=== PATIENT | female | born 1965 | race Caucasian/White ===

== ENCOUNTER 2022-07-25 16:25 | Outpatient (CLI) | payer BC, SELFPAY ==
[2022-07-25 14:41] LABS: Albumin* 4.3 g/dL (3.3-5.0); Chloride* 104 mmol/L (96-114); Sodium* 140 mmol/L (135-149)
[2022-07-25 14:42] LABS: Potassium* 4.7 mmol/L (3.6-5.1)
[2022-07-25 14:43] LABS: Cholesterol* 275 mg/dL (90-199)
[2022-07-25 14:44] LABS: Alkaline Phosphatase* 93 U/L (40-150); Aspartate Amino Transferase* 26 U/L (12-35); Blood Urea Nitrogen* 26 mg/dL (7-30); Carbon Dioxide* 27 mmol/L (20-32); Estimated Glomerular Filt Rate 67 ml/min; Glucose* 94 mg/dL (60-115); Total Protein* 7.1 g/dL (6.0-8.3)
[2022-07-25 15:43] LABS: Alanine Aminotransferase* 21 U/L (4-35); Calcium* 9.2 mg/dL (8.4-10.6); HDL Cholesterol* 43 mg/dL (>=50); LDL Cholesterol Calculated 170 mg/dL (<100); Triglycerides* 311 mg/dL (40-149)
== END 2022-07-25 16:26 | disposition home or self-care (01) ==
PROVIDERS: PCP Family Medicine; Visit Provider Family Medicine
DX: E78.5 Hyperlipidemia, unspecified (principal); G89.29 Other chronic pain; I10 Essential (primary) hypertension; M54.9 Dorsalgia, unspecified; Z79.899 Other long term (current) drug therapy
CPT/HCPCS: 80053; 80061

== ENCOUNTER 2022-09-19 09:36 | Outpatient (CLI) | payer BC, SELFPAY ==
[2022-09-19 14:01] LABS: Chloride* 107 mmol/L (96-114); Iron* 49 ug/dL (37-170); Potassium* 4.1 mmol/L (3.6-5.1); Sodium* 142 mmol/L (135-149)
[2022-09-19 14:04] LABS: Blood Urea Nitrogen* 22 mg/dL (7-30); Calcium* 9.8 mg/dL (8.4-10.6); Carbon Dioxide* 25 mmol/L (20-32); Creatinine* 0.9 mg/dL (0.5-1.5); Estimated Glomerular Filt Rate 76 ml/min; Glucose* 107 mg/dL (60-115)
[2022-09-19 14:32] LABS: Ferritin* 49.7 ng/mL (11.1-264.0)
[2022-09-19 14:47] LABS: Vitamin B12* 280 pg/mL (243-894)
[2022-09-21 20:58] LABS: Folate, RBC 710 ng/mL (>=366)
== END 2022-09-19 09:37 | disposition home or self-care (01) ==
PROVIDERS: PCP Family Medicine; Visit Provider Family Medicine
DX: Z01.818 Encounter for other preprocedural examination (principal); D64.9 Anemia, unspecified
CPT/HCPCS: 80048; 82607; 82728; 82747; 83540

== ENCOUNTER 2022-09-22 11:20 | Emergency (ER) | payer BC, SELFPAY ==
[2022-09-22 11:23] VITALS: BP 205/106; PULSE 66; TEMP 36.1; O2SAT 100; BMI 34.5
--- NOTE | 2022-09-22 11:44 | CRLHL7_ITS ---
For Patients: As a result of the Century Cures Act, medical imaging exams and procedure reports are released immediately into your electronic medical record. You may view this report before your referring provider. If you have questions, please contact your health care provider. Indication: Right-sided flank pain, history of kidney stones Technique: Volumetric multidetector CT images of the abdomen and pelvis were without the administration of intravenous contrast. Comparison: None available. Findings: The lung bases are clear. The liver is mildly enlarged with minimal hepatic steatosis. There is focal calcification along the anterior right liver lobe commensurate with likely vascular calcification and/or sequela of prior injury. Gallbladder surgically absent. There is minimal risk for dilatation of the common bile duct. The spleen is normal in attenuation and size. The stomach and duodenum are grossly unremarkable. The pancreas is normal in attenuation without significant atrophy. The adrenal glands are unremarkable. There are nonobstructive calculi seen within the left greater than right collecting system. There is no evidence of distal obstructive calculus or hydronephrosis. There is moderate stool seen throughout the colon with demonstration of a focal epigastric hernia containing a loop of transverse colon. There is no evidence of obstruction. The small bowel is decompressed. The appendix is unremarkable. There is no significant mesenteric, retroperitoneal, or pelvic sidewall lymph nodes. The aorta is nonaneurysmal. There is no significant atherosclerotic disease appreciated. There is prior hysterectomy. There is again seen a somewhat multiloculated cystic lesion of the right ovary measuring up to 4.4 x 3.3 centimeters in greatest dimension slightly increased in conspicuity from comparison exam. No other pelvic abnormality is appreciated. There is no free fluid or free air. There is a fat containing epigastric hernia. The lumbar vertebral body heights are grossly maintained with extensive anterior and posterior fusion changes of the L3 through S1 levels. There is minimal retrolisthesis of L2 on L3. Impression: No evidence of radiopaque calculus or obstructive uropathy. Normal appendix. Prior cholecystectomy. Redemonstration of a multiloculated cystic right adnexal mass lesion measuring 4.4 x 3.3 centimeters, slightly increased in conspicuity from comparison. Otherwise, no acute intra-abdominal abnormality is appreciated. Please note that all CT scans at this facility use dose modulation, iterative reconstruction, and/or weight-based dosing when appropriate to reduce radiation dose to as low as reasonably achievable. Dictated by Matthew Ponce MD @ 09/22/2022 1:30:14 PM (Electronically Signed)
--- NOTE | 2022-09-22 11:46 | ED_ITS ---
HPI - General Adult General Chief complaint: Back Injury/Pain Stated complaint: Right side back pain Time Seen by Provider: 09/22/22 11:40 History of Present Illness HPI narrative: This 57-year-old female comes in with right flank pain. This began last night and became much worse today. She does not report any injury event or strenuous activity. She states that she does have history of kidney stones in the past and wonders if this is another such episode. She does report nausea with vomiting. Related Data Home Medications Medication Instructions Recorded Confirmed metoprolol succinate 100 mg mg PO 07/21/22 09/19/22 tablet,extended release 24 hr omeprazole 20 mg capsule,delayed 20 mg PO QDAY 07/21/22 09/19/22 release Previous Rx's Medication Instructions Recorded sennosides 8.6 mg-docusate sodium 1 tab-cap PO QHS #90 tabs 07/21/22 50 mg tablet (Senokot-S) zolpidem 5 mg tablet 5 mg PO QHS PRN insomnia #30 tabs 07/21/22 peg 3350-electrolytes 236 4,000 ml PO DIRECTED PRN prep 09/04/22 gram-22.74 gram-6.74 gram-5.86 #2 btls gram solution (Golytely) amlodipine 5 mg tablet 5 mg PO QDAY #90 tabs 09/19/22 losartan 100 mg tablet 100 mg PO QDAY #90 tabs 09/19/22 oxycodone 10 mg tablet 10 mg PO QID #120 tabs 09/19/22 oxycodone 15 mg tablet,crush 15 mg PO BID #60 tabs 09/19/22 resistant,extended release 12 hr (OxyContin) rosuvastatin 10 mg tablet 10 mg PO DAILY #90 tabs 09/19/22 cephalexin 500 mg capsule 500 mg PO TID 7 days #21 caps 09/22/22 ketorolac 10 mg tablet 10 mg PO TID 5 days #15 tabs 09/22/22 methylprednisolone 4 mg tablets in See Rx Instructions PO .COMPLEX 09/22/22 a dose pack (Medrol (Vladislav)) #21 ea ondansetron HCl 4 mg tablet 4 mg PO Q6H #20 tabs 09/22/22 Allergies Allergy/AdvReac Type Severity Reaction Status Date / Time latex Allergy Mild Rash Verified 09/19/22 09:19 adhesive tape Allergy Verified 09/19/22 09:19 duloxetine [From Cymbalta] Allergy Verified 09/19/22 09:19 gabapentin Allergy Verified 09/19/22 09:19 tramadol Allergy Verified 09/19/22 09:19 Review of Systems Status of ROS: Reports: 10 or more systems reviewed and unremarkable except as noted in History and below Narrative: Constitutional: No fevers, no weight gain or loss. Eyes: No discharge. No vision changes. HENT: No congestion, no sore throat, no ear pain. Cardiovascular: No chest pain, no palpitations. Respiratory: No shortness of breath, no wheezes, no cough. Gastrointestinal: Right flank pain. Nausea with vomiting. Genitourinary: No dysuria, no hematuria. Musculoskeletal: Normal range of motion. Skin: No rashes, no pruritis. Neurological: No dizziness, weakness, sensory change, speech change. Endo/Heme/Allergies: No bruising or bleeding. No polydipsia. Pysch: no suicidality, no anxiety, no insomnia. All other systems reviewed and are negative. PFSH [facility] Medical History (Updated 09/22/22 @ 13:48 by Jony Brandt MD) Abnormal kidney function Adjustment disorder with mixed anxiety and depressed mood Age-related cataract of both eyes Atypical chest pain Back pain, chronic Chronic pain syndrome Coccyx pain Coronary artery disease Cyst of left lower eyelid GERD (gastroesophageal reflux disease) Healthcare maintenance HTN, goal below 140/90 Hyperlipidemia Insomnia Opioid dependence Pelvic mass Peripheral sensory neuropathy Polypharmacy Skin tag Spondylolisthesis of lumbar region Urinary incontinence Vitamin D deficiency Surgical History (Updated 07/24/22 @ 14:30 by Melonie Issa) History of hemilaminectomy History of lumbar spinal fusion Hx of breast biopsy Hx of cholecystectomy Hx of hernia repair Hx of hysterectomy with oophorectomy Family History (Updated 07/24/22 @ 14:32 by Melonie Issa) Father Coronary artery disease Mother Lung cancer Myocardial infarction Heart disease Maternal Grandmother Diabetes Social History Smoking Status: Never smoker How often do you have a drink containing alcohol: never How often do you have six or more drinks on one occasion: Never AUDIT-C Alcohol total score: 0 Non-prescribed substance use: denies use Exam Narrative: Exam Narrative: Constitutional: Well-developed, well-nourished, no acute distress. HEENT: Normocephalic, atraumatic. Neck: Normal range of motion. Nontender. Supple. Heart: Regular. No murmurs. Normal rate. Intact distal pulses. Lungs: Clear to auscultation. No chest discomfort. No wheezes, rhonchi, or rales. Abdomen: Normal bowel sounds. Nontender. No rebound tenderness. Right flank pain. Genitalia: Deferred. Back: No midline tenderness. Normal range of motion. Extremities: Normal range of motion. No injury. Skin: Intact. No rash. Warm. No erythema or pallor. Neurologic: No altered sensation. No weakness. Alert and oriented. Psychiatric: No suicidality. No anxiety or depression. No insomnia. Nursing notes and vitals signs are reviewed. Const: Vital Signs, click to edit/add: Vital Signs - 24 hr 09/22/22 11:23 09/22/22 12:45 09/22/22 12:57 Temperature 96.9 F L Pulse Rate 66 Pulse Rate [Pulse Oximeter] 66 Blood Pressure 146/91 H Blood Pressure [Ri ght Upper Arm] 205/106 H Pulse Oximetry 100 97 99 Oxygen Delivery Me thod Room Air 09/22/22 12:58 Temperature Pulse Rate 64 Pulse Rate [Pulse Oximeter] Blood Pressure Blood Pressure [Ri ght Upper Arm] Pulse Oximetry 99 Oxygen Delivery Me thod Course Vital Signs Vital signs: Initial Vital Signs Temperature 96.9 F L 09/22/22 11:23 Temperature Source Temporal Artery Scan 09/22/22 11:23 Pulse Rate 66 09/22/22 11:23 Blood Pressure 205/106 H 09/22/22 11:23 Blood Pressure Mean 139 09/22/22 11:23 Pulse Oximetry 100 09/22/22 11:23 Oxygen Delivery Method 09/22/22 11:23 Vital Signs Temperature 96.9 F L 09/22/22 11:23 Pulse Rate 66 09/22/22 11:23 Blood Pressure 205/106 H 09/22/22 11:23 Pulse Oximetry 100 09/22/22 11:23 Oxygen Delivery Method 09/22/22 11:23 Temperature 96.9 F L 09/22/22 11:23 Pulse Rate 64 09/22/22 12:58 Blood Pressure 146/91 H 09/22/22 12:57 Pulse Oximetry 99 09/22/22 12:58 Oxygen Delivery Method 09/22/22 11:23 Medical Decision Making MDM Narrative Medical decision making narrative: This patient comes in with right flank pain and is concerned about a kidney stone. Urinalysis shows no sign microscopic hematuria but there is white blood cell count of 10 to 25 per high-powered field. She is not reporting any sy mptoms of dysuria. CT imaging of the abdomen and pelvis shows no evidence of ureteral calculus or any other obstructive process. She does have extensive hardware in her back and it seems more likely that her right flank pain may be related to that prior condition. She does not have any pain radiating down either leg. Patient received IV doses of Toradol 30 mg, Dilaudid 0.5 mg, and Zofran 4 mg. This brought great relief to her symptoms. She is taking opiates for her chronic back pain. She is okay to be discharged home. She received prescriptions for Keflex, Toradol, Medrol Dosepak, and Zofran. I advised her to follow-up with her back specialist if symptoms are not improving. Lab Data Labs: Lab Results 09/22/22 Range/Units 12:00 Urine Color Yellow (Yellow) Urine Appearance Clear (Clear) Urine pH 6.0 (5.0-8.5) Ur Specific [place] >= 1.030 (1.000-1.030) Urine Protein Negative (Negative) Urine Glucose (UA) Negative (Negative) Urine Ketones Negative (Negative) Urine Blood Trace-intact A (Negative) Urine Nitrite Negative (Negative) Urine Bilirubin Negative (Negative) Urine Urobilinogen 0.2 (0.2-1.0) Ur Leukocyte Esterase Negative (Negative) Urine RBC 0-2 (0-2) Urine WBC 10-25 A (0-5) Ur Squamous Epith Cells Few (None-Few) Other Sediment FEW YEAST (None) Urine Bacteria Many A (None) Imaging Data CT scan - abdomen: Radiologist's impression: No evidence of radiopaque calculus or obstructive uropathy. Normal appendix. Prior cholecystectomy. Redemonstration of a multiloculated cystic right adnexal mass lesion measuring 4.4 x 3.3 centimeters, slightly increased in conspicuity from comparison. Discharge Plan Discharge Clinical Impression: Urinary tract infection, Flank pain Patient Disposition: Home w/ Parent or Adult Condition: Improved Additional Instructions: Take medications as prescribed. Follow up with MD or return if worsening. Prescriptions: New ondansetron HCl 4 mg tablet 4 mg PO Q6H Qty: 20 0RF ketorolac 10 mg tablet 10 mg PO TID 5 Days Qty: 15 0RF cephalexin 500 mg capsule 500 mg PO TID 7 Days Qty: 21 0RF methylprednisolone [Medrol (Vladislav)] 4 mg tablets,dose pack See Rx Instructions .ROUTE .COMPLEX Qty: 21 0RF Rx Instructions: orally per package directions No Action omeprazole 20 mg capsule,delayed release(DR/EC) 20 mg PO QDAY Label Comments: Take 1 capsule by mouth once daily if needed for GI Upset metoprolol succinate 100 mg tablet extended release 24 hr PO Label Comments: TAKE ONE TABLET BY MOUTH TWICE DAILY zolpidem 5 mg tablet 5 mg PO QHS PRN (Reason: insomnia) Qty: 30 5RF sennosides-docusate sodium [Senokot-S] 8.6-50 mg tablet 1 tab-cap PO QHS Qty: 90 1RF oxycodone 10 mg tablet 10 mg PO QID Qty: 120 0RF oxycodone [OxyContin] 15 mg tablet,oral only,ext.rel.12 hr 15 mg PO BID Qty: 60 0RF losartan 100 mg tablet 100 mg PO QDAY Qty: 90 1RF amlodipine 5 mg tablet 5 mg PO QDAY Qty: 90 3RF rosuvastatin 10 mg tablet 10 mg PO DAILY Qty: 90 0RF peg 3350-electrolytes [Golytely] 236-22.74-6.74 -5.86 gram recon soln 4,000 ml PO DIRECTED PRN (Reason: prep) Qty: 2 0RF Rx Instructions: 2 days prior to scopes, between 4 and 6 p.m., drink 8 oz glass every 15 minutes until half a gallon is gone. 1 day before procedure at 9am drink 8oz glass every 15 minutes until remaining solution from 1st bottle is gone. Between 4-6pm drink 8oz glass of solution every 15 minutes until 1/2 of the solution is gone. Day of procedure 6 hours prior Drink 1 8oz glass of solution every 15 minutes until 1/2 of the solution from the 2nd bottle is gone. Follow Up/Referrals: Bk Handy MD [Primary Care Provider] - Stand Alone Forms: [facility] Info Instructions
[2022-09-22 12:10] LABS: Appearance Urine Clear (Clear); Bilirubin Urine Negative (Negative); Blood Urine Trace-intact (Negative); Color Urine Yellow (Yellow); Glucose Urine Negative (Negative); Ketones Urine Negative (Negative); Leukocyte Esterase Urine Negative (Negative); Nitrite Urine Negative (Negative); Protein Urine Negative (Negative); Specific Gravity Urine >= 1.030 (1.000-1.030); Urobilinogen Urine 0.2 (0.2-1.0)
[2022-09-22 12:36] LABS: Bacteria Urine Many; Other Sediment Urine FEW YEAST; RBC Urine 0-2 (0-2); Squamous Epithelial Cell Urine Few (None-Few)
[2022-09-22] MEDS: ONDANSETRON 2 MG/ML inj 4 MG IVP (12:43)
[2022-09-22 12:45] VITALS: O2SAT 97
[2022-09-22] MEDS: HYDROmorphone 0.5 mg/0.5 ml inj IVP (12:46)
[2022-09-22] MEDS: KETOROLAC 30 MG/ML inj IVP (12:51)
[2022-09-22 12:58] VITALS: PULSE 64; O2SAT 99
[2022-09-22 13:30] VITALS: BP 168/83
[2022-09-22 13:45] VITALS: PULSE 55; O2SAT 97
== END 2022-09-22 14:01 | disposition home or self-care (01) ==
PROVIDERS: Emergency Provider Emergency Medicine Emergency Medical Services; PCP Family Medicine
DX: N39.0 Urinary tract infection, site not specified (principal); R10.9 Unspecified abdominal pain
CPT/HCPCS: 74176; 81001; 87086; 87186; 94761; 96374; 96375; 99284; J1170; J1885; J2405

== ENCOUNTER 2022-10-26 14:50 | Outpatient (CLI) | payer BC, SELFPAY | END 2022-10-26 14:51 | disposition home or self-care (01) | PROVIDERS: PCP Family Medicine; Visit Provider Physician Assistant Medical | DX: Z01.818 Encounter for other preprocedural examination (principal); R32 Unspecified urinary incontinence | CPT/HCPCS: 87086; 87186 ==

== ENCOUNTER 2022-10-30 07:05 | Outpatient (CLI) | payer BC, SELFPAY ==
[2022-10-30 08:20] LABS: SARS Antigen* negative (Negative)
--- NOTE | 2022-10-30 09:28 | W.ANESCHARGE ---
Anesthesia Charges Start Date/Time Anesthesia Start Date: 10/30/22 Anesthesia Start Time: 08:28 Stop Date/Time Anesthesia Stop Date: 10/30/22 Anesthesia Stop Time: 09:22
--- NOTE | 2022-10-30 09:49 | W.ANESCHARGE ---
Anesthesia Charges Start Date/Time Anesthesia Start Date: 10/30/22 Anesthesia Start Time: 08:28 Stop Date/Time Anesthesia Stop Date: 10/30/22 Anesthesia Stop Time: 09:22
== END 2022-10-30 07:06 | disposition home or self-care (01) ==
LOC: OP CLINIC 07:05
PROVIDERS: PCP Family Medicine; Visit Provider Internal Medicine
DX: Z12.11 Encounter for screening for malignant neoplasm of colon (principal); K63.5 Polyp of colon; K31.7 Polyp of stomach and duodenum; K21.9 Gastro-esophageal reflux disease without esophagitis
CPT/HCPCS: 00813; 43239; 45380; 87426; 88305; J2405; J2704; J3490

== ENCOUNTER 2022-12-01 08:02 | Outpatient (CLI) | payer BC, SELFPAY | END 2022-12-01 08:03 | disposition home or self-care (01) | PROVIDERS: PCP Family Medicine; Visit Provider Obstetrics & Gynecology | DX: N94.89 Other specified conditions associated with female genital organs and menstrual cycle (principal); R19.00 Intra-abdominal and pelvic swelling, mass and lump, unspecified site | CPT/HCPCS: 82378; 86301; 86304 ==

== ENCOUNTER 2022-12-04 12:42 | Outpatient (CLI) | payer BC, SELFPAY ==
--- NOTE | 2022-12-04 13:00 | CRLHL7_ITS ---
For Patients: As a result of the Century Cures Act, medical imaging exams and procedure reports are released immediately into your electronic medical record. You may view this report before your referring provider. If you have questions, please contact your health care provider. CLINICAL HISTORY: Right adnexal lesion CT Comparison CT 09/22/2022 TECHNIQUE: Real time, zhao scale images were acquired of the pelvis using a transabdominal and transvaginal approach. Color Doppler analysis was performed of the ovaries. FINDINGS: Hysterectomy. Right adnexal 4.7 X 3.5 x3.2 centimeter multi septated cystic lesion probably right ovarian however discrete ovarian tissue not clearly seen. There is some color blood flow. Left ovary is seen. No free fluid. IMPRESSION: 4.7 x 3.5 x 3.2 centimeter right adnexal multiseptated cystic lesion could be ovarian. This persists from the CT scan from 09/22/2022 would recommend gynecology consultation. Dictated by Sherin Marsh MD @ 12/05/2022 5:46:49 AM (Electronically Signed)
== END 2022-12-04 12:43 | disposition home or self-care (01) ==
PROVIDERS: PCP Family Medicine; Visit Provider Obstetrics & Gynecology
DX: R19.00 Intra-abdominal and pelvic swelling, mass and lump, unspecified site (principal)
CPT/HCPCS: 76830

== ENCOUNTER 2022-12-18 16:02 | Outpatient (CLI) | payer BC, SELFPAY ==
--- OUTSIDE RECORDS SUMMARY | 2022-12-18 16:08 | XMS_ITS | Continuity of Care Document ---
Author Name Unknown Organization [facility] Address [address] [place] [id number] Phone Care Team Providers Care Sonography Technician Name Role Phone Will MD GARZA, Veto Unavailable Unavailabl e Allergies, Adverse Reactions, Alerts Substance Reaction Status Criticality latex Active No Information Medications Medication Instructions Dosage Effective Dates (start - stop) Status Comments OXYCONTIN (unknown strength) take 1 tablet by oral route every 12 hours Not Available - Active OXYCODONE HCL (unknown strength) take 1 tablet by oral route every 4 - 6 hours Not Available - Active METOPROLOL TARTRATE (unknown strength) take 1 tablet by oral route 2 times every day Not Available - Active LISINOPRIL (unknown strength) take 1 tablet by oral route every day Not Available - Active AMBIEN (unknown strength) take 1 tablet by oral route every day at bedtime Not Available - Active Procedures Procedure Date Drug Urine Toxology With Chromatography Drug test def 8-14 classes OFFICE/OUTPATIENT VISIT, [facility] Advance Directives Directive Yes / No Effective Date File Name No Information Encounters Encounter Description Practice Location Reason(s) For Visit Diagnoses Date Provider Providers Copied on Encounter [facility], [address], [place], [id number] , [place] tel:[phone] [facility] [place] No Information [address] [facility] [place], [place], [id number] , [place]. tel:[phone] [facility], [address], [place], [id number] , [place] tel:[phone] [facility] [place] No Information 2 Vinicio Argueta. [address] [facility] [address], [place], [place], [id number] , [place]. tel:[phone] Referring Provider: Veto Norman, [address] [place], [address]. tel:[phone] OFFICE/OUTPA TIENT VISIT, [facility], [address], [place], [id number] , [place] tel:[phone] [facility] Back pain (chief complaint) Chronic pain syndromeLow back pain, unspecifiedLong term (current) use of opiate analgesicEncounter for therapeutic drug level monitoring 2 Vinicio Argueta. [address] [facility] [address], [place], [place], [id number] , [place]. tel:[phone] Referring Provider: Bk Handy, [facility] [address], [place], [address]. tel:[phone] Family History Family Member Type Diagnosis Age At Onset Sister Problem Back pain/issues Payers Payer name Insurance type Covered constitution party ID Authorshayan roth(s) Blue Cross Blue Jojo Gentile BL [id number] 2 Social History Type Description Quantity Date Captured Comments Alcohol Use Details Unknown Caffeine Use Details Unknown Tobacco Use Status No Information Smoking Status No Information Sex Female Chief Complaint And Reason For Visit No Information Reason For Referral Reason For Referral No Information Plan Of Treatment Date Type Action Status Goal HPV. Due on due Goal Review Allergy List. Due on due Goal Hepatitis C screening. Due o n due Goal FIT. Due on due Goal FIT-DNA. Due on due Goal Zoster vaccine (1st). Due on due Goal Medication Reconciliation. D ue on due Goal PHQ-9. Due on du e Goal Update Social History. Due o n due Goal Unhealthy drug use screening . Due on due Goal Weight. Due on d ue Goal Height. Due on d ue Goal CT-Colonography. Due on due Goal Lipid panel. Due on due Goal Tobacco Use. Due on due Goal ALT (SGPT). Due on due Goal AST (SGOT). Due on due Goal DIRECTOR OF RECRUITMENT AND ADMISSIONS Paperwork. Due on due Goal OARS. Due on due Goal Order Annual PT. Due on due Goal UDT. Due on due Goal MANAGER DISTRIBUTION Scanned. Due on due Goal Creatinine. Due on due Goal Order Annual PT. Due on due Goal AST (SGOT). Due on due Goal ALT (SGPT). Due on due Goal OARS. Due on due Goal DIRECTOR OF RECRUITMENT AND ADMISSIONS Paperwork. Due on due Goal MANAGER DISTRIBUTION Scanned. Due on due Goal Creatinine. Due on due Goal UDT. Due on due Goal UDT. Due on due Goal MANAGER DISTRIBUTION Scanned. Due on due Goal ALT (SGPT). Due on due Goal Creatinine. Due on due Goal Order Annual PT. Due on due Goal DIRECTOR OF RECRUITMENT AND ADMISSIONS Paperwork. Due on due Goal OARS. Due on due Goal AST (SGOT). Due on due Goal Weight. Due on d ue Goal FIT. Due on due Goal Zoster vaccine (). Due on due Goal Height. Due on d ue Goal Hepatitis C screening. Due o n due Goal CT-Colonography. Due on due Goal Update Social History. Due o n due Goal Lipid panel. Due on due Goal PHQ-9. Due on du e Goal Review Allergy List. Due on due Goal HPV. Due on due Goal Unhealthy drug use screening . Due on due Goal FIT-DNA. Due on due Goal Tobacco Use. Due on due Goal Medication Reconciliation. D ue on due Goal Weight. Due on d ue Goal FIT. Due on due Goal Zoster vaccine (1st). Due on due Goal Height. Due on d ue Goal Hepatitis C screening. Due o n due Goal CT-Colonography. Due on due Goal Update Social History. Due o n due Goal Lipid panel. Due on 022 due Goal PHQ-9. Due on du e Goal Review Allergy List. Due on due Goal HPV. Due on due Goal Unhealthy drug use screening . Due on due Goal FIT-DNA. Due on due Goal Tobacco Use. Due on due Goal Medication Reconciliation. D ue on due History Of Present Illness Encounter Date Complaint History Of Prese nt Illness Comments: Daija fraser is a 57 y/o woman here for initial consult regarding chronic back pain with radiation into BLE, referred by Dr. Bk Handy. Hx of back surgery, most recently in January of [address] Montelongo. Has also undergone back surgery with Dr. Justin Cuba of [facility] in 2015. Reports that Further surgery of her upper lumbar region was recommended, but patient would not like to pursue further surgical intervention. Pain is characterized as dull, sore, and tight pain. Secondarily notes constant tingling in BL feet. Pain level averages 8/10.For pain management, patient has tried PT at [facility], has undergone a lumbar epidural steroid injection at [facility], and has tried the following medications:- Gabapentin- Lyrica- Cyclobenzaprine- NSAIDS- Tramadol- Codeine- HydrocodoneCurrently managed on Oxycodone 10mg QID and OxyContin 15mg BID, prescribed by her new PCP, Dr. Bk Handy, at [facility].Sheri is interested in pain management through [facility]. No other concerns today. Back pain Severity level i s 8. Duration: chronic. The problem is stable. It occurs persistently. The client describes the pain as dull, tight, sore and tingling. Symptoms are aggravated by ascending stairs, bending, descending stairs, lifting, lying/rest, running, sitting and standing. Symptoms are relieved by heat and ice. Functional Status Date Functional Assessmen t No Information Instructions Date Instruction Additional Infor mation No Information Assessments Type Assessment Date No Information Patient Care Teams Name Effective Dates (start - stop) Status Members No Information
== END 2022-12-18 16:03 | disposition home or self-care (01) ==
LOC: LKVREF 16:06
PROVIDERS: PCP Family Medicine; Visit Provider Family Medicine
DX: E66.9 Obesity, unspecified (principal); D64.9 Anemia, unspecified; R73.03 Prediabetes; E78.5 Hyperlipidemia, unspecified; I10 Essential (primary) hypertension; E55.9 Vitamin D deficiency, unspecified; R32 Unspecified urinary incontinence; R00.2 Palpitations
CPT/HCPCS: 80053; 86304; 87086; 87186

== ENCOUNTER 2023-03-09 16:03 | Emergency (ER) | payer BC, SELFPAY ==
[2023-03-09 16:11] VITALS: BP 186/106; PULSE 66; RESP 14; TEMP 35.8; O2SAT 100
--- NOTE | 2023-03-09 16:24 | CRLHL7_ITS ---
For Patients: As a result of the Century Cures Act, medical imaging exams and procedure reports are released immediately into your electronic medical record. You may view this report before your referring provider. If you have questions, please contact your health care provider. INDICATION: Leg pain COMPARISON: None. TECHNIQUE: A compression venous ultrasound exam was performed of the right lower extremity using zhao-scale imaging, color Doppler and spectral Doppler analysis. FINDINGS: Sonographic imaging of the right lower extremity demonstrates normal compressibility and color Doppler venous blood flow within the common femoral vein, deep femoral vein, and the proximal greater saphenous vein. Within the thigh, the femoral vein is patent and compressible. At a lower level, the popliteal and posterior tibial veins also show normal compressibility and color Doppler venous blood flow. Limited imaging of the contralateral groin demonstrates a normal spectral waveform and color Doppler venous blood flow within the left common femoral vein. IMPRESSION: Normal venous ultrasound exam. No evidence of deep vein thrombosis within the right lower extremity. Dictated by Alex Carl MD @ 03/10/2023 2:55:38 PM (Electronically Signed)
--- NOTE | 2023-03-09 16:25 | ED_ITS ---
HPI - General Adult General Time Seen by Provider: 16:25 Date Seen: 03/09/23 Chief complaint: Extremity Pain/Injury, Lower Stated complaint: Right leg pain Time Seen by Provider: 03/09/23 16:29 Source: patient, RN notes reviewed and old records reviewed Mode of arrival: ambulatory Limitations: no limitations History of Present Illness HPI narrative: 57-year-old female who was referred to the emergency department clinic for right leg swelling. She says this been going on for 5 or 6 days. No known injury. Pain when she tries to step up into her car. No chest pain or breathing difficulty, initially presented to clinic and was referred to the emergency department due to concern for possible DVT. No history of clots. Related Data Previous Rx's Medication Instructions Recorded sennosides 8.6 mg-docusate sodium 1 tab-cap PO QHS #90 tabs 07/21/22 50 mg tablet (Senokot-S) amlodipine 5 mg tablet 5 mg PO QDAY #90 tabs 09/19/22 losartan 100 mg tablet 100 mg PO QDAY #90 tabs 11/22/22 fluoxetine 20 mg capsule (Prozac) 20 mg PO QDAY #30 caps 12/18/22 metoprolol succinate 100 mg 100 mg PO QDAY #90 tabs 12/18/22 tablet,extended release 24 hr omeprazole 20 mg capsule,delayed 20 mg PO BID #60 caps 12/18/22 release oxycodone 15 mg tablet,crush 15 mg PO BID #60 tabs 12/18/22 resistant,extended release 12 hr (OxyContin) sulfamethoxazole 800 1 tab PO BID #14 tabs 12/20/22 mg-trimethoprim 160 mg tablet (Bactrim DS) zolpidem 5 mg tablet 5 mg PO QHS PRN insomnia #30 tabs 02/02/23 oxycodone 10 mg tablet 10 mg PO QID #120 tabs 02/13/23 Allergies Allergy/AdvReac Type Severity Reaction Status Date / Time latex Allergy Mild Rash Verified 03/09/23 16:12 adhesive tape Allergy Verified 03/09/23 16:12 duloxetine [From Cymbalta] Allergy Verified 03/09/23 16:12 gabapentin Allergy Verified 03/09/23 16:12 tramadol Allergy Verified 03/09/23 16:12 [facility] Medical History (Updated 03/09/23 @ 17:03 by Reddy Morales MD) Obesity (BMI 30-39.9) ?E66.9 - Obesity, unspecified (ICD-10) Atypical chest pain ?R07.89 - Other chest pain (ICD-10) Pelvic mass ?R19.00 - Intra-abdominal and pelvic swelling, mass and lump, unspecified site (ICD-10) Cyst of left lower eyelid ?H02.825 - Cysts of left lower eyelid (ICD-10) Adjustment disorder with mixed anxiety and depressed mood ?F43.23 - Adjustment disorder with mixed anxiety and depressed mood (ICD-10) Age-related cataract of both eyes ?H25.9 - Unspecified age-related cataract (ICD-10) Opioid dependence ?F11.20 - Opioid dependence, uncomplicated (ICD-10) Chronic pain syndrome ?G89.4 - Chronic pain syndrome (ICD-10) Spondylolisthesis of lumbar region ?M43.16 - Spondylolisthesis, lumbar region (ICD-10) Peripheral sensory neuropathy ?G60.8 - Other hereditary and idiopathic neuropathies (ICD-10) Urinary incontinence ?R32 - Unspecified urinary incontinence (ICD-10) GERD (gastroesophageal reflux disease) ?K21.9 - Gastro-esophageal reflux disease without esophagitis (ICD-10) Vitamin D deficiency ?E55.9 - Vitamin D deficiency, unspecified (ICD-10) Coronary artery disease ?I25.10 - Atherosclerotic heart disease of [place] coronary artery without angina pectoris (ICD-10) Hyperlipidemia ?E78.5 - Hyperlipidemia, unspecified (ICD-10) Insomnia ?G47.00 - Insomnia, unspecified (ICD-10) Polypharmacy ?Z79.899 - Other ferry terminal supervisor (current) drug therapy (ICD-10) Back pain, chronic ?M54.9 - Dorsalgia, unspecified (ICD-10) ?G89.29 - Other chronic pain (ICD-10) HTN, goal below 140/90 ?I10 - Essential (primary) hypertension (ICD-10) Kidney calculus ?N20.0 - Calculus of kidney (ICD-10) Surgical History (Updated 10/26/22 @ 12:50 by Avani Salinas PA-C) History of hernia repair ?Z98.890 - Other specified postprocedural states (ICD-10) ?Z87.19 - Personal history of other diseases of the digestive system (ICD-10) History of lumbar surgery ?Z98.890 - Other specified postprocedural states (ICD-10) History of lumbar fusion ?Z98.1 - Arthrodesis status (ICD-10) History of breast biopsy ?Z98.890 - Other specified postprocedural states (ICD-10) History of cholecystectomy ?Z90.49 - Acquired absence of other specified parts of digestive tract (ICD- 10) History of oophorectomy Family History (Updated 07/24/22 @ 14:32 by Melonie Issa) Father Coronary artery disease Mother Lung cancer Myocardial infarction Heart disease Maternal Grandmother Diabetes Social History Smoking Status: Never smoker Do you use any of these nicotine containing products: None Second hand tobacco smoke exposure: No How often do you have a drink containing alcohol: never How often do you have six or more drinks on one occasion: Never AUDIT-C Alcohol total score: 0 Non-prescribed substance use: denies use Exam Narrative: Exam Narrative: General: well nourished , NAD Head: Atraumatic and normocephalic ENT: External ears and external nose are normal Eyes: Conjunctiva clear, pupils are equal reactive, external ocular motions are intact Neck: Full spontaneous range of motion of the neck Lungs: No respiratory distress Musculoskeletal: No tenderness or deformity, no lower extremity swelling, no tenderness of the calf, popliteal fossa, or medial thigh Neurologic: No gross focal neurologic deficits Skin: No rashes Psych: Mood and affect are appropriate Const: Vital Signs, click to edit/add: Vital Signs - 24 hr 03/09/23 16:11 Temperature 96.4 F L Pulse Rate [Right Pulse Oximeter] 66 Respiratory Rate 14 Blood Pressure [Ri ght Upper Arm] 186/106 H Pulse Oximetry 100 Oxygen Delivery Me thod Room Air Course Course Hospital Course: Patient seen examined, prior records reviewed. Patient with right leg pain from the distal thigh to the proximal calf. Worse with walking and stepping up. Symptoms most consistent with musculoskeletal pain, but was referred here for ultrasound and so this will be performed at her request. Reevaluation(s) Time of Reevaluation #1: 17:02 Reevaluation #1: Ultrasound of the right lower extremity negative for DVT. Patient is stable for discharge. Vital Signs Vital signs: Initial Vital Signs Temperature 96.4 F L 03/09/23 16:11 Temperature Source Temporal Artery Scan 03/09/23 16:11 Pulse Rate 66 03/09/23 16:11 Pulse Rhythm Regular, Irregularly Irregular 03/09/23 16:11 Respiratory Rate 14 03/09/23 16:11 Blood Pressure 186/106 H 03/09/23 16:11 Blood Pressure Mean 132 H 03/09/23 16:11 Blood Pressure Position Sitting 03/09/23 16:11 Pulse Oximetry 100 03/09/23 16:11 Oxygen Delivery Method Room Air 03/09/23 16:11 Vital Signs Temperature 96.4 F L 03/09/23 16:11 Pulse Rate 66 03/09/23 16:11 Respiratory Rate 14 03/09/23 16:11 Blood Pressure 186/106 H 03/09/23 16:11 Pulse Oximetry 100 03/09/23 16:11 Oxygen Delivery Method Room Air 03/09/23 16:11 Temperature 96.4 F L 03/09/23 16:11 Pulse Rate 66 03/09/23 16:11 Respiratory Rate 14 03/09/23 16:11 Blood Pressure 186/106 H 03/09/23 16:11 Pulse Oximetry 100 03/09/23 16:11 Oxygen Delivery Method Room Air 03/09/23 16:11 Discharge Plan Discharge Clinical Impression: Muscle strain of right lower extremity Patient Disposition: Home, Self-Care Condition: Stable Instructions: Leg Pain (ED) Additional Instructions: Ice or heat for comfort Continue your current medications Follow-up with your primary care doctor in 3-5 days for re-evaluation and consideration of physical therapy Activity Level: Activity as Tolerated Prescriptions: No Action sennosides-docusate sodium [Senokot-S] 8.6-50 mg tablet 1 tab-cap PO QHS Qty: 90 1RF amlodipine 5 mg tablet 5 mg PO QDAY Qty: 90 3RF fluoxetine [Prozac] 20 mg capsule 20 mg PO QDAY Qty: 30 1RF oxycodone [OxyContin] 15 mg tablet,oral only,ext.rel.12 hr 15 mg PO BID Qty: 60 0RF omeprazole 20 mg capsule,delayed release(DR/EC) 20 mg PO BID Qty: 60 1RF metoprolol succinate 100 mg tablet extended release 24 hr 100 mg PO QDAY Qty: 90 0RF Rx Instructions: once daily for blood pressure losartan 100 mg tablet 100 mg PO QDAY Qty: 90 0RF sulfamethoxazole-trimethoprim [Bactrim DS] 800-160 mg tablet 1 tab PO BID Qty: 14 0RF zolpidem 5 mg tablet 5 mg PO QHS PRN (Reason: insomnia) Qty: 30 5RF oxycodone 10 mg tablet 10 mg PO QID Qty: 120 0RF Follow Up/Referrals: Bk Handy MD [Primary Care Provider] - Stand Alone Forms: [facility] Info Instructions
--- OUTSIDE RECORDS SUMMARY | 2023-03-09 17:06 | XMS_ITS | Continuity of Care Document ---
Author Name Unknown Organization [facility] Address [address] [place] [phone] Phone Care Team Providers Care Tnt Powder Worker Name Role Phone Will MD GARZA, Veto [...] Drug test def 8-14 classes OFFICE/OUTPATIENT VISIT, [facility] Advance Directives Directive Yes / No Effective Date File Name No Information Encounters Encounter Description Practice Location Reason(s) For Visit Diagnoses Date Provider Providers Copied on Encounter [facility], [address] [place], [place], [id number] , [place] tel:[phone] [facility] No Information 2 Will Veto. [address] [facility] [place], [place], [id number] , [place]. tel:[phone] [facility], [address] [place], [place], [id number] , [place] tel:[phone] [facility] [place] No Information 2 Vinicio Argueta. [address] [facility] [address], [place], [place], [id number] , [place]. tel:[phone] Referring Provider: Veto Norman, [address] [place], [address]. tel:[phone] OFFICE/OUTPA TIENT VISIT, [facility], [address] [place], [place], [id number] , [place] tel:[phone] [facility] Back pain (chief complaint) Chronic pain syndromeLow back pain, unspecifiedLong term (current) use of opiate analgesicEncounter for therapeutic drug level monitoring 2 Vinicio Argueta. [address] [facility] [address], [place], [place], [id number] , [place]. tel:[phone] Referring Provider: Bk Handy, [facility] [address], [place], [address]. tel:[phone] Family History Family Member Type Diagnosis Age At Onset Sister Problem Back pain/issues Payers Payer name Insurance type Covered constitution party ID Authorshayan roth(s) Blue Cross Blue [employer] BL [id number] 2 Social History Type Description Quantity Date [...] Goal AST (SGOT). Due on due Goal SOCIETY REPORTER Paperwork. Due on due Goal OARS. Due on due Goal Order Annual PT. Due on due Goal UDT. Due on due Goal PIPE FITTER Scanned. Due on due Goal Creatinine. Due on due Goal Order Annual PT. Due on due Goal AST (SGOT). Due on due Goal ALT (SGPT). Due on due Goal OARS. Due on due Goal SOCIETY REPORTER Paperwork. Due on due Goal PIPE FITTER Scanned. Due on due Goal Creatinine. Due on due Goal UDT. Due on due Goal UDT. Due on due Goal PIPE FITTER Scanned. Due on due Goal ALT (SGPT). Due on due Goal Creatinine. Due on due Goal Order Annual PT. Due on due Goal SOCIETY REPORTER Paperwork. Due on due Goal OARS. Due [...] back surgery with Dr. Justin Cuba of [facility] in 2015. Reports that Further surgery of her upper lumbar region was recommended, but patient would not like to pursue further surgical intervention. Pain is characterized as dull, sore, and tight pain. Secondarily notes constant tingling in BL feet. Pain level averages 8/10.For pain management, patient has tried PT at [facility], has undergone a lumbar epidural steroid injection at [facility], and has tried the following medications:- Gabapentin- Lyrica- Cyclobenzaprine- NSAIDS- Tramadol- Codeine- HydrocodoneCurrently managed on Oxycodone 10mg QID and OxyContin 15mg BID, prescribed by her new PCP, Dr. Bk Handy, at [facility].Sheri is interested in pain management [...]
== END 2023-03-09 17:42 | disposition home or self-care (01) ==
LOC: ED 17:04
PROVIDERS: Emergency Provider Family Medicine; PCP Family Medicine
DX: S86.911A Strain of unspecified muscle(s) and tendon(s) at lower leg level, right leg, initial encounter (principal)
CPT/HCPCS: 93971; 99283; 99284

== ENCOUNTER 2023-03-10 18:40 | Emergency (ER) | payer BC, SELFPAY ==
[2023-03-10 18:52] VITALS: BP 183/92; PULSE 62; RESP 18; TEMP 36.3; O2SAT 98; BMI 35.4
[2023-03-10] MEDS: HYDROmorphone 0.5 mg/0.5 ml inj 2 MG IM (20:19)
[2023-03-10] MEDS: LORazepam 2 MG/ML inj 1 MG IM (20:19)
--- OUTSIDE RECORDS SUMMARY | 2023-03-10 20:19 | XMS_ITS | Continuity of Care Document ---
Author Name Unknown Organization [facility] Address [address] [place] [phone] Phone Care Team Providers Care Refrigeration System Installer Name Role Phone Will MD GARZA, Veto [...] Available - Active Procedures Procedure Date Drug test def 8-14 classes Drug Urine Toxology With Chromatography OFFICE/OUTPATIENT VISIT, [facility] Advance Directives Directive Yes / No Effective Date File Name No Information Encounters Encounter Description Practice Location Reason(s) For Visit Diagnoses Date Provider Providers Copied on Encounter [facility], [address] [place], [place], [id number] , [place] tel:[phone] [facility] No Information 2 Will Veto. [address] [facility] [place], [place], [id number] , [place]. tel:[phone] [facility], [address] [place], [place], [id number] , [place] tel:[phone] [facility] [place] No Information 2 Vinicio Argueta. [address] [facility] [address], [place], [place], [id number] , [place]. tel:[phone] Referring Provider: Veto Norman, [address] [place], [address]. tel:[phone] OFFICE/OUTPA TIENT VISIT, [facility], [address] [place], [place], [id number] , [place] tel:[phone] [facility] Back pain (chief complaint) Chronic pain syndromeLow back pain, unspecifiedLong term (current) use of opiate analgesicEncounter for therapeutic drug level monitoring 2 Vinicio Argueta. [address] [facility] [address], [place], [place], [id number] , [place]. tel:[phone] Referring Provider: Bk Handy, [facility] [address], [place], [address]. tel:[phone] Family History Family Member Type Diagnosis Age At Onset Sister Problem Back pain/issues Payers Payer name Insurance type Covered democrat ID Authorshayan roth(s) Blue Cross Blue [employer] BL [id number] 2 Social History Type Description Quantity Date [...] Goal AST (SGOT). Due on due Goal FIELD ADMINISTRATOR Paperwork. Due on due Goal OARS. Due on due Goal Order Annual PT. Due on due Goal UDT. Due on due Goal ACCOUNTANT CERTIFIED PUBLIC Scanned. Due on due Goal Creatinine. Due on due Goal Order Annual PT. Due on due Goal AST (SGOT). Due on due Goal ALT (SGPT). Due on due Goal OARS. Due on due Goal FIELD ADMINISTRATOR Paperwork. Due on due Goal ACCOUNTANT CERTIFIED PUBLIC Scanned. Due on due Goal Creatinine. Due on due Goal UDT. Due on due Goal UDT. Due on due Goal ACCOUNTANT CERTIFIED PUBLIC Scanned. Due on due Goal ALT (SGPT). Due on due Goal Creatinine. Due on due Goal Order Annual PT. Due on due Goal FIELD ADMINISTRATOR Paperwork. Due on due Goal OARS. Due [...] back surgery with Dr. Justin Cuba of [facility] in 2015. Reports that Further surgery of her upper lumbar region was recommended, but patient would not like to pursue further surgical intervention. Pain is characterized as dull, sore, and tight pain. Secondarily notes constant tingling in BL feet. Pain level averages 8/10.For pain management, patient has tried PT at [facility], has undergone a lumbar epidural steroid injection at [facility], and has tried the following medications:- Gabapentin- [...]
[2023-03-10 20:20] VITALS: BP 202/95; PULSE 68; RESP 18; O2SAT 98
[2023-03-10 21:03] VITALS: BP 206/92; PULSE 70; RESP 18; O2SAT 97
--- NOTE | 2023-03-12 13:01 | ED.GENADULT ---
HPI - General Adult General Chief complaint: Extremity Pain/Injury, Lower Stated complaint: Right leg in pain Time Seen by Provider: 03/10/23 19:56 History of Present Illness HPI narrative: 57-year-old woman presenting to the emergency department with complaint of worsening burning and shooting pain behind her right knee extending to the upper calf and then up into hers thigh back. Was seen a couple of days ago with negative ultrasound looking for DVT. She does have a history of radicular back pain with a history of lumbar microdiskectomy and fusions. and is wondering if this might be the case now. As she attempts to bear weight now it just causes explosion of pain up into her buttock and back as noted above. She does struggle with chronic pain and does take regular opiates in the form of long and short acting oxycodone. Does also have a peripheral neuropathy. She did try to get in with her clinic and back surgeon but has not been able to connect yet to schedule appointment. Related Data Previous Rx's Medication Instructions Recorded sennosides 8.6 mg-docusate sodium 1 tab-cap PO QHS #90 tabs 07/21/22 50 mg tablet (Senokot-S) amlodipine 5 mg tablet 5 mg PO QDAY #90 tabs 09/19/22 losartan 100 mg tablet 100 mg PO QDAY #90 tabs 11/22/22 fluoxetine 20 mg capsule (Prozac) 20 mg PO QDAY #30 caps 12/18/22 metoprolol succinate 100 mg 100 mg PO QDAY #90 tabs 12/18/22 tablet,extended release 24 hr omeprazole 20 mg capsule,delayed 20 mg PO BID #60 caps 12/18/22 release sulfamethoxazole 800 1 tab PO BID #14 tabs 12/20/22 mg-trimethoprim 160 mg tablet (Bactrim DS) zolpidem 5 mg tablet 5 mg PO QHS PRN insomnia #30 tabs 02/02/23 oxycodone 10 mg tablet 10 mg PO QID #120 tabs 03/12/23 oxycodone 15 mg tablet,crush 15 mg PO BID #60 tabs 03/12/23 resistant,extended release 12 hr (OxyContin) Allergies Allergy/AdvReac Type Severity Reaction Status Date / Time latex Allergy Mild Rash Verified 03/09/23 16:12 adhesive tape Allergy Verified 03/09/23 16:12 duloxetine [From Cymbalta] Allergy Verified 03/09/23 16:12 gabapentin Allergy Verified 03/09/23 16:12 tramadol Allergy Verified 03/09/23 16:12 Review of Systems Status of ROS: Reports: 6 or more systems reviewed and unremarkable except as noted in History and below [facility] Medical History Obesity (BMI 30-39.9) ?E66.9 - Obesity, unspecified (ICD-10) Atypical chest pain ?R07.89 - Other chest pain (ICD-10) Pelvic mass ?R19.00 - Intra-abdominal and pelvic swelling, mass and lump, unspecified site (ICD-10) Cyst of left lower eyelid ?H02.825 - Cysts of left lower eyelid (ICD-10) Adjustment disorder with mixed anxiety and depressed mood ?F43.23 - Adjustment disorder with mixed anxiety and depressed mood (ICD-10) Age-related cataract of both eyes ?H25.9 - Unspecified age-related cataract (ICD-10) Opioid dependence ?F11.20 - Opioid dependence, uncomplicated (ICD-10) Chronic pain syndrome ?G89.4 - Chronic pain syndrome (ICD-10) Spondylolisthesis of lumbar region ?M43.16 - Spondylolisthesis, lumbar region (ICD-10) Peripheral sensory neuropathy ?G60.8 - Other hereditary and idiopathic neuropathies (ICD-10) Urinary incontinence ?R32 - Unspecified urinary incontinence (ICD-10) GERD (gastroesophageal reflux disease) ?K21.9 - Gastro-esophageal reflux disease without esophagitis (ICD-10) Vitamin D deficiency ?E55.9 - Vitamin D deficiency, unspecified (ICD-10) Coronary artery disease ?I25.10 - Atherosclerotic heart disease of [place] coronary artery without angina pectoris (ICD-10) Hyperlipidemia ?E78.5 - Hyperlipidemia, unspecified (ICD-10) Insomnia ?G47.00 - Insomnia, unspecified (ICD-10) Polypharmacy ?Z79.899 - Other fdc (current) drug therapy (ICD-10) Back pain, chronic ?M54.9 - Dorsalgia, unspecified (ICD-10) ?G89.29 - Other chronic pain (ICD-10) HTN, goal below 140/90 ?I10 - Essential (primary) hypertension (ICD-10) Kidney calculus ?N20.0 - Calculus of kidney (ICD-10) Surgical History History of hernia repair ?Z98.890 - Other specified postprocedural states (ICD-10) ?Z87.19 - Personal history of other diseases of the digestive system (ICD-10) History of lumbar surgery ?Z98.890 - Other specified postprocedural states (ICD-10) History of lumbar fusion ?Z98.1 - Arthrodesis status (ICD-10) History of breast biopsy ?Z98.890 - Other specified postprocedural states (ICD-10) History of cholecystectomy ?Z90.49 - Acquired absence of other specified parts of digestive tract (ICD-10) History of oophorectomy Family History Father Coronary artery disease Mother Lung cancer Myocardial infarction Heart disease Maternal Grandmother Diabetes Social History Smoking Status: Never smoker Do you use any of these nicotine containing products: None Second hand tobacco smoke exposure: No How often do you have a drink containing alcohol: never How often do you have six or more drinks on one occasion: Never AUDIT-C Alcohol total score: 0 Non-prescribed substance use: denies use Exam Narrative: Exam Narrative: Very pleasant. Seems mildly restless and generally uncomfortable. Any movement of her right leg causes worsening pain. I do not see any skin changes on the surface. She does not have pain though clearly to palpation of the SI joint. Mildly uncomfortable to palpation the right piriformis area. Attempted straight leg raise causes increased pain. Well-perfused peripherally. No lower extremity edema. No swelling about the knee. Postoperative scars evident consistent with lumbar surgeries. Const: Documenting provider has reviewed patient's vital signs: yes Course Vital Signs Vital signs: Initial Vital Signs Temperature 97.4 F L 03/10/23 18:52 Temperature Source Temporal Artery Scan 03/10/23 18:52 Pulse Rate 62 03/10/23 18:52 Respiratory Rate 18 03/10/23 18:52 Blood Pressure 183/92 H 03/10/23 18:52 Blood Pressure Mean 122 H 03/10/23 18:52 Blood Pressure Position Sitting 03/10/23 18:52 Pulse Oximetry 98 03/10/23 18:52 Oxygen Delivery Method Room Air 03/10/23 18:52 Vital Signs Temperature 97.4 F L 03/10/23 18:52 Pulse Rate 62 03/10/23 18:52 Respiratory Rate 18 03/10/23 18:52 Blood Pressure 183/92 H 03/10/23 18:52 Pulse Oximetry 98 03/10/23 18:52 Oxygen Delivery Method Room Air 03/10/23 18:52 Temperature 97.4 F L 03/10/23 18:52 Pulse Rate 70 03/10/23 21:03 Respiratory Rate 18 03/10/23 21:03 Blood Pressure 206/92 H 03/10/23 21:03 Pulse Oximetry 97 03/10/23 21:03 Oxygen Delivery Method Room Air 03/10/23 21:03 Medical Decision Making MDM Narrative Medical decision making narrative: I do think is having exacerbation of radicular back pain. Given opiate use like to try to break this pain though here in the ER. Given injection of hydromorphone and lorazepam. I think she is having some secondary muscular spasms as well. Pain did settle with treatment as noted above. Think it would be prudent to also initiate course of steroids. Will also give other medications to use as alternative to opiates. See patient discharge plan. Medical Records Medical records reviewed: Yes I reviewed the patient's medical records Discharge Plan Discharge Clinical Impression: Radicular pain of right lower extremity Patient Disposition: Home w/ Parent or Adult Condition: Improved Additional Instructions: I would reconnect again with your primary and your neurosurgeon/orthopedist. You might have to increase your p.r.n. dosing of oxycodone in the meantime. Remember to stay well-hydrated and maybe take senna products. I understand that the oxycodone causes you nausea; sometimes pretreating with diphenhydramine can be helpful. Otherwise Zofran will be prescribed for nausea. The lorazepam you received here can be further helpful. Would caution you regarding all these medications as they are additionally sedating. Taking as prescribed should be safe. This applies also to the cyclobenzaprine. None are true muscle relaxers but in the sense that they make you tired/sedate, help you relax. Also will start a course of prednisone. Take the prednisone as 60 mg daily for 3 days then 40 mg daily for 3 days then 20 mg daily for 3 days. All prescriptions from [facility]. Prescriptions: No Action sennosides-docusate sodium [Senokot-S] 8.6-50 mg tablet 1 tab-cap PO QHS Qty: 90 1RF amlodipine 5 mg tablet 5 mg PO QDAY Qty: 90 3RF fluoxetine [Prozac] 20 mg capsule 20 mg PO QDAY Qty: 30 1RF omeprazole 20 mg capsule,delayed release(DR/EC) 20 mg PO BID Qty: 60 1RF metoprolol succinate 100 mg tablet extended release 24 hr 100 mg PO QDAY Qty: 90 0RF Rx Instructions: once daily for blood pressure losartan 100 mg tablet 100 mg PO QDAY Qty: 90 0RF sulfamethoxazole-trimethoprim [Bactrim DS] 800-160 mg tablet 1 tab PO BID Qty: 14 0RF zolpidem 5 mg tablet 5 mg PO QHS PRN (Reason: insomnia) Qty: 30 5RF oxycodone 10 mg tablet 10 mg PO QID Qty: 120 0RF oxycodone [OxyContin] 15 mg tablet,oral only,ext.rel.12 hr 15 mg PO BID Qty: 60 0RF Follow Up/Referrals: Bk Handy MD [Primary Care Provider] - Stand Alone [facility] Info Inst[facility]
== END 2023-03-10 21:18 | disposition home or self-care (01) ==
PROVIDERS: Emergency Provider Family Medicine; PCP Family Medicine
DX: M54.16 Radiculopathy, lumbar region (principal)
CPT/HCPCS: 96372; 99283; 99284; J1170; J2060

== ENCOUNTER 2023-03-19 21:35 | Emergency (ER) | payer BC, SELFPAY ==
[2023-03-19 21:45] VITALS: BP 208/90; PULSE 88; RESP 21; TEMP 36.8; O2SAT 98; BMI 35.4
[2023-03-19 22:09] VITALS: BP 199/99; PULSE 77; RESP 18; O2SAT 98
--- NOTE | 2023-03-19 22:12 | CRLHL7_ITS ---
For Patients: As a result of the Century Cures Act, medical imaging exams and procedure reports are released immediately into your electronic medical record. You may view this report before your referring provider. If you have questions, please contact your health care provider. Indication: Acute onset right knee pain with bending Technique: Three views right knee Comparison: None Findings: Bones: Alignment is normal. No fractures or bone lesions. Small superior patellar enthesophyte. Joint spaces: Unremarkable. Soft tissues: Unremarkable. Impression: No acute abnormality. Dictated by Deandra Mills MD @ 03/19/2023 11:34:15 PM (Electronically Signed)
--- NOTE | 2023-03-19 22:14 | ED.LOWEXIN ---
HPI - Extremity Injury (Lower) General Chief Complaint: Extremity Pain/Injury, Lower Stated Complaint: Right Knee Pain Time Seen by Provider: 03/19/23 22:00 History of Present Illness HPI Narrative: This 57-year-old female comes in with sudden severe pain to her right knee. She has chronic pain and is using narcotics chronically. She is scheduled for an MRI of her lumbar spine in 3 days as she has been having shooting pains down her right leg. Today she was bending forward to pick something up in reports a sensation of a pop in her right knee with subsequent severe pain. She states that she has not borne any weight on this leg since this occurred. She reports pain in the posterior aspect of her right knee. Related Data Previous Rx's Medication Instructions Recorded sennosides 8.6 mg-docusate sodium 1 tab-cap PO QHS #90 tabs 07/21/22 50 mg tablet (Senokot-S) amlodipine 5 mg tablet 5 mg PO QDAY #90 tabs 09/19/22 losartan 100 mg tablet 100 mg PO QDAY #90 tabs 11/22/22 fluoxetine 20 mg capsule (Prozac) 20 mg PO QDAY #30 caps 12/18/22 metoprolol succinate 100 mg 100 mg PO QDAY #90 tabs 12/18/22 tablet,extended release 24 hr omeprazole 20 mg capsule,delayed 20 mg PO BID #60 caps 12/18/22 release sulfamethoxazole 800 1 tab PO BID #14 tabs 12/20/22 mg-trimethoprim 160 mg tablet (Bactrim DS) zolpidem 5 mg tablet 5 mg PO QHS PRN insomnia #30 tabs 02/02/23 oxycodone 10 mg tablet 10 mg PO QID #120 tabs 03/12/23 oxycodone 15 mg tablet,crush 15 mg PO BID #60 tabs 03/12/23 resistant,extended release 12 hr (OxyContin) Allergies Allergy/AdvReac Type Severity Reaction Status Date / Time latex Allergy Mild Rash Verified 03/19/23 21:47 adhesive tape Allergy Verified 03/19/23 21:47 duloxetine [From Cymbalta] Allergy Verified 03/19/23 21:47 gabapentin Allergy Verified 03/19/23 21:47 tramadol Allergy Verified 03/19/23 21:47 Review of Systems Status of ROS: Reports: 10 or more systems reviewed and unremarkable except as noted in History and below Narrative: Constitutional: No fevers, no weight gain or loss. Eyes: No discharge. No vision changes. HENT: No congestion, no sore throat, no ear pain. Cardiovascular: No chest pain, no palpitations. Respiratory: No shortness of breath, no wheezes, no cough. Gastrointestinal: No abdominal pain, no vomiting, no diarrhea. Genitourinary: No dysuria, no hematuria. Musculoskeletal: Pain in her right knee as described above. Chronic musculoskeletal pain more localized in the lumbar region. Skin: No rashes, no pruritis. Neurological: No dizziness, weakness, sensory change, speech change. Endo/Heme/Allergies: No bruising or bleeding. No polydipsia. Pysch: no suicidality, no anxiety, no insomnia. All other systems reviewed and are negative. [facility] Medical History Obesity (BMI 30-39.9) ?E66.9 - Obesity, unspecified (ICD-10) Atypical chest pain ?R07.89 - Other chest pain (ICD-10) Pelvic mass ?R19.00 - Intra-abdominal and pelvic swelling, mass and lump, unspecified site (ICD-10) Cyst of left lower eyelid ?H02.825 - Cysts of left lower eyelid (ICD-10) Adjustment disorder with mixed anxiety and depressed mood ?F43.23 - Adjustment disorder with mixed anxiety and depressed mood (ICD-10) Age-related cataract of both eyes ?H25.9 - Unspecified age-related cataract (ICD-10) Opioid dependence ?F11.20 - Opioid dependence, uncomplicated (ICD-10) Chronic pain syndrome ?G89.4 - Chronic pain syndrome (ICD-10) Spondylolisthesis of lumbar region ?M43.16 - Spondylolisthesis, lumbar region (ICD-10) Peripheral sensory neuropathy ?G60.8 - Other hereditary and idiopathic neuropathies (ICD-10) Urinary incontinence ?R32 - Unspecified urinary incontinence (ICD-10) GERD (gastroesophageal reflux disease) ?K21.9 - Gastro-esophageal reflux disease without esophagitis (ICD-10) Vitamin D deficiency ?E55.9 - Vitamin D deficiency, unspecified (ICD-10) Coronary artery disease ?I25.10 - Atherosclerotic heart disease of [place] coronary artery without angina pectoris (ICD-10) Hyperlipidemia ?E78.5 - Hyperlipidemia, unspecified (ICD-10) Insomnia ?G47.00 - Insomnia, unspecified (ICD-10) Polypharmacy ?Z79.899 - Other usp (current) drug therapy (ICD-10) Back pain, chronic ?M54.9 - Dorsalgia, unspecified (ICD-10) ?G89.29 - Other chronic pain (ICD-10) HTN, goal below 140/90 ?I10 - Essential (primary) hypertension (ICD-10) Kidney calculus ?N20.0 - Calculus of kidney (ICD-10) Surgical History History of hernia repair ?Z98.890 - Other specified postprocedural states (ICD-10) ?Z87.19 - Personal history of other diseases of the digestive system (ICD-10) History of lumbar surgery ?Z98.890 - Other specified postprocedural states (ICD-10) History of lumbar fusion ?Z98.1 - Arthrodesis status (ICD-10) History of breast biopsy ?Z98.890 - Other specified postprocedural states (ICD-10) History of cholecystectomy ?Z90.49 - Acquired absence of other specified parts of digestive tract (ICD-10) History of oophorectomy Family History Father Coronary artery disease Mother Lung cancer Myocardial infarction Heart disease Maternal Grandmother Diabetes Social History Smoking Status: Never smoker Do you use any of these nicotine containing products: None Second hand tobacco smoke exposure: No How often do you have a drink containing alcohol: never How often do you have six or more drinks on one occasion: Never AUDIT-C Alcohol total score: 0 Non-prescribed substance use: denies use Exam Narrative: Exam Narrative: Constitutional: Well-developed, well-nourished, no acute distress. HEENT: Normocephalic, atraumatic. Neck: Normal range of motion. Nontender. Supple. Heart: Intact distal pulses. Lungs: No chest discomfort. No wheezes, rhonchi, or rales. Abdomen: Nontender. Back: Normal range of motion. Extremities: The patient was unable to lift her right leg from the bed due to pain. There is no sign of deformity or joint effusion. There is no tenderness when moving her patella when her leg is in full extension. The patella tendon, quadriceps tendon, and hamstrings tendon are all intact without any palpable step-off Or pain when palpating these structures. Skin: Intact. No rash. Warm. No erythema or pallor. Neurologic: No altered sensation. No weakness. Alert and oriented. Psychiatric: No suicidality. No anxiety or depression. No insomnia. Nursing notes and vitals signs are reviewed. Const: Vital Signs, click to edit/add: Vital Signs - 24 hr 03/19/23 21:45 03/19/23 22:09 03/19/23 23:00 Temperature 98.3 F Pulse Rate [Right Pulse Oximeter] 88 77 63 Respiratory Rate 21 18 16 Blood Pressure [Ri t Upper Arm] 208/90 H 199/99 H 182/87 H Pulse Oximetry 98 98 97 Oxygen Delivery Me thod Room Air Room Air Room Air Course Vital Signs Vital signs: Initial Vital Signs Temperature 98.3 F 03/19/23 21:45 Temperature Source Temporal Artery Scan 03/19/23 21:45 Pulse Rate 88 03/19/23 21:45 Pulse Rhythm Regular 03/19/23 21:45 Pulse Strength 3+ Normal 03/19/23 21:45 Respiratory Rate 21 03/19/23 21:45 Blood Pressure 208/90 H 03/19/23 21:45 Blood Pressure Mean 129 H 03/19/23 21:45 Blood Pressure Position Sitting 03/19/23 21:45 Pulse Oximetry 98 03/19/23 21:45 Oxygen Delivery Method Room Air 03/19/23 21:45 Vital Signs Temperature 98.3 F 03/19/23 21:45 Pulse Rate 88 03/19/23 21:45 Respiratory Rate 21 03/19/23 21:45 Blood Pressure 208/90 H 03/19/23 21:45 Pulse Oximetry 98 03/19/23 21:45 Oxygen Delivery Method Room Air 03/19/23 21:45 Temperature 98.3 F 03/19/23 21:45 Pulse Rate 63 03/19/23 23:00 Respiratory Rate 16 03/19/23 23:00 Blood Pressure 182/87 H 03/19/23 23:00 Pulse Oximetry 97 06/26/23 23:00 Oxygen Delivery Method Room Air 03/19/23 23:00 MDM - Extremity Injury (Lower) MDM Narrative Medical decision making narrative: This 57-year-old female comes in with sudden onset of pain in her right knee. Since then she has not been able to ambulate because of pain. She does take narcotics every day for chronic pain. She reports pain in the posterior aspect of her right knee. X-ray imaging by my review shows no acute findings. Her symptoms are somewhat suspicious of a meniscus problem. She did receive an intramuscular injection of morphine 10 mg. She was able to stand and bear weight but had quite a bit of pain when doing so. She states that she has crutches and wants to return home and hopes to be able to return to work. She does have an MRI scheduled for her lower back in 3 days. She may need MRI of her knee if not improving. Discharge Plan Discharge Clinical Impression: Acute knee pain Patient Disposition: Home w/ Parent or Adult Condition: Unchanged Additional Instructions: Use crutches as needed. Increase activity as tolerated. Follow up with MD as scheduled or return if worsening. Prescriptions: No Action sennosides-docusate sodium [Senokot-S] 8.6-50 mg tablet 1 tab-cap PO QHS Qty: 90 1RF amlodipine 5 mg tablet 5 mg PO QDAY Qty: 90 3RF fluoxetine [Prozac] 20 mg capsule 20 mg PO QDAY Qty: 30 1RF omeprazole 20 mg capsule,delayed release(DR/EC) 20 mg PO BID Qty: 60 1RF metoprolol succinate 100 mg tablet extended release 24 hr 100 mg PO QDAY Qty: 90 0RF Rx Instructions: once daily for blood pressure losartan 100 mg tablet 100 mg PO QDAY Qty: 90 0RF sulfamethoxazole-trimethoprim [Bactrim DS] 800-160 mg tablet 1 tab PO BID Qty: 14 0RF zolpidem 5 mg tablet 5 mg PO QHS PRN (Reason: insomnia) Qty: 30 5RF oxycodone 10 mg tablet 10 mg PO QID Qty: 120 0RF oxycodone [OxyContin] 15 mg tablet,oral only,ext.rel.12 hr 15 mg PO BID Qty: 60 0RF Follow Up/Referrals: Bk Handy MD [Primary Care Provider] - Stand Alone Forms: [facility] Info Instructions
[2023-03-19] MEDS: MORPHINE 10 MG/ML inj IM (22:32)
[2023-03-19 23:00] VITALS: BP 182/87; PULSE 63; RESP 16; O2SAT 97
--- OUTSIDE RECORDS SUMMARY | 2023-03-19 23:43 | XMS_ITS | Continuity of Care Document ---
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 [address] [facility] [place], [place], [id number] , [place]. tel:[phone] [facility], [address] [place], [place], [id number] , [place] tel:[phone] [facility] [place] No Information 2 Vinicio Argueta. [address] [facility] [address], [place], [place], [id number] , [place]. tel:[phone] Referring Provider: Veto Norman, [address] [place], [address]. tel:[phone] OFFICE/OUTPA TIENT VISIT, [facility], [address], [place], [id number] , [place] tel:[phone] [facility] Pain [facility] Back pain (chief complaint) Chronic pain syndromeLow back pain, unspecifiedLong term (current) use of opiate analgesicEncounter for therapeutic drug level monitoring 2 Vinicio Argueta. [address] [facility] [address], [place], [place], [id number] , [place]. tel:[phone] Referring Provider: Bk Handy, [facility] [address], [place], [address]. tel:[phone] Family History Family Member Type Diagnosis Age At Onset Sister Problem Back pain/issues Payers Payer name Insurance type Covered alliance party ID Authorramonitaa gonzalez(s) Blue Cross Blue Jojo Gentile BL [id number] 2 Social History Type Description Quantity Date Captured Comments Alcohol Use Details Unknown Caffeine Use Details Unknown Tobacco Use Status No Information Smoking Status No Information Sex Female Chief Complaint And Reason For Visit No Information Reason For Referral Reason For Referral No Information Plan Of Treatment Date Type Action Status Goal CT-Colonography. Due on due Goal Lipid panel. Due on due Goal Tobacco Use. Due on due Goal ALT (SGPT). Due on due Goal AST (SGOT). 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 Due on due Goal OARS. Due on due Goal Order Annual PT. Due on due Goal UDT. Due on due Goal Height. Due on d ue Goal Weight. Due on d ue Goal Unhealthy drug use screening . Due on due Goal Update Social History. Due o n due Goal PHQ-9. Due on du e Goal Medication Reconciliation. D ue on due Goal Zoster vaccine (). Due on due Goal FIT-DNA. Due on due Goal FIT. Due on due Goal Hepatitis C screening. Due o n due Goal Review Allergy List. Due on due Goal HPV. Due on due Goal SURVEYING CREW RODMAN Scanned. Due on due Goal Creatinine. Due on due Goal UDT. Due on due Goal Creatinine. Due on due Goal SURVEYING CREW RODMAN Scanned. 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 Due on due Goal OARS. Due on due Goal ALT (SGPT). Due on due Goal AST (SGOT). Due on due Goal Order Annual PT. Due on due Goal UDT. Due on due Goal SURVEYING CREW RODMAN Scanned. Due on due Goal ALT (SGPT). Due on due Goal Creatinine. Due on due Goal Order Annual PT. 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 Due on due Goal OARS. Due on due Goal AST (SGOT). Due on due Goal Height. Due on d ue Goal CT-Colonography. Due on due Goal Update [...] Medication Reconciliation. D ue on due Goal Hepatitis C screening. Due o n due Goal Weight. Due on d ue Goal FIT. Due on due Goal Zoster vaccine (1st). Due on due Goal Weight. Due on [...] Date Complaint History Of Prese nt Illness Back pain Severity level i s 8. Duration: chronic. The problem is stable. It occurs persistently. The client describes the pain as dull, tight, sore and tingling. Symptoms are aggravated by ascending stairs, bending, descending stairs, lifting, lying/rest, running, sitting and standing. Symptoms are relieved by heat and ice. Comments: Daija fraser is a 57 y/o woman here for initial consult regarding chronic back pain with radiation into BLE, referred by Dr. Bk Handy. Hx of back surgery, most recently in January of [address] Montelongo. Has also undergone back surgery with Dr. Justin Cuba of [facility] in 2015. Reports that Further surgery of her upper lumbar region was recommended, but patient would not like to pursue further surgical intervention. Pain is characterized as dull, sore, and tight pain. Secondarily notes constant tingling in BL feet. Pain level averages 8/10.For pain management, patient has tried PT at [facility], has undergone a lumbar epidural steroid injection at [facility], and has tried the following medications:- Gabapentin- Lyrica- Cyclobenzaprine- NSAIDS- Tramadol- Codeine- HydrocodoneCurrently managed on Oxycodone 10mg QID and OxyContin 15mg BID, prescribed by her new PCP, Dr. Bk Handy, at [facility].Sheri is interested in pain management through [facility]. No other concerns today. Functional Status Date Functional Assessmen t No Information Instructions Date Instruction Additional Infor matalejandra No Information Assessments Type Assessment Date No Information Patient Care Teams Name Effective Dates (start - stop) Status Members No Information
== END 2023-03-19 23:46 | disposition home or self-care (01) ==
PROVIDERS: Emergency Provider Emergency Medicine Emergency Medical Services; PCP Family Medicine
DX: M25.561 Pain in right knee (principal)
CPT/HCPCS: 73562; 96372; 99284; J2270

== ENCOUNTER 2023-08-20 12:37 | Outpatient (CLI) | payer BC, SELFPAY ==
--- NOTE | 2023-08-20 13:00 | CRLHL7_ITS ---
For Patients: As a result of the Century Cures Act, medical imaging exams and procedure reports are released immediately into your electronic medical record. You may view this report before your referring provider. If you have questions, please contact your health care provider. CLINICAL HISTORY: F/U RT ADNEXAL LESION TECHNIQUE: 2D zhao scale and color Doppler images were acquired of the pelvis using a transvaginal approach. Comparison 12/04/2022 FINDINGS: Uterus is absent. Left ovary not visualized. Multicystic right ovarian/right adnexal lesion is slightly increased in size, now measuring 5.1 x 3.6 x 3.6 cm, previously measuring 4.7 x 3.5 x 3.2 cm. IMPRESSION: Slightly increased size of the complex multi cystic right ovarian/right adnexal lesion measuring up to 5.1 cm. Dictated by Alex Carl MD @ 08/22/2023 12:14:34 PM (Electronically Signed)
== END 2023-08-20 12:38 | disposition home or self-care (01) ==
PROVIDERS: PCP Family Medicine; Visit Provider Obstetrics & Gynecology
DX: N94.89 Other specified conditions associated with female genital organs and menstrual cycle (principal); N83.201 Unspecified ovarian cyst, right side
CPT/HCPCS: 76830

== ENCOUNTER 2023-10-04 18:23 | Outpatient (CLI) | payer BC, SELFPAY ==
--- OUTSIDE RECORDS SUMMARY | 2023-10-04 18:25 | XMS_ITS | Clinical Summary ---
Author Name Unknown Organization [email or web address] Address [place], [place] [address] Care Team Providers Care Patient Care Specialist Name Role Phone Richard Natalie Celis NP Unavailable [phone] Kel Salvador MD Unavailable [phone] Bk Handy MD Primary Care Provider [phone] Allergies Active Allergy Reactions Criticality Noted Date Comments Adhesive Tape Contact Dermatitis Low 09/05/2007 redness and hives under dressing Duloxetine Nausea Only Medium 01/21/2016 Gabapentin Hallucinations 11/28/2018 Latex Other - Describe In Comment Field Low 02/15/2010 Skin irritation ,itching from bandaids and latex tape Tramadol Mental Status Change High 06/15/2014 hallucination Medications Medication Sig Dispensed Refills Start Date End Date Status lidocain-me.salicyl- caps-menth 4-20-0.025-5 % topical patch Apply 2 Patches on dry, clean, hairless skin once daily if needed for Pain. Salon Pas or Equivalent 0 05/06/2021 Active losartan (COZAAR) 100 mg tabletIndications:Es sential hypertension Take 1 Tablet (100 mg) by mouth once daily. 90 Tablet 3 08/04/2021 Active omeprazole (PRILOSEC) 20 mg Delayed-Release capsuleIndications:C hronic GERD Take 1 capsule by mouth once daily if needed for GI Upset 90 Capsule 2 02/26/2022 Active amLODIPine (NORVASC) 10 mg tabletIndications:Es sential hypertension Take 1 Tablet (10 mg) by mouth once daily. 90 Tablet 2 02/28/2022 Active metoprolol succinate (TOPROL XL) 100 mg Sustained-Release tabletIndications:Es sential hypertension Take 1 Tablet (100 mg) by mouth in the morning and 1 Tablet (100 mg) in the evening. 180 Tablet 1 05/17/2022 Active oxyCODONE 10 mg tabletIndications:Ch ronic bilateral low back pain with left-sided sciatica Take 1 Tablet (10 mg) by mouth every 6 hours if needed for Pain. for pain 120 Tablet 0 05/28/2022 Active oxyCODONE (OxyCONTIN) 15 mg SUSTAINED release tabletIndications:Ch ronic bilateral low back pain with left-sided sciatica,S/P lumbar spinal fusion Take 1 Tablet (15 mg) by mouth every 12 hours. 60 Tablet 0 05/28/2022 Active zolpidem (AMBIEN) 5 mg tabletIndications:In somnia, idiopathic Take 1 Tablet (5 mg) by mouth at bedtime if needed for Sleep. 30 Tablet 0 05/28/2022 Active Active Problems Problem Noted Date Diagnosed Date CAD in kaw artery 09/26/2021 Overview: CT Cardiac Coronary: 09/19/2021 1. This is a dual read study - please review [facility] over-read below for incidental non cardiac findings. 2. A moderate absolute burden of coronary artery disease is present with total coronary calcium score of 386. However, this is a severe amount of coronary calcification for the patient's age and gender, placing her at the 99th percentile in comparison to an age and gender-matched control group. 3. Left main: There is calcific plaque in the left main with positive remodeling, causing no detectable luminal stenosis. 4. Left anterior descending: The left anterior descending is diffusely diseased with scattered calcific plaque, most of which causes minimal and mild luminal stenosis, albeit a segment of the mid left anterior descending appears to have more moderate diffuse disease. Assessment is challenged by suboptimal image quality. 5. Left circumflex: In the mid left circumflex there is a bulky calcific plaque with significant blooming artifact but with negative remodeling that appears to be causing a moderate (50-69%) luminal stenosis. Otherwise, scattered mild plaque throughout the proximal left circumflex. 6. The right coronary artery is a small sized nondominant vessel. There is calcification in the proximal aspect. Difficult to assess due to the small size of the vessel NSTEMI (non-ST elevated myocardial infarction) 1 11/19/2020 Adjustment disorder with mixed anxiety and depre ssed mood 05/06/2021 Cyst of left lower eyelid 10/02/2019 Presbyopia 10/02/2019 Regular astigmatism, bilateral 10/02/2019 Posterior subcapsular age-related cataract of andrea th eyes 10/02/2019 Numbness and tingling of both feet 08/01/2019 Continuous opioid dependence 06/12/2019 Tail bone pain 04/30/2019 Chronic pain syndrome 03/15/2019 Weakness of left leg 03/15/2019 Neuropathic pain 12/16/2018 Constipation 12/08/2018 S/P lumbar spinal fusion 12/05/2018 Overview: Anterior Posterior fusion for L3 to S1 and decompression of L5-S1 Left ACP (advance care planning) 12/01/2018 Overview: Patient has identified Health Care Agent(s): Yes Add Health Care Agents: Yes Health Care Agent(s): Primary Health Care Agent: Germán Fall Senior Relationship: spouse Secondary Health Care Agent: Relationship: Phone: Conservator: Relationship: Phone: Guardian: Relationship: Phone: Patient has Advance Care Plan Documents (Health Care Directive, POLST): No, Health Care Packet given to patient. Patient has identified Specific Treatment Preferences: No Specific limits to treatment preferences NOT identified: ASSUME FULL TREATMENT. Chronic radicular low back pain 11/02/2018 Spondylolisthesis of lumbar region 11/02/2018 Essential hypertension 10/07/2018 Peripheral sensory neuropathy 05/08/2017 Chronic bilateral low back pain with sciatica BMI 34.0-34.9,adult 06/23/2016 Urinary incontinence 01/21/2016 Controlled substance agreement signed 10/12/2015 Overview: I have queried the [place] Prescription Monitoring Program 01/18/2018 for this patient for the preceding 6 months, reviewed the report provided by my proxy delegate. I have not identified any concerns. Tiesha Chavez CMA (AAIL) 01/18/2018 STOREROOM SUPERVISOR Query Ran today and patient filling controlled substances only Justin Cuba MD and using the same pharmacy. Lynsey Westbrook LPN ...........................09/27/2016 11:40 AM GERD (gastroesophageal reflux disease) 4 Dyslipidemia 01/01/2013 L3-L4 Disc displacement 12/30/2012 Back pain 12/30/2012 Vitamin D deficiency 04/18/2012 Class 2 obesity in adult 04/17/2012 Nephrolithiasis 12/12/2010 Insomnia, unspecified 07/12/2009 Resolved Problems Problem Noted Date Diagnosed Date Resolved Date Coronary artery disease invo lving kaw coronary artery of kaw heart with angina pectoris 09/19/2021 09/26/2021 Radicular leg pain, left 04/19/201504/2019 Paresthesias 05/20/2014 08/01/2019 Dysthymic disorder 07/12/2009 4 HTN (hypertension) 09/25/2008 9 Overview: Updated by system to replace inactive record Urinary tract infection, site not specified 12/19/2005 04/17/2012 Immunizations Name Administration Dates Next Due COVID-19 vaccine ([employer]-J[employer] J) PF, MDV 12/18/2020 COVID-19 vaccine ([employer] 30mcg/0.3mL) PF, MDV 09/26/2021 Influenza, IIV3 (Age >=3 years) 05/16/2015,01/02 Influenza, IIV4 08/06/2019, 8,10/13/2017,09/20/20 17,10/18/2016 Influenza, IIV4 (=>6mos) MDV 06/20/2020 Influenza, RIV3 (Age =>18 Years) 06/15/2014 Tdap 01/21/2016 Family History Medical History Relation Name Comments Heart Disease Father Diabetes Maternal Grandmother Cancer Mother Lungs Heart Disease Mother [place] Relation Name Status Comments Father (Age 54 ) [place] Maternal Grandmother Mother Social History Tobacco Use Types Packs/Day Years Used Date Smoking Tobacco: Never Smokeless Tobacco: Never Tobacco Cessation:Counseling Given: Yes Alcohol Use Standard Drinks/Week Comments Not Currently 0 (1 standard drink = 0.6 oz pur e alcohol) rare PHQ-2 Answer Date Recorded PHQ-2 TOTAL SCORE 6 05/04/2021 Social Connections Answer Date Recorded Frequency of Communication with Friends and Fami ly Not on file 09/18/2021 Financial Resource Strain Answer Date R ecorded Difficulty of Paying Living Expenses Not on file 09/18/2021 Difficulty of Paying Living Expenses Not on file 09/18/2021 Sex and Gender Information Value Date Recorded Sex Assigned at Not on file Gender Identity Not on file Sexual Orientation Not on file Obstetrics History Para Term AB IAB SAB Ectopic Multiple Livin g Live Births 3 0 0 0 0 0 0 0 0 3 3 Date Outcome GA Total Labor Labor/2nd/3rd Weight Sex Delivery Anes PTL Cheri A1 A5 Name Cl in Kandis ng Kandis ng Kandis ng Last Filed Vital Signs Vital Sign Reading Time Taken Comments Blood Pressure 126/74 01/09/2022 4:04 PM CDT Pulse 75 01/09/2022 4:04 PM CDT Temperature 36.7 ??C (98.1 ??F) 09/19/2021 9:09 AM CS T Respiratory Rate 18 09/19/2021 1:31 PM INVESTIGATOR OPERATOR Oxygen Saturation 95% 11/23/2021 12:39 PM INVESTIGATOR OPERATOR all sx gone Inhaled Oxygen Concentration - - Weight 91.2 kg (201 lb) 01/09/2022 4:04 PM CDT Height 160 cm (5' 3) 09/18/2021 12:25 AM INVESTIGATOR OPERATOR Body Mass Index 35.61 09/18/2021 12:25 AM INVESTIGATOR OPERATOR Plan of Treatment Upcoming Encounters Date Type Department Care Team (Late st Contact Info) Description 10/12/2023 10:40 AM INVESTIGATOR OPERATOR Office Visit [facility] [address] [place] [address] Justin Cuba MD [address] [place] [address] Health Maintenance Due Date Last Done Comments HIV for age 15-65 1982 Hepatitis C screening for age 18-79 1985 Colonoscopy through age 75 2012 Mammogram for age 45-75 06/23/2017 06/23/20 16, 12/22/2013, 04/16/2012, Additional history exists Zoster (shingles) series for age 50+ (1 of 2) 2017 BMI (ht and wt on same day) for age 18+ 05/04/2022 05/04/2021, 01/21/2021, 12/29/2020, Additional history exists Depression screening for age 12+ 05/05/2022 05/05/2021, 05/04/2021, 11/20/2019, Additional history exists COVID-19 vaccine series ( season) 2023 09/26/2021, 12/18/2020 Influenza for age 50-64 05/25/2023 06/20/20 20, 08/06/2019, 07/01/2018, Additional history exists Tetanus booster 01/20/2026 01/21/2016 Lipids for age 45-75 09/18/2026 09/18/2021, 05/04/2021, 10/13/2020, Additional history exists Tdap Completed 01/21/2016 Pneumococcal series for age 6-64 Aged Out No longer eligible based on patient's age to complete this topic Goals Goal Patient Goal Type Associated Problems Recent Progress Patient-Stated? Author BLOOD PRESSURE - MAINTAINS BP less than 140/90 Blood Pressure No Justin Cuba MD BLOOD PRESSURE - Maintains BP less than 130/80 Blood Pressure No Justin Cuba MD Medical Devices Implanted Type Area Leather Belt Shaper Device Identifier Shelf Expiration Date Model / Serial / Lot Bone 1-4mm 30cc Medtronic Chips Canclls Freeze Dried - [id number] Implanted:Qty: 1 on 11/27/2018 by Wilbert Montelongo MD at [facility] N/A: Spine Medtronic Spine/Ortho 03/28/2023 [id number] / / [id number] Plate Lmbr Alsey-L Stand Alone Lock - [id number] Implanted:Qty: 2 on 11/27/2018 by Wilbert Montelongo MD at [facility] N/A: Spine Chapo Spine [id number] / / . Spacer Lmbr [id number] 8deg Avs-L Stand Alone - [id number] Implanted:Qty: 1 on 11/27/2018 by Wilbert Montelongo MD at [facility] N/A: Spine Chapo Spine [id number] / / . 5.5mm X 22mm Rescue Screw Lite Plate Implanted:Qty: 1 on 11/27/2018 by Wilbert Montelongo MD at [facility] N/A: Spine [id number] / / . Bone 1-4mm 60cc Medtronic Fine Canclls Freeze Dried - [id number] Implanted:Qty: 1 on 11/27/2018 by Wilbert Montelongo MD at [facility] N/A: Spine Medtronic Spine/Ortho 02/15/2023 [id number]# / / [id number] Screw Lmbr Post 8.5x50mm Ilios Va - [id number] Implanted:Qty: 2 on 11/27/2018 by Wilbert Montelongo MD at [facility] N/A: Spine [place] Spine [id number] / / . Screw Lmbr Post 6.5x45mm Xia3 Va - [id number] Implanted:Qty: 4 on 11/27/2018 by Wilbert Montelongo MD at [facility] N/A: Spine [place] Spine [id number] / / . Screw Lmbr Post 6.5x40mm Xia3 Va - [id number] Implanted:Qty: 2 on 11/27/2018 by Wilbert Montelongo MD at [facility] N/A: Spine Chapo Spine [id number] / / . Set Screw Lmbr Xia3 - [id number] Implanted:Qty: 8 on 11/27/2018 by Wilbert Montelongo MD at [facility] N/A: Spine [place] Spine [id number] / / . Oni Lmbr 417vmg6 Xia3 Cvd Titnm - [id number] Implanted:Qty: 1 on 11/27/2018 by Wilbert Montelongo MD at [facility] N/A: Spine [place] Spine [id number] / / . Bone Matrix 5cc Progenix Plus Putty Dbm - [id number] Implanted:Qty: 1 on 11/27/2018 by Wilbert Montelongo MD at [facility] N/A: Spine Medtronic Spine/Ortho 05/15/2020 [id number]# / / [id number] Oni Lmbr 483d8kx Xia3 Titnm - [id number] Implanted:Qty: 1 on 11/27/2018 by Wilbert Montelongo MD at [facility] N/A: Spine Chapo Spine [id number] / / . Bone Matrix 5cc Progenix Plus Putty Dbm - [id number] Implanted:Qty: 1 on 11/27/2018 by Wilbert Montelongo MD at [facility] N/A: Spine Medtronic Spine/Ortho 04/22/2020 [id number]# / / [id number] Bone Matrix Lg Infuse Bmp - [id number] Implanted:Qty: 1 on 11/27/2018 by Wilbert Montelongo MD at [facility] N/A: Spine Medtronic Spine/Ortho 10/25/2020 [id number] / / [id number] Bone Matrix 10cc Stimulan Kit Rapid Cure - [id number] Implanted:Qty: 1 on 11/27/2018 by Wilbert Montelongo MD at [facility] N/A: Spine [employer] Inc 06/23/2021 [id number] / / [id number] Description:Mixed with Tobra mycin 1.2g Spacer Lmbr [id number] 12deg Avs-L Stand Alone - [id number] Implanted:Qty: 2 on 11/27/2018 by Wilbert Montelongo MD at [facility] N/A: Spine [place] Spine [id number] / / . 23mm Plate - Lite Plate Implanted:Qty: 1 on 11/27/2018 by Wilbert Montelongo MD at [facility] N/A: Spine [id number] / / . Description:REF: [id number] 5.0 X 25mm Screw - Lite Plate Implanted:Qty: 3 on 11/27/2018 by Wilbert Montelongo MD at [facility] N/A: Spine [id number] / / . Screw Lmbr 6x25mm Ancr-L Standalone - [id number] Implanted:Qty: 6 on 11/27/2018 by Wilbert Montelongo MD at [facility] N/A: Spine [place] Spine [id number] / / . Explanted Type Area Leather Belt Shaper Device Identifier Shelf Expiration Date Model / Serial / Lot Screw Sm Joint 4.5x20mm [facility] - [id number] Explanted:Qty: 6 on 11/27/2018 by Wilbert Montelongo MD at [facility] N/A: Spine [employer] [id number] / / . Advance Directives Latest Code Status on File Code Status Date Activated Date Inactivated Comments Full Code 09/18/2021 6:44 AM 09/19/2021 8:53 PM Question Answer Comments Code Status Discussion: Reviewed Preferences Code Status History Code Status Date Activated Date Inactivated Comments Full Code 12/08/2018 5:21 PM 12/11/2018 7:39 PM Question Answer Comments Code Status Discussion: Discussed Full Code 11/27/2018 5:46 AM 12/01/2018 5:17 PM Full Code 01/01/2013 8:31 PM 01/03/2013 3:48 PM Full Code 12/30/2012 10:04 PM 01/01/2013 8:31 PM Care Teams Patient Care Specialist Relationship Specialty Start Date End Date Bk Hnady MD [address] [place] [address] PCP - General Family Practice 03/20/23 Natalie Ramos NP Pain Management Nurse Practitioner 06/10/19 Kel Salvador MD [address] [facility] [address] [place] [address] Cardiovascular Disease 12/02/21
--- OUTSIDE RECORDS SUMMARY | 2023-10-04 18:25 | XMS_ITS | Continuity of Care Document ---
Author Name Unknown Organization [facility] Address [address] [place] [id number] Phone Care Team Providers Care Vocational Case Manager Name Role Phone Will MD GARZA, Veto [...] Diagnoses Date Provider Providers Copied on Encounter [facility], [address] [place], [place], [id number] , [place] tel:[phone] [facility] No Information 2 Will Veto. [address] [facility] [place], [place], [id number] , [place]. tel:[phone] [facility], [address] [place], [place], [id number] , [place] tel:[phone] [facility] No Information 2 Vinicio Argueta. [id number] [facility] [address], [place], [place], [id number] , [place]. tel:[phone] Referring Provider: Veto Norman, [address] [place], [address]. tel:[phone] OFFICE/OUTPA TIENT VISIT, [facility], [address] [place] [address], [place], [id number] , [place] tel:[phone] [facility] Back pain (chief complaint) Chronic pain syndromeLow back pain, unspecifiedLong term (current) use of opiate analgesicEncounter for therapeutic drug level monitoring 2 Vinicio Argueta. [id number] [address], [place], [place], [id number] , [place]. tel:[phone] Referring Provider: Bk Handy, [facility] [address], [place], [address]. tel:[phone] Family History Family Member Type Diagnosis Age At Onset Sister Problem Back pain/issues Payers Payer name Insurance type Covered alliance party ID Authorshayan roth(s) Blue Cross Blue [employer] BL [id number] 2 Social History Type Description Quantity Date [...] Goal AST (SGOT). Due on due Goal COMPLETION SUPERVISOR Paperwork. Due on due Goal OARS. Due on due Goal Order Annual PT. Due on due Goal UDT. Due on due Goal SOURCING CONSULTANT Scanned. Due on due Goal Creatinine. Due on due Goal Order Annual PT. Due on due Goal AST (SGOT). Due on due Goal ALT (SGPT). Due on due Goal OARS. Due on due Goal COMPLETION SUPERVISOR Paperwork. Due on due Goal SOURCING CONSULTANT Scanned. Due on due Goal Creatinine. Due on due Goal UDT. Due on due Goal UDT. Due on due Goal SOURCING CONSULTANT Scanned. Due on due Goal ALT (SGPT). Due on due Goal Creatinine. Due on due Goal Order Annual PT. Due on due Goal COMPLETION SUPERVISOR Paperwork. Due on due Goal OARS. Due [...] back surgery with Dr. Justin Cuba of [facility] in 2015. Reports that Further surgery of her upper lumbar region was recommended, but patient would not like to pursue further surgical intervention. Pain is characterized as dull, sore, and tight pain. Secondarily notes constant tingling in BL feet. Pain level averages 8/10.For pain management, patient has tried PT at [facility], has undergone a lumbar epidural steroid injection at [facility], and has tried the following medications:- Gabapentin- Lyrica- Cyclobenzaprine- NSAIDS- Tramadol- Codeine- HydrocodoneCurrently managed on Oxycodone 10mg QID and OxyContin 15mg BID, prescribed by her new PCP, Dr. Bk Handy, at [facility].Sheri is interested in pain management through [facility]. [...]
== END 2023-10-04 18:24 | disposition home or self-care (01) ==
LOC: LKVREF 18:23
PROVIDERS: PCP Family Medicine; Visit Provider Family Medicine
DX: I10 Essential (primary) hypertension (principal)
CPT/HCPCS: 80048

== ENCOUNTER 2024-01-02 03:53 | Emergency (ER) | payer BC, SELFPAY ==
[2024-01-02 03:58] VITALS: BP 183/93; PULSE 71; RESP 16; TEMP 36.3; O2SAT 98; BMI 35.4
[2024-01-02 04:34] LABS: Strep A DNA Probe* NOT DETECTED (Not Detectd)
--- NOTE | 2024-01-02 04:49 | ED.GENADULT ---
HPI - General Adult General Chief complaint: Sore Throat Stated complaint: Possible Strep Time Seen by Provider: 01/02/24 04:08 History of Present Illness HPI narrative: 58-year-old female presents with a 24 hour history of sore throat. Feels like things are swollen. When she looked in the mirror, she saw a red spots. Also has a runny nose, slight cough. No fever. No nausea vomiting. No trauma or injury. No headache or neck pain. Has been recently had pneumonia. She tried taking some ibuprofen about 6 hours ago with no significant improvement in symptoms. Has not tried other interventions to help with pain. Is still able to take nutrition without difficulty. Past medical history notable for chronic pain, hypertension, anxiety. Problem list, medications reviewed. Allergies appear to be mostly intolerances. ROS notable for the HEENT symptoms as above only, otherwise benign times 12 systems Related Data Home Medications Medication Instructions Recorded Confirmed sennosides 8.6 mg-docusate sodium 1 tab-cap PO QHS PRN 10/15/23 50 mg tablet (Senokot-S) Previous Rx's Medication Instructions Recorded omeprazole 20 mg capsule,delayed 20 mg PO BID #180 caps 04/10/23 release zolpidem 5 mg tablet 5 mg PO QHS PRN insomnia #30 tabs 08/06/23 losartan 100 1 tab PO QDAY #90 tabs 10/04/23 mg-hydrochlorothiazide 25 mg tablet metoprolol succinate 100 mg 100 mg PO BID #180 tabs 10/04/23 tablet,extended release 24 hr naloxone 4 mg/actuation nasal 4 mg intranasal Q2-3M PRN opioid 10/04/23 spray (Narcan) overdose #2 ea amlodipine 2.5 mg tablet 2.5 mg PO QDAY #90 tabs 10/15/23 amoxicillin 875 mg tablet 875 mg PO BID #20 tabs 10/15/23 oxycodone 10 mg tablet 10 mg PO QID PRN pain #120 tabs 12/17/23 oxycodone 15 mg tablet,crush 15 mg PO BID #60 tabs 12/17/23 resistant,extended release 12 hr (OxyContin) Allergies Allergy/AdvReac Type Severity Reaction Status Date / Time latex Allergy Mild Rash Verified 10/15/23 12:44 adhesive tape Allergy Verified 10/15/23 12:44 duloxetine [From Cymbalta] Allergy Verified 10/15/23 12:44 gabapentin Allergy Verified 10/15/23 12:44 tramadol Allergy Verified 10/15/23 12:44 Iodinated Contrast Media AdvReac Verified 10/15/23 12:44 [facility] Medical History Obesity (BMI 30-39.9) ?E66.9 - Obesity, unspecified (ICD-10) Atypical chest pain ?R07.89 - Other chest pain (ICD-10) Pelvic mass ?R19.00 - Intra-abdominal and pelvic swelling, mass and lump, unspecified site (ICD-10) Cyst of left lower eyelid ?H02.825 - Cysts of left lower eyelid (ICD-10) Adjustment disorder with mixed anxiety and depressed mood ?F43.23 - Adjustment disorder with mixed anxiety and depressed mood (ICD-10) Age-related cataract of both eyes ?H25.9 - Unspecified age-related cataract (ICD-10) Opioid dependence ?F11.20 - Opioid dependence, uncomplicated (ICD-10) Chronic pain syndrome ?G89.4 - Chronic pain syndrome (ICD-10) Spondylolisthesis of lumbar region ?M43.16 - Spondylolisthesis, lumbar region (ICD-10) Peripheral sensory neuropathy ?G60.8 - Other hereditary and idiopathic neuropathies (ICD-10) Urinary incontinence ?R32 - Unspecified urinary incontinence (ICD-10) GERD (gastroesophageal reflux disease) ?K21.9 - Gastro-esophageal reflux disease without esophagitis (ICD-10) Vitamin D deficiency ?E55.9 - Vitamin D deficiency, unspecified (ICD-10) Coronary artery disease ?I25.10 - Atherosclerotic heart disease of [place] coronary artery without angina pectoris (ICD-10) Hyperlipidemia ?E78.5 - Hyperlipidemia, unspecified (ICD-10) Insomnia ?G47.00 - Insomnia, unspecified (ICD-10) Polypharmacy ?Z79.899 - Other exterminator (current) drug therapy (ICD-10) Back pain, chronic ?M54.9 - Dorsalgia, unspecified (ICD-10) ?G89.29 - Other chronic pain (ICD-10) HTN, goal below 140/90 ?I10 - Essential (primary) hypertension (ICD-10) Kidney calculus ?N20.0 - Calculus of kidney (ICD-10) Surgical History History of tubal ligation (1994) ?Z98.51 - Tubal ligation status (ICD-10) H/O ovarian cystectomy ?Z98.890 - Other specified postprocedural states (ICD-10) ?Z87.42 - Personal history of other diseases of the female genital tract (ICD-10) History of hernia repair ?Z98.890 - Other specified postprocedural states (ICD-10) ?Z87.19 - Personal history of other diseases of the digestive system (ICD-10) History of lumbar surgery (12/2012) ?Z98.890 - Other specified postprocedural states (ICD-10) History of lumbar fusion ?Z98.1 - Arthrodesis status (ICD-10) History of breast biopsy (04/12/07) ?Z98.890 - Other specified postprocedural states (ICD-10) History of cholecystectomy (1990) ?Z90.49 - Acquired absence of other specified parts of digestive tract (ICD-10) History of oophorectomy Family History Father Coronary artery disease Mother Lung cancer Myocardial infarction Heart disease Maternal Grandmother Diabetes Social History Smoking Status: Never smoker Do you use any of these nicotine containing products: None Second hand tobacco smoke exposure: No How often do you have a drink containing alcohol: never How often do you have six or more drinks on one occasion: Never AUDIT-C Alcohol total score: 0 Non-prescribed substance use: denies use service: No Exam Const: Vital Signs, click to edit/add: Vital Signs - 24 hr 01/02/24 03:58 Temperature 97.3 F L Pulse Rate [Left P ulse Oximeter] 71 Respiratory Rate 16 Blood Pressure [Ri ght Upper Arm] 183/93 H Pulse Oximetry 98 Oxygen Delivery Me thod Room Air Documenting provider has reviewed patient's vital signs: yes Common normals: no apparent distress General appearance: comfortable and well kempt HENMT: Common normals: normocephalic Head and scalp: normocephalic Face and sinus: normal facial exam Other: Normal lips, tongue and dentition. Posterior pharynx has very mild erythema, no swelling. Tonsils are not enlarged. Palatal petechiae is present. No exudate. Eye: Common normals: conjunctivae normal General eye: normal appearance of both eyes Conjunctiva: conjunctiva(e) normal Neck & C-Spine: Common normals: full ROM and no lymphadenopathy Resp: Common normals: normal respiratory effort, no use of accessory muscles and clear to auscultation bilaterally Effort & inspection: able to speak in complete sentences Auscultation: clear to auscultation bilaterally Cardio: Common normals: regular rate, regular rhythm, S1 normal heart sound, S2 normal heart sound and no murmurs Rate: regular rate Rhythm: regular rhythm Heart sounds: S1 normal and S2 normal Psych: Appearance: well kempt Activity/motor behavior: appropriate eye contact Insight: insight good Judgement: judgment good Skin: Common normals: no rashes or lesions noted General skin exam: no rashes or lesions noted Course Course ED Course: Pharyngitis without any asymmetry, signs of abscess, severe swelling, stridor, airway compromise or dehydration. No fever or signs of sepsis. Strep, COVID, influenza and RSV swabs collected. Results pending. Reevaluation(s) Time of Reevaluation #1: 05:01 Reevaluation #1: Viral swabs are negative, as is strep swab. Suspect viral pharyngitis. Patient without any severe signs of illness at this time. Will be discharged on symptomatic control instructions per discharge paperwork. Vital Signs Vital signs: Initial Vital Signs Temperature 97.3 F L 01/02/24 03:58 Temperature Source Temporal Artery Scan 01/02/24 03:58 Pulse Rate 71 01/02/24 03:58 Pulse Rhythm Regular 01/02/24 03:58 Respiratory Rate 16 01/02/24 03:58 Blood Pressure 183/93 H 01/02/24 03:58 Blood Pressure Mean 123 H 01/02/24 03:58 Blood Pressure Position Sitting 01/02/24 03:58 Pulse Oximetry 98 01/02/24 03:58 Oxygen Delivery Method Room Air 01/02/24 03:58 Vital Signs Temperature 97.3 F L 01/02/24 03:58 Pulse Rate 71 01/02/24 03:58 Respiratory Rate 16 01/02/24 03:58 Blood Pressure 183/93 H 01/02/24 03:58 Pulse Oximetry 98 01/02/24 03:58 Oxygen Delivery Method Room Air 01/02/24 03:58 Temperature 97.3 F L 01/02/24 03:58 Pulse Rate 71 01/02/24 03:58 Respiratory Rate 16 01/02/24 03:58 Blood Pressure 183/93 H 01/02/24 03:58 Pulse Oximetry 98 01/02/24 03:58 Oxygen Delivery Method Room Air 01/02/24 03:58 Medical Decision Making Lab Data Lab results reviewed: Yes I reviewed the patient's lab results Lab results narrative: Swabs negative, as expected Labs: Lab Results 01/02/24 01/02/24 Range/Units 03:57 04:10 SARS-CoV-2 (PCR) Negative SARS-CoV-2 (Negative) Influenza Type A (PCR) Negative PCR FLU A (Negative) Influenza Type B (PCR) Negative PCR FLU B (Negative) RSV (PCR) Negative PCR RSV (Negative) Group A Strep DNA NOT DETECTED (Not Detectd) Discharge Plan Discharge Clinical Impression: Acute viral pharyngitis Patient Disposition: Home, Self-Care Condition: Stable Instructions: Pharyngitis (ED) Additional Instructions: As we discussed, your strep swab is negative. Your sore throat is caused most likely by a viral infection. There are several currently circulating in the community including COVID, influenza B and parainfluenza which is the croup virus. Your swabs are negative today, I do not recommend any antiviral medications. There are no signs of severe swelling, stridor or breathing difficulties. I do not recommend steroids or other advanced treatment. I recommend symptom control with 3 time a days salt water gargles, Tylenol 1000 mg every 6 hours and or ibuprofen 600 mg every 6 hours. The sore throat will last 4-5 days on average. Keep drinking lots of fluids. Symptoms will worsen if you get dehydrated. If you have any severe shortness of breath, persistently high fevers, severe weakness, you should come back to the emergency room. If you are physically completely unable to swallow liquids, you should come in as well. Activity Level: No Restrictions Discharge Diet: Regular Prescriptions: No Action metoprolol succinate 100 mg tablet extended release 24 hr 100 mg PO BID Qty: 180 1RF losartan-hydrochlorothiazide 100-25 mg tablet 1 tab PO QDAY Qty: 90 0RF naloxone [Narcan] 4 mg/actuation spray,non-aerosol 4 mg intranasal Q2-3M PRN (Reason: opioid overdose) Qty: 2 0RF Rx Instructions: spray 1 dose into ONE nostril; alternate nostrils w each dose until help arrives sennosides-docusate sodium [Senokot-S] 8.6-50 mg tablet 1 tab-cap PO QHS PRN amlodipine 2.5 mg tablet 2.5 mg PO QDAY Qty: 90 1RF amoxicillin 875 mg tablet 875 mg PO BID Qty: 20 0RF omeprazole 20 mg capsule,delayed release(DR/EC) 20 mg PO BID Qty: 180 3RF zolpidem 5 mg tablet 5 mg PO QHS PRN (Reason: insomnia) Qty: 30 5RF oxycodone 10 mg tablet 10 mg PO QID PRN (Reason: pain) Qty: 120 0RF oxycodone [OxyContin] 15 mg tablet,oral only,ext.rel.12 hr 15 mg PO BID Qty: 60 0RF Follow Up/Referrals: Bk Handy MD [Primary Care Provider] - Stand Alone Forms: [facility] Info Instructions
--- OUTSIDE RECORDS SUMMARY | 2024-01-02 04:55 | XMS_ITS | Continuity of Care Document ---
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 Plan of Treatment Reminders Order Date Submit Date Provider Last Modified By Organization Details Last Modified Time Details Appointments None record ed. Lab None record ed. Referral None record ed. Procedures None record ed. Surgeries None record ed. Imaging None record ed. Medication Orders None record ed. Patient TargetsNo targets recorded. Patient Instructions Encounter Date Encounter Id Patient Instructions Last Modified By Organization Details Last Modified Time 10/17/2023 [id number] Stress incontinence: -She was fit with #1 ring with support and incontinence knob pessary on 08/30/23, this fell out after placement. shortly -Refit with #2 ring with support and incontinence knob pessary 09/13/23. This works well but patient is not able to self manage pessary due to back issues. -She thinks she is interested in something surgical given that she can't self manage the pessary. She will continue with pessary for now however. Briefly discussed surgical options (sling/bulking). Reviewed and provided sling handout with her. -Counseled to monitor for vaginal discomfort, bleeding, or discharge and call with any concerns. -Discussed risks of erosion and the need for periodic cleanings. We discussed options for management including self-care for pessary with removal 1-2 times per week, or returning to clinic every 2-3 months for routine pessary cleanings if continues pessary. -Discussed to avoid constipation/avoi d straining. -Follow-up with Dr. Simms with YESSY exam and surgical discussion [email or web address] Not available 10/17/2023 16:45:29 Reason for Referral Urogynecology Physical Thera py Referral for Female stress incontinence Please call patient to schedule Pelvic Floor Physical Therapy. Thank you Referring Physician: Pratibha Judge, Urology, Encounter Date: 02/27/2023 Problems Name Status Onset Date Resolution Date Notes Provider Name and Address Organization Details Recorded Time History of statin therapy Active 023 Haley [place], [facility] 08/30/2023 08:47:54 Gastroesophageal reflux disease [facility] 15:09:56 Uric acid renal calculus [facility]23 15:10:38 Depressive disorder Active 023 Asuncion cuba [facility] 09/13/2023 15:10:59 [facility] 15:11:07 Problem Notes None recorded. Procedures Surgical History Date Name Laterality Status Provider Name and Address Organization Details Recorded Time 10/17/19 24 COMPLEX VISIT completed PANCHO Cruz [address] [place] [address],[address], [phone], [facility] 10/17/2023 16:24:44 10/17/19 24 Pessary Cleaning completed PANCHO Cruz [address] [place] [address],[address], [place], [phone], [facility] 10/17/2023 16:24:48 09/13/20 23 Pessary Insertion completed PANCHO Cruz [address] [place] [address],[address], [phone], [facility] 09/13/2023 16:04:04 08/30/20 23 Pessary Insertion completed PANCHO WHITING [address] [place] [address],[facility] [address] [place], [phone], [facility] 08/30/2023 10:08:11 02/28/20 23 Past Data Reviewed completed PANCHO WHITING [address] [facility],[address], [place], [address], [facility] 02/20/2023 17:08:48 02/28/20 23 In and Out Catheterization- female completed PANCHO WHITING [address] [facility] [facility],[address], [place], [address], [facility] 02/27/2023 15:39:58 09/28/19 23 Diagnostic colonoscopy completed Not Available Health Note 02/26/2023 16:12:30 Laparoscopic cholecystectomy completed Not Available Health Note 02/26/2023 16:12:30 Hernia repair w/mesh completed Not Available Health Note 02/26/2023 16:12:30 Total hysterectomy completed Not Available Health Note 02/26/2023 16:12:30 Fragmenting of kidney stone completed Not Available Health Note 02/26/2023 16:12:30 Imaging Results None recorded. Procedure Notes None recorded. Medical Equipment None Reported. Allergies Allergen ID Allergen Name Allergen Category Reaction Reaction Severity Criticality Documentation Date Start Date Code Code System Note Provider Name and Address Organization Details Recorded Time [id number] Latex (substanc e) environme nt,medica tion rash Not available Not available 08/26/2023 [id number] SNOMED Not Available Health Note 10:45:00 Medications Name Sig Start Date Stop Date Status Note LastModified by Organization Details LastModified Time cyclobenz aprine 10 mg tablet 08/30 completed HN: Patient reports no longer taking Not Available Not Available Not Available methocarb melody 500 mg tablet TAKE ONE TABLET BY MOUTH FOUR TIMES DAILY as needed for spasm 08/30 completed HN: Patient reports no longer taking Not Available Not Available Not Available cetirizin e 10 mg tablet TAKE ONE TABLET BY MOUTH DAILY as needed for allergy symptoms 08/30 completed HN: Patient reports no longer taking Not Available Not Available Not Available fluconazo le 150 mg tablet 150 mg orally every 3 days for 2 doses may repeat second dose 72 hrs after first dose if symptoms persist 08/30 completed HN: Patient reports no longer taking Not Available Not Available Not Available prednison e 20 mg tablet 08/30 completed HN: Patient reports no longer taking Not Available Not Available Not Available metoprolo l succinate ER 100 mg tablet,ex tended release 24 hr TAKE ONE TABLET BY MOUTH TWICE DAILY 10/17 completed HN: Patient reports no longer taking Not Available Not Available Not Available acetamino phen 300 mg-codein e 30 mg tablet TAKE ONE TABLET BY MOUTH EVERY EIGHT HOURS NEEDED FOR PAIN 08/30 completed HN: Patient reports no longer taking Not Available Not Available Not Available amlodipin e 5 mg tablet TAKE ONE TABLET BY MOUTH DAILY 08/30 completed HN: Patient reports no longer taking Not Available Not Available Not Available sulfameth oxazole 800 mg-trimet hoprim 160 mg tablet TAKE ONE TABLET BY MOUTH TWICE DAILY 08/30 completed HN: Patient reports no longer taking Not Available Not Available Not Available losartan 100 mg-hydroc hlorothia zide 25 mg tablet Take 1 tablet by mouth every day* active Not Available Not Available No t Available amlodipin e 10 mg tablet Take 1 Tablet (10 mg) by mouth once daily. 08/30 completed HN: Patient reports no longer taking Not Available Not Available Not Available benzonata te 100 mg capsule Take 1 capsule by mouth 2 to 3 times a day as needed for cough 10/17 completed HN: Patient reports no longer taking Not Available Not Available Not Available cephalexi n 500 mg capsule TAKE 1 CAPSULE BY MOUTH 3 TIMES DAILY FOR 7 DAYS. 08/30 completed HN: Patient reports no longer taking Not Available Not Available Not Available oseltamiv ir 75 mg capsule TAKE 1 CAPSULE BY MOUTH 2 TIMES A DAY FOR 5 DAYS 10/17 completed HN: Patient reports no longer taking Not Available Not Available Not Available olopatadi ne 0.1 % eye drops instill 1 drop into the each eyes twice a day As Needed for itching separate doses by at least 6-8 hours 08/30 completed HN: Patient reports no longer taking Not Available Not Available Not Available triamtere ne 37.5 mg-hydroc hlorothia zide 25 mg tablet TAKE 1 TABLET BY MOUTH DAILY active Not Available Not Available No t Available omeprazol e 20 mg capsule,d elayed release TAKE ONE CAPSULE BY MOUTH TWICE DAILY active Not Available Not Available No t Available zolpidem 5 mg tablet take 1 tablet by mouth every day at bedtime As Needed for insomnia 10/17 completed HN: Patient reports no longer taking Not Available Not Available Not Available lorazepam 1 mg tablet TAKE ONE TABLET BY MOUTH TWICE DAILY NEEDED for agitatio n 10/17 completed HN: Patient reports no longer taking Not Available Not Available Not Available estradiol 0.01% (0.1 mg/gram) vaginal cream Apply pea size amount (0.5g) to the outside of the vagina three times per week at night 08/30 completed HN: Patient reports no longer taking Not Available Not Available Not Available ondansetr on 4 mg disintegr ating tablet 08/30 completed HN: Patient reports no longer taking Not Available Not Available Not Available losartan 100 mg tablet TAKE ONE TABLET BY MOUTH DAILY 10/17 completed HN: Patient reports no longer taking Not Available Not Available Not Available fluoxetin e 20 mg capsule TAKE ONE CAPSULE BY MOUTH DAILY 08/30 completed HN: Patient reports no longer taking Not Available Not Available Not Available Senna-S 8.6 mg-50 mg tablet TAKE ONE TABLET BY MOUTH AT BEDTIME 08/30 completed HN: Patient reports no longer taking Not Available Not Available Not Available rosuvasta tin 10 mg tablet TAKE ONE TABLET BY MOUTH DAILY 08/30 completed HN: Patient reports no longer taking Not Available Not Available Not Available omeprazol e 20 mg-sodium bicarbona te 1.1 gram capsule 20mg/110 0mg 1/day 08/30 completed HN: Patient reports no longer taking Not Available Not Available Not Available oxycodone -acetamin ophen 10 mg-300 mg tablet 10mg/300 mg 4/day 08/30 completed HN: Patient reports no longer taking Not Available Not Available Not Available oxycodone 10 mg tablet Take one tablet (10 mg) by mouth four times daily as Needed for pain active Not Available Not Available No t Available GaviLyte- G 236 gram-22.7 4 gram-6.74 gram-5.86 gram oral solution two days prior to scope, drink 8oz glass every 15 minutes between 4-6pm until half of one jug is gone. Repeat same at 9am the followin seb proctor 08/30 completed HN: Patient reports no longer taking Not Available Not Available Not Available zolpidem 1.75 mg sublingua l tablet 5mg 1/day active Not Available Not Available No t Available OxyContin 15 mg tablet,cr ush resistant ,extended release Take 1 tablet by mouth twice a day fill after 09/18/23 active Not Available Not Available No t Available OxyContin 10 mg tablet,cr ush resistant ,extended release TAKE ONE TABLET BY MOUTH TWICE DAILY active Not Available Not Available No t Available metoprolo l succinate ER 100 mg capsule sprinkle, ext. release 24 hr 100mg 2/day active Not Available Not Available No t Available Vitals Date Recorded Body height Body mass index (BMI) Body weight Provider Name and Address Organization Details Last Updated DateTime 10/17/2023 160.02 cm 35.6 kg/m2 06200.07 g Asuncion Willis [facility] 10/17/2023 15:59:36 Social History Question Answer Notes LastModified by Organizat ion Details LastModified Time Tobacco Smoking Status Never Smoker Not Available Health Note 08/26/2023 10:45:02 What Is Your Level Of Alcohol Consumption? None Information not available 08/30/2023 What Is Your Level Of Caffeine Consumption? Moderate [email or web address] Information not available 08/26/2023 How Much Tobacco Do You Chew? None [email or web address] Information not available 08/26/2023 Do You Or Have You Ever Used E-cigarettes Or Vape? Never Used Electronic Cigarettes [email or web address] Information not available 08/26/2023 Number Of Pregnancies 3 [email or web address] Information not available 02/26/2023 Number Of Vaginal Deliveries 3 [email or web address] Information not available 02/26/2023 Number Of Caesarean Sections 0 [email or web address] Information not available 02/26/2023 Could You Be ? No [email or web address] Information not available 02/26/2023 What Was The Date Of Your Most Recent Tobacco Screening? 08/30/2023 [email or web address] Information not available 08/26/2023 What Is Your Relationship Status? [email or web address] Information not available 02/26/2023 Are You Sexually Active? No [email or web address] Information not available 08/26/2023 Do You Or Have You Ever Used Smokeless Tobacco? Never Used Smokeless Tobacco [email or web address] Information not available 08/26/2023 Do You Use Any Illicit Or Recreational Drugs? No [email or web address] Information not available 08/26/2023 Has Tobacco Cessation Counseling Been Provided? No Information not available 08/30/2023 Do You Or Have You Ever Used Any Other Forms Of Tobacco Or Nicotine? No Information not available 08/30/2023 How Many Days In The Past Year Have You Consumed 4 Or More Drinks? 0 [email or web address] Information no t available 08/26/2023 Sex: Female Functional Status None recorded. Mental Status None recorded. Family History Relationship Description Onset Age of this Age Resolved Age Notes Mother Family history of cancer of colon Mother Family history of diabetes mellitus Maternal Grandmother Family history of diabetes mellitus Maternal Grandmother Family history of cardiac disorder Medical History Condition Response Diabetes N Sexually Transmitted Infection N Other N Bleeding Disorder N High Blood Pressure Y Kidney Stones Y Cancer N Lung Disease N Depression Y High Cholesterol N GERD/Acid Reflux N Heart Disease N Gynecological History Statement/Question Response Irregular periods N Heavy periods N Sexually Active? N Obstetrics History GPAL:G 0 P 0 0 0 0 Immunizations Vaccine Type Date Status Provider Name and Address Organization Details Recorded Time influenza, unspecified formulation 11/09/2020 completed Asuncion cuba [facility] 09/13/2023 15:09:12 SARS-COV-2 (COVID-19) vaccine, UNSPECIFIED 02/09/2021 completed RAYMOND Varg[facility]se [facility] 09/13/2023 15:09:12 Past Encounters Encounter ID Performer Location Encounter Start Date Encounter Closed Date Diagnosis/Indication Diagnosis SNOMED-CT Code [id number] PANCHO Cruz [address] [place] [phone] 10/17/2023 15:57:05 10/17/2023 16:46:23 Urinary incontinence 241629557 Female str ess incontinence 60279980 Atrophic vaginitis 86049 000 Health Concerns Section Related Observation LastModified by Organization Detai ls LastModified Time None Recorded Concern Status LastModified by Organization Details LastModified Time None Recorded Payers Encounter Date Sequence Insurance Name Policy Number Policy Haskins Covered Member ID Haskins Member ID Guarantor Name 10/17/2023 1 [place] [id number] Germán Fall [id number] Sheri Fall Notes Date Note Type Note Provider Name and Address Organization Details Recorded Time 10/17/2023 text/html HPI Notes: : Patient presents to follow up for pessary check. Fit with #1 ring with support and incontinence knob pessary on 08/30/23 Refit with #2 ring with support and incontinence knob pessary 09/13/23. Feels it has been really helpful for her YESSY. Denies discharge, discomfort, bleeding. Unable to remove herself and this bothers her. Still wearing 1 small pad. Feels the pessary helps her bowels, daily bowel movement and less straining to have a bowel movement. shelter, she thinks she does not want a pessary if she can't self manage it. 09/13/23: Patient presents to follow up for pessary for stress urinary incontinence. Fit with #1 ring with support and incontinence knob pessary on 08/30/23 This is currently not in place. Fell out 2 hours after her visit that day when she was having a bowel movement 08/30/23: (Billie Judge PA-C) Patient seen today for pessary fitting. She is interested in a pessary for YESSY. She was sent to [facility] at last appointment. She was also started on vaginal estrogen for UTI prevention. She only did a couple sessions of PT as she stopped when a pelvic exam was recommended. DF: 3-4 times NF: 2-3 times Fluids - 2 cans pop per day - decreased from last time. Drinking some water. Pads: 2 per day Patient is not sexually active. She is menopausal. She does have history of a hysterectomy Happy with current treatment plan: yes Urogenital Distress Inventory (SAVANNAH-6): 14 Incontinence Impact Questionnaire (IIQ-7): [address] PAN[address] [place] [address],[address], [phone], [facility] [place] [facility] 10/17/2023 16:45:50 OBGyn Episode No OBEpisode recorded.
--- OUTSIDE RECORDS SUMMARY | 2024-01-02 04:55 | XMS_ITS | Data Portability ---
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 Plan of Treatment Reminders Order Date Submit Date Provider Last Modified By Organization Details Last Modified Time Details Appointments None recorded. Lab urinalysis, dipstick [address] [facility], [address] [facility] [facility], [place], [address], 3 15:23:48 Referral [email or web address] gy physical therapy referral - Please call patient to schedule Pelvic Floor Physical Therapy. Thank you 2022 023 [email or web address] [facility], [address], [address], 3 14:08:45 Procedures None recorded. Surgeries None recorded. Imaging None recorded. Medication Orders estradiol 0.01% (0.1 mg/gram) vaginal cream 2022 023 [id number], [address], [place], [address], 3 09:14:18 Patient TargetsNo targets recorded. Patient Instructions Encounter Date Encounter Id Patient Instructions Last Modified By Organization Details Last Modified Time 10/17/2023 [id number] Stress incontinence: -She was fit with #1 [...] surgical discussion [email or web address] Not available 10/17/2023 16:45:29 09/13/2023 [id number] Stress incontinence: -She was fit with #1 ring with support and incontinence knob pessary on 08/30/23 -Refit with #2 ring with support and incontinence knob pessary today. -Counseled to monitor for vaginal discomfort, bleeding, or discharge and call with any concerns. -Discussed risks of erosion and the need for periodic cleanings. We discussed options for management including self-care for pessary with removal 1-2 times per week, or returning to clinic every 2-3 months for routine pessary cleanings. -Patient was not able to remove the pessary in clinic today but will continue to try to do so. -Discussed to avoid constipation/avoi d straining. -Follow-up in 2-4 weeks [email or web address] Not available 09/13/2023 16:04:41 08/30/2023 [id number] Stress incontinence: -Discussed YESSY and the purpose of a pessary. Handout provided. Discussed that she should not have any discomfort with the device. -Patient would like to pursue a pessary fitting today. -She was fit with ring with support and incontinence knob #1 pessary which remained in place and comfortable. -Counseled to monitor for vaginal discomfort, bleeding, or discharge and call with any concerns. -Discussed risks of erosion and the need for periodic cleanings. We discussed options for management including self-care for pessary with removal 1-2 times per week, or returning to clinic every 2-3 months for routine pessary cleanings. -Patient was not able to remove the pessary in clinic today but will continue to try to do so. -Discussed to avoid constipation/avoi d straining. -Follow-up in 2 weeks, sooner if issues. [email or web address] Not available 08/30/2023 10:08:58 02/27/2023 [id number] YESSY: -Discussed management for stress urinary incontinence including pelvic floor exercises, [id number] Poise Impressa product, pelvic floor physical therapy with a therapist. -Discussed incontinence pessary. -Briefly discussed surgical/procedur al options including urethral bulking agent and midurethral sling. -Needs to decrease pop (only drinks pop now). Drink more water. -Patient interested in PFPT. Referral placed. -If no improvement with this, interested in pessary. Will arrange appointment for pessary fitting following PFPT. Recurrent UTIs: -Discussed recurrent UTIs and gave handout. -I do not have access to positive cultures at time of appointment. -Discussed use of vaginal estrogen cream in prevention of UTIs. Discussed risks vs. benefits. Apply fingerful amount to entry part of vagina three times per week at night. -Discussed cranberry tablets and probiotics. -Increased fluids. -Consider anatomic evaluation and cystoscopy if recurrent UTIs remain an issue with conservative management. [email or web address] Not available 02/27/2023 16:21:07 Reason for Referral Urogynecology Physical Thera py Referral for Female stress incontinence Please call patient to schedule Pelvic Floor Physical Therapy. Thank you Referring Physician: Pratibha Judge, Urology, Encounter Date: 02/27/2023 Results Created Date Observation Date Name Description Value Unit Range Abnormal Flag LastModifiedBy Organization Detail LastModifiedTime 02/28/20 23 02/27/2023 UA WITHO UT MICRO - CS URISC AN blood - uriscan negati ve negati ve Not Available [facility] [address], [place], [address], 02/27/2023 15:23:48 02/28/20 23 02/27/2023 UA WITHO UT MICRO - CS URISC AN bilirubin - uriscan negati ve mg/dL negati ve Not Available [facility] [address] [facility] [address], [place], [address], 02/27/2023 15:23:48 02/28/20 23 02/27/2023 UA WITHO UT MICRO - CS URISC AN urobilinogen - uriscan normal mg/dL normal Not Available [facility] [address] [facility] [address], [place], [address], 02/27/2023 15:23:48 02/28/20 23 02/27/2023 UA WITHO UT MICRO - CS URISC AN ketones - uriscan negati ve mg/dL negati ve Not Available [facility] [address] [place] [address] [address], [place], [address], 02/27/2023 15:23:48 02/28/20 23 02/27/2023 UA WITHO UT MICRO - CS URISC AN protein - uriscan negati ve mg/dL negati ve Not Available [facility] [address] [place] [address] [address], [place], [address], 02/27/2023 15:23:48 02/28/20 23 02/27/2023 UA WITHO UT MICRO - CS URISC AN nitrites - uriscan negati ve negati ve Not Available [facility] [address] [facility] [address], [place], [address], 02/27/2023 15:23:48 02/28/20 23 02/27/2023 UA WITHO UT MICRO - CS URISC AN glucose - uriscan negati ve mg/dL negati ve Not Available [facility] [address] [place] [address] [address], [place], [address], 02/27/2023 15:23:48 02/28/20 23 02/27/2023 UA WITHO UT MICRO - CS URISC AN pH - uriscan 5.00 5.00-9 .00 Not Available [facility] [address] [facility] [address], [place], [address], 02/27/2023 15:23:48 02/28/20 23 02/27/2023 UA WITHO UT MICRO - CS URISC AN sp. gravity - uriscan 1.03 1.01-1 .03 Not Available [facility] [address] [facility] [address], [place], [address], 02/27/2023 15:23:48 02/28/20 23 02/27/2023 UA WITHO UT MICRO - CS URISC AN leukocytes - uriscan negati ve negati ve Not Available [facility] [address] [place] [address] [address], [place], [address], 02/27/2023 15:23:48 02/28/20 23 02/27/2023 UA WITHO UT MICRO - CS URISC AN color - uriscan yellow lt. yellow ;yello w Not Available [facility] [address] [place] [address] [address], [place], [address], 02/27/2023 15:23:48 02/28/20 23 02/27/2023 UA WITHO UT MICRO - CS URISC AN clarity - uriscan clear clear Not Available [facility] [address] [facility] [address], [place], [address], 02/27/2023 15:23:48 02/28/20 23 02/27/2023 UA WITHO UT MICRO - CS URISC AN total urine volume (mL) 70 /mL Not Available [facility] [address] [place] [address] [address], [place], [address], 02/27/2023 15:23:48 Result Notes None recorded. Problems Name Status Onset Date Resolution Date Notes Provider Name and Address Organization Details Recorded Time History of statin therapy Active 023 RAYMOND Cooper [facility] 08/30/2023 08:47:54 Gastroesophageal reflux disease Active 023 Asuncion cuba, [facility] 09/13/2023 15:09:56 Uric acid renal calculus Active 023 Asuncion cuba, [facility] 09/13/2023 15:10:38 Depressive disorder Active 023 Asuncion Lazaro cuba, [facility] 09/13/2023 15:10:59 Hypertensive disorder Active 023 Asuncion cuba, [facility] 09/13/2023 15:11:07 Problem Notes None recorded. Procedures Surgical History Date Name Laterality Status Provider Name and Address Organization Details Recorded Time 10/17/19 24 COMPLEX VISIT completed PANCHO Cruz [address] [facility], [address], [facility] 10/17/2023 16:24:44 10/17/19 24 Pessary Cleaning completed PANCHO Cruz [address] [place] [address],[address], [place], [address], [facility] 10/17/2023 16:24:48 09/13/20 23 Pessary Insertion completed PANCHO Cruz [address] [place] [address],[address], [place], [address], [facility] 09/13/2023 16:04:04 08/30/20 23 Pessary Insertion completed PANCHO WHITING [address] [place] [address],[address], [address], [facility] 08/30/2023 10:08:11 02/28/20 23 Past Data Reviewed completed PANCHO WHITING [address] [place] [address],[address], [address], [facility] 02/20/2023 17:08:48 02/28/20 23 In and Out Catheterization- female completed PANCHO WHITING [address] [place] [address],[address], [address], [facility] 02/27/2023 15:39:58 09/28/19 23 Diagnostic colonoscopy completed [...] Name and Address Organization Details Recorded Time 018112 Latex (substanc e) environme nt,medica tion rash Not available Not available 08/26/2023 07587 [id number] SNOMED Not Available Health Note 10:45:00 [...] No t Available Vitals Date Recorded Body weight Provider Name an d Address Organization Details Last Updated DateTime 02/27/2023 03268.07 g Aileen cuba [facility] 02/27/2023 15:12:28 Date Recorded Body height Body mass index (BMI) Provider Name and Address Organization Details Last Updated DateTime 02/27/2023 160.02 cm 35.6 kg/m2 Not Available Health Note 15:11:23 Date Recorded Body height Provider Name an d Address Organization Details Last Updated DateTime 08/30/2023 160.02 cm Haley Jorge cuba [facility] 08/30/2023 09:13:46 Date Recorded Body height Body mass index (BMI) Body weight Provider Name and Address Organization Details Last Updated DateTime 09/13/2023 160.02 cm 35.6 kg/m2 79111.07 g Asuncion cuba [facility] 09/13/2023 15:09:07 Date Recorded Body height Body mass index (BMI) Body weight Provider Name and Address Organization Details Last Updated DateTime 10/17/2023 160.02 cm 35.6 kg/m2 74910.07 g Asuncion cuba [facility] 10/17/2023 15:59:36 Social History Question Answer Notes [...] of cardiac disorder Medical History Condition Response Sexually Transmitted Infection N Diabetes N Other N Bleeding Disorder N High Blood Pressure Y Kidney Stones Y High Cholesterol N GERD/Acid Reflux N Heart Disease N Cancer N Depression Y Lung Disease N Gynecological History Statement/Question Response Irregular periods N Heavy periods N Sexually Active? N Obstetrics History GPAL:G 0 P 0 0 0 0 Immunizations Vaccine Type Date Status Provider Name and Address Organization Details Recorded Time influenza, unspecified formulation 11/09/2020 completed RAYMOND Varghese [facility] 09/13/2023 15:09:12 SARS-COV-2 (COVID-19) vaccine, UNSPECIFIED 02/09/2021 completed Asuncion cuba [facility] 09/13/2023 15:09:12 Past Encounters Encounter ID Performer Location Encounter Start Date Encounter Closed Date Diagnosis/Indication Diagnosis SNOMED-CT Code [id number] PANCHO WHITING [facility] [address] [place] [address] 02/27/2023 15:10:43 02/27/2023 16:23:02 Urinary incontinence 242026013 Female str ess incontinence 21407808 Atrophic vaginitis 06298 000 [id number] PANCHO WHITING [address] [address] 08/30/2023 09:08:45 08/30/2023 10:25:54 Urinary incontinence 981152038 Female str ess incontinence 94611401 Atrophic vaginitis 48150 000 [id number] PANCHO Cruz [address] [address] 09/13/2023 15:05:51 09/13/2023 16:05:08 Urinary incontinence 845718196 Female str ess incontinence 53187844 Atrophic vaginitis 62238 000 [id number] PANCHO Cruz [address] [address] 10/17/2023 15:57:05 10/17/2023 16:46:23 Urinary incontinence 930227297 Female str ess incontinence 74342499 Atrophic vaginitis 73525 000 Health Concerns Section Related Observation LastModified by Organization Detai ls LastModified Time None Recorded Concern Status LastModified by Organization Details LastModified Time None Recorded Advance Directives Directive None Recorded Payers Encounter Date Sequence Insurance Name Policy Number Policy Haskins Covered Member ID Haskins Member ID Guarantor Name 10/17/2023 1 [place] [id number] 5 Germán R Anvik [id number] 22 Sheri Fall 09/13/2023 1 [place] [id number] 5 Germán R Anvik [id number] 22 Sheri Fall 08/30/2023 1 [place] [id number] 5 Germán Fall [id number] 22 Sheri Fall 02/27/2023 1 [place] [id number] 5 Germán Fall [id number] 22 Sheri Fall Notes Date Note Type Note Provider Name and Address Organization Details Recorded Time 02/27/2023 text/html HPI Notes: Teetee lopez seen today for urinary incontinence. PMH significant for NSTEMI, chronic pain dependent on opioids, and chronic radicular low back pain. Incontinence for a long time. Has incontinence with sit to stand, walking No UUI NF: 4-5 times DF: 3 times Drinks up to bedtime Drinks 7-up - occasional water - no other fluids Pads per day: 6-7 per day Recalls 3 infections in 2022 History of kidney stones - pass spontaneously - reports lithotripsy one time No history of gross hematuria 3 children, delivered vaginally Symptomatic prolapse: none Abdominal surgeries: 3 umbilical hernia repairs, cyst removal, hysterectomy, cholecystectomy, back surgery Constipation: yes - takes pain meds - does not take daily (dulcolax) Neurologic history: numbness and tingling in legs - can barely feel feet - since back surgery Smoking history: none Urine testin01/09/22: UA many bacteria, 6-10 WBC's, no culture Hgb A1C: 5.8 Cr 1.33 Urogenital Distress Inventory (SAVANNAH-6): 14 Incontinence Impact Questionnaire (IIQ-7): 13 PANCHO WHITING [address] [place] [address],[facility] [address], [address], [facility] 02/27/2023 16:21:28 08/30/2023 text/html HPI Notes: Teetee lopez seen today for pessary fitting. She is [...] 14 Incontinence Impact Questionnaire (IIQ-7): 10 PANCHO WHITING [address] [place] [address],[address] [place] [address], [phone], [facility] 08/30/2023 10:09:29 09/13/2023 text/html HPI Notes: 09/13/23: Patient presents to follow up for [...] Incontinence Impact Questionnaire (IIQ-7): 10 PANCHO Cruz [address] [place] [address],[address] [place] [address], [address], [facility] 09/13/2023 16:04:55 10/17/2023 text/html HPI Notes: : Patient presents [...] less straining to have a bowel movement. 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 10/17/2023 16:45:50 OBGyn Episode No OBEpisode recorded.
--- OUTSIDE RECORDS SUMMARY | 2024-01-02 04:55 | XMS_ITS | Continuity of Care Document ---
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 Name Role Phone Will MD GARZA, Veto Unavailable Unavailabl e Allergies, Adverse Reactions, Alerts Substance Reaction Status Criticality latex Active No Information Medications Medication Instructions Dosage Effective Dates (start - stop) Status Comments AMBIEN (unknown strength) take 1 tablet by oral route every day at bedtime Not Available - Active LISINOPRIL (unknown strength) take 1 tablet by oral route every day Not Available - Active METOPROLOL TARTRATE (unknown strength) take 1 tablet by oral route 2 times every day Not Available - Active OXYCODONE HCL (unknown strength) take 1 tablet by oral route every 4 - 6 hours Not Available - Active OXYCONTIN (unknown strength) take 1 tablet by oral route every 12 hours Not Available - Active Procedures Procedure Date Drug test def 8-14 classes Drug Urine Toxology With Chromatography OFFICE/OUTPATIENT VISIT, [facility] Advance Directives Directive Yes / No Effective Date File Name No Information Encounters Encounter Description Practice Location Reason(s) For Visit Diagnoses Date Provider Providers Copied on Encounter [facility], [address] [place], [place], [id number] , [place] tel:[phone] [facility] No Information 2 Will Veto. [address] [facility] [place], [place], [id number] , [place]. tel:[phone] [facility], [address] [place], [place], [id number] , [place] tel:+ [phone] [facility] [place] No Information 2 Vinicio Argueta. [address] [facility] [address], [place], [place], [id number] , [place]. tel:[phone] Referring Provider: Veto Norman, [address] [place], [address]. tel:[phone] OFFICE/OUTPA TIENT VISIT, [facility], [address] [place], [place], [id number] , [place] tel:[phone] [facility] Back pain (chief complaint) Chronic pain syndromeLow back pain, unspecifiedLong term (current) use of opiate analgesicEncounter for therapeutic drug level monitoring 2 Vinicio Argueta. [address] [facility] [address], [place], [place], [id number] , [place]. tel:[phone] Referring Provider: Bk Handy, [facility] [address], [place], [address]. tel:[phone] Family History Family Member Type Diagnosis Age At Onset Sister Problem Back pain/issues Payers Payer name Insurance type Covered alliance party ID Authorramonitaa gonzalez(s) Blue Cross Blue oJjo Gentile BL [id number] 2 Social History Type Description Quantity Date [...] Goal AST (SGOT). Due on due Goal BREWERY REPRESENTATIVE Paperwork. Due on due Goal OARS. Due [...] due Goal HPV. Due on due Goal COMMUNITY PHARMACIST Scanned. Due on due Goal Creatinine. Due on due Goal UDT. Due on due Goal Creatinine. Due on due Goal COMMUNITY PHARMACIST Scanned. Due on due Goal BREWERY REPRESENTATIVE Paperwork. Due on due Goal OARS. Due on due Goal ALT (SGPT). Due on due Goal AST (SGOT). Due on due Goal Order Annual PT. Due on due Goal UDT. Due on due Goal COMMUNITY PHARMACIST Scanned. Due on due Goal ALT (SGPT). Due on due Goal Creatinine. Due on due Goal Order Annual PT. Due on due Goal BREWERY REPRESENTATIVE Paperwork. Due on due Goal OARS. Due [...] back surgery with Dr. Justin Cuba of [facility] in 2015. Reports that Further surgery of her upper lumbar region was recommended, but patient would not like to pursue further surgical intervention. Pain is characterized as dull, sore, and tight pain. Secondarily notes constant tingling in BL feet. Pain level averages 8/10.For pain management, patient has tried PT at [facility], has undergone a lumbar epidural steroid injection at [facility], and has tried the following medications:- Gabapentin- Lyrica- Cyclobenzaprine- NSAIDS- Tramadol- Codeine- HydrocodoneCurrently managed on Oxycodone 10mg QID and OxyContin 15mg BID, prescribed by her new PCP, Dr. Bk Handy, at [facility].Sheri is interested in pain management through [facility]. No other concerns today. Functional Status Date Functional Assessmen t No Information Instructions Date Instruction Additional Infor matalejandra No Information Assessments Type Assessment Date No Information Patient Care Teams Name Effective Dates (start - stop) Status Members No Information
--- OUTSIDE RECORDS SUMMARY | 2024-01-02 04:55 | XMS_ITS | Clinical Summary ---
Author Name Unknown Organization [employer] [facility] Address [place], [place] [address] Care Team Providers Care Network Technician Name Role Phone Natalie Ramos NP Unavailable [phone] Kel Salvador MD Unavailable [phone] Justin Cuba MD Primary Care Provider Allergies Active Allergy Reactions Criticality Noted Date [...] needed for Pain. for pain 120 Tablet 05/28/2022 Active oxyCODONE (OxyCONTIN) 15 mg SUSTAINED release tabletIndications:Ch ronic bilateral low back pain with left-sided sciatica,S/P lumbar spinal fusion Take 1 Tablet (15 mg) by mouth every 12 hours. 60 Tablet 05/28/2022 Active zolpidem (AMBIEN) 5 mg tabletIndications:In somnia, idiopathic Take 1 Tablet (5 mg) by mouth at bedtime if needed for Sleep. 30 Tablet 05/28/2022 Active Active Problems Problem Noted Date Diagnosed Date CAD in [place] artery 09/26/2021 Overview: CT Cardiac Coronary: 09/19/2021 1. This is a dual read study - please review [facility] over-read below for incidental non cardiac [...] not identified any concerns. 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 Query Ran today and patient filling controlled [...] Resolved Date Coronary artery disease invo lving [place] coronary artery of [place] heart with angina pectoris 09/19/2021 09/26/2021 Radicular leg pain, left 04/19/201504/2019 Paresthesias 05/20/2014 08/01/2019 Dysthymic disorder 07/12/2009 4 HTN (hypertension) 09/25/2008 9 Overview: Updated by system to replace inactive record Urinary tract infection, site not specified 12/19/2005 04/17/2012 Encounters Date Type Department Care Team Description 01/01/2024 Nurse Triage [facility] [address] [place] [address] Justin Cuba MD from Last 3 Months Immunizations Name Administration Dates Next Due COVID-19 vaccine (Rossy-J& J) SIDDHARTH VOGEL 12/18/2020 COVID-19 vaccine (Pitadela-Bio NTech 30mcg/0.3mL) SIDDHARTH VOGEL 09/26/2021 Influenza, IIV3 (Age >=3 years) 05/16/2015,01/02 Influenza, IIV4 08/06/2019, 8,10/13/2017,09/20/20 17,10/18/2016 Influenza, IIV4 (=>6mos) MDV 06/20/2020 Influenza, RIV3 (Age =>18 Years) 06/15/2014 Tdap 01/21/2016 Family History Medical History Relation Name Comments Heart Disease Father Diabetes Maternal Grandmother Cancer Mother Lungs Heart Disease Mother [place] Relation Name Status Comments Father (Age 54 ) [place] Maternal Grandmother Mother Social History Tobacco Use [...] A1 A5 Name Cl in Kandis ng Kanids ng Kandis ng Last Filed Vital Signs Vital Sign Reading Time Taken Comments Blood Pressure 126/74 01/09/2022 4:04 PM CDT Pulse 75 01/09/2022 4:04 PM CDT Temperature 36.7 ??C (98.1 ??F) 09/19/2021 9:09 AM CS T Respiratory Rate 18 09/19/2021 1:31 PM FAILURE ANALYSIS ENGINEER Oxygen Saturation 95% 11/23/2021 12:39 PM FAILURE ANALYSIS ENGINEER all sx gone Inhaled Oxygen Concentration - - Weight 91.2 kg (201 lb) 01/09/2022 4:04 PM CDT Height 160 cm (5' 3) 09/18/2021 12:25 AM FAILURE ANALYSIS ENGINEER Body Mass Index 35.61 09/18/2021 12:25 AM FAILURE ANALYSIS ENGINEER Plan of Treatment Health Maintenance Due Date Last Done Comments [...] 11/20/2019, Additional history exists COVID-19 vaccine series (2022- season) 2023 09/26/2021, 12/18/2020 Influenza for age 50-64 05/25/2024 06/20/20 20, 08/06/2019, 07/01/2018, Additional history exists [...] Cuba MD Medical Devices Implanted Type Area [employer]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 Spacer Lmbr [id number] 8deg Avs-L Stand Alone - [id number] Implanted:Qty: 1 on 11/27/2018 by Wilbert Montelongo MD at [facility] N/A: Spine [employer] Spine [id number] / / . 5.5mm X 22mm Rescue Screw Lite Plate Implanted:Qty: 1 on 11/27/2018 by Wilbert Montelongo MD at [facility] N/A: Spine [id number] / / . Bone 1-4mm 60cc Medtronic Fine Canclls Freeze Dried - [id number] Implanted:Qty: 1 on 11/27/2018 by Wilbert Montelongo MD at [facility] N/A: Spine Medtronic Spine/Ortho 02/15/2023 [id number]# / / [id number] Screw Lmbr Post 8.5x50mm Ilios Va - [id number] Implanted:Qty: 2 on 11/27/2018 by Wilbert Montelongo MD at [facility] N/A: Spine Chapo Spine [id number]# / / . Screw Lmbr Post 6.5x45mm Xia3 Va - [id number] Implanted:Qty: 4 on 11/27/2018 by Wilbert Montelongo MD at [facility] N/A: Spine Chapo Spine [id number] / / . Screw Lmbr Post 6.5x40mm Xia3 Va - [id number] Implanted:Qty: 2 on 11/27/2018 by Wilbert Montelongo MD at [facility] N/A: Spine [employer] Spine [id number]# / / . Set Screw Lmbr Xia3 - [id number] Implanted:Qty: 8 on 11/27/2018 by Wilbert Monteolngo MD at [facility] N/A: Spine Chapo Spine [id number]# / / . Oni Lmbr 396atg1 Xia3 Cvd Titnm - [id number] Implanted:Qty: 1 on 11/27/2018 by Wilbert Montelongo MD at [facility] N/A: Spine Chapo Spine [id number]# / / . Bone Matrix 5cc Progenix Plus Putty Dbm - [id number] Implanted:Qty: 1 on 11/27/2018 by Wilbert Montelongo MD at [facility] N/A: Spine Medtronic Spine/Ortho 05/15/2020 [id number]# / / [id number] Oni Lmbr 192r2dp Xia3 Titnm - [id number] Implanted:Qty: 1 on 11/27/2018 by Wilbert Montelongo MD at [facility] N/A: Spine Chapo Spine [id number]# / / . Bone Matrix 5cc Progenix Plus Putty Dbm - [id number] Implanted:Qty: 1 on 11/27/2018 by Wilbert Montelongo MD at [facility] N/A: Spine Medtronic Spine/Ortho 04/22/2020 [id number]# / / [id number] Bone Matrix Lg Infuse Bmp - [id number] Implanted:Qty: 1 on 11/27/2018 by Wilbert Montelongo MD at [facility] N/A: Spine Medtronic Spine/Ortho 10/25/2020 [id number]# / / [id number] Bone Matrix 10cc Stimulan Kit Rapid Cure - [id number] Implanted:Qty: 1 on 11/27/2018 by Wilbert Montelongo MD at [facility] N/A: Spine [employer] 06/23/2021 [id number] / / [id number] Description:Mixed with Tobra mycin 1.2g Spacer Lmbr [id number] 12deg Avs-L Stand Alone - [id number] Implanted:Qty: 2 on 11/27/2018 by Wilbert Montelongo MD at [facility] N/A: Spine Chapo Spine [id number]# / / . 23mm Plate - Lite Plate Implanted:Qty: 1 on 11/27/2018 by Wilbert Montelongo MD at [facility] N/A: Spine [id number] / / . Description:REF: [id number] 5.0 X 25mm Screw - Lite Plate Implanted:Qty: 3 on 11/27/2018 by Wilbert Montelongo MD at [facility] N/A: Spine [id number] / / . Screw Lmbr 6x25mm Ancr-L Standalone - [id number] Implanted:Qty: 6 on 11/27/2018 by Wilbert Montelongo MD at [facility] N/A: Spine Chapo Spine [id number]# / / . Explanted Type Area Biodiesel Plant Operations Engineer Device Identifier Shelf Expiration Date Model / Serial / Lot Screw Sm Joint 4.5x20mm Axsos Malcom Titnm - [id number] Explanted:Qty: 6 on 11/27/2018 by Wilbert Montelongo MD at [facility] N/A: Spine [employer] [id number] / / . Procedures Procedure Name Priority Date/Time Associated Diagnosis Comments LIPID PANEL LIBIA 09/18/2021 2:35 AM FAILURE ANALYSIS ENGINEER XR MAMMO BILAT SCREEN FFDM (IA) Routine 06/23/2016 3:34 PM CDT Encounter for mammogram to establish baseline mammogram from Last 3 Months or Most Recently Relevant to Health Maintenance Results * (ABNORMAL) LIPID PANEL (09/18/2021 2:35 AM FAILURE ANALYSIS ENGINEER) CHOLESTEROL,TOTAL 273(H) 100 - 199 mg/dL 09/18/2021 8:41 AM [facility] TRIGLYCERIDES 211(H) <150 mg/dL 09/18/2021 8:41 AM [facility] HDL CHOLESTEROL 41 >40 mg/dL 8:41 AM [facility] NON-HDL CHOLESTEROL 232(H) <145 mg/dl 09/18/2021 8:41 AM [facility] CHOL/HDL RATIO 6.66(H) <4.50 09/18/2021 8:41 AM [facility] LDL CHOLESTEROL 190(H) <=130 mg/dL 09/18/2021 8:41 AM [facility] VLDL CHOLESTEROL 42(H) <=30 mg/dL 09/18/2021 8:41 AM [facility] PROVIDER ORDERED STATUS RANDOM 09/18/2021 8:41 AM [facility] Blood BLOOD SPECIMEN / Unknown Non-Lab Venipuncture / Unknown 09/18/2021 2:35 AM FAILURE ANALYSIS ENGINEER 09/18/2021 2:40 AM FAILURE ANALYSIS ENGINEER Mary Anne Bell DO CHEMISTRY [facility] SENDOUT INTERNAL ZIP [id number] [place] [id number] * XR MAMMO BILAT SCREEN FFDM (06/23/2016 3:34 PM CDT) Anatomical Region Laterality Modality BREASTS, Breast Left, Breast Right Bilateral Mammography Impressions 2016 9:08 AM CDT ??There is no radiographic evidence for malignancy. ??Recommend annual mammograms. A lay language report of this examination will be provided to the patient. MAMMOGRAM ASSESSMENT: ??ACR 2 Benign Narrative 2016 9:08 AM CDT XR MAMMO BILAT SCREEN FFDM [G0202.0] CLINICAL HISTORY: ??This is an asymptomatic 51 y.o. patient. INDICATION FOR EXAM: Mammogram Screening. TECHNIQUE: CC & MLO views were obtained. ??This digital study was evaluated with the assistance of Computer-Aided Detection. COMPARISON FILMS: Yes 12/22/13 [facility] 11/02/08 [facility] FINDINGS: ??Mammographically, the breast tissue has scattered fibroglandular densities. ??No suspicious masses or microcalcifications. ?? Post surgical changes within ??right breast. Justin Cuba MD MAMMO from Last 3 Months or Most Recently Relevant to Health Maintenance Advance Directives * Full Code (Latest Code Status on File) Date Activated Date Inactivated Comments 09/18/2021 6:44 AM 09/19/2021 8:53 PM Question Answer Comments Code Status Discussion: Reviewed Preferences * Full Code Date Activated Date Inactivated Comments 12/08/2018 5:21 PM 12/11/2018 7:39 PM Question Answer Comments Code Status Discussion: Discussed * Full Code Date Activated Date Inactivated Comments 11/27/2018 5:46 AM 12/01/2018 5:17 PM * Full Code Date Activated Date Inactivated Comments 01/01/2013 8:31 PM 01/03/2013 3:48 PM * Full Code Date Activated Date Inactivated Comments 12/30/2012 10:04 PM 01/01/2013 8:31 PM Care Teams Network Technician Relationship Specialty Start Date End Date Justin Cuba MD [address] [place] [address] PCP - General Family Practice 10/10/23 Natalie Ramos NP Pain Management Nurse Practitioner 06/10/19 Kel Salvador MD [address] [place] [address] Cardiovascular Disease 12/02/21
[2024-01-02 04:57] LABS: PCR FLU A Negative PCR FLU A (Negative); PCR FLU B Negative PCR FLU B (Negative); PCR RSV Negative PCR RSV (Negative); SARS PCR* Negative SARS-CoV-2 (Negative)
== END 2024-01-02 05:11 | disposition home or self-care (01) ==
LOC: ED 04:52
PROVIDERS: Emergency Provider Family Medicine; PCP Family Medicine
DX: J02.9 Acute pharyngitis, unspecified (principal)
CPT/HCPCS: 87631; 87651; 99282; 99283

== ENCOUNTER 2024-10-29 13:22 | Emergency (ER) | payer BC, SELFPAY ==
--- OUTSIDE RECORDS SUMMARY | 2024-10-29 13:25 | XMS_ITS | Data Portability ---
Author Organization [facility], [facility] Address [address] [place] [address] Care Team Providers Care Sole Ruffer Name Role Phone [facility] Primary Care Pr ovider Assessment No assessment recorded. Plan of Treatment Reminders Order Date Submit Date Provider Last Modified By Organization Details Last Modified Time Details Appointments None recorded. Lab urinalysis, dipstick 2022 023 [facility], [address], [place], [address], 3 15:23:48 Referral [email or web address] gy physical therapy referral - Please call patient to schedule Pelvic Floor Physical Therapy. Thank you 2022 023 [email or web address] [facility], [address] [place], [address], 3 14:08:45 Procedures None recorded. Surgeries None recorded. Imaging None recorded. Medication Orders estradiol 0.01% (0.1 mg/gram) vaginal cream 2022 023 [id number], [id number], [place], [address], 3 09:14:18 Patient TargetsNo targets recorded. Patient Instructions Encounter Date Encounter Id Patient Instructions Last Modified By Organization Details Last Modified Time 02/27/2023 [id number] YESSY: -Discussed management for stress urinary incontinence including pelvic floor exercises, [id number] Poise [employer] product, pelvic floor physical therapy [...] UTIs remain an issue with conservative management. [email or web address] Not available 02/27/2023 16:21:07 08/30/2023 [id number] Stress incontinence: -Discussed YESSY and the purpose [...] -Follow-up in 2 weeks, sooner if issues. [email or web address] Not available 08/30/2023 10:08:58 09/13/2023 [id number] Stress incontinence: -She was fit with #1 [...] 2-4 weeks [email or web address] Not available 09/13/2023 16:04:41 10/17/2023 [id number] Stress incontinence: -She was fit with #1 [...] Name Description Value Unit Range Abnormal Flag Note LastModifiedBy Organization Detail LastModifiedTime 02/28/2002/27/2023 UA WITHO UT MICRO - CS URISC AN blood - uriscan NEGATI VE negati ve Not Available [facility] [address], [place], [address], 02/27/2023 15:23:48 02/28/2002/2702/27/2023 UA WITHO UT MICRO - CS URISC AN bilirubin - uriscan NEGATI VE mg/dL negati ve Not Available [facility] [address] [place] [address] [address], [place], [address], 02/27/2023 15:23:48 02/28/20 23 02/27/2023 UA WITHO UT MICRO - CS URISC AN urobilinogen - uriscan NORMAL mg/dL normal Not Available [facility] [address] [place] [address] [address], [place], [address], 02/27/2023 15:23:48 02/28/20 23 02/27/2023 UA WITHO UT MICRO - CS URISC AN ketones - uriscan NEGATI VE mg/dL negati ve Not Available [facility] [address] [place] [address] [address], [place], [address], 02/27/2023 15:23:48 02/28/20 23 02/27/2023 UA WITHO UT MICRO - CS URISC AN protein - uriscan NEGATI VE mg/dL negati ve Not Available [facility] [address] [place] [address] [address], [place], [address], 02/27/2023 15:23:48 02/28/20 23 02/27/2023 UA WITHO UT MICRO - CS URISC AN nitrites - uriscan NEGATI VE negati ve Not Available [facility] [address] [place] [address] [address], [place], [address], 02/27/2023 15:23:48 02/28/20 23 02/27/2023 UA WITHO UT MICRO - CS URISC AN glucose - uriscan NEGATI VE mg/dL negati ve Not Available [facility] [address] [place] [address] [address], [place], [address], 02/27/2023 15:23:48 02/28/20 23 02/27/2023 UA WITHO UT MICRO - CS URISC AN pH - uriscan 5.00 5.00-9 .00 Not Available [facility] [address] [place] [address], [place], [address], 02/27/2023 15:23:48 02/28/20 23 02/27/2023 UA WITHO UT MICRO - CS URISC AN sp. gravity - uriscan 1.03 1.01-1 .03 Not Available [facility] [address] [place] [address] [address], [place], [address], 02/27/2023 15:23:48 02/28/20 23 02/27/2023 UA WITHO UT MICRO - CS URISC AN leukocytes - uriscan NEGATI VE negati ve Not Available [facility] [address] [place] [address], [place], [address], 02/27/2023 15:23:48 02/28/20 23 02/27/2023 UA WITHO UT MICRO - CS URISC AN color - uriscan YELLOW lt. yellow ;yello w Not Available [facility] [address] [place] [address], [place], [address], 02/27/2023 15:23:48 02/28/20 23 02/27/2023 UA WITHO UT MICRO - CS URISC AN clarity - uriscan CLEAR clear Not Available [facility] [address] [place] [address], [place], [address], 02/27/2023 15:23:48 02/28/20 23 02/27/2023 UA WITHO UT MICRO - CS URISC AN total urine volume (mL) 70 /mL ----- ----- ----- ----- ----- ----- ----- ----- ----- ----- ----- ----- ----- ----- ---- *Plea se note the follo wing minim um quant ities for addit ional urine testi ng: - Atypi cals: 3 mL - Cytol ogy: 20 mL - GC/CH : 2 mL - FISH: 30 mL - Atypi cals w/ GC/CH : 5 mL - Cytol ogy PLUS FISH: 50 mL - Urine Cultu re: 3 mL ----- ----- ----- ----- ----- ----- ----- ----- ----- ----- ----- ----- ----- ----- ---- This lab resul t is being provi ded to you and your provi francisca at the same time in compl iance with the Centu ry Cures Act. Your provi francisca may not have had time to revie w and make recom menda tions based on the resul t. Makenzie cotton allow up to one week for provi francisca revie w. Not Available [facility] [address] [place] [address] [address], [place], [address], 02/27/2023 15:23:48 Result Notes None recorded. Problems Name Problem SNOMED Code Status Onset Date Resolution Date Notes Provider Name and Address Organization Details Recorded Time History of statin therapy 326524093 Active 2022 Haley Jorge cuba [facility] 3 08:47:54 Gastroesophage al reflux disease 677140309 Active 2022 Asuncion cuba [facility] 3 15:09:56 Uric acid renal calculus 645095800 Active 2022 Asuncion cuba [facility] 3 15:10:38 Depressive disorder 23358270 Active 2022 Asuncion cuba [facility] 3 15:10:59 Hypertensive disorder 17395124 Active 2022 Asuncion cuba [facility] 3 15:11:07 Problem Notes None recorded. Procedures Surgical History Date Name Laterality Status Provider Name and Address Organization Details Recorded Time 10/17/19 24 COMPLEX VISIT completed SERGEI Smith [address] [facility], [place], [address], [facility] 10/17/2023 16:24:44 10/17/19 24 Pessary Cleaning completed SERGEI Smith [address] [facility], [place], [address], [facility] 10/17/2023 16:24:48 09/13/20 23 Pessary Insertion completed SERGEI Smith [address] [place] [address],[address], [place], [address], [facility] 09/13/2023 16:04:04 08/30/20 23 Pessary Insertion completed SERGEI WHITING [address] [place] [address],[address], [place], [address], [facility] 08/30/2023 10:08:11 02/28/20 23 Past Data Reviewed completed SERGEI WHITING [address] [place] [address],[address], [address], [facility] 02/20/2023 17:08:48 02/28/20 23 In and Out Catheterization- female completed SERGEI WHITING [address] [place] [address],[address], [place], [address], [facility] 02/27/2023 15:39:58 09/28/19 23 Diagnostic colonoscopy completed [...] Name and Address Organization Details Recorded Time 383012 Latex (substanc e) environme nt,medica tion rash Not available Not available 08/26/2023 [id number] 8007 SNOMED Not Available Not Available Not Available Medications Name Sig Start Date Stop Date [...] Repeat same at 9am the followin seb swansonluis daniel 08/30 completed HN: Patient reports no longer [...] Address Organization Details Last Updated DateTime 02/27/2023 97352.07 g Aileen Salazar [place] [facility] 02/27/2023 15:12:28 Date Recorded Body height Body mass index (BMI) Provider Name and Address Organization Details Last Updated DateTime 02/27/2023 160.02 cm 35.6 kg/m2 Not Available Health Note 15:11:23 Date Recorded Body height Provider Name an d Address Organization Details Last Updated DateTime 08/30/2023 160.02 cm Haley Patel [facility] 08/30/2023 09:13:46 Date Recorded Body height Body mass index (BMI) Body weight Provider Name and Address Organization Details Last Updated DateTime 09/13/2023 160.02 cm 35.6 kg/m2 49879.07 g Asuncion Willis [facility] 09/13/2023 15:09:07 Date Recorded Body height Body mass index (BMI) Body weight Provider Name and Address Organization Details Last Updated DateTime 10/17/2023 160.02 cm 35.6 kg/m2 37512.07 g Asuncion Willis [facility] 10/17/2023 15:59:36 Social History Question Answer [...] Use Any Illicit Or Recreational Drugs? No [facility] Information not available 08/26/2023 Has Tobacco Cessation Counseling Been Provided? No Information not available 08/30/2023 Do You Or Have You Ever Used Any Other Forms Of Tobacco Or Nicotine? No Information not available 08/30/2023 How Many Days In The Past Year Have You Consumed 4 Or More Drinks? 0 [facility] Information no t available 08/26/2023 Sex: Unknown Functional Status None recorded. Mental Status None recorded. Family History Relationship Description Onset Age of this Age Resolved Age Notes LastModified by Organization Details LastModified Time Mother Family history of cancer of colon [facility] Not available 2022 16:12:28 Mother Family history of diabetes mellitus [facility] Not available 2022 16:12:28 Maternal Grandmother Family history of diabetes mellitus [facility] Not available 2022 16:12:28 Maternal Grandmother Family history of cardiac disorder [place] [address] Not available 2022 16:12:28 Medical History Condition Response Sexually Transmitted Infection N Diabetes N Other N Bleeding Disorder N High Blood Pressure Y Kidney Stones Y High Cholesterol N GERD/Acid Reflux N Heart Disease N Cancer N Lung Disease N Depression Y Gynecological History Statement/Question Response Irregular periods N Heavy periods N Sexually Active? N Obstetrics History GPAL:G 0 P 0 0 0 0 Immunizations Vaccine Type Date Status Note Provider Nam e and Address Organization Details Recorded Time influenza, unspecified formulation 11/09/2020 completed RAYMOND Varghese [facility] 09/13/2023 15:09:12 SARS-COV-2 (COVID-19) vaccine, UNSPECIFIED 02/09/2021 completed RAYMOND Varghese [facility] 09/13/2023 15:09:12 Past Encounters Encounter ID Performer Location Encounter Start Date Encounter Closed Date Diagnosis/Indication Diagnosis SNOMED-CT Code Diagnosis ICD10 Code Diagnosis Note [id number] [facility] [address] [phone] 02/27/2023 15:10:43 02/27/2023 16:23:02 Urinary incontinence 114273763 R32 chronic, worse Female str ess incontinence 13082884 N39.3 chronic, worse Atrophic vaginitis 45423 000 N95.2 chronic, worse [id number] SERGEI WHITING [facility] [address] [facility] [place] [phone] 08/30/2023 09:08:45 08/30/2023 10:25:54 Urinary incontinence 064136177 R32 chronic, stable Female str ess incontinence 26799538 N39.3 chronic, stable Atrophic vaginitis 03337 000 N95.2 chronic, stable [id number] SERGEI Smith [facility] [address] [facility],[address] [place] [phone] 09/13/2023 15:05:51 09/13/2023 16:05:08 Urinary incontinence 297811089 R32 chronic, stable Female str ess incontinence 30021287 N39.3 chronic, stable Atrophic vaginitis 61995 000 N95.2 chronic, stable [id number] SERGEI Smith [facility] [address] [facility] [place] [phone] 10/17/2023 15:57:05 10/17/2023 16:46:23 Urinary incontinence 238884579 R32 chronic, stable Female str ess incontinence 15665440 N39.3 chronic, stable Atrophic vaginitis 89743 000 N95.2 chronic, stable Health Concerns Section Related Observation LastModified by Organization Detai ls LastModified Time None Recorded Concern Status LastModified by Organization Details LastModified Time None Recorded Advance Directives Directive None Recorded Payers Encounter Date Sequence Insurance Name Policy Number Policy Haskins Covered Member ID Haskins Member ID Guarantor Name 02/27/2023 [place] [id number] 5 Germán R Delphos [id number] 22 Sheri Harris [place] 08/30/2023 1 [place] [id number] 5 Germán R Del[place] [id number] 22 Sheri Fall 09/13/2023 1 [place] [id number] 5 Germán R [place] [id number] 22 Sheri Fall 10/17/2023 1 [place] [id number] 5 Germán Fall [id number] 22 Sheri Fall Notes Date Note Type Note Provider Name and Address Organization Details Recorded Time 3 text/html Patient seen today for urinary incontinence.PMH significant for NSTEMI, chronic pain dependent on opioids, and chronic radicular low back pain.Incontinence for a long time.Has incontinence with sit to stand, walkingNo UUINF: 4-5 timesDF: 3 timesDrinks up to bedtimeDrinks 7-up - occasional water - no other fluidsPads per day: 6-7 per dayRecalls 3 infections in 2022History of kidney stones - pass spontaneously - reports lithotripsy one timeNo history of gross hematuria3 children, delivered vaginallySymptomatic prolapse: noneAbdominal surgeries: 3 umbilical hernia repairs, cyst removal, hysterectomy, cholecystectomy, back surgeryConstipation: yes - takes pain meds - does not take daily (dulcolax)Neurologic history: numbness and tingling in legs - can barely feel feet - since back surgerySmoking history: none Urine testin01/09/22: UA many bacteria, 6-10 WBC's, no culture Hgb A1C: 5.8Cr 1.33 Urogenital Distress Inventory (SAVANNAH-6): 14Incontinence Impact Questionnaire (IIQ-7): 13 SERGEI WHITING [address] [place] [address],[address], [place], [address], [facility] 02/27/2023 16:21:28 3 text/html Patient seen today for pessary fitting. She is interested in a pessary for YESSY.She was sent to PFPT at last appointment. She was also started on vaginal estrogen for UTI prevention.She only did a couple sessions of PT as she stopped when a pelvic exam was recommended.DF: 3-4 timesNF: 2-3 timesFluids - 2 cans pop per day - decreased from last time. Drinking some water.Pads: 2 per day Patient is not sexually active.She is menopausal.She does have history of a hysterectomy Happy with current treatment plan:yesUrogenital Distress Inventory (SAVANNAH-6): 14Incontinence Impact Questionnaire (IIQ-7): 10 SERGEI WHITING [address] [place] [address],[address] [place] [address], [phone], [facility] 08/30/2023 10:09:29 3 text/html 09/13/23:Patient presents to follow up for pessary for stress urinary incontinence. Fit with #1 ring with support and incontinence knob pessary on 08/30/23This is currently not in place. Fell out 2 hours after her visit that day when she was having a bowel movement 08/30/23: (Billie Judge PA-C)Patient seen today for pessary fitting. She is interested in a pessary for YESSY.She was sent to PFPT at last appointment. She was also started on vaginal estrogen for UTI prevention.She only did a couple sessions of PT as she stopped when a pelvic exam was recommended.DF: 3-4 timesNF: 2-3 timesFluids - 2 cans pop per day - decreased from last time. Drinking some water.Pads: 2 per day Patient is not sexually active.She is menopausal.She does have history of a hysterectomy Happy with current treatment plan: yes Urogenital Distress Inventory (SAVANNAH-6): 14 Incontinence Impact Questionnaire (IIQ-7): 10 SERGEI Smith [address] [place] [address],[address] [place] [address], [phone], [facility] 09/13/2023 16:04:55 4 text/html 10/17/23:Patient presents to follow up for pessary check.Fit with #1 ring with support and incontinence knob pessary on 08/30/23Refit with #2 ring with support and incontinence knob pessary 09/13/23. Feels it has been really helpful for her YESSY. Denies discharge, discomfort, bleeding. Unable to remove herself and this bothers her. Still wearing 1 small pad. Feels the pessary helps her bowels, daily bowel movement and less straining to have a bowel movement. half-way, she thinks she does not want a pessary if she can't self manage it. 09/13/23:Sergei gomez presents to follow up for pessary for stress urinary incontinence.Fit with #1 ring with support and incontinence knob pessary on 08/30/23This is currently not in place. Fell out 2 hours after her visit that day when she was having a bowel movement : (Billie Judge PA-C)Patient seen today for pessary fitting. She is interested in a pessary for YESSY.She was sent to PFPT at last appointment. She was also started on vaginal estrogen for UTI prevention.She only did a couple sessions of PT as she stopped when a pelvic exam was recommended.DF: 3-4 timesNF: 2-3 timesFluids - 2 cans pop per day - decreased from last time. Drinking some water.Pads: 2 per day Patient is not sexually active.She is menopausal.She does have history of a hysterectomy Happy with current treatment plan: yes Urogenital Distress Inventory (SAVANNAH-6): 14 Incontinence Impact Questionnaire (IIQ-7): 10 SERGEI Smith [address] [place] [address],[facility] [address], [place], [address], [facility] 10/17/2023 16:45:50 OBGyn Episode No OBEpisode recorded.
--- OUTSIDE RECORDS SUMMARY | 2024-10-29 13:25 | XMS_ITS | Clinical Summary ---
Author Organization [facility] Address [place], [place] [address] Care Team Providers Care Event Specialist Product Demonstrator Name Role Phone Natalie Ramos Lalita AUSTIN Unavailable [phone] Kel Salvador MD Unavailable [phone] Justin Cuba MD Primary Care Provider Allergies Active Allergy Reactions Criticality Noted Date Comments Adhesive Tape Contact Dermatitis Low 09/05/2007 redness and hives under dressing Duloxetine Nausea Only Medium 01/21/2016 Gabapentin Hallucinations 11/28/2018 Latex Other - Describe In Comment Field Low 02/15/2010 Skin irritation ,itching from bandaids and latex tape Tramadol Mental Status Change High 06/15/2014 hallucination Medications lidocain-me.salic zb-oefx-xmtgp 4-20-0.025-5 % topical patch Apply 2 Patches on dry, clean, hairless skin once daily if needed for Pain. Salon Pas or Equivalent 0 021 Active amLODIPine (NORVASC) 10 mg tabletIndications :Essential hypertension Take 1 Tablet (10 mg) by mouth once daily. 90 Tablet 4 024 Active losartan (COZAAR) 100 mg tabletIndications :Essential hypertension Take 1 Tablet (100 mg) by mouth once daily. 90 Tablet 4 024 Active metoprolol succinate (TOPROL XL) 100 mg Sustained-Release tabletIndications :Essential hypertension Take 1 Tablet (100 mg) by mouth two times daily. 180 Tablet 4 024 Active rosuvastatin (CRESTOR) 20 mg tabletIndications :Hyperlipidemia, unspecified hyperlipidemia type Take 1 Tablet (20 mg) by mouth at bedtime. 90 Tablet 3 024 Active oxyCODONE 10 mg tabletIndications :Chronic bilateral low back pain with left-sided sciatica Take 1 Tablet (10 mg) by mouth every 6 hours if needed for Pain. 120 Tablet 024 Active zolpidem (AMBIEN) 5 mg tabletIndications :Insomnia, idiopathic TAKE 1 TABLET BY MOUTH AT BEDTIME NEEDED FOR INSOMNIA 30 Tablet 3 024 Active omeprazole (PRILOSEC) 20 mg Delayed-Release capsuleIndication s:Chronic GERD Take 1 Capsule (20 mg) by mouth once daily before a meal. 90 Capsule 2 024 Active aspirin (ECOTRIN) 81 mg enteric coated tablet Take 1 Tablet (81 mg) by mouth once daily. Active oxyCODONE 10 mg tabletIndications :Chronic bilateral low back pain with left-sided sciatica,S/P lumbar spinal fusion Take 1 Tablet (10 mg) by mouth every 6 hours if needed for Pain. 120 Tablet 025 2024 Active oxyCODONE 10 mg tabletIndications :Chronic bilateral low back pain with left-sided sciatica,S/P lumbar spinal fusion,Peripheral sensory neuropathy Take 1 Tablet (10 mg) by mouth every 6 hours if needed for Pain. 120 Tablet 025 2024 Active oxyCODONE 10 mg tabletIndications :Chronic bilateral low back pain with left-sided sciatica,S/P lumbar spinal fusion,Peripheral sensory neuropathy Take 1 Tablet (10 mg) by mouth every 6 hours if needed for Pain. 120 Tablet 025 Active oxyCODONE (OxyCONTIN) 15 mg SUSTAINED release tabletIndications :Chronic bilateral low back pain with left-sided sciatica,S/P lumbar spinal fusion Take 1 Tablet (15 mg) by mouth every 12 hours. 60 Tablet 025 2024 Active oxyCODONE (OXYCONTIN) 15 mg SUSTAINED release tabletIndications :Chronic bilateral low back pain with left-sided sciatica,S/P lumbar spinal fusion,Peripheral sensory neuropathy Take 1 Tablet (15 mg) by mouth every 12 hours. 60 Tablet 025 2024 Active oxyCODONE (OXYCONTIN) 15 mg SUSTAINED release tabletIndications :Chronic bilateral low back pain with left-sided sciatica,S/P lumbar spinal fusion,Peripheral sensory neuropathy Take 1 Tablet (15 mg) by mouth every 12 hours. 60 Tablet Active pregabalin (LYRICA) 75 mg capsuleIndication s:Peripheral sensory neuropathy Take 1 Capsule (75 mg) by mouth two times daily. 60 Capsule 1 024 2024 Discontinued(* Med complete/Regim en complete/Level of care change) tirzepatide, weight loss, (Zepbound) 2.5 mg/0.5 mL penIndications:Ob esity, Class II, BMI 35-39.9 Inject 2.5 mg subcutaneous once weekly. 2 mL 024 2024 Discontinued(* Med complete/Regim en complete/Level of care change) oxyCODONE (OXYCONTIN) 15 mg SUSTAINED release tabletIndications :Chronic bilateral low back pain with left-sided sciatica,S/P lumbar spinal fusion Take 1 Tablet (15 mg) by mouth every 12 hours. 60 Tablet 024 2024 Discontinued oxyCODONE 10 mg tabletIndications :Chronic bilateral low back pain with left-sided sciatica,S/P lumbar spinal fusion Take 1 Tablet (10 mg) by mouth every 6 hours if needed for Pain. 120 Tablet 024 2024 Discontinued OxyCONTIN 15 mg SUSTAINED release tabletIndications :Chronic bilateral low back pain with left-sided sciatica,S/P lumbar spinal fusion TAKE 1 TABLET BY MOUTH EVERY 12 HOURS 60 Tablet 025 2024 Discontinued(R eorder (E-cancel not sent)) oxyCODONE 10 mg tabletIndications :Chronic bilateral low back pain with left-sided sciatica,S/P lumbar spinal fusion Take 1 Tablet (10 mg) by mouth every 6 hours if needed for Pain. 120 Tablet 025 2024 Discontinued(R eorder (E-cancel not sent)) Active Problems Problem Noted Date Diagnosed Date Urinary incontinence 01/14/2024 Overview (01/14/2024): Uses Pessary CAD in [place] artery 09/26/2021 Overview (09/26/2021): CT Cardiac Coronary: 09/19/2021 1. This is a dual read study - please review [facility] over-read below for incidental non cardiac [...] Constipation 12/08/2018 S/P lumbar spinal fusion 12/05/2018 Overview (12/05/2018): Anterior Posterior fusion for L3 to S1 and decompression of L5-S1 Left ACP (advance care planning) 12/01/2018 Overview (12/01/2018): Patient has identified Health Care Agent(s): Yes [...] incontinence 01/21/2016 Controlled substance agreement signed 10/12/2015 Overview (05/08/2018): I have queried the [place] Prescription Monitoring Program 01/18/2018 for this patient for the preceding 6 months, reviewed the report provided by my proxy delegate. I have not identified any concerns. Tiesha Chavez CMA ([facility]) 01/18/2018 INSPECTOR FINAL [employer]SEM[employer]CHANICAL Query Ran today and patient filling controlled [...] Resolved Date Coronary artery disease invo lving [place]low[place] de[place]' coronary artery of [place] heart with angina pectoris 09/19/2021 09/26/2021 Radicular leg pain, left 04/19/201504/2019 Paresthesias 05/20/2014 08/01/2019 Dysthymic disorder 07/12/2009 4 HTN (hypertension) 09/25/2008 9 Overview (12/07/2009): Updated by system to replace inactive record Urinary tract infection, site not specified 12/19/2005 04/17/2012 Encounters Date Type Department Care Team Description 10/29/2024 Nurse Triage [facility] [address] [place] [address] Justin Cuba MD Leg Pain/problem 10/27/2024 Nurse Triage [facility] [address] [place] [address] Justin Cuba MD Appointment Request (Left leg pain) 10/27/2024 Nurse Triage [facility] [address] [place] [address] Justin Cuba MD 10/22/2024 4:00 PM CAUSTIC PREPARER Office Visit [facility] [address] [place] [address] Justin Cuba MD Pain (Deep mid/low back pain, radiates from groin to back, when getting out of bed in the morning needing to hold breath. L>now right); Neck Pain/problem (Left sided intermittent neck/throat inflamed? More so when turning head); Medication Management (Renew; OK to fill 2 days early? Leaving for [place] 11/07, controlled substances due to fill on ) 10/22/2024 Travel 10/08/2024 Refill [facility] [address] [place] [address] Justin Cuba MD Refill Request (Oxycontin, Oxycodone) 09/08/2024 Telephone [facility] [address] [place] [address] Justin Cuba MD Prior Authorization (OXYCONTIN 15 mg SUSTAINED release tablet APPROVED 09/08/24-03/07/25) 09/08/2024 Telephone [facility] [address] [place] [address] Justin Cuba MD Prior Authorization (oxyCODONE 10 mg tablet APPROVED 09/08/24-03/07/25) 09/08/2024 Telephone [facility] [address] [place] [address] Justin Cuba MD Prior Authorization 09/06/2024 Refill [facility] [address] [facility] [place] [address] Justin Cuba MD Refill Request (Oxycodone) 08/25/2024 Telephone [facility] [address] [facility] [place] [address] Justin Cuba MD Refill Request (omeprazole (PRILOSEC) 20 mg Delayed-Release capsule ) 08/25/2024 Refill [facility] [address] [facility] [address] Justin Cuba MD Refill Request (Zolpidem) from Last 3 Months Immunizations Name Administration Dates Next Due COVID-19 vaccine (Ahaali-J& J) SIDDHARTH VOGEL 12/18/2020 COVID-19 vaccine ([employer]-Bio NTChaologix 30mcg/0.3mL) PFSIDDHARTH 09/26/2021 Influenza, IIV3 (Age >=3 years) 05/16/2015,01/02 Influenza, IIV4 08/06/2019, 8,10/13/2017,09/20/20 17,10/18/2016 Influenza, IIV4 (=>6mos) MDV 06/20/2020 Influenza, RIV3 (Age =>18 Years) 06/15/2014 Tdap 01/21/2016 Family History Medical History Relation Name Comments Heart Disease Father Diabetes Maternal Grandmother Cancer Mother Lungs Heart Disease Mother [place] Relation Name Status Comments Father (Age 54 ) [place] Maternal Grandmother Mother Social History Tobacco Use Types Packs/Day Years Used Date Smoking Tobacco: Never Smokeless Tobacco: Never Tobacco Cessation:Counseling Given: Yes Alcohol Use Standard Drinks/Week Comments Not Currently 0 (1 standard drink = 0.6 oz pur e alcohol) rare PHQ-2 Answer Date Recorded PHQ-2 TOTAL SCORE 6 05/04/2021 Social Connections Answer Date Recorded Do you often feel lonely or isolated from those around you? 0 01/14/2024 Financial Resource Strain Answer Date R ecorded Difficulty of Paying Living Expenses 3 01/14/2024 Difficulty of Paying Living Expenses Not on file 01/14/2024 Food Insecurity Answer Date Recorded Do you worry your food will run out before you are able to buy more? 1 01/14/2024 Transportation Needs Answer Date Record ed Does lack of transportation keep you from medica l appointments? 1 01/14/2024 Does lack of transportation keep you from work, meetings or getting things that you need? 1 01/14/2024 Housing Stability Answer Date Recorded What is your housing situation today? 1 01/14/2024 Utilities Answer Date Recorded Do you have trouble paying f or utilities (for example, heat, electricity, water, phone)? 1 01/14/2024 Comments No Sex and Gender Information Value Date Recorded Sex Assigned at Not on file Legal Sex Female 5:50 AM CAUSTIC PREPARER Gender Identity Not on file Sexual Orientation Not on file Obstetrics History Para Term AB IAB SAB Ectopic Multiple Livin g Live Births 3 0 0 0 0 0 0 0 0 3 3 Date Outcome GA Total Labor Labor/2nd/3rd Weight Sex Type Anes PTL Cheri A1 A5 Name Clin Living Living Living Last Filed Vital Signs Vital Sign Reading Time Taken Comments Blood Pressure 124/84 10/22/2024 3:44 PM CAUSTIC PREPARER Pulse 68 01/14/2024 3:46 PM CDT Temperature 36.7 C (98.1 F) 09/19/2021 9:09 AM CAUSTIC PREPARER Respiratory Rate 18 09/19/2021 1:31 PM CAUSTIC PREPARER Oxygen Saturation 95% 11/23/2021 12:39 PM CAUSTIC PREPARER all sx gone Inhaled Oxygen Concentration - - Weight 93 kg (205 lb) 07/07/2024 4:13 PM CDT Height 161.3 cm (5' 3.5) 03/07/2024 3:31 PM CDT Body Mass Index 35.74 03/07/2024 3:31 PM CDT Plan of Treatment Upcoming Encounters Date Type Department Care Team (Late st Contact Info) Description 11/24/2024 4:15 PM CAUSTIC PREPARER Appointment [facility] [place] [address] [facility] [address] [place], [place] [id number] [place] [address] [email or web address] [address] [place], [place] [id number] Health Maintenance Due Date Last Done Comments HIV for age 15-65 1982 Hepatitis C screening for ag e 18-79 1985 Pneumococcal series for age 50+ (1 of 2 - PCV) 1986 Mammogram for age 45-75 06/23/2017 06/23/20 16, 12/22/2013, 04/16/2012, Additional history exists Zoster (shingles) series for age 50+ (1 of 2) 2017 Depression screening for age 12+ 05/05/2022 05/05/2021, 05/04/2021, 11/20/2019, Additional history exists COVID-19 vaccine series ( season) 2024 09/26/2021, 12/18/2020 Influenza for age 50-64 05/25/2024 06/20/20 20, 08/06/2019, 07/01/2018, Additional history exists BMI (ht and wt on same day) for age 18+ 03/07/2025 03/07/2024, 05/04/2021, 01/21/2021, Additional history exists Tetanus booster 01/20/2026 01/21/2016 Lipids for age 45-75 01/13/2029 01/14/2024, 09/18/2021, 05/04/2021, Additional history exists Colonoscopy through age 75 10/30/2032 10/30/2022 Tdap Completed 01/21/2016 Goals Goal Patient Goal Type Associated Problems Recent Progress Patient-Stated? Author BLOOD PRESSURE - MAINTAINS BP less than 140/90 Blood Pressure No Justin Cuba MD BLOOD PRESSURE - Maintains BP less than 130/80 Blood Pressure No Justin Cuba MD Medical Devices Implanted Type Area Railway Track Plant Operator Device Identifier Shelf Expiration Date Model / Serial / Lot Bone 1-4mm 30cc Medtronic Chips Canclls Freeze Dried - [id number] Implanted:Qty: 1 on 11/27/2018 by Wilbert Montelongo MD at [facility] N/A: Spine Medtronic Spine/Ortho 03/28/2023 [id number] / / [id number] Plate Lmbr [place]-L Stand Alone Lock - [id number] Implanted:Qty: 2 on 11/27/2018 by Wilbert Montelongo MD at [facility] N/A: Spine [place]ton Spine [id number] / / . Spacer Lmbr [id number] 8deg Avs-L Stand Alone - [id number] Implanted:Qty: 1 on 11/27/2018 by Wilbert Montelongo MD at [facility] N/A: Spine Chapo Spine [id number] / / . 5.5mm X 22mm Rescue Screw Lite Plate Implanted:Qty: 1 on 11/27/2018 by Wilbert Montelongo MD at [facility] N/A: Spine [id number] / / . Bone 1-4mm 60cc Medtronic Fine Canclls Freeze Dried - [id number] Implanted:Qty: 1 on 11/27/2018 by Wilbert Montelongo MD at [facility] N/A: Spine Medtronic Spine/Ortho 02/15/2023 [id number]# / / [id number] Screw Lmbr Post 8.5x50mm Ilios Va - [id number] Implanted:Qty: 2 on 11/27/2018 by Wilbert Montelongo MD at [facility] N/A: Spine Chapo Spine [id number] / / . Screw Lmbr Post 6.5x45mm Xia3 Va - [id number] Implanted:Qty: 4 on 11/27/2018 by Wilbert Montelongo MD at [facility] N/A: Spine Brewton Spine [id number] / / . Screw Lmbr Post 6.5x40mm Xia3 Va - [id number] Implanted:Qty: 2 on 11/27/2018 by Wilbert Montelongo MD at [facility] N/A: Spine Chapo Spine [id number] / / . Set Screw Lmbr Xia3 - [id number] Implanted:Qty: 8 on 11/27/2018 by Wilbert Montelongo MD at [facility] N/A: Spine Chapo Spine [id number] / / . Oni Lmbr [id number] Xia3 Cvd Titnm - [id number] Implanted:Qty: 1 on 11/27/2018 by Wilbert Montelongo MD at [facility] N/A: Spine Chapo Spine [id number] / / . Bone Matrix 5cc Progenix Plus Putty Dbm - [id number] Implanted:Qty: 1 on 11/27/2018 by Wilbert Montelongo MD at [facility] N/A: Spine Medtronic Spine/Ortho 05/15/2020 [id number]# / / [id number] Oni Lmbr [id number] Xia3 Titnm - [id number] Implanted:Qty: 1 on 11/27/2018 by Wilbert Montelongo MD at [facility] N/A: Spine Brew[place] Spine [id number]# / / . Bone Matrix 5cc Progenix Plus Putty Dbm - [id number] Implanted:Qty: 1 on 11/27/2018 by Wilbert Montelongo MD at [facility] N/A: Spine Medtronic Spine/Ortho 04/22/2020 [id number]# / / [id number] Bone Matrix Lg Infuse Bmp - [id number] Implanted:Qty: 1 on 11/27/2018 by Wilbert Montelongo MD at [facility] N/A: Spine Medtronic Spine/Ortho 10/25/2020 [id number]# / / [id number] Bone Matrix 10cc Stimulan Kit Rapid Cure - [id number] Implanted:Qty: 1 on 11/27/2018 by Wilbert Montelongo MD at [facility] N/A: Spine Biocomposites Inc 06/23/2021 [id number]# / / [id number] Description:Mixed with Tobra mycin 1.2g Spacer Lmbr [id number] 12deg Avs-L Stand Alone - [id number] Implanted:Qty: 2 on 11/27/2018 by Wilbert Montelongo MD at [facility] N/A: Spine Chapo Spine [id number] / / . 23mm Plate - Lite Plate Implanted:Qty: 1 on 11/27/2018 by Wilbert Montelongo MD at [facility] N/A: Spine [id number] / / . Description:REF: [id number] 5.0 X 25mm Screw - Lite Plate Implanted:Qty: 3 on 11/27/2018 by Wilbert Montelongo MD at [facility] N/A: Spine [id number] / / . Screw Lmbr 6x25mm Ancr-L Standalone - [id number] Implanted:Qty: 6 on 11/27/2018 by Wilbert Montelongo MD at [facility] N/A: Spine Brewton Spine [id number] / / . Explanted Type Area Railway Track Plant Operator Device Identifier Shelf Expiration Date Model / Serial / Lot Screw Sm Joint 4.5x20mm Axsos Malcom Titnm - [id number] Explanted:Qty: 6 on 11/27/2018 by Wilbert Montelongo MD at [facility] N/A: Spine Chapo Orthopaedics [id number] / / . Procedures Procedure Name Priority Date/Time Associated Diagnosis Comments LIPID PANEL W REFLEX MEASURED LDL Routine 01/14/2024 4:42 PM CDT Hyperlipidemia, unspecified hyperlipidemia type SCAN-COLONOSCOPY 10/30/2022 12:0 0 AM CAUSTIC PREPARER XR MAMMO BILAT SCREEN FFDM (IA) Routine 06/23/2016 3:34 PM CDT Encounter for mammogram to establish baseline mammogram from Last 3 Months or Most Recently Relevant to Health Maintenance Results * (ABNORMAL) LIPID PANEL W REFLEX MEASURED LDL (01/14/2024 4:42 PM CDT) CHOLESTEROL,TOTAL 311(H) 100 - 199 mg/dL 01/15/2024 4:20 AM CDT [facility] Comment: Cholesterol, Total Reference Ranges Desirable <200 mg/dL Borderline 200-239 mg/dL High >=240 mg/dL TRIGLYCERIDES 334(H) <150 mg/dL 01/15/2024 4:20 AM CDT [facility] HDL CHOLESTEROL 42 >40 mg/dL 4 4:20 AM CDT [facility] NON-HDL CHOLESTEROL 269(H) <145 mg/dl 01/15/2024 4:20 AM CDT [facility] CHOL/HDL RATIO 7.40(H) <4.50 01/15/2024 4:20 AM CDT [facility] LDL CHOLESTEROL 202(H) <=130 mg/dL 01/15/2024 4:20 AM CDT [facility] VLDL CHOLESTEROL 67(H) <=30 mg/dL 01/15/2024 4:20 AM CDT [facility] PROVIDER ORDERED STATUS RANDOM 01/15/2024 4:20 AM CDT [facility] Blood BLOOD SPECIMEN / Unknown Venipuncture / Unknown 01/14/2024 4:42 PM CDT 01/14/2024 4:42 PM CDT us Justin Cuba MD CHEMISTRY Final R esult [facility] [address] [address], [place] * SCAN-COLONOSCOPY (10/30/2022 12:00 AM CAUSTIC PREPARER) us Scanner OTHER Final Result * XR MAMMO BILAT SCREEN FFDM (06/23/2016 3:34 PM CDT) Anatomical Region Laterality Modality BREASTS, Breast Left, Breast Right Bilateral Mammography Impressions 2016 9:08 AM CDT There is no radiographic evidence for malignancy. Recommend annual mammograms. A lay language report of this examination will be provided to the patient. MAMMOGRAM ASSESSMENT: ACR 2 Benign Narrative 2016 9:08 AM CDT XR MAMMO BILAT SCREEN FFDM [G0202.0] CLINICAL HISTORY: This is an asymptomatic 51 y.o. patient. INDICATION FOR EXAM: Mammogram Screening. TECHNIQUE: CC & MLO views were obtained. This digital study was evaluated with the assistance of Computer-Aided Detection. COMPARISON FILMS: Yes 12/22/13 [facility] 11/02/08 [facility] FINDINGS: Mammographically, the breast tissue has scattered fibroglandular densities. No suspicious masses or microcalcifications. Post surgical changes within right breast. Justin Cuba MD MAMMO Final R esult from Last 3 Months or Most Recently Relevant to Health Maintenance [place] [id number] Advance Directives * Full Code (Latest Code [...] 10:04 PM 01/01/2013 8:31 PM Care Teams Event Specialist Product Demonstrator Relationship Specialty Start Date End Date Justin Cuba MD [address] [place] [address] PCP - General Family Practice 10/10/23 Natalie Ramos NP Pain Management Nurse Practitioner 06/10/19 Kel Salvador MD [address] [place] [address] Cardiovascular Disease 12/02/21
[2024-10-29 13:29] VITALS: BP 170/79; PULSE 71; RESP 18; TEMP 36.3; O2SAT 97; BMI 36.5
--- NOTE | 2024-10-29 13:40 | CRLHL7_ITS ---
For Patients: As a result of the Century Cures Act, medical imaging exams and procedure reports are released immediately into your electronic medical record. You may view this report before your referring provider. If you have questions, please contact your health care provider. Indication: left knee pain Technique: Real-time longitudinal and transverse sonographic grayscale imaging with and without compression, as well as color and duplex Doppler imaging before and after augmentation, was obtained of the deep system of the left lower extremity, including the common femoral, femoral, popliteal, posterior tibial, and peroneal veins. Comparison: None. Findings: Common femoral vein: No evidence of thrombus. Femoral vein: No evidence of thrombus. Popliteal vein: No evidence of thrombus. Calf veins: Patent. Impression: No ultrasound evidence of deep venous thrombosis. Dictated by Jeff Tsang MD @ 10/29/2024 2:59:02 PM (Electronically Signed)
--- NOTE | 2024-10-29 13:40 | CRLHL7_ITS ---
For Patients: As a result of the Century Cures Act, medical imaging exams and procedure reports are released immediately into your electronic medical record. You may view this report before your referring provider. If you have questions, please contact your health care provider. INDICATION: Pain COMPARISON: None. TECHNIQUE: Three views left knee FINDINGS: Small area of artifact over the distal femur. The exam remains diagnostic. No fracture seen. Possible osteochondral lesion in the central aspect of the lateral patellar facet. Normal alignment. Joint spaces are normal. No focal bone lesions. Normal bone mineralization. No knee joint effusion. No foreign body. IMPRESSION: Possible small left patellar osteochondral lesion. No acute findings or knee joint effusion. Dictated by Carolyn Claros MD @ 10/29/2024 2:17:24 PM (Electronically Signed)
--- NOTE | 2024-10-29 13:41 | ED_ITS ---
HPI - General Adult General Chief complaint: Extremity Pain/Injury, Lower Stated complaint: L side flank pain Time Seen by Provider: 10/29/24 13:23 History of Present Illness HPI narrative: A 59 year white female who is on chronic opioids for back pain, presents with left knee posterior pain. She noticed the last couple of days without trauma or injury she has had pain in her posterior knee. No swelling. No radicular component, no connection to her back. It is worse if she twists or turns or knee. By her chart review she has had multiple surgeries on her back she is on oxycodone 15 mg q.12 hours. She is allergic to Lasix gabapentin adhesive tape Cymbalta contrast media and tramadol. No chest pain, fever, breathing difficulty. Related Data Home Medications ?Medication ?Instructions ?Recorded ?Confirmed sennosides 8.6 mg-docusate sodium 1 tab-cap PO QHS PRN 10/15/23 10/29/24 50 mg tablet (Senokot-S) Previous Rx's ?Medication ?Instructions ?Recorded omeprazole 20 mg capsule,delayed 20 mg PO BID #180 caps 04/10/23 release losartan 100 1 tab PO QDAY #90 tabs 10/04/23 mg-hydrochlorothiazide 25 mg tablet metoprolol succinate 100 mg 100 mg PO BID #180 tabs 10/04/23 tablet,extended release 24 hr naloxone 4 mg/actuation nasal 4 mg intranasal Q2-3M PRN opioid 10/04/23 spray (Narcan) overdose #2 ea amlodipine 2.5 mg tablet 2.5 mg PO QDAY #90 tabs 10/15/23 oxycodone 10 mg tablet 10 mg PO QID PRN pain #120 tabs 12/17/23 oxycodone 15 mg tablet,crush 15 mg PO BID #60 tabs 12/17/23 resistant,extended release 12 hr (OxyContin) zolpidem 5 mg tablet 5 mg PO QHS PRN insomnia #30 tabs 02/28/24 ketorolac 10 mg tablet 10 mg PO Q8H PRN pain 1 day #14 10/29/24 tabs Allergies Allergy/AdvReac Type Severity Reaction Status Date / Time latex Allergy Mild Rash Verified 10/29/24 13:33 gabapentin AdvReac Severe Hallucinati Verified 10/29/24 13:33 ons adhesive tape AdvReac Intermediate Rash Verified 10/29/24 13:33 duloxetine (From Cymbalta) AdvReac Intermediate Rash Verified 10/29/24 13:33 Iodinated Contrast Media AdvReac Intermediate Rash Verified 10/29/24 13:33 tramadol AdvReac Intermediate Rash Verified 10/29/24 13:33 Review of Systems Status of ROS: Reports: 6 or more systems reviewed and unremarkable except as noted in History and below [facility] Medical History Obesity (BMI 30-39.9) ?E66.9 - Obesity, unspecified (ICD-10) Atypical chest pain ?R07.89 - Other chest pain (ICD-10) Pelvic mass ?R19.00 - Intra-abdominal and pelvic swelling, mass and lump, unspecified site (ICD-10) Cyst of left lower eyelid ?H02.825 - Cysts of left lower eyelid (ICD-10) Adjustment disorder with mixed anxiety and depressed mood ?F43.23 - Adjustment disorder with mixed anxiety and depressed mood (ICD-10) Age-related cataract of both eyes ?H25.9 - Unspecified age-related cataract (ICD-10) Opioid dependence ?F11.20 - Opioid dependence, uncomplicated (ICD-10) Chronic pain syndrome ?G89.4 - Chronic pain syndrome (ICD-10) Spondylolisthesis of lumbar region ?M43.16 - Spondylolisthesis, lumbar region (ICD-10) Peripheral sensory neuropathy ?G60.8 - Other hereditary and idiopathic neuropathies (ICD-10) Urinary incontinence ?R32 - Unspecified urinary incontinence (ICD-10) GERD (gastroesophageal reflux disease) ?K21.9 - Gastro-esophageal reflux disease without esophagitis (ICD-10) Vitamin D deficiency ?E55.9 - Vitamin D deficiency, unspecified (ICD-10) Coronary artery disease ?I25.10 - Atherosclerotic heart disease of [place] coronary artery without angina pectoris (ICD-10) Hyperlipidemia ?E78.5 - Hyperlipidemia, unspecified (ICD-10) Insomnia ?G47.00 - Insomnia, unspecified (ICD-10) Polypharmacy ?Z79.899 - Other skilled nursing (current) drug therapy (ICD-10) Back pain, chronic ?M54.9 - Dorsalgia, unspecified (ICD-10) ?G89.29 - Other chronic pain (ICD-10) HTN, goal below 140/90 ?I10 - Essential (primary) hypertension (ICD-10) Kidney calculus ?N20.0 - Calculus of kidney (ICD-10) Surgical History History of tubal ligation (1994) ?Z98.51 - Tubal ligation status (ICD-10) H/O ovarian cystectomy ?Z98.890 - Other specified postprocedural states (ICD-10) ?Z87.42 - Personal history of other diseases of the female genital tract (ICD-10) History of hernia repair ?Z98.890 - Other specified postprocedural states (ICD-10) ?Z87.19 - Personal history of other diseases of the digestive system (ICD-10) History of lumbar surgery (12/2012) ?Z98.890 - Other specified postprocedural states (ICD-10) History of lumbar fusion ?Z98.1 - Arthrodesis status (ICD-10) History of breast biopsy (04/12/07) ?Z98.890 - Other specified postprocedural states (ICD-10) History of cholecystectomy (1990) ?Z90.49 - Acquired absence of other specified parts of digestive tract (ICD- 10) History of oophorectomy Family History Father Coronary artery disease Mother Lung cancer Myocardial infarction Heart disease Maternal Grandmother Diabetes Social History Smoking Status: Never smoker Do you use any of these nicotine containing products: None Second hand tobacco smoke exposure: No How often do you have a drink containing alcohol: never How often do you have six or more drinks on one occasion: Never AUDIT-C Alcohol total score: 0 Non-prescribed substance use: denies use service: No Exam Narrative: Exam Narrative: Objective: Patient's vital signs look within normal limits other than she has elevated blood pressure Her left knee shows no swelling effusion, no instability to anterior-posterior drawer No lower extremity swelling or edema. She describes most her pain in her posterior lateral knee compartment. No redness or warmth of the knee area as well. Negative straight leg raise on the left. Normal strength in lower extremity on the left. Const: Vital Signs, click to edit/add: Vital Signs - 24 hr 10/29/24 13:29 Temperature 97.4 F L Pulse Rate [Pulse Oximeter] 71 Respiratory Rate 18 Blood Pressure [Ri ght Upper Arm] 170/79 H Pulse Oximetry 97 Oxygen Delivery Me thod Room Air Course Vital Signs Vital signs: Initial Vital Signs Temperature 97.4 F L 10/29/24 13:29 Temperature Source Temporal Artery Scan 10/29/24 13:29 Pulse Rate 71 10/29/24 13:29 Respiratory Rate 18 10/29/24 13:29 Blood Pressure 170/79 H 10/29/24 13:29 Blood Pressure Mean 109 H 10/29/24 13:29 Pulse Oximetry 97 10/29/24 13:29 Oxygen Delivery Method Room Air 10/29/24 13:29 Vital Signs Temperature 97.4 F L 10/29/24 13:29 Pulse Rate 71 10/29/24 13:29 Respiratory Rate 18 10/29/24 13:29 Blood Pressure 170/79 H 10/29/24 13:29 Pulse Oximetry 97 10/29/24 13:29 Oxygen Delivery Method Room Air 10/29/24 13:29 Temperature 97.4 F L 10/29/24 13:29 Pulse Rate 71 10/29/24 13:29 Respiratory Rate 18 10/29/24 13:29 Blood Pressure 170/79 H 10/29/24 13:29 Pulse Oximetry 97 10/29/24 13:29 Oxygen Delivery Method Room Air 10/29/24 13:29 Medications Administered Medications: Discontinued Medications Generic Name Dose Route Start Last Admin Trade Name Freq PRN Reason Stop Dose Admin Ketorolac Tromethamine 10 mg 10/29/24 13:40 10/29/24 13:47 Ketorolac 10 Mg Tablet PO 10/29/24 13:41 10 mg ONCE ONE Administration Medical Decision Making MDM Narrative Medical decision making narrative: 59-year-old female with history of back surgery, chronic opioid dependence on chronic pain treatment, presents with left posterior knee pain. Patient certainly could have a Cisneros cyst, could have a DVT will check an ultrasound of her leg as well as a x-ray of her knee. Will put her in a knee immobilizer and give her crutches if she can tolerate this or simply have the her use the knee immobilizer. Will give her some Toradol now. She may need orthopedic or primary care follow-up depending on her findings on imaging. Addendum: 3:11 p.m.. The patient has negative Doppler of the leg and a negative x-ray other than a questionable osteochondral defect. I think ortho follow-up appropriate knee immobilizer, Toradol as needed, continue her home pain pain medication, ice recommended. She is comfortable plan. Discharge Plan Discharge Clinical Impression: Acute knee pain Patient Disposition: Home w/ Parent or Adult Condition: Stable Additional Instructions: Knee immobilizer for the next several days, ortho follow-up as schedule, Toradol as needed, continue home medications as prescribed. Ice to the knee 5-10 minutes 5 times a day, light activity. Discharge Diet: Regular Prescriptions: New ketorolac 10 mg tablet 10 mg PO Q8H PRN (Reason: pain) 1 Days Qty: 14 0RF No Action metoprolol succinate 100 mg tablet extended release 24 hr 100 mg PO BID Qty: 180 1RF losartan-hydrochlorothiazide 100-25 mg tablet 1 tab PO QDAY Qty: 90 0RF naloxone [Narcan] 4 mg/actuation spray,non-aerosol 4 mg intranasal Q2-3M PRN (Reason: opioid overdose) Qty: 2 0RF Rx Instructions: spray 1 dose into ONE nostril; alternate nostrils w each dose until help arrives sennosides-docusate sodium [Senokot-S] 8.6-50 mg tablet 1 tab-cap PO QHS PRN amlodipine 2.5 mg tablet 2.5 mg PO QDAY Qty: 90 1RF omeprazole 20 mg capsule,delayed release(DR/EC) 20 mg PO BID Qty: 180 3RF oxycodone 10 mg tablet 10 mg PO QID PRN (Reason: pain) Qty: 120 0RF oxycodone [OxyContin] 15 mg tablet,oral only,ext.rel.12 hr 15 mg PO BID Qty: 60 0RF zolpidem 5 mg tablet 5 mg PO QHS PRN (Reason: insomnia) Qty: 30 0RF Follow Up/Referrals: Bk Handy MD [Staff Physician] - Stand Alone Forms: [facility] Info Instructions
[2024-10-29] MEDS: KETOROLAC 10 MG TABLET PO (13:47)
--- OUTSIDE RECORDS SUMMARY | 2024-10-29 14:00 | XMS_ITS | Clinical Summary ---
Author Organization [email or web address] [facility] Address [place], [place] [address] Care Team Providers Care Solar Photovoltaic Designer Name Role Phone Natalie Ramos Lalita AUSTIN Unavailable [phone] Kel Salvador MD Unavailable [phone] Justin Cuba MD Primary Care Provider Allergies Active Allergy Reactions Criticality Noted Date Comments Adhesive Tape Contact Dermatitis Low 09/05/2007 redness and hives under dressing Duloxetine Nausea Only Medium 01/21/2016 Gabapentin Hallucinations 11/28/2018 Latex Other - Describe In Comment Field Low 02/15/2010 Skin irritation ,itching from bandaids and latex tape Tramadol Mental Status Change High 06/15/2014 hallucination Medications lidocain-me.salic ho-wukl-jlouz 4-20-0.025-5 % topical patch Apply 2 Patches [...] 01/14/2024 Overview (01/14/2024): Uses Pessary CAD in [place] artery 09/26/2021 Overview (09/26/2021): CT Cardiac Coronary: 09/19/2021 1. This is a dual read study - please review [facility] over-read below for incidental non cardiac [...] not identified any concerns. Tiesha Chavez CMA ([facility]) 01/18/2018 RANGE MANAGER Query Ran today and patient filling controlled [...] Resolved Date Coronary artery disease invo lving [place] coronary artery of [place] heart with angina pectoris 09/19/2021 09/26/2021 Radicular leg pain, left 04/19/201504/2019 Paresthesias 05/20/2014 08/01/2019 Dysthymic disorder 07/12/2009 4 HTN (hypertension) 09/25/2008 9 Overview (12/07/2009): Updated by system to replace inactive record Urinary tract infection, site not specified 12/19/2005 04/17/2012 Encounters Date Type Department Care Team Description 10/29/2024 Nurse Triage [facility] [address] [place] [address] Justin Cuba MD Leg Pain/problem 10/27/2024 Nurse Triage [facility] [address] [place] [address] Justin Cuba MD Appointment Request (Left leg pain) 10/27/2024 Nurse Triage [facility] [address] [place] [address] Justin Cuba MD 10/22/2024 4:00 PM TEST GRADER Office Visit [facility] [address] [place] [address] Justin Cuba MD Pain (Deep mid/low back [...] fill on ) 10/22/2024 Travel 10/08/2024 Refill [facility] [address] [place] [address] Justin Cuba MD Refill Request (Oxycontin, Oxycodone) 09/08/2024 Telephone [facility] [address] [place] [address] Justin Cuba MD Prior Authorization (OXYCONTIN 15 mg SUSTAINED release tablet APPROVED 09/08/24-03/07/25) 09/08/2024 Telephone [facility] [address] [place] [address] Justin Cuba MD Prior Authorization (oxyCODONE 10 mg tablet APPROVED 09/08/24-03/07/25) 09/08/2024 Telephone [facility] [address] [place] [address] Justin Cuba MD Prior Authorization 09/06/2024 Refill [facility] [address] [facility] [place] [address] Justin Cuba MD Refill Request (Oxycodone) 08/25/2024 Telephone [facility] [address] [facility] [place] [address] Justin Cuba MD Refill Request (omeprazole (PRILOSEC) 20 mg Delayed-Release capsule ) 08/25/2024 Refill [facility] [address] [facility] [place] [address] Justin Cuba MD Refill Request (Zolpidem) from Last 3 Months Immunizations Name Administration Dates Next Due COVID-19 vaccine ([employer] J) SIDDHARTH VOGEL 12/18/2020 COVID-19 vaccine ([employer] 30mcg/0.3mL) PFSIDDHARTH 09/26/2021 Influenza, IIV3 (Age >=3 years) 05/16/2015,01/02 Influenza, IIV4 08/06/2019, 8,10/13/2017,09/20/20 17,10/18/2016 Influenza, IIV4 (=>6mos) MDV 06/20/2020 Influenza, RIV3 (Age =>18 Years) 06/15/2014 Tdap 01/21/2016 Family History Medical History Relation Name Comments Heart Disease Father Diabetes Maternal Grandmother Cancer Mother Lungs Heart Disease Mother ID Relation Name Status Comments Father (Age 54 ) ID Maternal Grandmother Mother Social History Tobacco Use [...] on file Legal Sex Female 5:50 AM TEST GRADER Gender Identity Not on file Sexual Orientation [...] Comments Blood Pressure 124/84 10/22/2024 3:44 PM TEST GRADER Pulse 68 01/14/2024 3:46 PM CDT Temperature 36.7 C (98.1 F) 09/19/2021 9:09 AM TEST GRADER Respiratory Rate 18 09/19/2021 1:31 PM TEST GRADER Oxygen Saturation 95% 11/23/2021 12:39 PM TEST GRADER all sx gone Inhaled Oxygen Concentration - - Weight 93 kg (205 lb) 07/07/2024 4:13 PM CDT Height 161.3 cm (5' 3.5) 03/07/2024 3:31 PM CDT Body Mass Index 35.74 03/07/2024 3:31 PM CDT Plan of Treatment Upcoming Encounters Date Type Department Care Team (Late st Contact Info) Description 11/24/2024 4:15 PM TEST GRADER Appointment [facility] [place] [address] [facility] [address] [place], [place] [id number] [place] [address] [facility] [address] [place], [place] [id number] Health Maintenance Due Date Last Done Comments [...] Cuba MD Medical Devices Implanted Type Area Wraparound Facilitator Device Identifier Shelf Expiration Date Model / Serial / Lot Bone 1-4mm 30cc Medtronic Chips Canclls Freeze Dried - [id number] Implanted:Qty: 1 on 11/27/2018 by Wilbert Montelongo MD at [facility] N/A: Spine Medtronic Spine/Ortho 03/28/2023 [id number] / / [id number] Plate Lmbr Grants-L Stand Alone Lock - [id number] Implanted:Qty: 2 on 11/27/2018 by Wilbert Montelongo MD at [facility] N/A: Spine [place] Spine [id number] / / . Spacer Lmbr [id number] 8deg Avs-L Stand Alone - [id number] Implanted:Qty: 1 on 11/27/2018 by Wilbert Montelongo MD at [facility] N/A: Spine [employer] Spine [id number] / / . 5.5mm X 22mm Rescue Screw Lite Plate Implanted:Qty: 1 on 11/27/2018 by Wilbert Montelongo MD at [facility] N/A: Spine [id number] / / . Bone 1-4mm 60cc Medtronic Fine Canclls Freeze Dried - [id number] Implanted:Qty: 1 on 11/27/2018 by Wilbert Montelongo MD at [facility] N/A: Spine Medtronic Spine/Ortho 02/15/2023 [id number]# / / [id number] Screw Lmbr Post 8.5x50mm Ilios Va - [id number] Implanted:Qty: 2 on 11/27/2018 by Wilbert Montelongo MD at [facility] N/A: Spine [employer] Spine [id number] / / . Screw Lmbr Post 6.5x45mm Xia3 Va - [id number] Implanted:Qty: 4 on 11/27/2018 by Wilbert Montelongo MD at [facility] N/A: Spine [place] Spine [id number] / / . Screw Lmbr Post 6.5x40mm Xia3 Va - [id number] Implanted:Qty: 2 on 11/27/2018 by Wilbert Montelongo MD at [facility] N/A: Spine [employer] Spine [id number] / / . Set Screw Lmbr Xia3 - [id number] Implanted:Qty: 8 on 11/27/2018 by Wilbert Montelongo MD at [facility] N/A: Spine [employer] Spine [id number] / / . Oni Lmbr [id number] Xia3 Cvd Titnm - [id number] Implanted:Qty: 1 on 11/27/2018 by Wilbert Montelongo MD at [facility] N/A: Spine Chap[place] Spine [id number] / / . Bone Matrix 5cc Progenix Plus Putty Dbm - [id number] Implanted:Qty: 1 on 11/27/2018 by Wilbert Montelongo MD at [facility] N/A: Spine Medtronic Spine/Ortho 05/15/2020 [id number] / / [id number] Oni Lmbr [id number] Xia3 Titnm - [id number] Implanted:Qty: 1 on 11/27/2018 by Wilbert Montelongo MD at [facility] N/A: Spine [place] Spine [id number] / / . Bone Matrix 5cc Progenix Plus Putty Dbm - [id number] Implanted:Qty: 1 on 11/27/2018 by Wilbert Montelongo MD at [facility] N/A: Spine Medtronic Spine/Ortho 04/22/2020 [id number]# / / [id number] Bone Matrix Lg Infuse Bmp - [id number] Implanted:Qty: 1 on 11/27/2018 by Wilbert Montelongo MD at [facility] N/A: Spine Medtronic Spine/Ortho 10/25/2020 [id number]# / / [id number] Bone Matrix 10cc Stimulan Kit Rapid Cure - [id number] Implanted:Qty: 1 on 11/27/2018 by Wilbert Montelongo MD at [facility] N/A: Spine [employer] 06/23/2021 [id number] / / [id number]/11-[id number]/[id number] 80 Description:Mixed with Tobra mycin 1.2g Spacer Lmbr [id number] 12deg Avs-L Stand Alone - [id number] Implanted:Qty: 2 on 11/27/2018 by Wilbert Montelongo MD at [facility] N/A: Spine Chap[place] Spine [id number] / / . 23mm Plate - Lite Plate Implanted:Qty: 1 on 11/27/2018 by Wilbert Montelongo MD at [facility] N/A: Spine [id number] / / . Description:REF: [id number] 5.0 X 25mm Screw - Lite Plate Implanted:Qty: 3 on 11/27/2018 by Wilbert Montelongo MD at [facility] N/A: Spine [id number] / / . Screw Lmbr 6x25mm Ancr-L Standalone - [id number] Implanted:Qty: 6 on 11/27/2018 by Wilbert Montelongo MD at [facility] N/A: Spine [place] Spine [id number] / / . Explanted Type Area Wraparound Facilitator Device Identifier Shelf Expiration Date Model / Serial / Lot Screw Sm Joint 4.5x20mm Axsos Malcom Titnm - [id number] Explanted:Qty: 6 on 11/27/2018 by Wilbert Montelongo MD at [facility] N/A: Spine [employer] [id number] / / . Procedures Procedure Name Priority Date/Time Associated Diagnosis Comments LIPID PANEL W REFLEX MEASURED LDL Routine 01/14/2024 4:42 PM CDT Hyperlipidemia, unspecified hyperlipidemia type SCAN-COLONOSCOPY 10/30/2022 12:0 0 AM TEST GRADER XR MAMMO BILAT SCREEN FFDM (IA) Routine 06/23/2016 3:34 PM CDT Encounter for mammogram to establish baseline mammogram from Last 3 Months or Most Recently Relevant to Health Maintenance Results * (ABNORMAL) LIPID PANEL W REFLEX MEASURED LDL (01/14/2024 4:42 PM CDT) CHOLESTEROL,TOTAL 311(H) 100 - 199 mg/dL 01/15/2024 4:20 AM CDT [facility] Comment: Cholesterol, Total Reference Ranges Desirable <200 mg/dL Borderline 200-239 mg/dL High >=240 mg/dL TRIGLYCERIDES 334(H) <150 mg/dL 01/15/2024 4:20 AM CDT [facility] HDL CHOLESTEROL 42 >40 mg/dL 4 4:20 AM CDT [facility] NON-HDL CHOLESTEROL 269(H) <145 mg/dl 01/15/2024 4:20 AM CDT [facility] CHOL/HDL RATIO 7.40(H) <4.50 01/15/2024 4:20 AM CDT [facility] LDL CHOLESTEROL 202(H) <=130 mg/dL 01/15/2024 4:20 AM CDT [facility] VLDL CHOLESTEROL 67(H) <=30 mg/dL 01/15/2024 4:20 AM CDT [facility] PROVIDER ORDERED STATUS RANDOM 01/15/2024 4:20 AM CDT [facility] Blood BLOOD SPECIMEN / Unknown Venipuncture / Unknown 01/14/2024 4:42 PM CDT 01/14/2024 4:42 PM CDT us Justin Cuab MD CHEMISTRY Final R esult [facility] [address] [address], [place] * SCAN-COLONOSCOPY (10/30/2022 12:00 AM TEST GRADER) us Scanner OTHER Final Result * XR [...] of Computer-Aided Detection. COMPARISON FILMS: Yes 12/22/13 [facility] 11/02/08 [facility] FINDINGS: Mammographically, the breast tissue has scattered fibroglandular densities. No suspicious masses or microcalcifications. Post surgical changes within right breast. Justin Cuba MD MAMMO Final R esult from Last 3 Months or Most Recently Relevant to Health Maintenance Insurance [id number] Advance Directives * Full Code (Latest [...] 10:04 PM 01/01/2013 8:31 PM Care Teams Solar Photovoltaic Designer Relationship Specialty Start Date End Date Justin Cuba MD [address] [place] [address] PCP - General Family Practice 10/10/23 Natalie Ramos NP Pain Management Nurse Practitioner 06/10/19 Kel Salvador MD [address] [place] [address] Cardiovascular Disease 12/02/21
== END 2024-10-29 15:26 | disposition home or self-care (01) ==
PROVIDERS: Emergency Provider Family Medicine
DX: M25.562 Pain in left knee (principal)
CPT/HCPCS: 73562; 93971; 99284; A9270

== ENCOUNTER 2024-11-03 14:36 | Emergency (ER) | payer BC, SELFPAY ==
--- OUTSIDE RECORDS SUMMARY | 2024-11-03 14:38 | XMS_ITS | Data Portability ---
Author Organization [facility], [facility] Address [address] [place] [address] Care Team Providers Care Stringer Up Soldering Machine Name Role Phone [facility] Primary Care Pr ovider Assessment No assessment recorded. Plan of Treatment Reminders Order Date Submit Date Provider Last Modified By Organization Details Last Modified Time Details Appointments None recorded. Lab urinalysis, dipstick 2022 023 [facility], [address], [place], [address], 3 15:23:48 Referral [email or web address] gy physical therapy referral - Please call patient to schedule Pelvic Floor Physical Therapy. Thank you 2022 023 [facility], [address] [place], [address], 3 14:08:45 Procedures None recorded. Surgeries None recorded. Imaging None recorded. Medication Orders estradiol 0.01% (0.1 mg/gram) vaginal cream 2022 023 [id number], [id number], [place], [address], 3 09:14:18 Patient TargetsNo targets recorded. Patient Instructions Encounter Date Encounter Id Patient Instructions Last Modified By Organization Details Last Modified Time 02/27/2023 [id number] YESSY: -Discussed management for stress urinary incontinence including pelvic floor exercises, [id number] Poise [employer] product, pelvic floor physical therapy [...] UTIs remain an issue with conservative management. [email or web address] Not available 02/27/2023 16:21:07 08/30/2023 [id number] Stress incontinence: -Discussed YESSY and the purpose [...] -Follow-up in 2 weeks, sooner if issues. [email or web address] Not available 08/30/2023 10:08:58 09/13/2023 [id number] Stress incontinence: -She was fit with #1 [...] weeks [email or web address] Not available 09/13/2023 16:04:41 10/17/2023 [id number] Stress incontinence: -She was fit with #1 [...] uriscan NEGATI VE negati ve Not Available [facility] [address], [place], [address], 02/27/2023 15:23:48 02/28/2002/2702/27/2023 UA WITHO UT MICRO - CS URISC AN bilirubin - uriscan NEGATI VE mg/dL negati ve Not Available [facility] [address] [place] [address] [address], [place], [address], 02/27/2023 15:23:48 02/28/20 23 02/27/2023 UA WITHO UT MICRO - CS URISC AN urobilinogen - uriscan NORMAL mg/dL normal Not Available [facility] [address] [place] [address] [address], [place], [address], 02/27/2023 15:23:48 02/28/20 23 02/27/2023 UA WITHO UT MICRO - CS URISC AN ketones - uriscan NEGATI VE mg/dL negati ve Not Available [facility] [address] [place] [address] [address], [place], [address], 02/27/2023 15:23:48 02/28/20 23 02/27/2023 UA WITHO UT MICRO - CS URISC AN protein - uriscan NEGATI VE mg/dL negati ve Not Available [facility] [address] [place] [address] [address], [place], [address], 02/27/2023 15:23:48 02/28/20 23 02/27/2023 UA WITHO UT MICRO - CS URISC AN nitrites - uriscan NEGATI VE negati ve Not Available [facility] [address] [place] [address] [address], [place], [address], 02/27/2023 15:23:48 02/28/20 23 02/27/2023 UA WITHO UT MICRO - CS URISC AN glucose - uriscan NEGATI VE mg/dL negati ve Not Available [facility] [address] [place] [address] [address], [place], [address], 02/27/2023 15:23:48 02/28/20 23 02/27/2023 UA WITHO UT MICRO - CS URISC AN pH - uriscan 5.00 5.00-9 .00 Not Available [facility] [address] [place] [address], [place], [address], 02/27/2023 15:23:48 02/28/20 23 02/27/2023 UA WITHO UT MICRO - CS URISC AN sp. gravity - uriscan 1.03 1.01-1 .03 Not Available [facility] [address] [place] [address] [address], [place], [address], 02/27/2023 15:23:48 02/28/20 23 02/27/2023 UA WITHO UT MICRO - CS URISC AN leukocytes - uriscan NEGATI VE negati ve Not Available [facility] [address] [place] [address], [place], [address], 02/27/2023 15:23:48 02/28/20 23 02/27/2023 UA WITHO UT MICRO - CS URISC AN color - uriscan YELLOW lt. yellow ;yello w Not Available [facility] [address] [place] [address], [place], [address], 02/27/2023 15:23:48 02/28/20 23 02/27/2023 UA WITHO UT MICRO - CS URISC AN clarity - uriscan CLEAR clear Not Available [facility] [address] [place] [address], [place], [address], 02/27/2023 15:23:48 02/28/20 23 02/27/2023 UA WITHO [...] for provi francisca revie w. Not Available [facility] [address] [place] [address] [address], [place], [address], 02/27/2023 15:23:48 Result Notes None recorded. Problems Name Problem SNOMED Code Status Onset Date Resolution Date Notes Provider Name and Address Organization Details Recorded Time History of statin therapy 296560435 Active [address] [facility] 3 08:47:54 Gastroesophage al reflux disease 617230588 Active [address] [facility] 3 15:09:56 Uric acid renal calculus 465458955 Active [address] [facility] 3 15:10:38 Depressive disorder 27395921 Active [address] [facility] 3 15:10:59 Hypertensive disorder 16033953 Active [address] [facility] 3 15:11:07 Problem Notes None recorded. Procedures Surgical History Date Name Laterality Status Provider Name and Address Organization Details Recorded Time 10/17/19 24 COMPLEX VISIT completed SERGEI Smith [address], [place], [address], [facility] 10/17/2023 16:24:44 10/17/19 24 Pessary Cleaning completed SERGEI Smith [address], [place], [address], [facility] 10/17/2023 16:24:48 09/13/20 23 Pessary Insertion completed SERGEI Smith [address] [place] [address],[address], [place], [address], [facility] 09/13/2023 16:04:04 08/30/20 23 Pessary Insertion completed SERGEI WHITING [address] [place] [address],[address], [place], [address], [facility] 08/30/2023 10:08:11 02/28/20 23 Past Data Reviewed completed SERGEI WHITING [address] [place] [address],[address], [address], [facility] 02/20/2023 17:08:48 02/28/20 23 In and Out Catheterization- female completed SERGEI WHITING [address] [place] [address],[address], [place], [address], [facility] 02/27/2023 15:39:58 09/28/19 23 Diagnostic [...] Name and Address Organization Details Recorded Time 682385 Latex (substanc e) environme nt,medica tion rash Not available Not available 08/26/2023 56929 8007 SNOMED Not Available Not Available Not [...] Address Organization Details Last Updated DateTime 02/27/2023 99674.07 g Aileen Salazar [place] [facility] [place] [facility] 02/27/2023 15:12:28 Date Recorded Body height Body mass index (BMI) Provider Name and Address Organization Details Last Updated DateTime 02/27/2023 160.02 cm 35.6 kg/m2 Not Available Health Note 15:11:23 Date Recorded Body height Provider Name an d Address Organization Details Last Updated DateTime 08/30/[address] [facility] 08/30/2023 09:13:46 Date Recorded Body height Body mass index (BMI) Body weight Provider Name and Address Organization Details Last Updated DateTime 09/13/2023 160.02 cm 35.6 kg/m2 79840.[address] [facility] 09/13/2023 15:09:07 Date Recorded Body height Body mass index (BMI) Body weight Provider Name and Address Organization Details Last Updated DateTime 10/17/2023 160.02 cm 35.6 kg/m2 [address]81.[address] [facility] 10/17/2023 15:59:36 Social History Question Answer [...] Use Any Illicit Or Recreational Drugs? No [id number] Information not available 08/26/2023 Has Tobacco Cessation Counseling Been Provided? No Information not available 08/30/2023 Do You Or Have You Ever Used Any Other Forms Of Tobacco Or Nicotine? No Information not available 08/30/2023 How Many Days In The Past Year Have You Consumed 4 Or More Drinks? 0 [facility] Information no t available 08/26/2023 Sex: Unknown Functional Status None recorded. Mental Status None recorded. Family History Relationship Description Onset Age of this Age Resolved Age Notes LastModified by Organization Details LastModified Time Mother Family history of cancer of colon [email or web address] Not available 2022 16:12:28 Mother Family history of diabetes mellitus [email or web address] Not available 2022 16:12:28 Maternal Grandmother Family history of diabetes mellitus [email or web address] Not available 2022 16:12:28 Maternal Grandmother Family history of cardiac disorder [place] [id number] Not available 2022 16:12:28 Medical History Condition Response Diabetes N Sexually [...] influenza, unspecified formulation 11/09/2020 completed RAYMOND Varghese [facility] 09/13/2023 15:09:12 SARS-COV-2 (COVID-19) vaccine, UNSPECIFIED 02/09/2021 completed RAYMOND Varghese [facility] 09/13/2023 15:09:12 Past Encounters Encounter ID Performer Location Encounter Start Date Encounter Closed Date Diagnosis/Indication Diagnosis SNOMED-CT Code Diagnosis ICD10 Code Diagnosis Note [id number] [facility] [address] [address] 02/27/2023 15:10:43 02/27/2023 16:23:02 Urinary incontinence 643158964 R32 chronic, worse Female str ess incontinence 41846247 N39.3 chronic, worse Atrophic vaginitis 24279 000 N95.2 chronic, worse [id number] SERGEI WHITING [facility] [address] [facility] [address] [place] [phone] 08/30/2023 09:08:45 08/30/2023 10:25:54 Urinary incontinence 326755634 R32 chronic, stable Female str ess incontinence 71681358 N39.3 chronic, stable Atrophic vaginitis 71283 000 N95.2 chronic, stable [id number] SERGEI Smith [facility] [address] [facility] [address],[address] [place] [phone] 09/13/2023 15:05:51 09/13/2023 16:05:08 Urinary incontinence 161111649 R32 chronic, stable Female str ess incontinence 19859986 N39.3 chronic, stable Atrophic vaginitis 44819 000 N95.2 chronic, stable [id number] SERGEI Smith [facility] [address] [place] [phone] 10/17/2023 15:57:05 10/17/2023 16:46:23 Urinary incontinence 609948059 R32 chronic, stable Female str ess incontinence 22794350 N39.3 chronic, stable Atrophic vaginitis 47025 000 N95.2 chronic, stable Health Concerns Section Related Observation LastModified by Organization Detai ls LastModified Time None Recorded Concern Status LastModified by Organization Details LastModified Time None Recorded Advance Directives Directive None Recorded Payers Encounter Date Sequence Insurance Name Policy Number Policy Haskins Covered Member ID Haskins Member ID Guarantor Name 02/27/2023 1 [place] [id number] 5 Germán R Hamilton [id number] Sheri Harris Hamilton 08/30/2023 1 [place] [id number] 5 Germán R Hamilton [id number] 22 Sheri Fall 09/13/2023 1 [place] [id number] 5 Germán R Hamilton [id number] 22 Sheri Fall 10/17/2023 1 [place] [id number] 5 Germán Fall [id number] Sheri Fall Notes Date Note Type [...] 14Incontinence Impact Questionnaire (IIQ-7): [address] WH[address] [place] [address],[address], [place], [address], [facility] 02/27/2023 16:21:28 3 text/html Patient seen [...] 14Incontinence Impact Questionnaire (IIQ-7): 10 SERGE[address] WHITING [address] [place] [address],[address] [place] [address], [phone], [facility] 08/30/2023 10:09:29 3 text/html 09/13/23:Patient [...] Incontinence Impact Questionnaire (IIQ-7): 10 SERGEI Smith [address] [place] [address],[address] [place] [address], [address], [facility] 09/13/2023 16:04:55 4 text/html 10/17/23:Patient [...] less straining to have a bowel movement. 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
--- OUTSIDE RECORDS SUMMARY | 2024-11-03 14:39 | XMS_ITS | Clinical Summary ---
Author Organization [employer] Address [place], [place] [address] Care Team Providers Care Top Distribution Executive Name Role Phone Natalie Ramos Lalita INVENTORY ANALYST Unavailable [phone] Kel Salvador MD Unavailable [phone] Justin Cuba MD Primary Care Provider Allergies Active Allergy Reactions Criticality Noted Date Comments Adhesive Tape Contact Dermatitis Low 09/05/2007 redness and hives under dressing Duloxetine Nausea Only Medium 01/21/2016 Gabapentin Hallucinations 11/28/2018 Latex Other - Describe In Comment Field Low 02/15/2010 Skin irritation ,itching from bandaids and latex tape Tramadol Mental Status Change High 06/15/2014 hallucination Medications lidocain-me.salic to-phwy-aycom 4-20-0.025-5 % topical patch Apply 2 Patches [...] 01/14/2024 Overview (01/14/2024): Uses Pessary CAD in mentasta artery 09/26/2021 Overview (09/26/2021): CT Cardiac Coronary: 09/19/2021 1. This is a dual read study - please review [facility] over-read below for incidental non cardiac [...] not identified any concerns. 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 09/19/2021 09/26/2021 Radicular leg pain, left 04/19/201504/2019 Paresthesias 05/20/2014 08/01/2019 Dysthymic disorder 07/12/2009 4 HTN (hypertension) 09/25/2008 9 Overview (12/07/2009): Updated by system to replace inactive record Urinary tract infection, site not specified 12/19/2005 04/17/2012 Encounters Date Type Department Care Team Description 10/29/2024 Nurse Triage [facility] [address] [place] [address] Justin Cuba MD Leg Pain/problem 10/27/2024 Nurse Triage [facility] [address] [place] [address] Justin Cuba MD Appointment Request (Left leg pain) 10/27/2024 Nurse Triage [facility] [address] [place] [address] Justin Cuba MD 10/22/2024 4:00 PM IMPLEMENTATION SPECIALIST Office Visit [facility] [address] [place] [address] Justin Cuba MD Pain (Deep mid/low back pain, radiates from groin to back, when getting out of bed in the morning needing to hold breath. L>now right); Neck Pain/problem (Left sided intermittent neck/throat inflamed? More so when turning head); Medication Management (Renew; OK to fill 2 days early? Leaving for [place] 11/07, controlled substances due to fill on ) 10/22/2024 Travel 10/08/2024 Refill [facility] [address] [place] [address] Justin Cuba MD Refill Request (Oxycontin, Oxycodone) 09/08/2024 Telephone [facility] [address] [place] [address] Justin Cuba MD Prior Authorization (OXYCONTIN 15 mg SUSTAINED release tablet APPROVED 09/08/24-03/07/25) 09/08/2024 Telephone [facility] [address] [place] [address] Justin Cuba MD Prior Authorization (oxyCODONE 10 mg tablet APPROVED 09/08/24-03/07/25) 09/08/2024 Telephone [facility] [address] [place] [address] Justin Cuba MD Prior Authorization 09/06/2024 Refill [facility] [address] [place] [address] Justin Cuba MD Refill Request (Oxycodone) 08/25/2024 Telephone [facility] [address] [place] [address] Justin Cuba MD Refill Request (omeprazole (PRILOSEC) 20 mg Delayed-Release capsule ) 08/25/2024 Refill [facility] [address] [facility] [place] [address] Justin Cuba MD Refill Request (Zolpidem) from Last 3 Months Immunizations Name Administration Dates Next Due COVID-19 vaccine (Yuepu Sifang-J& J) SIDDHARTH VOGEL 12/18/2020 COVID-19 vaccine (AirSense Wireless-Bio NTelmenus 30mcg/0.3mL) PFSIDDHARTH 09/26/2021 Influenza, IIV3 (Age >=3 years) 05/16/2015,01/02 Influenza, IIV4 08/06/2019, 8,10/13/2017,09/20/20 17,10/18/2016 Influenza, IIV4 (=>6mos) MDV 06/20/2020 Influenza, RIV3 (Age =>18 Years) 06/15/2014 Tdap 01/21/2016 Family History Medical History Relation Name Comments Heart Disease Father Diabetes Maternal Grandmother Cancer Mother Lungs Heart Disease Mother [place] Relation Name Status Comments Father (Age 54 ) [place] Maternal Grandmother Mother Social History Tobacco Use [...] on file Legal Sex Female 5:50 AM IMPLEMENTATION SPECIALIST Gender Identity Not on file Sexual Orientation [...] Comments Blood Pressure 124/84 10/22/2024 3:44 PM IMPLEMENTATION SPECIALIST Pulse 68 01/14/2024 3:46 PM CDT Temperature 36.7 C (98.1 F) 09/19/2021 9:09 AM IMPLEMENTATION SPECIALIST Respiratory Rate 18 09/19/2021 1:31 PM IMPLEMENTATION SPECIALIST Oxygen Saturation 95% 11/23/2021 12:39 PM IMPLEMENTATION SPECIALIST all sx gone Inhaled Oxygen Concentration - - Weight 93 kg (205 lb) 07/07/2024 4:13 PM CDT Height 161.3 cm (5' 3.5) 03/07/2024 3:31 PM CDT Body Mass Index 35.74 03/07/2024 3:31 PM CDT Plan of Treatment Upcoming Encounters Date Type Department Care Team (Late st Contact Info) Description 11/24/2024 4:15 PM IMPLEMENTATION SPECIALIST Appointment [facility] [place] [address] [facility] [address] [place], [place] [id number] [place] [address] [facility] [address] [place], [place] [id number] Health Maintenance Due Date Last Done Comments [...] Cuba MD Medical Devices Implanted Type Area Buckshot Swage Operator Device Identifier Shelf Expiration Date Model / Serial / Lot Bone 1-4mm 30cc Medtronic Chips Canclls Freeze Dried - [id number] Implanted:Qty: 1 on 11/27/2018 by Wilbert Montelongo MD at [facility] N/A: Spine Medtronic Spine/Ortho 03/28/2023 [id number] / / [id number] Plate Lmbr [place]-L Stand Alone Lock - [id number] Implanted:Qty: 2 on 11/27/2018 by Wilbert Montelongo MD at [facility] N/A: Spine [place] Spine [id number] / / . Spacer Lmbr [id number] 8deg Avs-L Stand Alone - [id number] Implanted:Qty: 1 on 11/27/2018 by Wilbert Montelongo MD at [facility] N/A: Spine Chapo Spine [id number] / / . 5.5mm X 22mm Rescue Screw Lite Plate Implanted:Qty: 1 on 11/27/2018 by Wilbert Montelongo MD at [facility] N/A: Spine [id number] / / . Bone 1-4mm 60cc Medtronic Fine Canclls Freeze Dried - [id number] Implanted:Qty: 1 on 11/27/2018 by Wilbert Montelongo MD at [facility] N/A: Spine Medtronic Spine/Ortho 02/15/2023 [id number]# / / [id number] Screw Lmbr Post 8.5x50mm Ilios Va - [id number] Implanted:Qty: 2 on 11/27/2018 by Wilbert Montelongo MD at [facility] N/A: Spine [place] Spine [id number] / / . Screw Lmbr Post 6.5x45mm Xia3 Va - [id number] Implanted:Qty: 4 on 11/27/2018 by Wilbert Montelongo MD at [facility] N/A: Spine [place] Spine [id number] / / . Screw Lmbr Post 6.5x40mm Xia3 Va - [id number] Implanted:Qty: 2 on 11/27/2018 by Wilbert Montelongo MD at [facility] N/A: Spine Chapo Spine [id number] / / . Set Screw Lmbr Xia3 - [id number] Implanted:Qty: 8 on 11/27/2018 by Wilbert Montelongo MD at [facility] N/A: Spine [place] Spine [id number] / / . Oni Lmbr [id number] Xia3 Cvd Titnm - [id number] Implanted:Qty: 1 on 11/27/2018 by Wilbert Montelongo MD at [facility] N/A: Spine [place] Spine [id number] / / . Bone Matrix 5cc Progenix Plus Putty Dbm - [id number] Implanted:Qty: 1 on 11/27/2018 by Wilbert Montelongo MD at [facility] N/A: Spine Medtronic Spine/Ortho 05/15/2020 [id number]# / / [id number] Oni Lmbr [id number] Xia3 Titnm - [id number] Implanted:Qty: 1 on 11/27/2018 by Wilbert Montelongo MD at [facility] N/A: Spine [place] Spine [id number] / / . Bone Matrix 5cc Progenix Plus Putty Dbm - [id number] Implanted:Qty: 1 on 11/27/2018 by Wilbert Montelongo MD at [facility] N/A: Spine Medtronic Spine/Ortho 04/22/2020 [id number]# / / [id number] Bone Matrix Lg Infuse Bmp - [id number] Implanted:Qty: 1 on 11/27/2018 by Wilbert Montelongo MD at [facility] N/A: Spine Medtronic Spine/Ortho 10/25/2020 [id number]# / / [id number] Bone Matrix 10cc Stimulan Kit Rapid Cure - [id number] Implanted:Qty: 1 on 11/27/2018 by Wilbert Montelongo MD at [facility] N/A: Spine [employer] Inc 06/23/2021 [id number]# / / [id number] Description:Mixed with Tobra mycin 1.2g Spacer Lmbr [id number] 12deg Avs-L Stand Alone - [id number] Implanted:Qty: 2 on 11/27/2018 by Wilbert Montelongo MD at [facility] N/A: Spine Chapo Spine [id number] / / . 23mm Plate - Lite Plate Implanted:Qty: 1 on 11/27/2018 by Wilbert Montelongo MD at [facility] N/A: Spine [id number] / / . Description:REF: [id number] 5.0 X 25mm Screw - Lite Plate Implanted:Qty: 3 on 11/27/2018 by Wilbert Montelongo MD at [facility] N/A: Spine [id number] / / . Screw Lmbr 6x25mm Ancr-L Standalone - [id number] Implanted:Qty: 6 on 11/27/2018 by Wilbert Montelongo MD at [facility] N/A: Spine Chapo Spine [id number]# / / . Explanted Type Area Buckshot Swage Operator Device Identifier Shelf Expiration Date Model / Serial / Lot Screw Sm Joint 4.5x20mm Axsos Malcom Titnm - [id number] Explanted:Qty: 6 on 11/27/2018 by Wilbert Montelongo MD at [facility] N/A: Spine [employer]o Orthopaedics [id number] / / . Procedures Procedure Name Priority Date/Time Associated Diagnosis Comments LIPID PANEL W REFLEX MEASURED LDL Routine 01/14/2024 4:42 PM CDT Hyperlipidemia, unspecified hyperlipidemia type SCAN-COLONOSCOPY 10/30/2022 12:0 0 AM IMPLEMENTATION SPECIALIST XR MAMMO BILAT SCREEN FFDM (IA) Routine 06/23/2016 3:34 PM CDT Encounter for mammogram to establish baseline mammogram from Last 3 Months or Most Recently Relevant to Health Maintenance Results * (ABNORMAL) LIPID PANEL W REFLEX MEASURED LDL (01/14/2024 4:42 PM CDT) CHOLESTEROL,TOTAL 311(H) 100 - 199 mg/dL 01/15/2024 4:20 AM CDT [facility] Comment: Cholesterol, Total Reference Ranges Desirable <200 mg/dL Borderline 200-239 mg/dL High >=240 mg/dL TRIGLYCERIDES 334(H) <150 mg/dL 01/15/2024 4:20 AM CDT [facility] HDL CHOLESTEROL 42 >40 mg/dL 4 4:20 AM CDT [facility] NON-HDL CHOLESTEROL 269(H) <145 mg/dl 01/15/2024 4:20 AM CDT [facility] CHOL/HDL RATIO 7.40(H) <4.50 01/15/2024 4:20 AM CDT [facility] LDL CHOLESTEROL 202(H) <=130 mg/dL 01/15/2024 4:20 AM CDT [facility] VLDL CHOLESTEROL 67(H) <=30 mg/dL 01/15/2024 4:20 AM CDT [facility] PROVIDER ORDERED STATUS RANDOM 01/15/2024 4:20 AM CDT [facility] Blood BLOOD SPECIMEN / Unknown Venipuncture / Unknown 01/14/2024 4:42 PM CDT 01/14/2024 4:42 PM CDT us Justin Cuba MD CHEMISTRY Final R esult [facility] [address] [address], [place] * SCAN-COLONOSCOPY (10/30/2022 12:00 AM IMPLEMENTATION SPECIALIST) us Scanner OTHER Final Result * XR [...] of Computer-Aided Detection. COMPARISON FILMS: Yes 12/22/13 [facility] 11/02/08 [facility] FINDINGS: Mammographically, the breast tissue has scattered fibroglandular densities. No suspicious masses or microcalcifications. Post surgical changes within right breast. Justin Cuba MD MAMMO Final R esult from Last 3 Months or Most Recently Relevant to Health Maintenance Insurance [id number] Advance Directives * Full Code (Latest [...] 10:04 PM 01/01/2013 8:31 PM Care Teams Top Distribution Executive Relationship Specialty Start Date End Date Justin Cuba MD [address] [place] [address] PCP - General Family Practice 10/10/23 Natalie Ramos NP Pain Management Nurse Practitioner 06/10/19 Kel Salvador MD [address] [place] [address] Cardiovascular Disease 12/02/21
--- OUTSIDE RECORDS SUMMARY | 2024-11-03 14:39 | XMS_ITS | Continuity of Care Document ---
Author Organization [facility] Address [address] [place] [phone] Phone Care Team Providers Care Dining Service Inspector Name Role Phone Will MD GARZA, Veto [...] Urine Toxology With Chromatography OFFICE/OUTPATIENT VISIT, [facility] Advance Directives Directive Yes / No Effective Date File Name No Information Encounters Encounter Description Practice Location Reason(s) For Visit Diagnoses Date Provider Providers Copied on Encounter [facility], [address] [place], [place], [id number] , [place] tel:[phone] [facility] No Information 2 Will Veto. [address] [facility] [place], [place], [id number] , [place]. tel:[phone] [facility], [address] [place], [place], [id number] , [place] tel:[phone] [facility] [place] No Information 2 Vinicio Argueta. [address] [facility] [address], [place], [place], [id number] , [place]. tel:[phone] Referring Provider: Veto Norman, [address] [place], [address]. tel:[phone] OFFICE/OUTPA TIENT VISIT, [facility], [address] [place], [place], [id number] , [place] tel:[phone] [facility] Back pain (chief complaint) Chronic pain syndromeLow back pain, unspecifiedLong term (current) use of opiate analgesicEncounter for therapeutic drug level monitoring 2 Vinicio Argueta. [address] [facility] [address], [place], [place], [id number] , [place]. tel:[phone] Referring Provider: [facility] [address], [place], [address]. tel:[phone] Family History Family Member Type Diagnosis Age At Onset Sister Problem Back pain/issues Payers Payer name Insurance type Covered constitution party ID Authorshayan roth(s) Blue Cross Blue Jojo [employer] BL [id number] 2 Social History Type Description Quantity Date [...] Goal AST (SGOT). Due on due Goal ELEMENTARY MATH TUTOR Paperwork. Due on due Goal OARS. Due [...] due Goal HPV. Due on due Goal CLUTCH INSPECTOR Scanned. Due on due Goal Creatinine. Due on due Goal UDT. Due on due Goal Creatinine. Due on due Goal CLUTCH INSPECTOR Scanned. Due on due Goal ELEMENTARY MATH TUTOR Paperwork. Due on due Goal OARS. Due on due Goal ALT (SGPT). Due on due Goal AST (SGOT). Due on due Goal Order Annual PT. Due on due Goal UDT. Due on due Goal CLUTCH INSPECTOR Scanned. Due on due Goal ALT (SGPT). Due on due Goal Creatinine. Due on due Goal AST (SGOT). Due on due Goal Order Annual PT. Due on due Goal ELEMENTARY MATH TUTOR Paperwork. Due on due Goal OARS. Due on due Goal Height. Due on [...] back surgery with Dr. Justin Cuba of [facility] in 2015. Reports that Further surgery of her upper lumbar region was recommended, but patient would not like to pursue further surgical intervention. Pain is characterized as dull, sore, and tight pain. Secondarily notes constant tingling in BL feet. Pain level averages 8/10.For pain management, patient has tried PT at [facility], has undergone a lumbar epidural steroid injection at [facility], and has tried the following medications:- Gabapentin- Lyrica- Cyclobenzaprine- NSAIDS- Tramadol- Codeine- HydrocodoneCurrently managed on Oxycodone 10mg QID and OxyContin 15mg BID, prescribed by her new PCP, Dr. Bk Handy, at [facility].Sheri is interested in pain management through [facility]. No other concerns today. Functional Status Date Functional Assessmen t No Information Instructions Date Instruction Additional Infor mation No Information Assessments Type Assessment Date No Information Patient Care Teams Name Effective Dates (start - stop) Status Members No Information
[2024-11-03 15:03] VITALS: BP 193/94; PULSE 72; RESP 16; TEMP 36.4; O2SAT 98; BMI 36.8
--- NOTE | 2024-11-03 17:01 | ED.LOWEXIN ---
HPI - Extremity Injury (Lower) General Time Seen by Provider: 17:02 Date Seen: 11/03/24 Chief Complaint: Extremity Pain/Injury, Lower Stated Complaint: [place] pop, Knee pain and burning Time Seen by Provider: 11/03/24 16:57 Source: patient, RN notes reviewed and old records reviewed Mode of arrival: ambulatory Limitations: no limitations History of Present Illness HPI Narrative: 59-year-old female with history of chronic back pain, hypertension, chronic opiate use, who presents today with leg pain. Related Data Home Medications ?Medication ?Instructions ?Recorded ?Confirmed sennosides 8.6 mg-docusate sodium 1 tab-cap PO QHS PRN 10/15/23 10/31/24 50 mg tablet (Senokot-S) Previous Rx's ?Medication ?Instructions ?Recorded omeprazole 20 mg capsule,delayed 20 mg PO BID #180 caps 04/10/23 release losartan 100 1 tab PO QDAY #90 tabs 10/04/23 mg-hydrochlorothiazide 25 mg tablet metoprolol succinate 100 mg 100 mg PO BID #180 tabs 10/04/23 tablet,extended release 24 hr naloxone 4 mg/actuation nasal 4 mg intranasal Q2-3M PRN opioid 10/04/23 spray (Narcan) overdose #2 ea amlodipine 2.5 mg tablet 2.5 mg PO QDAY #90 tabs 10/15/23 oxycodone 10 mg tablet 10 mg PO QID PRN pain #120 tabs 12/17/23 oxycodone 15 mg tablet,crush 15 mg PO BID #60 tabs 12/17/23 resistant,extended release 12 hr (OxyContin) zolpidem 5 mg tablet 5 mg PO QHS PRN insomnia #30 tabs 02/28/24 ketorolac 10 mg tablet 10 mg PO Q8H PRN pain 1 day #14 10/29/24 tabs Allergies Allergy/AdvReac Type Severity Reaction Status Date / Time latex Allergy Mild Rash Verified 10/31/24 10:18 gabapentin AdvReac Severe Hallucinati Verified 10/31/24 10:18 ons adhesive tape AdvReac Intermediate Rash Verified 10/31/24 10:18 duloxetine (From Cymbalta) AdvReac Intermediate Rash Verified 10/31/24 10:18 Iodinated Contrast Media AdvReac Intermediate Rash Verified 10/31/24 10:18 tramadol AdvReac Intermediate Rash Verified 10/31/24 10:18 PFSH PFSH Medical History Obesity (BMI 30-39.9) ?E66.9 - Obesity, unspecified (ICD-10) Atypical chest pain ?R07.89 - Other chest pain (ICD-10) Pelvic mass ?R19.00 - Intra-abdominal and pelvic swelling, mass and lump, unspecified site (ICD-10) Cyst of left lower eyelid ?H02.825 - Cysts of left lower eyelid (ICD-10) Adjustment disorder with mixed anxiety and depressed mood ?F43.23 - Adjustment disorder with mixed anxiety and depressed mood (ICD-10) Age-related cataract of both eyes ?H25.9 - Unspecified age-related cataract (ICD-10) Opioid dependence ?F11.20 - Opioid dependence, uncomplicated (ICD-10) Chronic pain syndrome ?G89.4 - Chronic pain syndrome (ICD-10) Spondylolisthesis of lumbar region ?M43.16 - Spondylolisthesis, lumbar region (ICD-10) Peripheral sensory neuropathy ?G60.8 - Other hereditary and idiopathic neuropathies (ICD-10) Urinary incontinence ?R32 - Unspecified urinary incontinence (ICD-10) GERD (gastroesophageal reflux disease) ?K21.9 - Gastro-esophageal reflux disease without esophagitis (ICD-10) Vitamin D deficiency ?E55.9 - Vitamin D deficiency, unspecified (ICD-10) Coronary artery disease ?I25.10 - Atherosclerotic heart disease of [place] coronary artery without angina pectoris (ICD-10) Hyperlipidemia ?E78.5 - Hyperlipidemia, unspecified (ICD-10) Insomnia ?G47.00 - Insomnia, unspecified (ICD-10) Polypharmacy ?Z79.899 - Other buttermaker continuous churn (current) drug therapy (ICD-10) Back pain, chronic ?M54.9 - Dorsalgia, unspecified (ICD-10) ?G89.29 - Other chronic pain (ICD-10) HTN, goal below 140/90 ?I10 - Essential (primary) hypertension (ICD-10) Kidney calculus ?N20.0 - Calculus of kidney (ICD-10) Surgical History History of tubal ligation (1994) ?Z98.51 - Tubal ligation status (ICD-10) H/O ovarian cystectomy ?Z98.890 - Other specified postprocedural states (ICD-10) ?Z87.42 - Personal history of other diseases of the female genital tract (ICD-10) History of hernia repair ?Z98.890 - Other specified postprocedural states (ICD-10) ?Z87.19 - Personal history of other diseases of the digestive system (ICD-10) History of lumbar surgery (12/2012) ?Z98.890 - Other specified postprocedural states (ICD-10) History of lumbar fusion ?Z98.1 - Arthrodesis status (ICD-10) History of breast biopsy (04/12/07) ?Z98.890 - Other specified postprocedural states (ICD-10) History of cholecystectomy (1990) ?Z90.49 - Acquired absence of other specified parts of digestive tract (ICD-10) History of oophorectomy Family History Father Coronary artery disease Mother Lung cancer Myocardial infarction Heart disease Maternal Grandmother Diabetes Social History Smoking Status: Never smoker Do you use any of these nicotine containing products: None Second hand tobacco smoke exposure: No How often do you have a drink containing alcohol: never How often do you have six or more drinks on one occasion: Never AUDIT-C Alcohol total score: 0 Non-prescribed substance use: denies use service: No Exam Narrative: Exam Narrative: General: well nourished , NAD Head: Atraumatic and normocephalic ENT: External ears and external nose are normal Eyes: Conjunctiva clear, pupils are equal reactive, external ocular motions are intact Neck: Full spontaneous range of motion of the neck Lungs: No respiratory distress Musculoskeletal: No left buttock tenderness, straight leg raise negative. No tenderness of the anterior posterior upper leg, no calf tenderness, no pain with passive flexion extension at the ankle. No joint effusion of the knee, no joint line tenderness, no tenderness along the MCL or LCL. No popliteal tenderness or fullness. No pain with passive knee flexion, extension, or Juanita's test although positive apprehension sign with this. Mild tenderness just lateral to the patellar tendon which causes radiation down the leg. Pain with active straight leg raise which she says is along the lateral joint line radiating distally down the anterior lateral lower leg. Description anterior and posterior compartments are soft. Neurologic: No gross focal neurologic deficits Skin: No rashes Psych: Mood and affect are appropriate Const: Vital Signs, click to edit/add: Vital Signs - 24 hr 11/03/24 15:03 Temperature 97.6 F Pulse Rate [Pulse Oximeter] 72 Respiratory Rate 16 Blood Pressure [Ri ght Upper Arm] 193/94 H Pulse Oximetry 98 Oxygen Delivery Me thod Room Air Course Course ED Course: Reviewed most recent primary care office visit from October 22 when patient was seen for follow-up of leg swelling, also chronic pain for which she takes oxycodone CR as well as oxycodone IR. Patient was seen for this problem in the emergency department on October 29, at that time the x-ray was negative, ultrasound negative. Patient reports today she was sitting at work, went to stand up and felt a pop in her knee, increased pain in the anterior knee radiating downward. Previously pain was in the posterior knee, worse with moving and walking. Now she has pain posteriorly and anteriorly, difficulty walking due to pain. She denies any change in weakness, back pain. No joint effusion, no tenderness on exam. Patient reports area pain anterior lateral to the patellar tendon with radiation down the anterior lateral lower leg. This sounds almost like a nerve compression or contusion, although no definite explanation for the pain in the popliteal fossa. Patient will be given Toradol in the emergency department as well as limited number oxycodone for acute pain on top of her chronic pain. She is scheduled for an MRI tomorrow. Immobilizer and crutches for comfort. Vital Signs Vital signs: Initial Vital Signs Temperature 97.6 F 11/03/24 15:03 Temperature Source Temporal Artery Scan 11/03/24 15:03 Pulse Rate 72 11/03/24 15:03 Respiratory Rate 16 11/03/24 15:03 Blood Pressure 193/94 H 11/03/24 15:03 Blood Pressure Mean 127 H 11/03/24 15:03 Blood Pressure Position Sitting 11/03/24 15:03 Pulse Oximetry 98 11/03/24 15:03 Oxygen Delivery Method Room Air 11/03/24 15:03 Vital Signs Temperature 97.6 F 11/03/24 15:03 Pulse Rate 72 11/03/24 15:03 Respiratory Rate 16 11/03/24 15:03 Blood Pressure 193/94 H 11/03/24 15:03 Pulse Oximetry 98 11/03/24 15:03 Oxygen Delivery Method Room Air 11/03/24 15:03 Temperature 97.6 F 11/03/24 15:03 Pulse Rate 72 11/03/24 15:03 Respiratory Rate 16 11/03/24 15:03 Blood Pressure 193/94 H 11/03/24 15:03 Pulse Oximetry 98 11/03/24 15:03 Oxygen Delivery Method Room Air 11/03/24 15:03 Discharge Plan Discharge Clinical Impression: Acute pain of left knee Patient Disposition: Home, Self-Care Instructions: Knee Pain (ED) Additional Instructions: Use crutches and immobilizer for comfort Follow-up tomorrow for MRI scheduled Activity Level: Activity as Tolerated, Wear Brace and Use Crutches Discharge Diet: Regular Prescriptions: No Action metoprolol succinate 100 mg tablet extended release 24 hr 100 mg PO BID Qty: 180 1RF losartan-hydrochlorothiazide 100-25 mg tablet 1 tab PO QDAY Qty: 90 0RF naloxone [Narcan] 4 mg/actuation spray,non-aerosol 4 mg intranasal Q2-3M PRN (Reason: opioid overdose) Qty: 2 0RF Rx Instructions: spray 1 dose into ONE nostril; alternate nostrils w each dose until help arrives sennosides-docusate sodium [Senokot-S] 8.6-50 mg tablet 1 tab-cap PO QHS PRN amlodipine 2.5 mg tablet 2.5 mg PO QDAY Qty: 90 1RF ketorolac 10 mg tablet 10 mg PO Q8H PRN (Reason: pain) 1 Days Qty: 14 0RF omeprazole 20 mg capsule,delayed release(DR/EC) 20 mg PO BID Qty: 180 3RF oxycodone 10 mg tablet 10 mg PO QID PRN (Reason: pain) Qty: 120 0RF oxycodone [OxyContin] 15 mg tablet,oral only,ext.rel.12 hr 15 mg PO BID Qty: 60 0RF zolpidem 5 mg tablet 5 mg PO QHS PRN (Reason: insomnia) Qty: 30 0RF Follow Up/Referrals: Provider,Not a Local [Primary Care Provider] - Stand Alone Forms: [employer] Info Instructions
--- OUTSIDE RECORDS SUMMARY | 2024-11-03 17:35 | XMS_ITS | Continuity of Care Document ---
Author Organization [facility] Address [address] [place] [id number] Phone Care Team Providers Care Weapons Officer [employer] Name Role Phone Will MD GARZA, Veto [...] Urine Toxology With Chromatography OFFICE/OUTPATIENT VISIT, [facility] Advance Directives Directive Yes / No Effective Date File Name No Information Encounters Encounter Description Practice Location Reason(s) For Visit Diagnoses Date Provider Providers Copied on Encounter [facility], [address] [place], [place], [id number] , [place] tel:[phone] [facility] No Information 2 Will Veto. [address] [facility] [place], [place], [id number] , [place]. tel:[phone] [facility], [address] [place], [place], [id number] , [place] tel:[phone] [facility] [place] No Information 2 Vinicio Argueta. [address] [facility] [address], [place], [place], [id number] , [place]. tel:[phone] Referring Provider: Veto Norman, [address] [place], [address]. tel:[phone] OFFICE/OUTPA TIENT VISIT, [facility], [address] [place], [place], [id number] , [place] tel:[phone] [facility] Back pain (chief complaint) Chronic pain syndromeLow back pain, unspecifiedLong term (current) use of opiate analgesicEncounter for therapeutic drug level monitoring 2 Vinicio Argueta. [address] [facility] [address], [place], [place], [id number] , [place]. tel:[phone] Referring Provider: [facility] [address], [place], [address]. tel:[phone] Family History Family Member Type Diagnosis Age At Onset Sister Problem Back pain/issues Payers Payer name Insurance type Covered democrat ID Baldomero roth(s) Blue Cross Blue Jojo Gentile BL [id number] 2 Social History Type Description Quantity Date [...] Goal AST (SGOT). Due on due Goal HAT CONDITIONER Paperwork. Due on due Goal OARS. Due on due Goal Order Annual PT. Due on due Goal UDT. Due on due Goal PRINT SHOP ASSISTANT Scanned. Due on due Goal Creatinine. Due on due Goal Order Annual PT. Due on due Goal AST (SGOT). Due on due Goal ALT (SGPT). Due on due Goal OARS. Due on due Goal HAT CONDITIONER Paperwork. Due on due Goal PRINT SHOP ASSISTANT Scanned. Due on due Goal Creatinine. Due on due Goal UDT. Due on due Goal UDT. Due on due Goal PRINT SHOP ASSISTANT Scanned. Due on due Goal ALT (SGPT). Due on due Goal Creatinine. Due on due Goal Order Annual PT. Due on due Goal HAT CONDITIONER Paperwork. Due on due Goal OARS. Due [...] surgery with Dr. Justin Cuba of [facility] in 2015. Reports that Further surgery of her upper lumbar region was recommended, but patient would not like to pursue further surgical intervention. Pain is characterized as dull, sore, and tight pain. Secondarily notes constant tingling in BL feet. Pain level averages 8/10.For pain management, patient has tried PT at [facility], has undergone a lumbar epidural steroid injection at [facility], and has tried the following medications:- Gabapentin- Lyrica- Cyclobenzaprine- NSAIDS- Tramadol- Codeine- HydrocodoneCurrently managed on Oxycodone 10mg QID and OxyContin 15mg BID, prescribed by her new PCP, Dr. Bk Handy, at [facility].Sheri is interested in pain management through [...]
--- OUTSIDE RECORDS SUMMARY | 2024-11-03 17:35 | XMS_ITS | Clinical Summary ---
Author Organization [employer] [facility] Address [place], [place] [address] Care Team Providers Care Medical Equipment Repair Technician Name Role Phone Natalie Ramos Lalita SOFTWARE ANALYST Unavailable [phone] Kel Salvador MD Unavailable [phone] Justin Cuba MD Primary Care Provider Allergies Active Allergy Reactions Criticality Noted Date Comments Adhesive Tape Contact Dermatitis Low 09/05/2007 redness and hives under dressing Duloxetine Nausea Only Medium 01/21/2016 Gabapentin Hallucinations 11/28/2018 Latex Other - Describe In Comment Field Low 02/15/2010 Skin irritation ,itching from bandaids and latex tape Tramadol Mental Status Change High 06/15/2014 hallucination Medications lidocain-me.salic ot-eleb-dgxek 4-20-0.025-5 % topical patch Apply 2 Patches [...] 01/14/2024 Overview (01/14/2024): Uses Pessary CAD in squaxin artery 09/26/2021 Overview (09/26/2021): CT Cardiac Coronary: 09/19/2021 1. This is a dual read study - please review [facility] over-read below for incidental non cardiac [...] not identified any concerns. 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 09/19/2021 09/26/2021 Radicular leg pain, left 04/19/201504/2019 Paresthesias 05/20/2014 08/01/2019 Dysthymic disorder 07/12/2009 4 HTN (hypertension) 09/25/2008 9 Overview (12/07/2009): Updated by system to replace inactive record Urinary tract infection, site not specified 12/19/2005 04/17/2012 Encounters Date Type Department Care Team Description 10/29/2024 Nurse Triage [facility] [address] [place] [address] Justin Cuba MD Leg Pain/problem 10/27/2024 Nurse Triage [facility] [address] [place] [address] Justin Cuba MD Appointment Request (Left leg pain) 10/27/2024 Nurse Triage [facility] [address] [place] [address] Justin Cuba MD 10/22/2024 4:00 PM RECORD SYSTEMS ANALYST Office Visit [facility] [address] [place] [address] Justin Cuba MD Pain (Deep mid/low back pain, radiates from groin to back, when getting out of bed in the morning needing to hold breath. L>now right); Neck Pain/problem (Left sided intermittent neck/throat inflamed? More so when turning head); Medication Management (Renew; OK to fill 2 days early? Leaving for [place] 11/07, controlled substances due to fill on ) 10/22/2024 Travel 10/08/2024 Refill [facility] [address] [place] [address] Justin Cuba MD Refill Request (Oxycontin, Oxycodone) 09/08/2024 Telephone [facility] [address] [place] [address] Justin Cuba MD Prior Authorization (OXYCONTIN 15 mg SUSTAINED release tablet APPROVED 09/08/24-03/07/25) 09/08/2024 Telephone [facility] [address] [place] [address] Justin Cuba MD Prior Authorization (oxyCODONE 10 mg tablet APPROVED 09/08/24-03/07/25) 09/08/2024 Telephone [facility] [address] [place] [address] Justin Cuba MD Prior Authorization 09/06/2024 Refill [facility] [address] [place] [address] Justin Cuba MD Refill Request (Oxycodone) 08/25/2024 Telephone [facility] [address] [place] [place] [address] Justin Cuba MD Refill Request (omeprazole (PRILOSEC) 20 mg Delayed-Release capsule ) 08/25/2024 Refill [facility] [address] [place] [address] Justin Cuba MD Refill Request (Zolpidem) from Last 3 Months Immunizations Name Administration Dates Next Due COVID-19 vaccine (OrderWithMe-J& J) SIDDHARTH VOGEL 12/18/2020 COVID-19 vaccine (B[employer]way-Bio NTKeclon 30mcg/0.3mL) PFSIDDHARTH 09/26/2021 Influenza, IIV3 (Age >=3 years) 05/16/2015,01/02 Influenza, IIV4 08/06/2019, 8,10/13/2017,09/20/20 17,10/18/2016 Influenza, IIV4 (=>6mos) MDV 06/20/2020 Influenza, RIV3 (Age =>18 Years) 06/15/2014 Tdap 01/21/2016 Family History Medical History Relation Name Comments Heart Disease Father Diabetes Maternal Grandmother Cancer Mother Lungs Heart Disease Mother [place] Relation Name Status Comments Father (Age 54 ) [place] Maternal Grandmother Mother Social History Tobacco Use [...] on file Legal Sex Female 5:50 AM RECORD SYSTEMS ANALYST Gender Identity Not on file Sexual Orientation [...] Comments Blood Pressure 124/84 10/22/2024 3:44 PM RECORD SYSTEMS ANALYST Pulse 68 01/14/2024 3:46 PM CDT Temperature 36.7 C (98.1 F) 09/19/2021 9:09 AM RECORD SYSTEMS ANALYST Respiratory Rate 18 09/19/2021 1:31 PM RECORD SYSTEMS ANALYST Oxygen Saturation 95% 11/23/2021 12:39 PM RECORD SYSTEMS ANALYST all sx gone Inhaled Oxygen Concentration - - Weight 93 kg (205 lb) 07/07/2024 4:13 PM CDT Height 161.3 cm (5' 3.5) 03/07/2024 3:31 PM CDT Body Mass Index 35.74 03/07/2024 3:31 PM CDT Plan of Treatment Upcoming Encounters Date Type Department Care Team (Late st Contact Info) Description 11/24/2024 4:15 PM RECORD SYSTEMS ANALYST Appointment [facility] [place] [address] [facility] [address] [place], [place] [id number] [place] [address] [email or web address] [address] [place], [place] [id number] Health Maintenance Due Date Last Done Comments [...] Cuba MD Medical Devices Implanted Type Area Interceptor Operator Device Identifier Shelf Expiration Date Model / Serial / Lot Bone 1-4mm 30cc Medtronic Chips Canclls Freeze Dried - [id number] Implanted:Qty: 1 on 11/27/2018 by Wilbert Montelongo MD at [facility] N/A: Spine Medtronic Spine/Ortho 03/28/2023 [id number] / / [id number] Plate Lmbr Alviso-L Stand Alone Lock - [id number] Implanted:Qty: 2 on 11/27/2018 by Wilbert Montelongo MD at [facility] N/A: Spine Canon Spine [id number] / / . Spacer Lmbr [id number] 8deg Avs-L Stand Alone - [id number] Implanted:Qty: 1 on 11/27/2018 by Wilbert Montelongo MD at [facility] N/A: Spine Chapo Spine [id number] / / . 5.5mm X 22mm Rescue Screw Lite Plate Implanted:Qty: 1 on 11/27/2018 by Wilbert Montelongo MD at [facility] N/A: Spine [id number] / / . Bone 1-4mm 60cc Medtronic Fine Canclls Freeze Dried - [id number] Implanted:Qty: 1 on 11/27/2018 by Wilbert Montelongo MD at [facility] N/A: Spine Medtronic Spine/Ortho 02/15/2023 [id number] / / [id number] Screw Lmbr Post 8.5x50mm Ilios Va - [id number] Implanted:Qty: 2 on 11/27/2018 by Wilbert Montelongo MD at [facility] N/A: Spine Canon Spine [id number] / / . Screw Lmbr Post 6.5x45mm Xia3 Va - [id number] Implanted:Qty: 4 on 11/27/2018 by Wilbert Montelongo MD at [facility] N/A: Spine Canon Spine [id number] / / . Screw Lmbr Post 6.5x40mm Xia3 Va - [id number] Implanted:Qty: 2 on 11/27/2018 by Wilbert Montelongo MD at [facility] N/A: Spine Chapo Spine [id number] / / . Set Screw Lmbr Xia3 - [id number] Implanted:Qty: 8 on 11/27/2018 by Wilbert Montelongo MD at [facility] N/A: Spine Canon Spine [id number] / / . Oni Lmbr [id number] Xia3 Cvd Titnm - [id number] Implanted:Qty: 1 on 11/27/2018 by Wilbert Montelongo MD at [facility] N/A: Spine Canon Spine [id number]# / / . Bone Matrix 5cc Progenix Plus Putty Dbm - [id number] Implanted:Qty: 1 on 11/27/2018 by Wilbert Montelongo MD at [facility] N/A: Spine Medtronic Spine/Ortho 05/15/2020 [id number]# / / [id number] Oni Lmbr [id number] Xia3 Titnm - [id number] Implanted:Qty: 1 on 11/27/2018 by Wilbert Montelongo MD at [facility] N/A: Spine Canon Spine [id number] / / . Bone Matrix 5cc Progenix Plus Putty Dbm - [id number] Implanted:Qty: 1 on 11/27/2018 by Wilbert Montelongo MD at [facility] N/A: Spine Medtronic Spine/Ortho 04/22/2020 [id number]# / / [id number] Bone Matrix Lg Infuse Bmp - [id number] Implanted:Qty: 1 on 11/27/2018 by Wilbert Montelongo MD at [facility] N/A: Spine Medtronic Spine/Ortho 10/25/2020 [id number]# / / [id number] Bone Matrix 10cc Stimulan Kit Rapid Cure - [id number] Implanted:Qty: 1 on 11/27/2018 by Wilbert Montelongo MD at [facility] N/A: Spine Biocomposites Inc 06/23/2021 [id number]# / / [id number]/[id number] Description:Mixed with Tobra mycin 1.2g Spacer Lmbr [id number] 12deg Avs-L Stand Alone - [id number] Implanted:Qty: 2 on 11/27/2018 by Wilbert Montelongo MD at [facility] N/A: Spine Chapo Spine [id number] / / . 23mm Plate - Lite Plate Implanted:Qty: 1 on 11/27/2018 by Wilbert Montelongo MD at [facility] N/A: Spine [id number] / / . Description:REF: [id number] 5.0 X 25mm Screw - Lite Plate Implanted:Qty: 3 on 11/27/2018 by Wilbert Montelongo MD at [facility] N/A: Spine [id number] / / . Screw Lmbr 6x25mm Ancr-L Standalone - [id number] Implanted:Qty: 6 on 11/27/2018 by Wilbert Montelongo MD at [facility] N/A: Spine Chapo Spine [id number] / / . Explanted Type Area Interceptor Operator Device Identifier Shelf Expiration Date Model / Serial / Lot Screw Sm Joint 4.5x20mm Axsos Malcom Titnm - [id number] Explanted:Qty: 6 on 11/27/2018 by Wilbert Montelongo MD at [facility] N/A: Spine Chapo Orthopaedics [id number] / / . Procedures Procedure Name Priority Date/Time Associated Diagnosis Comments LIPID PANEL W REFLEX MEASURED LDL Routine 01/14/2024 4:42 PM CDT Hyperlipidemia, unspecified hyperlipidemia type SCAN-COLONOSCOPY 10/30/2022 12:0 0 AM RECORD SYSTEMS ANALYST XR MAMMO BILAT SCREEN FFDM (IA) Routine 06/23/2016 3:34 PM CDT Encounter for mammogram to establish baseline mammogram from Last 3 Months or Most Recently Relevant to Health Maintenance Results * (ABNORMAL) LIPID PANEL W REFLEX MEASURED LDL (01/14/2024 4:42 PM CDT) CHOLESTEROL,TOTAL 311(H) 100 - 199 mg/dL 01/15/2024 4:20 AM CDT [facility] Comment: Cholesterol, Total Reference Ranges Desirable <200 mg/dL Borderline 200-239 mg/dL High >=240 mg/dL TRIGLYCERIDES 334(H) <150 mg/dL 01/15/2024 4:20 AM CDT [facility] HDL CHOLESTEROL 42 >40 mg/dL 4 4:20 AM CDT [facility] NON-HDL CHOLESTEROL 269(H) <145 mg/dl 01/15/2024 4:20 AM CDT [facility] CHOL/HDL RATIO 7.40(H) <4.50 01/15/2024 4:20 AM CDT [facility] LDL CHOLESTEROL 202(H) <=130 mg/dL 01/15/2024 4:20 AM CDT [facility] VLDL CHOLESTEROL 67(H) <=30 mg/dL 01/15/2024 4:20 AM CDT [facility] PROVIDER ORDERED STATUS RANDOM 01/15/2024 4:20 AM CDT [facility] Blood BLOOD SPECIMEN / Unknown Venipuncture / Unknown 01/14/2024 4:42 PM CDT 01/14/2024 4:42 PM CDT us Justin Cuba MD CHEMISTRY Final R esult [facility] [address] [address], [place] * SCAN-COLONOSCOPY (10/30/2022 12:00 AM RECORD SYSTEMS ANALYST) us Scanner OTHER Final Result * XR [...] of Computer-Aided Detection. COMPARISON FILMS: Yes 12/22/13 [facility] 11/02/08 [facility] FINDINGS: Mammographically, the breast tissue has scattered fibroglandular densities. No suspicious masses or microcalcifications. Post surgical changes within right breast. Justin Cuba MD MAMMO Final R esult from Last 3 Months or Most Recently Relevant to Health Maintenance Insurance [id number] Advance Directives * Full Code (Latest Code [...] 10:04 PM 01/01/2013 8:31 PM Care Teams Medical Equipment Repair Technician Relationship Specialty Start Date End Date Justin Cuba MD [address] [place] [address] PCP - General Family Practice 10/10/23 Natalie Ramos NP Pain Management Nurse Practitioner 06/10/19 Kel Salvador MD [address] [place] [address] Cardiovascular Disease 12/02/21
[2024-11-03] MEDS: HYDROmorphone 0.5 mg/0.5 ml inj 1 MG IM (18:00)
[2024-11-03 18:19] VITALS: PULSE 71; O2SAT 98
== END 2024-11-03 18:22 | disposition home or self-care (01) ==
LOC: ED 17:32
PROVIDERS: Emergency Provider Family Medicine
DX: M25.562 Pain in left knee (principal)
CPT/HCPCS: 94761; 96372; 99284; J1171

== ENCOUNTER 2024-11-04 19:09 | Outpatient (CLI) | payer BC, SELFPAY | END 2024-11-04 19:10 | disposition home or self-care (01) | LOC: MRI 19:11 | PROVIDERS: Visit Provider Physician Assistant Surgical | DX: M25.562 Pain in left knee (principal); S83.242A Other tear of medial meniscus, current injury, left knee, initial encounter; M25.762 Osteophyte, left knee; M25.462 Effusion, left knee; S83.512A Sprain of anterior cruciate ligament of left knee, initial encounter | CPT/HCPCS: 73721 ==

== ENCOUNTER 2024-12-11 11:24 | Emergency (ER) | payer BC, SELFPAY ==
[2024-12-11] VITALS (20 sets, daily range): BP systolic 160–246; BP diastolic 90–116; PULSE 72–95; RESP 16–20; TEMP 36.4; O2SAT 93–100
--- OUTSIDE RECORDS SUMMARY | 2024-12-11 11:27 | XMS_ITS | Continuity of Care Document ---
Author Organization [facility] Address [address] [place] [id number] Phone Care Team Providers Care Contact Lens Technician Name Role Phone Will MD GARZA, [...] Drug test def 8-14 classes OFFICE/OUTPATIENT VISIT, [facility] Advance Directives Directive Yes / No Effective Date File Name No Information Encounters Encounter Description Practice Location Reason(s) For Visit Diagnoses Date Provider Providers Copied on Encounter [facility], [address] [place], [place], [id number] , [place] tel:[phone] [facility] No Information 2 Will Veto. [address] [facility] [place], [place], [id number] , [place]. tel:[phone] [facility], [address], [place], [id number] , [place] tel:[phone] [facility] [place] No Information 2 Vinicio Argueta. [address] [facility] [address], [place], [place], [id number] , [place]. tel:[phone] Referring Provider: Veto Norman, [address] [place], [address]. tel:[phone] OFFICE/OUTPA TIENT VISIT, [facility], [address], [place], [id number] , [place] tel:[phone] [facility] Back pain (chief complaint) Chronic pain syndromeLow back pain, unspecifiedLong term (current) use of opiate analgesicEncounter for therapeutic drug level monitoring 2 Vinicio Argueta. [address] [facility] [address], [place], [place], [id number] , [place]. tel:[phone] Referring [facility]: [facility] [address], [place], [address]. tel:[phone] Family History Family Member Type Diagnosis Age At Onset Sister Problem Back pain/issues Payers Payer name Insurance type Covered libertarian ID Baldomero roth(s) Blue Cross Blue Jojo Gentile BL [id number] 2 Social History Type Description Quantity Date [...] Goal AST (SGOT). Due on due Goal PRESIDENT AND CMO Paperwork. Due on due Goal OARS. Due on due Goal Order Annual PT. Due on due Goal UDT. Due on due Goal CHANNEL MAN Scanned. Due on due Goal Creatinine. Due on due Goal Order Annual PT. Due on due Goal AST (SGOT). Due on due Goal ALT (SGPT). Due on due Goal OARS. Due on due Goal PRESIDENT AND CMO Paperwork. Due on due Goal CHANNEL MAN Scanned. Due on due Goal Creatinine. Due on due Goal UDT. Due on due Goal UDT. Due on due Goal CHANNEL MAN Scanned. Due on due Goal ALT (SGPT). Due on due Goal Creatinine. Due on due Goal Order Annual PT. Due on due Goal PRESIDENT AND CMO Paperwork. Due on due Goal OARS. Due [...] back surgery with Dr. Justin Cuba of [facility] in 2015. Reports that Further surgery of her upper lumbar region was recommended, but patient would not like to pursue further surgical intervention. Pain is characterized as dull, sore, and tight pain. Secondarily notes constant tingling in BL feet. Pain level averages 8/10.For pain management, patient has tried PT at [facility], has undergone a lumbar epidural steroid injection at [facility], and has tried the following medications:- Gabapentin- Lyrica- Cyclobenzaprine- NSAIDS- Tramadol- Codeine- HydrocodoneCurrently managed on Oxycodone 10mg QID and OxyContin 15mg BID, prescribed by her new PCP, Dr. Bk Handy, at [facility].Sheri is interested in pain [...]
--- OUTSIDE RECORDS SUMMARY | 2024-12-11 11:27 | XMS_ITS | Clinical Summary ---
Author Organization [employer] [facility] Address [address] [place] [id number] Care Team Providers Care Laborer Carpentry Dock Name Role Phone Natalie Ramos Lalita AUSTIN Unavailable [phone] Kel Salvador MD Unavailable Justin Cuba MD Primary Care Provider Allergies Active Allergy Reactions Criticality Noted Date Comments Adhesive Tape Contact Dermatitis Low 09/05/2007 redness and hives under dressing Duloxetine Nausea Only Medium 01/21/2016 Gabapentin Hallucinations 11/28/2018 Latex Other - Describe In Comment Field Low 02/15/2010 Skin irritation ,itching from bandaids and latex tape Tramadol Mental Status Change High 06/15/2014 hallucination Medications lidocain-me.salicy p-bctu-aicum 4-20-0.025-5 % topical patch Apply 2 Patches on dry, clean, hairless skin once daily if needed for Pain. Salon Pas or Equivalent 0 05/06/20 21 Active amLODIPine (NORVASC) 10 mg tabletIndications: Essential hypertension Take 1 Tablet (10 mg) by mouth once daily. 90 Tablet 4 01/14/20 24 Active losartan (COZAAR) 100 mg tabletIndications: Essential hypertension Take 1 Tablet (100 mg) by mouth once daily. 90 Tablet 4 01/14/20 24 Active metoprolol succinate (TOPROL XL) 100 mg Sustained-Release tabletIndications: Essential hypertension Take 1 Tablet (100 mg) by mouth two times daily. 180 Tablet 4 01/14/20 24 Active rosuvastatin (CRESTOR) 20 mg tabletIndications: Hyperlipidemia, unspecified hyperlipidemia type Take 1 Tablet (20 mg) by mouth at bedtime. 90 Tablet 3 01/17/20 24 Active zolpidem (AMBIEN) 5 mg tabletIndications: Insomnia, idiopathic TAKE 1 TABLET BY MOUTH AT BEDTIME NEEDED FOR INSOMNIA 30 Tablet 3 08/25/20 24 Active omeprazole (PRILOSEC) 20 mg Delayed-Release capsuleIndications :Chronic GERD Take 1 Capsule (20 mg) by mouth once daily before a meal. 90 Capsule 2 08/25/20 24 Active aspirin (ECOTRIN) 81 mg enteric coated tablet Take 1 Tablet (81 mg) by mouth once daily. Active oxyCODONE 10 mg tabletIndications: Chronic bilateral low back pain with left-sided sciatica,S/P lumbar spinal fusion,Peripheral sensory neuropathy Take 1 Tablet (10 mg) by mouth every 6 hours if needed for Pain. 120 Tablet 12/07/19 25 025 Active oxyCODONE 10 mg tabletIndications: Chronic bilateral low back pain with left-sided sciatica,S/P lumbar spinal fusion,Peripheral sensory neuropathy Take 1 Tablet (10 mg) by mouth every 6 hours if needed for Pain. 120 Tablet 12/06/19 25 Active oxyCODONE (OXYCONTIN) 15 mg SUSTAINED release tabletIndications: Chronic bilateral low back pain with left-sided sciatica,S/P lumbar spinal fusion,Peripheral sensory neuropathy Take 1 Tablet (15 mg) by mouth every 12 hours. 60 Tablet 12/07/19 25 025 Active oxyCODONE (OXYCONTIN) 15 mg SUSTAINED release tabletIndications: Chronic bilateral low back pain with left-sided sciatica,S/P lumbar spinal fusion,Peripheral sensory neuropathy Take 1 Tablet (15 mg) by mouth every 12 hours. 60 Tablet 01/06/20 25 Active oxyCODONE (OxyCONTIN) 15 mg SUSTAINED release tabletIndications: Chronic bilateral low back pain with left-sided sciatica,S/P lumbar spinal fusion Take 1 Tablet (15 mg) by mouth every 12 hours. 60 Tablet 11/06/19 25 Active oxyCODONE 10 mg tabletIndications: Chronic bilateral low back pain with left-sided sciatica Take 1 Tablet (10 mg) by mouth every 6 hours if needed for Pain. 120 Tablet 11/06/19 25 Active oxyCODONE 10 mg tabletIndications: Chronic bilateral low back pain with left-sided sciatica,S/P lumbar spinal fusion Take 1 Tablet (10 mg) by mouth every 6 hours if needed for Pain. 120 Tablet 11/06/19 25 025 Active Problems Problem Noted Date Diagnosed Date Urinary incontinence 01/14/2024 Overview (01/14/2024): Uses Pessary CAD in [place] artery 09/26/2021 Overview (09/26/2021): CT Cardiac Coronary: 09/19/2021 1. This is a dual read study - please review [facility] over-read below for incidental non cardiac [...] not identified any concerns. Tiesha Chavez CMA (AAMA) 01/18/2018 GENERAL MEDICAL PRACTITIONER Query Ran today and patient filling controlled [...] Resolved Date Coronary artery disease invo lving [place] coronary artery of [place] heart with angina pectoris 09/19/2021 09/26/2021 Radicular leg pain, left 04/19/201504/2019 Paresthesias 05/20/2014 08/01/2019 Dysthymic disorder 07/12/2009 4 HTN (hypertension) 09/25/2008 9 Overview (12/07/2009): Updated by system to replace inactive record Urinary tract infection, site not specified 12/19/2005 04/17/2012 Encounters Date Type Department Care Team Description 12/11/2024 [facility] T[facility] [address] [place] [address] Justin Cuba MD Pain (Side pain radiating through lower back- pt has had kidney stones in the past (feels the same)) 11/06/2024 Telephone [facility] [address] [place] [phone] Justin Cuba MD Medication Problem (Pharmacy out of meds) 10/29/2024 Nurse Triage [facility] [address] [place] [phone] Justin Cuba MD Leg Pain/problem 10/27/2024 Nurse Triage [facility] [address] [place] [phone] Justin Cuba MD Appointment Request (Left leg pain) 10/27/2024 Nurse Triage [place] [id number] [place] [phone] Justin Cuba MD Error-please disregard (OPENED IN ERROR) 10/22/2024 4:00 PM OFFICE ENGINEER Office Visit [facility] [address] [place] [phone] Justin Cuba MD Pain (Deep mid/low back pain, radiates from groin to back, when getting out of bed in the morning needing to hold breath. L>now right); Neck Pain/problem (Left sided intermittent neck/throat inflamed? More so when turning head); Medication Management (Renew; OK to fill 2 days early? Leaving for [place] 11/07, controlled substances due to fill on ) 10/22/2024 Travel 10/08/2024 Refill [facility] [address] [place] [address] Justin Cuba MD Refill Request (Oxycontin, Oxycodone) from Last 3 Months Immunizations Immunization Administration Dates Next Due COVID-19 vaccine (Voxer LLCJ& J) SIDDHARTH VOGEL 12/18/2020 COVID-19 vaccine ([employer] 30mcg/0.3mL) PFSIDDHARTH 09/26/2021 Influenza, IIV3 (Age >=3 years) 05/16/2015,01/02 Influenza, IIV4 08/06/2019, 8,10/13/2017,2016,10/18/2016 Influenza, IIV4 (=>6mos) MDV 06/20/2020 Influenza, RIV3 (Age =>18 Years) 06/15/2014 Tdap 01/21/2016 Family History Medical History Relation Name Comments Heart Disease Father Diabetes Maternal Grandmother Cancer Mother Lungs Heart Disease Mother [place] Relation Name Status Comments Father (Age 54 ) [place] Maternal Grandmother Mother Social History Tobacco Use [...] on file Legal Sex Female 5:50 AM OFFICE ENGINEER Gender Identity Not on file Sexual Orientation [...] Comments Blood Pressure 124/84 10/22/2024 3:44 PM OFFICE ENGINEER Pulse 68 01/14/2024 3:46 PM CDT Temperature 36.7 C (98.1 F) 09/19/2021 9:09 AM OFFICE ENGINEER Respiratory Rate 18 09/19/2021 1:31 PM OFFICE ENGINEER Oxygen Saturation 95% 11/23/2021 12:39 PM OFFICE ENGINEER all sx gone Inhaled Oxygen Concentration - - Weight 93 kg (205 lb) 07/07/2024 4:13 PM CDT Height 161.3 cm (5' 3.5) 03/07/2024 3:31 PM CDT Body Mass Index 35.74 03/07/2024 3:31 PM CDT Plan of Treatment Health Maintenance Due Date [...] series ( season) 2024 09/26/2021, 12/18/2020 Influenza Vaccine (#1) 2024 , 08/06/2019, 07/01/2018, Additional history exists BMI (ht [...] Cuba MD Medical Devices Implanted Type Area Hot Repairman Device Identifier Shelf Expiration Date Model / Serial / Lot Bone 1-4mm 30cc Medtronic Chips Canclls Freeze Dried - [id number] Implanted:Qty: 1 on 11/27/2018 by Wilbert Montelongo MD at [facility] N/A: Spine Medtronic Spine/Ortho 03/28/2023 [id number]# / / [id number] Plate Lmbr [place]-L Stand Alone Lock - [id number] Implanted:Qty: 2 on 11/27/2018 by Wilbert Montelongo MD at [facility] N/A: Spine Chapo Spine [id number]# / / . Spacer Lmbr [id number] 8deg Avs-L Stand Alone - [id number] Implanted:Qty: 1 on 11/27/2018 by Wilbert Montelongo MD at [facility] N/A: Spine Chapo Spine [id number] / / . 5.5mm X 22mm Rescue Screw Lite Plate Implanted:Qty: 1 on 11/27/2018 by Wilbert Montelongo MD at [facility] N/A: Spine [id number] / / . Bone 1-4mm 60cc Medtronic Fine Canclls Freeze Dried - [id number] Implanted:Qty: 1 on 11/27/2018 by Wilbert Montelongo MD at [facility] N/A: Spine Medtronic Spine/Ortho 02/15/2023 [id number]# / / [id number] Screw Lmbr Post 8.5x50mm Ilios Va - [id number] Implanted:Qty: 2 on 11/27/2018 by Wilbert Montelongo MD at [facility] N/A: Spine Chapo Spine [id number]# / / . Screw Lmbr Post 6.5x45mm Xia3 Va - [id number] Implanted:Qty: 4 on 11/27/2018 by Wilbert Montelongo MD at [facility] N/A: Spine Chapo Spine [id number] / / . Screw Lmbr Post 6.5x40mm Xia3 Va - [id number] Implanted:Qty: 2 on 11/27/2018 by Wilbert Montelongo MD at [facility] N/A: Spine Chapo Spine [id number] / / . Set Screw Lmbr Xia3 - [id number] Implanted:Qty: 8 on 11/27/2018 by Wilbert Montelongo MD at [facility] N/A: Spine Chapo Spine [id number] / / . Oni Lmbr [id number] Xia3 Cvd Titnm - [id number] Implanted:Qty: 1 on 11/27/2018 by Wilbert Montelongo MD at [facility] N/A: Spine Douglas Spine [id number]# / / . Bone Matrix 5cc Progenix Plus Putty Dbm - [id number] Implanted:Qty: 1 on 11/27/2018 by Wilbert Montelongo MD at [facility] N/A: Spine Medtronic Spine/Ortho 05/15/2020 [id number]# / / [id number] Oni Lmbr [id number] Xia3 Titnm - [id number] Implanted:Qty: 1 on 11/27/2018 by Wilbert Montelongo MD at [facility] N/A: Spine Chapo Spine [id number] / / . Bone Matrix 5cc Progenix Plus Putty Dbm - [id number] Implanted:Qty: 1 on 11/27/2018 by Wilbert Montelongo MD at [facility] N/A: Spine Medtronic Spine/Ortho 04/22/2020 [id number]# / / [id number] Bone Matrix Lg Infuse Bmp - [id number] Implanted:Qty: 1 on 11/27/2018 by Wilbert Montelongo MD at [facility] N/A: Spine Medtronic Spine/Ortho 10/25/2020 [id number]# / / [id number] Bone Matrix 10cc Stimulan Kit Rapid Cure - [id number] Implanted:Qty: 1 on 11/27/2018 by Wilbert Montelongo MD at [facility] N/A: Spine Entellus [employer] 06/23/2021 [id number]# / / [id number]/[id number] Description:Mixed with Tobra mycin 1.2g Spacer Lmbr [id number] 12deg Avs-L Stand Alone - [id number] Implanted:Qty: 2 on 11/27/2018 by Wilbert Montelongo MD at [facility] N/A: Spine Douglas Spine [id number]# / / . 23mm Plate - Lite Plate Implanted:Qty: 1 on 11/27/2018 by Wilbert Montelongo MD at [facility] N/A: Spine [id number] / / . Description:REF: [id number] 5.0 X 25mm Screw - Lite Plate Implanted:Qty: 3 on 11/27/2018 by Wilbert Montelongo MD at [facility] N/A: Spine [id number] / / . Screw Lmbr 6x25mm Ancr-L Standalone - [id number] Implanted:Qty: 6 on 11/27/2018 by Wilbert Montelongo MD at [facility] N/A: Spine Chapo Spine [id number]# / / . Explanted Type Area Hot Repairman Device Identifier Shelf Expiration Date Model / Serial / Lot Screw Sm Joint 4.5x20mm Axsos Malcom Titnm - [id number] Explanted:Qty: 6 on 11/27/2018 by Wilbert Montelongo MD at [facility] N/A: Spine [employer] [id number]# / / . Procedures Procedure Name Priority Date/Time Associated Diagnosis Comments LIPID PANEL W REFLEX MEASURED LDL Routine 01/14/2024 4:42 PM CDT Hyperlipidemia, unspecified hyperlipidemia type SCAN-COLONOSCOPY 10/30/2022 12:0 0 AM OFFICE ENGINEER XR MAMMO BILAT SCREEN FFDM (IA) Routine 06/23/2016 3:34 PM CDT Encounter for mammogram to establish baseline mammogram from Last 3 Months or Most Recently Relevant to Health Maintenance Results * (ABNORMAL) LIPID PANEL W REFLEX MEASURED LDL (01/14/2024 4:42 PM CDT) CHOLESTEROL,TOTAL 311(H) 100 - 199 mg/dL 01/15/2024 4:20 AM CDT [facility] Comment: Cholesterol, Total Reference Ranges Desirable <200 mg/dL Borderline 200-239 mg/dL High >=240 mg/dL TRIGLYCERIDES 334(H) <150 mg/dL 01/15/2024 4:20 AM CDT [facility] HDL CHOLESTEROL 42 >40 mg/dL 4 4:20 AM CDT [facility] NON-HDL CHOLESTEROL 269(H) <145 mg/dl 01/15/2024 4:20 AM CDT [facility] CHOL/HDL RATIO 7.40(H) <4.50 01/15/2024 4:20 AM CDT [facility] LDL CHOLESTEROL 202(H) <=130 mg/dL 01/15/2024 4:20 AM CDT [facility] VLDL CHOLESTEROL 67(H) <=30 mg/dL 01/15/2024 4:20 AM CDT [facility] PROVIDER ORDERED STATUS RANDOM 01/15/2024 4:20 AM CDT [facility] Blood BLOOD SPECIMEN / Unknown Venipuncture / Unknown 01/14/2024 4:42 PM CDT 01/14/2024 4:42 PM CDT Justin Cuba MD CHEMISTRY Final R esult [facility] [address] [place] [address], [place] * SCAN-COLONOSCOPY (10/30/2022 12:00 AM OFFICE ENGINEER) us Scanner OTHER Final Result * XR [...] of Computer-Aided Detection. COMPARISON FILMS: Yes 12/22/13 [facility] 11/02/08 [facility] FINDINGS: Mammographically, the breast tissue has scattered fibroglandular densities. No suspicious masses or microcalcifications. Post surgical changes within right breast. Justin Cuba MD MAMMO Final R esult from Last 3 Months or Most Recently Relevant to Health Maintenance [place] [address] [place] [address] OF NON-IN-ITS Advance Directives * Full Code (Latest Code [...] 10:04 PM 01/01/2013 8:31 PM Care Teams Laborer Carpentry Dock Relationship Specialty Start Date End Date Justin Cuba MD [address] [place] [address] PCP - General Family Practice 10/10/23 Natalie Ramos NP Pain Management Nurse Practitioner 06/10/19 Kel Salvador MD [address] [place] [address] Cardiovascular Disease 12/02/21
--- OUTSIDE RECORDS SUMMARY | 2024-12-11 11:27 | XMS_ITS | Data Portability ---
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 Plan of Treatment Reminders Order Date Submit Date Provider Last Modified By Organization Details Last Modified Time Details Appointments None recorded. Lab urinalysis, dipstick 2022 023 [facility], [address], [place], [address], 3 15:23:48 Referral urogynecolo gy physical therapy referral - Please call patient to schedule Pelvic Floor Physical Therapy. Thank you 2022 023 [facility], [address] [place], [address], 3 14:08:45 Procedures None recorded. Surgeries None recorded. Imaging None recorded. Medication Orders estradiol 0.01% (0.1 mg/gram) vaginal cream 2022 023 [id number], [address], [place], [address], 3 09:14:18 Patient TargetsNo targets recorded. Patient Instructions Encounter Date Encounter Id Patient Instructions Last Modified By Organization Details Last Modified Time 02/27/2023 [id number] YESSY: -Discussed management for stress urinary incontinence including pelvic floor exercises, [id number] Poise [employer] product, pelvic floor physical therapy [...] UTIs remain an issue with conservative management. [email or web address] Not available 02/27/2023 16:21:07 08/30/2023 [id number] Stress incontinence: -Discussed YESSY and the purpose [...] -Follow-up in 2 weeks, sooner if issues. [email or web address] Not available 08/30/2023 10:08:58 09/13/2023 [id number] Stress incontinence: -She was fit with #1 [...] weeks [email or web address] Not available 09/13/2023 16:04:41 10/17/2023 [id number] Stress incontinence: -She was fit with #1 [...] uriscan NEGATI VE negati ve Not Available [facility] [address], [place], [address], 02/27/2023 15:23:48 02/28/2002/2702/27/2023 UA WITHO UT MICRO - CS URISC AN bilirubin - uriscan NEGATI VE mg/dL negati ve Not Available [facility] [address] [place] [address] [address], [place], [address], 02/27/2023 15:23:48 02/28/20 23 02/27/2023 UA WITHO UT MICRO - CS URISC AN urobilinogen - uriscan NORMAL mg/dL normal Not Available [facility] [address] [place] [address] [address], [place], [address], 02/27/2023 15:23:48 02/28/20 23 02/27/2023 UA WITHO UT MICRO - CS URISC AN ketones - uriscan NEGATI VE mg/dL negati ve Not Available [facility] [address] [place] [address] [address], [place], [address], 02/27/2023 15:23:48 02/28/20 23 02/27/2023 UA WITHO UT MICRO - CS URISC AN protein - uriscan NEGATI VE mg/dL negati ve Not Available [facility] [address] [place] [address] [address], [place], [address], 02/27/2023 15:23:48 02/28/20 23 02/27/2023 UA WITHO UT MICRO - CS URISC AN nitrites - uriscan NEGATI VE negati ve Not Available [facility] [address] [place] [address], [place], [address], 02/27/2023 15:23:48 02/28/20 23 02/27/2023 UA WITHO UT MICRO - CS URISC AN glucose - uriscan NEGATI VE mg/dL negati ve Not Available [facility] [address] [place] [address], [place], [address], 02/27/2023 15:23:48 02/28/20 23 02/27/2023 UA WITHO UT MICRO - CS URISC AN pH - uriscan 5.00 5.00-9 .00 Not Available [facility] [address] [place] [address], [place], [address], 02/27/2023 15:23:48 02/28/20 23 02/27/2023 UA WITHO UT MICRO - CS URISC AN sp. gravity - uriscan 1.03 1.01-1 .03 Not Available [facility] [address] [place] [address], [place], [address], 02/27/2023 15:23:48 02/28/20 23 02/27/2023 UA WITHO UT MICRO - CS URISC AN leukocytes - uriscan NEGATI VE negati ve Not Available [facility] [address] [place] [address], [place], [address], 02/27/2023 15:23:48 02/28/20 23 02/27/2023 UA WITHO UT MICRO - CS URISC AN color - uriscan YELLOW lt. yellow ;yello w Not Available [facility] [address] [place] [address], [place], [address], 02/27/2023 15:23:48 02/28/20 23 02/27/2023 UA WITHO UT MICRO - CS URISC AN clarity - uriscan CLEAR clear Not Available [facility] [address] [place] [address], [place], [address], 02/27/2023 15:23:48 02/28/20 23 02/27/2023 UA WITHO [...] for provi francisca revie w. Not Available [facility] [address] [place] [address] [address], [address], 02/27/2023 15:23:48 Result Notes None recorded. Problems Name Problem SNOMED Code Status Onset Date Resolution Date Notes Provider Name and Address Organization Details Recorded Time History of statin therapy 374669384 Active 2022 Haley Jorge cuba [facility] 3 08:47:54 Gastroesophage al reflux disease 622533230 Active 2022 Asuncion cuba [facility] 3 15:09:56 Uric acid renal calculus 412708170 Active 2022 Asuncion cuba [facility] 3 15:10:38 Depressive disorder 60622138 Active 2022 Asuncion cuba [facility] 3 15:10:59 Hypertensive disorder 45811507 Active 2022 Asuncion cuba [facility] 3 15:11:07 Problem Notes None recorded. Procedures Surgical History Date Name Laterality Status Provider Name and Address Organization Details Recorded Time 10/17/19 24 COMPLEX VISIT completed SERGEI Smith [address] [facility] [facility] [address], [place], [address], [facility] 10/17/2023 16:24:44 10/17/19 24 Pessary Cleaning completed SERGEI Smith [address], [place], [address], [facility] 10/17/2023 16:24:48 09/13/20 23 Pessary Insertion completed SERGEI Smith [address] [place] [address],[address], [place], [address], [facility] 09/13/2023 16:04:04 08/30/20 23 Pessary Insertion completed SERGEI WHITING [address] [place] [address],[address], [address], [facility] 08/30/2023 10:08:11 02/28/20 23 Past Data Reviewed completed SERGEI WHITING [address] [place] [address],[address], [address], [facility] 02/20/2023 17:08:48 02/28/20 23 In and Out Catheterization- female completed SERGEI WHITING [address] [place] [address],[address], [place], [address], [facility] 02/27/2023 15:39:58 09/28/19 23 Diagnostic [...] Name and Address Organization Details Recorded Time 545756 Latex (substanc e) environme nt,medica tion rash Not available Not available 08/26/2023 41237 8007 SNOMED Not Available Not Available Not [...] Address Organization Details Last Updated DateTime 02/27/2023 34341.07 g Aileen Salazar [place] [facility] [place] [facility] 02/27/2023 15:12:28 Date Recorded Body height Body mass index (BMI) Provider Name and Address Organization Details Last Updated DateTime 02/27/2023 160.02 cm 35.6 kg/m2 Not Available Health Note 15:11:23 Date Recorded Body height Provider Name an d Address Organization Details Last Updated DateTime 08/30/2023 160.02 cm Haley Patel [facility] 08/30/2023 09:13:46 Date Recorded Body height Body mass index (BMI) Body weight Provider Name and Address Organization Details Last Updated DateTime 09/13/2023 160.02 cm 35.6 kg/m2 99021.07 g Asuncion Willis [facility] 09/13/2023 15:09:07 Date Recorded Body height Body mass index (BMI) Body weight Provider Name and Address Organization Details Last Updated DateTime 10/17/2023 160.02 cm 35.6 kg/m2 80665.07 g Asuncion Willis [facility] 10/17/2023 15:59:36 Social History [...] Use Any Illicit Or Recreational Drugs? No [email or web address] Information not available 08/26/2023 Has Tobacco Cessation Counseling Been Provided? No Information not available 08/30/2023 Do You Or Have You Ever Used Any Other Forms Of Tobacco Or Nicotine? No Information not available 08/30/2023 How Many Days In The Past Year Have You Consumed 4 Or More Drinks? 0 [facility] Information no t available 08/26/2023 Sex: Unknown Functional Status None recorded. Mental Status None recorded. Family History Relationship Description Onset Age of this Age Resolved Age Notes LastModified by Organization Details LastModified Time Mother Family history of cancer of colon [email or web address] Not available 2022 16:12:28 Mother Family history of diabetes mellitus [email or web address] Not available 2022 16:12:28 Maternal Grandmother Family history of diabetes mellitus [email or web address] Not available 2022 16:12:28 Maternal Grandmother Family history of cardiac disorder [place] [id number] Not available 2022 16:12:28 Medical History Condition Response Other N High Blood Pressure Y Kidney Stones Y Lung Disease N Depression Y GERD/Acid Reflux N Sexually Transmitted Infection N Diabetes N Bleeding Disorder N Cancer N High Cholesterol N Heart Disease N Gynecological History Statement/Question Response Irregular periods N Heavy periods N Sexually Active? N Obstetrics History GPAL:G 0 P 0 0 0 0 Immunizations Vaccine Type Date Status Note Provider Nam e and Address Organization Details Recorded Time influenza, unspecified formulation 11/09/2020 completed RAYMOND Varghese [facility] 09/13/2023 15:09:12 SARS-COV-2 (COVID-19) vaccine, UNSPECIFIED 02/09/2021 completed RAYMOND Varghese [facility] 09/13/2023 15:09:12 Past Encounters Encounter ID Performer Location Encounter Start Date Encounter Closed Date Diagnosis/Indication Diagnosis SNOMED-CT Code Diagnosis ICD10 Code Diagnosis Note [id number] [facility] [address] [address] 02/27/2023 15:10:43 02/27/2023 16:23:02 Urinary incontinence 433749741 R32 chronic, worse Female str ess incontinence 45164692 N39.3 chronic, worse Atrophic vaginitis 87007 000 N95.2 chronic, worse [id number] SERGEI WHITING [facility] [address] [facility] [address] [place] [address] 08/30/2023 09:08:45 08/30/2023 10:25:54 Urinary incontinence 868928171 R32 chronic, stable Female str ess incontinence 25215076 N39.3 chronic, stable Atrophic vaginitis 88091 000 N95.2 chronic, stable [id number] SERGEI Smith [facility] [address] [facility] [facility] [address] [place] [phone] 09/13/2023 15:05:51 09/13/2023 16:05:08 Urinary incontinence 399529142 R32 chronic, stable Female str ess incontinence 40797863 N39.3 chronic, stable Atrophic vaginitis 41981 000 N95.2 chronic, stable [id number] SERGEI Smith [facility] [address] [facility] [facility] [place] [phone] 10/17/2023 15:57:05 10/17/2023 16:46:23 Urinary incontinence 116990327 R32 chronic, stable Female str ess incontinence 17453124 N39.3 chronic, stable Atrophic vaginitis 41628 000 N95.2 chronic, stable Health Concerns Section Related Observation LastModified by Organization Detai ls LastModified Time None Recorded Concern Status LastModified by Organization Details LastModified Time None Recorded Advance Directives Directive None Recorded Payers Encounter Date Sequence Insurance Name Policy Number Policy Haskins Covered Member ID Haskins Member ID Guarantor Name 02/27/2023 1 [place] [id number] 5 Germán R Monroe [id number] 22 Sheri Harris [place] 08/30/2023 1 [place] [id number] 5 Germán R Juan David [id number] 22 Sheri Fall 09/13/2023 1 [place] [id number] 5 Gerámn R Juan David [id number] 22 Sheri Fall 10/17/2023 1 [place] [id number] 5 Germán Fall [id number] 22 Sheri Fall Notes Date Note Type [...] 14Incontinence Impact Questionnaire (IIQ-7): 13 SERGEI WHITING [address] [place] [address],[address], [address], [facility] [place] [facility] 02/27/2023 16:21:28 3 text/html Patient seen [...] 14Incontinence Impact Questionnaire (IIQ-7): 10 SERGEI WHITING [address] [place] [address],[address] [place] [address], [phone], [facility] 08/30/2023 10:09:29 3 text/html 09/13/23:Patient presents [...] Incontinence Impact Questionnaire (IIQ-7): 10 SERGEI Smith [address] [place] [address],[address] [place] [address], [address], [facility] 09/13/2023 16:04:55 4 text/html 10/17/23:Patient presents [...] less straining to have a bowel movement. 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
--- NOTE | 2024-12-11 12:09 | CRLHL7_ITS ---
For Patients: As a result of the Century Cures Act, medical imaging exams and procedure reports are released immediately into your electronic medical record. You may view this report before your referring provider. If you have questions, please contact your health care provider. INDICATION: Right flank pain. COMPARISON: 09/22/2022, 10/01/2014 TECHNIQUE: CT of the abdomen and pelvis without intravenous contrast. Multiplanar axial, coronal, and sagittal reformats were reconstructed. Contrast: None. FINDINGS: Lung bases: Normal. Liver: Diffuse hepatic steatosis. The liver is not enlarged or cirrhotic. Subcapsular calcification is unchanged. Gallbladder and bile ducts: Cholecystectomy. No extrahepatic biliary ductal dilatation. Pancreas: Normal. Spleen: Normal spleen size. Few small splenules. Adrenal glands: Normal. Kidneys: Normal renal size. No contour deforming renal mass. There is a 2 millimeter calculus in the left upper collecting system. No ureteral calculi seen. There are few calcifications in the pelvis that are similar compared to prior and do not localize to the ureter. No urinary tract dilation. Urinary bladder: Completely empty at the time of the exam. Pelvis: In the upper pelvis to the right of midline there has a 4.9 x 5.0 x 5.1 centimeter macrolobular cystic mass with some mild internal heterogeneity. This measured 3.8 x 4.0 x 3.4 centimeters in 2021. Hysterectomy. Vessels: Atherosclerotic vascular calcifications, mild. No aortic aneurysm. Bowel: No dilated or inflamed bowel. Normal appendix. Mild stool burden. Lymph nodes: No adenopathy. Peritoneum: No ascites. No peritoneal nodularity seen on this noncontrast exam. No mesenteric or omental infiltration. Abdominal wall: Epigastric hernia containing a small knuckle of unobstructed transverse colon. Bones: Lumbosacral and pelvic fusion. No hardware complication seen. Lower lumbar laminectomies. No acute or healing fractures. No focal worrisome bone lesions. IMPRESSION: 1. There is an enlarging macrolobular mass in the right side of the pelvis, presumably ovarian origin. Due to the location fairly high in the pelvis this may not be well seen sonographically. Consider MR pelvis without and with IV contrast and referral to gynecology. No adenopathy. No ascites. No mesenteric or omental soft tissue infiltration. 2. No urinary tract calculi or urinary tract dilatation. 3. Mild diffuse hepatic steatosis. Please note that all CT scans at this facility use dose modulation, iterative reconstruction, and/or weight-based dosing when appropriate to reduce radiation dose to as low as reasonably achievable. Dictated by Carolyn Claros MD @ 12/11/2024 12:52:59 PM (Electronically Signed)
[2024-12-11] MEDS: ONDANSETRON ODT 4 MG TAB PO (12:23)
[2024-12-11] MEDS: KETOROLAC 10 MG TABLET PO (12:23)
[2024-12-11 12:25] LABS: Appearance Urine Slightly Cloudy (Clear); Bilirubin Urine Negative (Negative); Blood Urine Trace-intact (Negative); Color Urine Yellow (Yellow); Glucose Urine Negative (Negative); Ketones Urine Negative (Negative); Leukocyte Esterase Urine Negative (Negative); Nitrite Urine Positive (Negative); Protein Urine Trace (Negative); Specific Gravity Urine 1.025 (1.000-1.030); Urobilinogen Urine 0.2 (0.2-1.0); pH Urine 5.5 (5.0-8.5)
[2024-12-11 12:49] LABS: RBC Urine 0-2 (0-2)
[2024-12-11 12:50] LABS: Bacteria Urine Many; Squamous Epithelial Cell Urine Few (None-Few)
[2024-12-11 12:51] LABS: WBC Clumps Urine Few
--- NOTE | 2024-12-11 13:11 | ED.GENADULT ---
HPI - General Adult General Chief complaint: Flank Pain Stated complaint: Lower back pain Time Seen by Provider: 12/11/24 11:56 History of Present Illness HPI narrative: This 59-year-old female comes in reporting right flank pain and also indicate some nausea with vomiting. She wonders if she might have a kidney stone but has not had 1 in the past and does not know of any family history of such. She does not report any fevers or dysuria symptoms. She arrives here with normal vital signs. Related Data Home Medications ?Medication ?Instructions ?Recorded ?Confirmed sennosides 8.6 mg-docusate sodium 1 tab-cap PO QHS PRN 10/15/23 11/06/24 50 mg tablet (Senokot-S) Previous Rx's ?Medication ?Instructions ?Recorded omeprazole 20 mg capsule,delayed 20 mg PO BID #180 caps 04/10/23 release losartan 100 1 tab PO QDAY #90 tabs 10/04/23 mg-hydrochlorothiazide 25 mg tablet metoprolol succinate 100 mg 100 mg PO BID #180 tabs 10/04/23 tablet,extended release 24 hr naloxone 4 mg/actuation nasal 4 mg intranasal Q2-3M PRN opioid 10/04/23 spray (Narcan) overdose #2 ea amlodipine 2.5 mg tablet 2.5 mg PO QDAY #90 tabs 10/15/23 oxycodone 10 mg tablet 10 mg PO QID PRN pain #120 tabs 12/17/23 oxycodone 15 mg tablet,crush 15 mg PO BID #60 tabs 12/17/23 resistant,extended release 12 hr (OxyContin) zolpidem 5 mg tablet 5 mg PO QHS PRN insomnia #30 tabs 02/28/24 ketorolac 10 mg tablet 10 mg PO Q8H PRN pain 1 day #14 10/29/24 tabs cephalexin 500 mg capsule 500 mg PO TID 7 days #21 caps 12/11/24 ketorolac 10 mg tablet 10 mg PO Q8H 5 days #15 tabs 12/11/24 Allergies Allergy/AdvReac Type Severity Reaction Status Date / Time latex Allergy Mild Rash Verified 12/11/24 11:34 gabapentin AdvReac Severe Hallucinati Verified 12/11/24 11:34 ons adhesive tape AdvReac Intermediate Rash Verified 03/20/25 11:34 duloxetine (From Cymbalta) AdvReac Intermediate Rash Verified 12/11/24 11:34 Iodinated Contrast Media AdvReac Intermediate Rash Verified 12/11/24 11:34 tramadol AdvReac Intermediate Rash Verified 12/11/24 11:34 Review of Systems Status of ROS: Reports: 10 or more systems reviewed and unremarkable except as noted in History and below Narrative: Constitutional: No fevers, no weight gain or loss. Eyes: No discharge. No vision changes. HENT: No congestion, no sore throat, no ear pain. Cardiovascular: No chest pain, no palpitations. Respiratory: No shortness of breath, no wheezes, no cough. Gastrointestinal: No diarrhea. Genitourinary: No dysuria, no hematuria. Musculoskeletal: Normal range of motion. Skin: No rashes, no pruritis. Neurological: No dizziness, weakness, sensory change, speech change. Endo/Heme/Allergies: No bruising or bleeding. No polydipsia. Pysch: no suicidality, no anxiety, no insomnia. All other systems reviewed and are negative. [facility] Medical History Obesity (BMI 30-39.9) ?E66.9 - Obesity, unspecified (ICD-10) Atypical chest pain ?R07.89 - Other chest pain (ICD-10) Pelvic mass ?R19.00 - Intra-abdominal and pelvic swelling, mass and lump, unspecified site (ICD-10) Cyst of left lower eyelid ?H02.825 - Cysts of left lower eyelid (ICD-10) Adjustment disorder with mixed anxiety and depressed mood ?F43.23 - Adjustment disorder with mixed anxiety and depressed mood (ICD-10) Age-related cataract of both eyes ?H25.9 - Unspecified age-related cataract (ICD-10) Opioid dependence ?F11.20 - Opioid dependence, uncomplicated (ICD-10) Chronic pain syndrome ?G89.4 - Chronic pain syndrome (ICD-10) Spondylolisthesis of lumbar region ?M43.16 - Spondylolisthesis, lumbar region (ICD-10) Peripheral sensory neuropathy ?G60.8 - Other hereditary and idiopathic neuropathies (ICD-10) Urinary incontinence ?R32 - Unspecified urinary incontinence (ICD-10) GERD (gastroesophageal reflux disease) ?K21.9 - Gastro-esophageal reflux disease without esophagitis (ICD-10) Vitamin D deficiency ?E55.9 - Vitamin D deficiency, unspecified (ICD-10) Coronary artery disease ?I25.10 - Atherosclerotic heart disease of [place] coronary artery without angina pectoris (ICD-10) Hyperlipidemia ?E78.5 - Hyperlipidemia, unspecified (ICD-10) Insomnia ?G47.00 - Insomnia, unspecified (ICD-10) Polypharmacy ?Z79.899 - Other group home (current) drug therapy (ICD-10) Back pain, chronic ?M54.9 - Dorsalgia, unspecified (ICD-10) ?G89.29 - Other chronic pain (ICD-10) HTN, goal below 140/90 ?I10 - Essential (primary) hypertension (ICD-10) Kidney calculus ?N20.0 - Calculus of kidney (ICD-10) Surgical History History of tubal ligation (1994) ?Z98.51 - Tubal ligation status (ICD-10) H/O ovarian cystectomy ?Z98.890 - Other specified postprocedural states (ICD-10) ?Z87.42 - Personal history of other diseases of the female genital tract (ICD-10) History of hernia repair ?Z98.890 - Other specified postprocedural states (ICD-10) ?Z87.19 - Personal history of other diseases of the digestive system (ICD-10) History of lumbar surgery (12/2012) ?Z98.890 - Other specified postprocedural states (ICD-10) History of lumbar fusion ?Z98.1 - Arthrodesis status (ICD-10) History of breast biopsy (04/12/07) ?Z98.890 - Other specified postprocedural states (ICD-10) History of cholecystectomy (1990) ?Z90.49 - Acquired absence of other specified parts of digestive tract (ICD-10) History of oophorectomy Family History Father Coronary artery disease Mother Lung cancer Myocardial infarction Heart disease Maternal Grandmother Diabetes Social History Smoking Status: Never smoker Do you use any of these nicotine containing products: None Second hand tobacco smoke exposure: No How often do you have a drink containing alcohol: never How often do you have six or more drinks on one occasion: Never AUDIT-C Alcohol total score: 0 Non-prescribed substance use: denies use service: No Exam Narrative: Exam Narrative: Constitutional: Well-developed, well-nourished, no acute distress. HEENT: Normocephalic, atraumatic. Neck: Normal range of motion. Nontender. Supple. Heart: Regular. No murmurs. Normal rate. Intact distal pulses. Lungs: Clear to auscultation. No chest discomfort. No wheezes, rhonchi, or rales. Abdomen: Normal bowel sounds. Nontender. No rebound tenderness. Genitalia: Deferred. Back: No midline tenderness. Normal range of motion. Extremities: Normal range of motion. No injury. Skin: Intact. No rash. Warm. No erythema or pallor. Neurologic: No altered sensation. No weakness. Alert and oriented. Psychiatric: No suicidality. No anxiety or depression. No insomnia. Nursing notes and vitals signs are reviewed. Const: Vital Signs, click to edit/add: Vital Signs - 24 hr 12/11/24 11:32 12/11/24 14:27 12/11/24 14:28 Temperature 97.6 F Pulse Rate 95 90 Pulse Rate [Pulse Oximeter] 90 Respiratory Rate 20 Blood Pressure Blood Pressure [Ri ght Upper Arm] 160/95 H Pulse Oximetry 97 96 97 Oxygen Delivery Me thod Room Air 12/11/24 14:30 12/11/24 14:39 12/11/24 14:40 Temperature Pulse Rate 88 88 Pulse Rate [Pulse Oximeter] Respiratory Rate Blood Pressure 246/116 H Blood Pressure [Ri ght Upper Arm] Pulse Oximetry 97 99 Oxygen Delivery Me thod 12/11/24 14:42 12/11/24 14:42 12/11/24 14:45 Temperature Pulse Rate 91 91 Pulse Rate [Pulse Oximeter] 86 Respiratory Rate 16 Blood Pressure 226/102 H Blood Pressure [Ri ght Upper Arm] 226/102 H Pulse Oximetry 96 94 94 Oxygen Delivery Me thod Room Air 12/11/24 14:47 12/11/24 15:00 12/11/24 15:02 Temperature Pulse Rate 84 86 78 Pulse Rate [Pulse Oximeter] Respiratory Rate Blood Pressure 195/96 H 198/94 H Blood Pressure [Ri ght Upper Arm] Pulse Oximetry 97 94 95 Oxygen Delivery Me thod 12/11/24 15:03 12/11/24 15:15 12/11/24 15:17 Temperature Pulse Rate 80 79 78 Pulse Rate [Pulse Oximeter] Respiratory Rate Blood Pressure 205/90 H Blood Pressure [Ri ght Upper Arm] Pulse Oximetry 99 95 95 Oxygen Delivery Me thod 12/11/24 15:30 12/11/24 15:32 12/11/24 15:45 Temperature Pulse Rate 85 78 77 Pulse Rate [Pulse Oximeter] Respiratory Rate Blood Pressure 204/98 H Blood Pressure [Ri ght Upper Arm] Pulse Oximetry 97 93 98 Oxygen Delivery Me thod 12/11/24 15:48 12/11/24 16:00 12/11/24 16:02 Temperature Pulse Rate 77 72 80 Pulse Rate [Pulse Oximeter] Respiratory Rate Blood Pressure 213/101 H 222/102 H Blood Pressure [Ri ght Upper Arm] Pulse Oximetry 100 96 97 Oxygen Delivery Me thod 12/11/24 16:02 Temperature Pulse Rate 80 Pulse Rate [Pulse Oximeter] Respiratory Rate Blood Pressure 222/102 H Blood Pressure [Ri ght Upper Arm] Pulse Oximetry 97 Oxygen Delivery Me thod Course Vital Signs Vital signs: Initial Vital Signs Temperature 97.6 F 12/11/24 11:32 Temperature Source Temporal Artery Scan 12/11/24 11:32 Pulse Rate 90 12/11/24 11:32 Respiratory Rate 20 12/11/24 11:32 Blood Pressure 160/95 H 12/11/24 11:32 Blood Pressure Mean 116 H 12/11/24 11:32 Pulse Oximetry 97 12/11/24 11:32 Oxygen Delivery Method Room Air 12/11/24 11:32 Vital Signs Temperature 97.6 F 12/11/24 11:32 Pulse Rate 90 12/11/24 11:32 Respiratory Rate 20 12/11/24 11:32 Blood Pressure 160/95 H 12/11/24 11:32 Pulse Oximetry 97 12/11/24 11:32 Oxygen Delivery Method Room Air 12/11/24 11:32 Temperature 97.6 F 12/11/24 11:32 Pulse Rate 80 12/11/24 16:02 Respiratory Rate 16 12/11/24 14:42 Blood Pressure 222/102 H 12/11/24 16:02 Pulse Oximetry 97 12/11/24 16:02 Oxygen Delivery Method Room Air 12/11/24 14:42 Medications Administered Medications: Discontinued Medications Generic Name Dose Route Start Last Admin Trade Name Jesus PRN Reason Stop Dose Admin Hydromorphone HCl 0.5 mg 12/11/24 14:28 12/11/24 14:38 Hydromorphone 0.5 Mg/0.5 Ml Inj IVP 12/11/24 14:29 0.5 mg ONCE ONE Administration Ketorolac Tromethamine 10 mg 12/11/24 12:09 12/11/24 12:23 Ketorolac 10 Mg Tablet PO 12/11/24 12:10 10 mg ONCE ONE Administration Ondansetron HCl 4 mg 12/11/24 12:09 12/11/24 12:23 Ondansetron Odt 4 Mg Tab PO 12/11/24 12:10 4 mg ONCE ONE Administration Medical Decision Making MDM Narrative Medical decision making narrative: This patient comes in with pain in the right flank and right lower back. A CT scan without contrast is obtained and shows no sign of kidney stone but there is a lobular mass in the pelvis possibly connected to the ovary. Radiologist recommended MRI for further evaluation. This was obtained and it does show a cystic structure that is lobulated and may have some concern for neoplastic findings. I relayed this information to the patient and recommended she follow-up with OBGYN clinic. Urinalysis does show some suspicion of infection with 5-10 white blood cells per high-powered field and positive nitrates. I did provide prescription for Toradol and Keflex. The patient did receive an oral dose of Toradol here also along with an IV dose of Dilaudid for pain relief. Lab Data Labs: Lab Results 12/11/24 12/11/24 Range/Units 12:20 14:37 WBC 7.64 (4.50-11.00) K/uL RBC 4.75 (4.00-5.20) m/uL Hgb 12.9 (12.0-16.0) gm/dL Hct 40.1 (33.0-51.0) % MCV 84 (80-100) fL MCH 27 (26-34) pg MCHC 32 (32-36) gm/dL RDW Coeff of [place] 13.5 (11.5-15.5) % Plt Count 256 (140-440) K/uL Neut % (Auto) 59.4 (42.0-72.0) % Lymph % (Auto) 29.6 (20-44) % [place] % (Auto) 7.2 (0.0-11.0) % Eos % (Auto) 2.9 (0.0-7.0) % Baso % (Auto) 0.4 (0.0-3.0) % Neut # (Auto) 4.54 (1.7-7.0) K/uL Lymph # (Auto) 2.26 (0.90-2.90) K/uL [place] # (Auto) 0.60 (0.00-0.90) K/UL Eos # (Auto) 0.22 (0.00-0.50) K/uL Baso # (Auto) 0.03 (0.00-0.30) K/uL Abs Immat Gran (auto) 0.04 (0.00-0.30) K/uL Imm/Tot Granulo (auto) 0.5 % Sodium 139 (135-149) mmol/L Potassium 3.9 (3.6-5.1) mmol/L Chloride 105 (96-114) mmol/L Carbon Dioxide 22 (20-32) mmol/L Anion Gap 12 (7-15) mEq/L BUN 18 (7-30) mg/dL Creatinine 0.9 (0.5-1.5) mg/dL Estimated GFR 75 ml/min Glucose 88 (60-115) mg/dL Calcium 9.8 (8.4-10.6) mg/dL Urine Color Yellow (Yellow) Urine Appearance Slightly Cloudy A (Clear) Urine pH 5.5 (5.0-8.5) Ur Specific [place] 1.025 (1.000-1.030) Urine Protein Trace A (Negative) Urine Glucose (UA) Negative (Negative) Urine Ketones Negative (Negative) Urine Blood Trace-intact A (Negative) Urine Nitrite Positive A (Negative) Urine Bilirubin Negative (Negative) Urine Urobilinogen 0.2 (0.2-1.0) Ur Leukocyte Esterase Negative (Negative) Urine RBC 0-2 (0-2) Urine WBC 5-10 A (0-5) Urine WBC Clumps Few A (None) Ur Squamous Epith Cells Few (None-Few) Urine Bacteria Many A (None) Imaging Data CT scan - abdomen: Radiologist's impression: 1. There is an enlarging macrolobular mass in the right side of the pelvis, presumably ovarian origin. Due to the location fairly high in the pelvis this may not be well seen sonographically. Consider MR pelvis without and with IV contrast and referral to gynecology. No adenopathy. No ascites. No mesenteric or omental soft tissue infiltration. 2. No urinary tract calculi or urinary tract dilatation. 3. Mild diffuse hepatic steatosis. Discharge Plan Discharge Clinical Impression: Ovarian cyst, Urinary tract infection Patient Disposition: Home w/ Parent or Adult Condition: Stable Additional Instructions: Take medication as prescribed. Follow-up with OBGYN department for ongoing diagnosis and management. Call [phone] for appointment. Return if worsening. Prescriptions: New ketorolac 10 mg tablet 10 mg PO Q8H 5 Days Qty: 15 0RF cephalexin 500 mg capsule 500 mg PO TID 7 Days Qty: 21 0RF No Action metoprolol succinate 100 mg tablet extended release 24 hr 100 mg PO BID Qty: 180 1RF losartan-hydrochlorothiazide 100-25 mg tablet 1 tab PO QDAY Qty: 90 0RF naloxone [Narcan] 4 mg/actuation spray,non-aerosol 4 mg intranasal Q2-3M PRN (Reason: opioid overdose) Qty: 2 0RF Rx Instructions: spray 1 dose into ONE nostril; alternate nostrils w each dose until help arrives sennosides-docusate sodium [Senokot-S] 8.6-50 mg tablet 1 tab-cap PO QHS PRN amlodipine 2.5 mg tablet 2.5 mg PO QDAY Qty: 90 1RF ketorolac 10 mg tablet 10 mg PO Q8H PRN (Reason: pain) 1 Days Qty: 14 0RF omeprazole 20 mg capsule,delayed release(DR/EC) 20 mg PO BID Qty: 180 3RF oxycodone 10 mg tablet 10 mg PO QID PRN (Reason: pain) Qty: 120 0RF oxycodone [OxyContin] 15 mg tablet,oral only,ext.rel.12 hr 15 mg PO BID Qty: 60 0RF zolpidem 5 mg tablet 5 mg PO QHS PRN (Reason: insomnia) Qty: 30 0RF Follow Up/Referrals: Provider,Not a Local [Primary Care Provider] - Stand Alone Forms: Work/School Release, MyHealth Info Instructions
--- NOTE | 2024-12-11 13:24 | CRLHL7_ITS ---
For Patients: As a result of the Century Cures Act, medical imaging exams and procedure reports are released immediately into your electronic medical record. You may view this report before your referring provider. If you have questions, please contact your health care provider. INDICATION: Pelvic mass. COMPARISON: CT scans of the abdomen and pelvis dated 11 December 2024 and 22 September 2022. TECHNIQUE: Pelvic MRI with T1, T2, and postcontrast images. Intravenous gadolinium administered. FINDINGS: Hysterectomy. 5.4 x 5.2 x 4.2 cm lobulated septated cyst in the right mid pelvis abuts a few loops of distal small bowel. The cyst appears to arise from the right ovary. The uterus and left ovary are not visualized. No other pelvic masses or adenopathy. Stabilization hardware in the lower lumbar spine and pelvis. No other bony or soft tissue abnormalities identified. Impression : 1. 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 Recommend it infrastructure consultant consultation. Dictated by Peterson Marsh MD @ 12/11/2024 3:48:07 PM (Electronically Signed)
--- OUTSIDE RECORDS SUMMARY | 2024-12-11 13:38 | XMS_ITS | Clinical Summary ---
Author Organization [facility] Address [address] [place] [address] Care Team Providers Care Vaccines Solutions Specialist Name Role Phone Natalie Ramos Lalita AUSTIN Unavailable [phone] Kel Salvador MD Unavailable [phone] Justin Cuba MD Primary Care Provider Allergies Active Allergy Reactions Criticality Noted Date Comments Adhesive Tape Contact Dermatitis Low 09/05/2007 redness and hives under dressing Duloxetine Nausea Only Medium 01/21/2016 Gabapentin Hallucinations 11/28/2018 Latex Other - Describe In Comment Field Low 02/15/2010 Skin irritation ,itching from bandaids and latex tape Tramadol Mental Status Change High 06/15/2014 hallucination Medications lidocain-me.salicy i-vfhv-fdhlq 4-20-0.025-5 % topical patch Apply 2 Patches [...] 01/14/2024 Overview (01/14/2024): Uses Pessary CAD in [place] artery 09/26/2021 Overview (09/26/2021): CT Cardiac Coronary: 09/19/2021 1. This is a dual read study - please review [facility] over-read below for incidental non cardiac [...] any concerns. Tiesha Chavez CMA (AAMA) 01/18/2018 PULMONARY PHYSICIAN Query Ran today and patient filling controlled [...] Resolved Date Coronary artery disease invo lving [place] coronary artery of [place] heart with angina pectoris 09/19/2021 09/26/2021 Radicular leg pain, left 04/19/201504/2019 Paresthesias 05/20/2014 08/01/2019 Dysthymic disorder 07/12/2009 4 HTN (hypertension) 09/25/2008 9 Overview (12/07/2009): Updated by system to replace inactive record Urinary tract infection, site not specified 12/19/2005 04/17/2012 Encounters Date Type Department Care Team Description 12/11/2024 Nurse Triage [facility] [address] [place] [address] Justin Cuba MD Pain (Side pain radiating through lower back- pt has had kidney stones in the past (feels the same)) 11/06/2024 Telephone [facility] [address] [place] [id number] Justin Cuba MD Medication Problem (Pharmacy out of meds) 10/29/2024 Nurse Triage [facility] [address] [place] [id number] Justin Cuba MD Leg Pain/problem 10/27/2024 Nurse Triage [facility] [address] [place] [id number] Justin Cuba MD Appointment Request (Left leg pain) 10/27/2024 Nurse Triage [place] [id number] [place] [place] [id number] Justin Cuba MD Error-please disregard (OPENED IN ERROR) 10/22/2024 4:00 PM REACTOR FUELING SUPERVISOR Office Visit [facility] [address] [place] [id number] Justin Cuba MD Pain (Deep mid/low back pain, radiates from groin to back, when getting out of bed in the morning needing to hold breath. L>now right); Neck Pain/problem (Left sided intermittent neck/throat inflamed? More so when turning head); Medication Management (Renew; OK to fill 2 days early? Leaving for [place] 11/07, controlled substances due to fill on ) 10/22/2024 Travel 10/08/2024 Refill [facility] [address] [place] [address] Justin Cuba MD Refill Request (Oxycontin, Oxycodone) from Last 3 Months Immunizations Immunization Administration Dates Next Due COVID-19 vaccine (GetLikemindsJ& J) SIDDHARTH VOGEL 12/18/2020 COVID-19 vaccine (Alien TechnologyBio NTech 30mcg/0.3mL) PFSIDDHARTH 09/26/2021 Influenza, IIV3 (Age >=3 years) 05/16/2015,01/02 Influenza, IIV4 08/06/2019, 8,10/13/2017,2016,10/18/2016 Influenza, IIV4 (=>6mos) MDV 06/20/2020 Influenza, RIV3 (Age =>18 Years) 06/15/2014 Tdap 01/21/2016 Family History Medical History Relation Name Comments Heart Disease Father Diabetes Maternal Grandmother Cancer Mother Lungs Heart Disease Mother [place] Relation Name Status Comments Father (Age 54 ) [place] Maternal Grandmother Mother Social History Tobacco Use [...] on file Legal Sex Female 5:50 AM REACTOR FUELING SUPERVISOR Gender Identity Not on file Sexual Orientation [...] Comments Blood Pressure 124/84 10/22/2024 3:44 PM REACTOR FUELING SUPERVISOR Pulse 68 01/14/2024 3:46 PM CDT Temperature 36.7 C (98.1 F) 09/19/2021 9:09 AM REACTOR FUELING SUPERVISOR Respiratory Rate 18 09/19/2021 1:31 PM REACTOR FUELING SUPERVISOR Oxygen Saturation 95% 11/23/2021 12:39 PM REACTOR FUELING SUPERVISOR all sx gone Inhaled Oxygen Concentration - [...] Cuba MD Medical Devices Implanted Type [facility] Social Worker Device Identifier Shelf Expiration Date Model / Serial / Lot Bone 1-4mm 30cc Medtronic Chips Canclls Freeze Dried - [id number] Implanted:Qty: 1 on 11/27/2018 by Wilbert Montelongo MD at [facility] N/A: Spine Medtronic Spine/Ortho 03/28/2023 [id number] / / [id number] Plate Lmbr [place]-L Stand Alone Lock - [id number] Implanted:Qty: 2 on 11/27/2018 by Wilbert Montelongo MD at [facility] N/A: Spine Chapo Spine [id number] / / . Spacer Lmbr [id number] 8deg Avs-L Stand Alone - [id number] Implanted:Qty: 1 on 11/27/2018 by Wilbert Montelongo MD at [facility] N/A: Spine Chapo Spine [id number] / / . 5.5mm X 22mm Rescue Screw Lite Plate Implanted:Qty: 1 on 11/27/2018 by Wilbert Montelongo MD at [facility] N/A: Spine [id number] / / . Bone 1-4mm 60cc Medtronic Fine Canclls Freeze Dried - [id number] Implanted:Qty: 1 on 11/27/2018 by Wilbert Montelongo MD at [facility] N/A: Spine Medtronic Spine/Ortho 02/15/2023 [id number]# / / [id number] Screw Lmbr Post 8.5x50mm Ilios Va - [id number] Implanted:Qty: 2 on 11/27/2018 by Wilbert Montelongo MD at [facility] N/A: Spine Chapo Spine [id number] / / . Screw Lmbr Post 6.5x45mm Xia3 Va - [id number] Implanted:Qty: 4 on 11/27/2018 by Wilbert Montelongo MD at [facility] N/A: Spine Chapo Spine [id number] / / . Screw Lmbr Post 6.5x40mm Xia3 Va - [id number] Implanted:Qty: 2 on 11/27/2018 by Wilbert Montelongo MD at [facility] N/A: Spine Chapo Spine [id number] / / . Set Screw Lmbr Xia3 - [id number] Implanted:Qty: 8 on 11/27/2018 by Wilbert Montelongo MD at [facility] N/A: Spine Chapo Spine [id number] / / . Oni Lmbr [id number] Xia3 Cvd Titnm - [id number] Implanted:Qty: 1 on 11/27/2018 by Wilbert Montelongo MD at [facility] N/A: Spine Payson Spine [id number] / / . Bone Matrix 5cc Progenix Plus Putty Dbm - [id number] Implanted:Qty: 1 on 11/27/2018 by Wilbert Montelongo MD at [facility] N/A: Spine Medtronic Spine/Ortho 05/15/2020 [id number]# / / [id number] Oni Lmbr [id number] Xia3 Titnm - [id number] Implanted:Qty: 1 on 11/27/2018 by Wlibert Montelongo MD at [facility] N/A: Spine Chapo Spine [id number] / / . Bone Matrix 5cc Progenix Plus Putty Dbm - [id number] Implanted:Qty: 1 on 11/27/2018 by Wilbert Montelongo MD at [facility] N/A: Spine Medtronic Spine/Ortho 04/22/2020 [id number]# / / [id number] Bone Matrix Lg Infuse Bmp - [id number] Implanted:Qty: 1 on 11/27/2018 by Wilbert Montelongo MD at [facility] N/A: Spine Medtronic Spine/Ortho 10/25/2020 [id number]# / / [id number] Bone Matrix 10cc Stimulan Kit Rapid Cure - [id number] Implanted:Qty: 1 on 11/27/2018 by Wilbert Montelongo MD at [facility] N/A: Spine Visysosites Inc 06/23/2021 [id number]# / / [id number]/11-[id number]/[id number] Description:Mixed with Tobra mycin 1.2g Spacer Lmbr [id number] 12deg Avs-L Stand Alone - [id number] Implanted:Qty: 2 on 11/27/2018 by Wilbert Montelongo MD at [facility] N/A: Spine Payson Spine [id number] / / . 23mm Plate - Lite Plate Implanted:Qty: 1 on 11/27/2018 by Wilbert Montelongo MD at [facility] N/A: Spine [id number] / / . Description:REF: [id number] 5.0 X 25mm Screw - Lite Plate Implanted:Qty: 3 on 11/27/2018 by Wilbert Montelongo MD at [facility] N/A: Spine [id number] / / . Screw Lmbr 6x25mm Ancr-L Standalone - [id number] Implanted:Qty: 6 on 11/27/2018 by Wilbert Montelongo MD at [facility] N/A: Spine Chapo Spine [id number]# / / . Explanted Type [facility] Social Worker Device Identifier Shelf Expiration Date Model / Serial / Lot Screw Sm Joint 4.5x20mm Axsos Malcom Titnm - [id number] Explanted:Qty: 6 on 11/27/2018 by Wilbert Montelongo MD at [facility] N/A: Spine [employer] [id number] / / . Procedures Procedure Name Priority Date/Time Associated Diagnosis Comments LIPID PANEL W REFLEX MEASURED LDL Routine 01/14/2024 4:42 PM CDT Hyperlipidemia, unspecified hyperlipidemia type SCAN-COLONOSCOPY 10/30/2022 12:0 0 AM REACTOR FUELING SUPERVISOR XR MAMMO BILAT SCREEN FFDM (IA) Routine 06/23/2016 3:34 PM CDT Encounter for mammogram to establish baseline mammogram from Last 3 Months or Most Recently Relevant to Health Maintenance Results * (ABNORMAL) LIPID PANEL W REFLEX MEASURED LDL (01/14/2024 4:42 PM CDT) CHOLESTEROL,TOTAL 311(H) 100 - 199 mg/dL 01/15/2024 4:20 AM CDT [facility] Comment: Cholesterol, Total Reference Ranges Desirable <200 mg/dL Borderline 200-239 mg/dL High >=240 mg/dL TRIGLYCERIDES 334(H) <150 mg/dL 01/15/2024 4:20 AM CDT [facility] HDL CHOLESTEROL 42 >40 mg/dL 4 4:20 AM CDT [facility] NON-HDL CHOLESTEROL 269(H) <145 mg/dl 01/15/2024 4:20 AM CDT [facility] CHOL/HDL RATIO 7.40(H) <4.50 01/15/2024 4:20 AM CDT [facility] LDL CHOLESTEROL 202(H) <=130 mg/dL 01/15/2024 4:20 AM CDT [facility] VLDL CHOLESTEROL 67(H) <=30 mg/dL 01/15/2024 4:20 AM CDT [facility] PROVIDER ORDERED STATUS RANDOM 01/15/2024 4:20 AM CDT [facility] Blood BLOOD SPECIMEN / Unknown Venipuncture / Unknown 01/14/2024 4:42 PM CDT 01/14/2024 4:42 PM CDT Justin Cuba MD CHEMISTRY Final R esult [facility] [address] [place] [address], [place] * SCAN-COLONOSCOPY (10/30/2022 12:00 AM REACTOR FUELING SUPERVISOR) us Scanner OTHER Final Result * XR [...] of Computer-Aided Detection. COMPARISON FILMS: Yes 12/22/13 [facility] 11/02/08 [facility] FINDINGS: Mammographically, the breast tissue has scattered fibroglandular densities. No suspicious masses or microcalcifications. Post surgical changes within right breast. Justin Cuba MD MAMMO Final R esult from Last 3 Months or Most Recently Relevant to Health Maintenance [place] [address] [place] [phone] Advance Directives * Full Code (Latest Code [...] 10:04 PM 01/01/2013 8:31 PM Care Teams Vaccines Solutions Specialist Relationship Specialty Start Date End Date Justin Cuba MD [address] [place] [address] PCP - General Family Practice 10/10/23 Natalie Ramos NP Pain Management Nurse Practitioner 06/10/19 Kel Salvador MD [address] [place] [address] Cardiovascular Disease 12/02/21
--- OUTSIDE RECORDS SUMMARY | 2024-12-11 13:38 | XMS_ITS | Continuity of Care Document ---
Author Organization [facility] Address [address] [place] [phone] Phone Care Team Providers Care Jewelry Sales Name Role Phone Will MD GARZA, Veto [...] Drug test def 8-14 classes OFFICE/OUTPATIENT VISIT, [facility] Advance Directives Directive Yes / No Effective Date File Name No Information Encounters Encounter Description Practice Location Reason(s) For Visit Diagnoses Date Provider Providers Copied on Encounter [facility], [address] [place], [place], [id number] , [place] tel:[phone] [facility] No Information 2 Will Veto. [address] [facility] [place], [place], [id number] , [place]. tel:[phone] [facility], [address] [place], [place], [id number] , [place] tel:[phone] [facility] [place] No Information 2 Vinicio Argueta. [address] [facility] [address], [place], [place], [id number] , [place]. tel:[phone] Referring Provider: Veto Norman, [address] [place], [address]. tel:[phone] OFFICE/OUTPA TIENT VISIT, [facility], [address] [place], [place], [id number] , [place] tel:[phone] [facility] Back pain (chief complaint) Chronic pain syndromeLow back pain, unspecifiedLong term (current) use of opiate analgesicEncounter for therapeutic drug level monitoring 2 Vinicio Argueta. [address] [facility] [address], [place], [place], [id number] , [place]. tel:[phone] Referring Provider: [facility] [address], [place], [address]. tel:[phone] Family History Family Member Type Diagnosis Age At Onset Sister Problem Back pain/issues Payers Payer name Insurance type Covered democrat ID Baldomero roth(s) [employer]ile BL [id number] 2 Social History Type Description Quantity Date Captured Comments Alcohol Use Details Unknown Caffeine Use Details Unknown Tobacco Use Status No Information Smoking Status No Information Sex Female Chief Complaint And Reason For Visit No Information Reason For Referral Reason For Referral No Information Plan Of Treatment Date Type Action Status Goal ALT (SGPT). Due on due Goal Weight. Due on d ue Goal Update Social History. Due o n due Goal PHQ-9. Due on du e Goal FIT. Due on due Goal AST (SGOT). Due on due Goal FIT-DNA. Due on due Goal Medication Reconciliation. D ue on due Goal Zoster vaccine (1st). Due on due Goal LICENSED PRACTICAL NURSE INSTRUCTOR Paperwork. Due on due Goal Lipid panel. Due on due Goal OARS. Due on due Goal CT-Colonography. Due on due Goal Order Annual PT. Due on due Goal UDT. Due on due Goal Review Allergy List. Due on due Goal Height. Due on d ue Goal Unhealthy drug use screening . Due on due Goal COMPOSER TEACHING ARTIST Scanned. Due on due Goal Creatinine. Due on due Goal Tobacco Use. Due on due Goal Hepatitis C screening. Due o n due Goal HPV. Due on due Goal Order Annual PT. Due on due Goal AST (SGOT). Due on due Goal ALT (SGPT). Due on due Goal OARS. Due on due Goal LICENSED PRACTICAL NURSE INSTRUCTOR Paperwork. Due on due Goal COMPOSER TEACHING ARTIST Scanned. Due on due Goal Creatinine. Due on due Goal UDT. Due on due Goal COMPOSER TEACHING ARTIST Scanned. Due on due Goal ALT (SGPT). Due on due Goal Creatinine. Due on due Goal UDT. Due on due Goal Order Annual PT. Due on due Goal LICENSED PRACTICAL NURSE INSTRUCTOR Paperwork. Due on due Goal OARS. Due on due Goal AST (SGOT). Due on due Goal HPV. Due on due Goal Review [...] Goal Tobacco Use. Due on due Goal Weight. Due on [...] back surgery with Dr. Justin Cuba of [facility] in 2015. Reports that Further surgery of her upper lumbar region was recommended, but patient would not like to pursue further surgical intervention. Pain is characterized as dull, sore, and tight pain. Secondarily notes constant tingling in BL feet. Pain level averages 8/10.For pain management, patient has tried PT at [facility], has undergone a lumbar epidural steroid injection at [facility], and has tried the following medications:- Gabapentin- Lyrica- Cyclobenzaprine- NSAIDS- Tramadol- Codeine- HydrocodoneCurrently managed on Oxycodone 10mg QID and OxyContin 15mg BID, prescribed by her new PCP, Dr. Bk Handy, at [facility].Sheri is interested in pain management [...]
[2024-12-11] MEDS: HYDROmorphone 0.5 mg/0.5 ml inj IVP (14:38)
[2024-12-11 14:42] LABS: Basophils Absolute Auto 0.03 K/uL (0.00-0.30); Basophils Percent Auto 0.4 % (0.0-3.0); Eosinophils Absolute Auto 0.22 K/uL (0.00-0.50); Eosinophils Percent Auto 2.9 % (0.0-7.0); Hematocrit 40.1 % (33.0-51.0); Hemoglobin* 12.9 gm/dL (12.0-16.0); Immature Granulocytes Abs Auto 0.04 K/uL (0.00-0.30); Immature Granulocytes Pct Auto 0.5 %; Lymphocytes Absolute Auto 2.26 K/uL (0.90-2.90); Lymphocytes Percent Auto 29.6 % (20-44); Mean Corpuscular HGB Conc 32 gm/dL (32-36); Mean Corpuscular Hemoglobin 27 pg (26-34); Mean Corpuscular Volume 84 fL (80-100); Monocytes Percent Auto 7.2 % (0.0-11.0); Neutrophils Absolute Auto 4.54 K/uL (1.7-7.0); Neutrophils Percent Auto 59.4 % (42.0-72.0); Platelet Count* 256 K/uL (140-440); RDW Coefficient of Variation % 13.5 % (11.5-15.5); Red Blood Count 4.75 m/uL (4.00-5.20); White Blood Count* 7.64 K/uL (4.50-11.00)
[2024-12-11 14:45] LABS: Slide Review Reflex No
[2024-12-11 14:51] LABS: Chloride* 105 mmol/L (96-114); Sodium* 139 mmol/L (135-149)
[2024-12-11 14:52] LABS: Potassium* 3.9 mmol/L (3.6-5.1)
[2024-12-11 14:55] LABS: Anion Gap 12 mEq/L (7-15); Blood Urea Nitrogen* 18 mg/dL (7-30); Calcium* 9.8 mg/dL (8.4-10.6); Carbon Dioxide* 22 mmol/L (20-32); Creatinine* 0.9 mg/dL (0.5-1.5); Estimated Glomerular Filt Rate 75 ml/min; Glucose* 88 mg/dL (60-115)
== END 2024-12-11 16:39 | disposition home or self-care (01) ==
PROVIDERS: Emergency Provider Emergency Medicine Emergency Medical Services
DX: N39.0 Urinary tract infection, site not specified (principal); N83.201 Unspecified ovarian cyst, right side
CPT/HCPCS: 36415; 72197; 74176; 80048; 81001; 85025; 87086; 96374; 99284; 99285; A9270; A9575; J1171

== ENCOUNTER 2024-12-18 09:55 | Outpatient (CLI) | payer BC, SELFPAY | END 2024-12-18 09:56 | disposition home or self-care (01) | LOC: NFLDREF 10:05 | PROVIDERS: Visit Provider Obstetrics & Gynecology | DX: N83.209 Unspecified ovarian cyst, unspecified side (principal) | CPT/HCPCS: 86304 ==

== ENCOUNTER 2025-01-14 13:22 | Inpatient (IN) | payer BC, SELFPAY ==
[2025-01-13] VITALS (24 sets, daily range): BP systolic 108–180; BP diastolic 45–92; PULSE 60–82; RESP 14–18; TEMP 35.7–36.9; O2SAT 87–100; BMI 35.9
[2025-01-13] MEDS: LACTATED RINGERS 1000 ML 1,000 ML 100 ML IV ×2 (06:15→10:04)
[2025-01-13] MEDS: SODIUM CHLORIDE 0.9 % (FLUSH) 10 ML SYRINGE IVF (06:34)
[2025-01-13 06:50] LABS: Hemoglobin* 12.5 gm/dL (12.0-16.0)
[2025-01-13 07:02] LABS: Estimated Glomerular Filt Rate 66 ml/min
--- NOTE | 2025-01-13 07:13 | W.PM.H&PU ---
History & Physical Update History & Physical Update H&P Reviewed and patient assessed: The following changes are noted below H&P Updates: Patient complains of right lower and middle back pain that she describes as feels like muscle spasms. This is not likely due to the ovarian cyst.
--- NOTE | 2025-01-13 07:22 | P.GSOP_ITS ---
Operative Note Date of procedure: 01/13/25 Pre-op diagnosis: 1. Symptomatic recurrent ventral hernia. 2. s/p umbilical hernia repair x2. Post-op diagnosis: Same Type of Procedure: 1. Open ventral hernia repair with 11 x 14 mesh. Indications: 59-year-old female on chronic narcotics presented to clinic for evaluation of ventral hernia. Patient states that she had supraumbilical bulge for several years. She is not sure if the bulge has increased in size but notice discomfort at the bulge when she was wearing tight pants. She also noticed that it was bothersome when she would lean against the covering top. Patient had 2 previous umbilical hernia repairs without mesh years ago. Patient had recent episodes of right flank pain of unknown etiology. Upon the workup of this right-sided abdominal pain an abdominal CT showed a multi lobulated cystic mass in the pelvis concerning for right ovarian cystic mass. Patient had a similar mass on her previous CTs and says had normal CA 125 x 2 and CA 19-9. On clinical exam there was the well-healed open cholecystectomy scar and midline laparotomy scar from patient's anterior back fusion. Slightly superior to the umbilicus and to the right of midline surgical scar there was a ventral hernia that was reducible. The fascial defect was thought to be approximately larger than golf ball size. Given patient's clinical history and her previous 2 umbilical hernia repairs, an open ventral hernia repair with mesh was recommended. The procedure was discussed in detail. The risks associated procedure including infection, bleeding, complications related to mesh, cardiopulmonary complications, and hernia recurrence were all discussed with the patient, and she agreed to proceed. Procedure Description: After discussing the risks and benefits of the procedure, the patient signed informed consent.? The operative site was marked and the patient was brought to the operating room and placed on the operating table in supine position.? Care was taken to pad the patient's pressure points.?? The patient was then intubated by anesthesia. Souza catheter was placed under sterile conditions. TEST ENGINE OPERATOR surgeons first proceeded with right oophorectomy. Please see their note for more details. When they completed their procedure, the drapes were removed and the laparoscopic incisions already had surgical glue on them. The abdomen was re-prepped and redraped in the usual sterile fashion. A time-out was then performed. Supraumbilical vertical skin surgical incision was made with a scalpel at the site of the previously healed incision. Subcutaneous fat was divided with cautery. Scar tissue was noted in subcutaneous fat. The anterior fascia was identified and the hernia sac was circumferentially dissected from the anterior fascia. The hernia sac was entered and omentum was seen incarcerated in the hernia sac. Omental adhesions were then mobilized from the hernia sac was cautery. A loop of small intestine was also seen at the inferior part of the hernia sac, and this was mobilized of the hernia sac with cautery. Care was taken not to injure the small intestine. I then proceeded with creating retrorectus space. Anterior fascia was incised on the left side and retrorectus space was developed with cautery. On the left and inferiorly moderate amount of scar tissue was noted with the muscle adherent to the posterior fascia. This dissection was carried superiorly with cautery. Inferiorly, the linea alba was divided and moderate amount of scar was encountered here as well. This dissection was carried just inferior to the umbilicus and umbilicus was mobilized off the anterior fascia with cautery. We then created the retrorectus space on the right side of the abdomen. This was done with cautery as well. Overall patient's fascia was thinned out and weak. On the right side scar tissue was encountered inferior laterally but laterally and superiorly the space was easier to develop. Superiorly, the retro rectus planes were connected by dividing the linea Alba with cautery. When the retrorectus space was developed, we then mobilized subcutaneous fat of the anterior fascia to allow more mobility to the anterior fascia for tension-free closure. We then again directed our attention to the hernia defect. The hernia defect was approximately 4 x 5 cm. The hernia sac was partially excised and the hernia sac opening was then closed with a running Vicryl suture. Ventrio ST 11 x 14 cm mesh was then placed into the retrorectus space and positioned to cover the hernia defect. The mesh was secured in place with Vicryl trans fascial sutures inferiorly and superiorly. We then proceeded with anterior fascial closure over the mesh. Some tension was noted on the anterior fascial closure. The anterior fascia was closed with [id number] 0-0 Vicryl sutures alternating with 0-0 PDS sutures. Hemostasis was achieved with cautery. Additional local anesthetic was injected in the anterior fascia. Subcutaneous space was irrigated with normal saline. I then placed 15 Ukrainian round Agustín drain through a separate stab incision in the left inferior lateral abdominal wall. The drain was secured in place with nylon suture. The drain was in the subcutaneous space over the fascial closure. The umbilicus was tacked down to the subcutaneous fat with Vicryl sutures. Subcutaneous fat was then reapproximated with interrupted 2-0 Vicryl sutures. The dermis was reapproximated with interrupted 3-0 Vicryl sutures. The skin was closed with a running 4-0 Monocryl stitch. Steri-Strips and sterile dressings were placed over the incision. The drain sponge was placed also under the drain. The dressings were secured in place with tape. All counts were correct at the end of the case. ? The patient was then woken and transported to the recovery area in stable condition. ? The patient tolerated the procedure well. Findings: Thinned out fascia with scar tissue from previous repairs. No evidence of previous mesh. Implants: Ventrio ST 11 x 14 mesh. Anesthesia: GETA Surgeon: Dejon Wei MD Estimated blood loss (mL): 20 Condition: stable Disposition: PACU
--- NOTE | 2025-01-13 07:22 | W.PM.H&PU ---
History & Physical Update History & Physical Update H&P Reviewed and patient assessed: No changes noted
--- NOTE | 2025-01-13 07:30 | P.PCN_ITS ---
Procedure Note Time Seen by Provider: 08:36 Date Seen: 01/13/25 Date of procedure: 01/13/25 Will [facility] bill your pro fee for this procedure?: Yes Procedure Description: Preoperative diagnosis: 59-year-old * Large right ovarian cyst * Ventral hernia Postoperative diagnosis: Same. Procedure: Laparoscopic right oophorectomy Anesthesia: General endotracheal, local Surgeon for oophorectomy: Grace Barros MD Surgeon for hernia repair: Jo Wei MD Digital Media Coordinator for oophorectomy: Celeste Dow MD Estimated blood loss: 10 mL Urine output: 200 mL clear urine IV fluid: 600 ml Specimen: Right ovary with cyst to pathology. Pelvic washings to cytology. Findings: On exam under anesthesia: The uterus is surgically absent. The right adnexa has no fullness or mass palpable. On laparoscopy: The uterus and left ovary and tube were surgically absent. Gallbladder and appendix surgically absent. Liver edge appears normal. Omental adhesions within the ventral hernia superior to the umbilicus. Multiple thin adhesions of the descending colon to the left pelvic sidewall. The right ovary had a complex cystic and solid mass visualized. On ultrasound it was noted to be simple in appearance. Pelvic washings were collected and sent pathology. Procedure: Sheri was taken to the operating room where general anesthetic was found to be adequate. She was placed in the dorsal supine position and an exam under anesthesia was performed with findings stated above. She was then prepped and draped in a normal sterile manner. A Souza catheter was then placed. The patient has had a previous hysterectomy and left oophorectomy, no uterine manipulator or vaginal probe placed. Attention was then turned to performing the laparoscopic portion of the procedure. All incisions were injected with 0.5% Marcaine prior to incision. A vertical 5 mm infraumbilical, incision, was made and a 5 mm trocar placed under direct visualization with the laparoscope. The abdomen was then insufflated with carbon dioxide gas to a pressure of 15 mm of mercury. Two bilateral lower quadrant trocars were then placed under direct visualization. Both were placed approximately 3-4 finger breaths medial to the ischial crests. The right trocar was 5 mm the left trocar was 11 mm. A diagnostic laparoscopy was then performed with findings stated above. The pelvis was irrigated with approximately 75 mL of saline. The saline was then suctioned and sent to cytology. The right fallopian tube was grasp with a laparoscope grasper. The right infundibular pelvic ligament was identified. The right ureter was identified to be below the area of surgery. LigaSure dissecting forceps was used to cauterize and ligate the IP ligament. An Endo-Catch bag was advanced into the pelvis through the 11 mm port. The ovary was placed within the bag. The cyst was lysed and drained. Serous, clear fluid was noted. In order to remove the Endo- Catch bag with the right ovary the left lower quadrant incision was extended to 2-3 cm. The Endo-Catch bag was then removed through the extended incision in the left lower quadrant port. The fascia of the left lower quadrant incision was grasped a Zoe clamp. The fascia of the left lower quadrant incision was then reapproximated using 0 Vicryl in a running manner. The trocars were then removed under direct visualization. The CO2 gas was allowed to escape the infraumbilical port prior to its removal. One interrupted suture of 0 Vicryl was placed in the subcutaneous tissue of the left lower quadrant incision to prevent space. All incisions were reapproximated using 4-0 Monocryl in a running subcuticular manner. Exofin skin adhesive was then applied and adhesive dressings applied over each incision. The patient tolerated this procedure well. Sponge, lap and instrument counts were correct x2 at the end of the procedure and the patient was taken to the recovery area in stable condition. The patient received 2 g IV Ancef during the procedure for prophylaxis for the ventral hernia repair. Dr. Wei then assumed care to perform her procedure. Anesthesia: GETA and local Digital Media Coordinator: Celeste Dow Estimated blood loss (mL): 10 IV fluids (mL): 600 Urine output (mL): 200 Pathology: specimen obtained, sent to pathology (Pelvic washings to cytology.) Condition: stable Disposition: floor
--- NOTE | 2025-01-13 07:55 | P.NB_ITS ---
Nerve Block Nerve Block Time Seen by Provider: 07:32 Date Seen: 01/13/25 Type of block requested by surgeon for post-operative analgesia: TAP Side: bilateral Time out performed: Yes Verification of patient name: Yes Verification of date of : Yes Site marking: site marked Name of person performing procedure: Glenn Continuous monitoring Was continuous monitoring of O2 sat, B/P, court recording monitor, recorded every 15 minutes?: Yes Procedure Checklist: sterile prep, needles and gloves Ultrasound guided. Images saved: Yes Medications given in 5ml increments after negative aspiration: Marcaine %: 0.25 mL: 30 Needle gauge: 20 and Exparel mL: 10 Patient tolerated procedure well: Yes Additional comments: Needle noted between internal oblique and transversus abdominus. Local spread visualized Block Charges Block Charge (with Pro Fee): TAP Bilateral Use of Ultrasound Machine for Block: Yes- US Guidance/pain block
[2025-01-13] MEDS: BUPIVACAINE 0.5% 30 ML INJECTION (08:01)
--- NOTE | 2025-01-13 08:09 | SUR.OPER ---
PATIENT QUESTIONS ANSWERED SATISFACTORILY PREOPERATIVELY. PATIENT BROUGHT TO OR #4 PER CART. Patient positioned supine on OR #4 bed. The perioperative team supported arms bilaterally on arm boards. Final approval of positioning by surgeon.
[2025-01-13] MEDS: CEFAZOLIN 1 GM inj IVP (08:38)
[2025-01-13] MEDS: KETOROLAC 30 MG/ML inj IVP (11:00)
--- NOTE | 2025-01-13 11:24 | P.ANES_ITS ---
Anesthesia Charges Start Date/Time Anesthesia Start Date: 01/13/25 Anesthesia Start Time: 07:15 Stop Date/Time Anesthesia Stop Date: 01/13/25 Anesthesia Stop Time: 11:22 Coding CPT Codes CPT Codes: ANESTH REPAIR OF HERNIA - 63157 ([id number]) P3 - PATIENT W/SEVERE SYS DISEASE, QK - ENVIRONMENTAL PLANNER 2-4 CNCRNT ANES PROC, QX - TAX TECHNICIAN SVC W/ MD MED DIRECTION
--- NOTE | 2025-01-13 11:24 | W.ANESCHARGE ---
Anesthesia Charges Start Date/Time Anesthesia Start Date: 01/13/25 Anesthesia Start Time: 07:15 Stop Date/Time Anesthesia Stop Date: 01/13/25 Anesthesia Stop Time: 11:22 Coding CPT Codes CPT Codes: ANESTH REPAIR OF HERNIA - 12775 ([id number]) P3 - PATIENT W/SEVERE SYS DISEASE, QK - INSIDE SALES ACCOUNT REPRESENTATIVE 2-4 CNCRNT ANES PROC, QX - BIOMEDICAL REPAIR TECHNICIAN SVC W/ MD MED DIRECTION
--- NOTE | 2025-01-13 11:29 | P.ANES_ITS ---
Anesthesia Charges Start Date/Time Anesthesia Start Date: 01/13/25 Anesthesia Start Time: 07:15 Stop Date/Time Anesthesia Stop Date: 01/13/25 Anesthesia Stop Time: 11:22 Coding CPT Codes CPT Codes: ANESTH REPAIR OF HERNIA - 72259 ([id number]) QK - LICENSED DISPENSING OPTICIAN 2-4 CNCRNT ANES PROC, QX - HIGH SCHOOL INDUSTRIAL ARTS TEACHER SVC W/ MD MED DIRECTION, P3 - PATIENT W/SEVERE SYS DISEASE
--- NOTE | 2025-01-13 11:29 | W.ANESCHARGE ---
Anesthesia Charges Start Date/Time Anesthesia Start Date: 01/13/25 Anesthesia Start Time: 07:15 Stop Date/Time Anesthesia Stop Date: 01/13/25 Anesthesia Stop Time: 11:22 Coding CPT Codes CPT Codes: ANESTH REPAIR OF HERNIA - 98361 ([id number]) QK - WINDOW MACHINE OPERATOR 2-4 CNCRNT ANES PROC, QX - GEOMETRICIAN SVC W/ MD MED DIRECTION, P3 - PATIENT W/SEVERE SYS DISEASE
[2025-01-13] MEDS: fentaNYL 100 MCG/2 ML inj 50 MCG IVP (11:36)
--- NOTE | 2025-01-13 11:40 | PM.IMCN1 ---
Date of Consult Patient: Shagufta Patient Consult date: 01/13/25 Requesting Physician: General Surgery Primary Care Provider: Justin Cuba MD, Shagufta Consuelo Consult Narrative Reason for consult: Pain management Narrative: Sheri Fall is a 59 year old female past medical history significant for chronic pain on controlled substance agreement with her PCP, lower extremity neuropathy, hypertension, CAD, NSTEMI, dyslipidemia, GERD is POD#0 s/p open ventral hernia repair with mesh, Dr. Thais Wei. We have been asked by General Surgery to assist in managing her postoperative pain in setting of chronic pain, baseline management with OxyContin and oxycodone. Patient is also on 3 antihypertensives. Perioperatively, her pressures have been appropriate. Postoperatively, patient is seen with spouse and daughter at bedside. Reports mild nausea, no vomiting. Feeling queasy. Pain currently adequately managed. Mild headache no dizziness. There have been no perioperative complications or nursing concerns reported. Vitally stable. Updated and reviewed the active medical problems, past medical history, past surgical history, social history, allergies and medications in our electronic EMR. Review of Systems Narrative: REVIEW OF SYSTEMS: Complete review of systems performed and negative unless otherwise stated in HPI or below. [facility] Medical History (Updated 01/13/25 @ 13:16 by Alejandra Austin PA-C) Obesity (BMI 30-39.9) ?E66.9 - Obesity, unspecified (ICD-10) Atypical chest pain ?R07.89 - Other chest pain (ICD-10) Pelvic mass ?R19.00 - Intra-abdominal and pelvic swelling, mass and lump, unspecified site (ICD-10) Cyst of left lower eyelid ?H02.825 - Cysts of left lower eyelid (ICD-10) Adjustment disorder with mixed anxiety and depressed mood ?F43.23 - Adjustment disorder with mixed anxiety and depressed mood (ICD-10) Age-related cataract of both eyes ?H25.9 - Unspecified age-related cataract (ICD-10) Opioid dependence ?F11.20 - Opioid dependence, uncomplicated (ICD-10) Chronic pain syndrome ?G89.4 - Chronic pain syndrome (ICD-10) Spondylolisthesis of lumbar region ?M43.16 - Spondylolisthesis, lumbar region (ICD-10) Peripheral sensory neuropathy ?G60.8 - Other hereditary and idiopathic neuropathies (ICD-10) Urinary incontinence ?R32 - Unspecified urinary incontinence (ICD-10) GERD (gastroesophageal reflux disease) ?K21.9 - Gastro-esophageal reflux disease without esophagitis (ICD-10) Vitamin D deficiency ?E55.9 - Vitamin D deficiency, unspecified (ICD-10) Coronary artery disease ?I25.10 - Atherosclerotic heart disease of [place] coronary artery without angina pectoris (ICD-10) Hyperlipidemia ?E78.5 - Hyperlipidemia, unspecified (ICD-10) Insomnia ?G47.00 - Insomnia, unspecified (ICD-10) Polypharmacy ?Z79.899 - Other 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 operator (current) drug therapy (ICD-10) Back pain, chronic ?M54.9 - Dorsalgia, unspecified (ICD-10) ?G89.29 - Other chronic pain (ICD-10) HTN, goal below 140/90 ?I10 - Essential (primary) hypertension (ICD-10) Kidney calculus ?N20.0 - Calculus of kidney (ICD-10) Surgical History (Updated 01/13/25 @ 11:51 by Alejandra Austin PA-C) Status post right oophorectomy (01/13/25) ?Z90.721 - Acquired absence of ovaries, unilateral (ICD-10) History of hysterectomy (~1990) ?Z90.710 - Acquired absence of both cervix and uterus (ICD-10) History of tubal ligation (1994) ?Z98.51 - Tubal ligation status (ICD-10) H/O ovarian cystectomy ?Z98.890 - Other specified postprocedural states (ICD-10) ?Z87.42 - Personal history of other diseases of the female genital tract (ICD-10) History of hernia repair ?Z98.890 - Other specified postprocedural states (ICD-10) ?Z87.19 - Personal history of other diseases of the digestive system (ICD-10) History of lumbar surgery (12/2012) ?Z98.890 - Other specified postprocedural states (ICD-10) History of lumbar fusion ?Z98.1 - Arthrodesis status (ICD-10) History of breast biopsy (04/12/07) ?Z98.890 - Other specified postprocedural states (ICD-10) History of cholecystectomy (1990) ?Z90.49 - Acquired absence of other specified parts of digestive tract (ICD-10) History of oophorectomy Family History Father Coronary artery disease Mother Lung cancer Myocardial infarction Heart disease Maternal Grandmother Diabetes Social History What is your current living situation?: I presently have a place to live Smoking Status: Never smoker Do you use any of these nicotine containing products: None Second hand tobacco smoke exposure: No How often do you have a drink containing alcohol: never How often do you have six or more drinks on one occasion: Never AUDIT-C Alcohol total score: 0 Non-prescribed substance use: denies use Caffeine: Yes service: No Meds Home Medications and Allergies Home Medications ?Medication ?Instructions ?Recorded ?Confirmed ?Type losartan 100 mg tablet 100 mg PO DAILY 01/09/25 01/09/25 History rosuvastatin 20 mg tablet 20 mg PO QPM 01/09/25 01/09/25 History amlodipine 10 mg tablet 10 mg PO DAILY 01/13/25 01/13/25 History omeprazole 20 mg capsule,delayed 20 mg PO DAILY 01/13/25 01/13/25 History release oxycodone 10 mg tablet 10 mg PO Q6H PRN pain 01/13/25 01/13/25 History zolpidem 5 mg tablet 5 mg PO HS PRN insomnia 01/13/25 01/13/25 History Allergies Allergy/AdvReac Type Severity Reaction Status Date / Time latex Allergy Mild Rash Verified 01/13/25 06:21 gabapentin AdvReac Severe Hallucinati Verified 01/13/25 06:21 ons adhesive tape AdvReac Intermediate Rash Verified 01/13/25 06:21 duloxetine (From Cymbalta) AdvReac Intermediate Rash Verified 01/13/25 06:21 tramadol AdvReac Intermediate Rash Verified 01/13/25 06:21 Exam Narrative: Exam Narrative: PHYSICAL EXAM General: Pleasant, conversant, NAD HEENT: Normocephalic, atraumatic, sclera white, EOMI, oral mucosa moist Cardiovascular: RRR, S1S2. No pitting edema Pulmonary: CTA bilaterally without rhonchi, rales, expiratory wheezes. No dyspnea Abdominal: Postoperative dressing in place, dry, surrounding erythema, appropriate postoperative tenderness Neurological: Alert, answering questions appropriately, cranial nerves intact, no focal findings Extremities: No gross joint deformity or swelling. AROMI. Neurovascularly intact Skin: Warm, dry. Const: Vital Signs, click to edit/add: Vital Signs - 24 hr 01/13/25 06:30 01/13/25 11:20 01/13/25 11:25 Temperature 97.8 F 97.1 F L Pulse Rate 70 68 73 Respiratory Rate 16 16 14 Blood Pressure 180/92 H 126/69 117/64 Pulse Oximetry 96 95 97 Oxygen Delivery Me thod Room Air Room Air Room Air 01/13/25 11:30 01/13/25 11:35 Temperature Pulse Rate 73 60 Respiratory Rate 16 16 Blood Pressure 119/79 121/73 Pulse Oximetry 95 100 Oxygen Delivery Me thod Room Air Room Air Labs Labs: Short CBC 01/13/25 Range/Units 06:35 Hgb 12.5 (12.0-16.0) gm/dL BMP 01/13/25 06:35 Creatinine 1.0 Assessment and Plan Assessment and plan (1) Chronic pain syndrome: Problem comment: Chronic bilateral low back pain with sciatica Chronic radicular low back pain L3-L4 disc displacement Spondylolisthesis of lumbar region S/p lumbar spinal fusion Neuropathic pain Weakness of left leg Status: Chronic (2) Opioid dependence: Problem comment: Current regimen OxyContin 10 mg b.i.d., oxycodone 10 mg q.6 hours p.r.n. Controlled substance agreement in place with PCP, Dr. Cuba Postoperatively, as discussed with Pharmacy, will increase OxyContin to 20 mg b.i.d., continue oxycodone 10 mg q.6 hours, in addition to p.r.n. IV hydromorphone 0.1-0.5 mg q.1 hour p.r.n.. Will continue to monitor response and adjust accordingly. Patient in agreement. Monitor for sedation. 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
[2025-01-13] MEDS: LACTATED RINGERS 1000 ML 1,000 ML 75 ML IV (12:26)
[2025-01-13] MEDS: PROCHLORPERAZINE 5 MG/ML VIAL IV (13:07)
[2025-01-13] MEDS: HYDROmorphone 0.5 mg/0.5 ml inj IVP ×3 (14:35→21:03)
--- NOTE | 2025-01-13 17:43 | PC.NURSE ---
Shift Summary: Patient pleasant and cooperative. C/O nausea, given PRN medication see MAR, x1 emesis 100cc out, patient reports relief from nausea following emesis. Pain managed with PRN IV medication see NOV. Souza patent with clear light yellow urine. Still requiring 1.5L/NC o2, o2 sats 90-93%. Encouraged to do incentive spirometer, gave instructions on how to use. Dressing C/D/I with abdominal binder covering. ANSHUL drain with small amount of bloody output. Vitals stable and WNL. Lung sounds clear. Family at bedside.
[2025-01-13] MEDS: ONDANSETRON 2 MG/ML inj IVP (21:03)
[2025-01-14] VITALS (7 sets, daily range): BP systolic 116–151; BP diastolic 66–75; PULSE 64–73; RESP 16–18; TEMP 36.3–36.9; O2SAT 90–93
[2025-01-14] MEDS: ACETAMINOPHEN 325 MG TABLET 650 MG PO ×4 (01:23→20:16)
[2025-01-14] MEDS: LACTATED RINGERS 1000 ML 1,000 ML 75 ML IV ×2 (01:26→14:37)
[2025-01-14] MEDS: OMEPRAZOLE 20 MG CAPSULE DR PO (06:22)
--- NOTE | 2025-01-14 07:00 | PC.NURSE ---
End of shift report: VS WNL. Afebrile. On 0.5 O2 via NC overnight to remain above 90%. Rates pain from a 7-4, pain meds offered and given with relief. Denies nausea. Pt sat up, dangled and stood up this shift SBA with walker. Tolerating clear diet. Souza is patent and intact. ANSHUL drain is intact and patent with red tinged drainage. Intermittent ice applied. Abdominal binder is C/D/I. Call light within reach.?
[2025-01-14] MEDS: ONDANSETRON 2 MG/ML inj IVP (08:26)
[2025-01-14] MEDS: LOSARTAN POTASSIUM 50 MG TABLET 100 MG PO (08:32)
[2025-01-14] MEDS: METOPROLOL SUCCINATE (XL) 100 MG TAB PO ×2 (08:32→20:15)
[2025-01-14] MEDS: OXYCODONE 5 MG TABLET 10 MG PO ×3 (08:32→20:15)
[2025-01-14] MEDS: AMLODIPINE 10 MG TABLET PO (08:32)
[2025-01-14] MEDS: SENNOSIDES/DOCUSATE TABLET 1 TAB PO ×2 (08:33→20:17)
--- NOTE | 2025-01-14 10:03 | P.IMPN_ITS ---
Assessment and Plan Assessment and plan (1) Chronic pain syndrome: Problem comment: Chronic bilateral low back pain with sciatica Chronic radicular low back pain L3-L4 disc displacement Spondylolisthesis of lumbar region S/p lumbar spinal fusion Neuropathic pain Weakness of left leg Status: Chronic (2) Opioid dependence: Problem comment: Current regimen OxyContin 10 mg b.i.d., oxycodone 10 mg q.6 hours - will schedule as she takes on a regular basis Controlled substance agreement in place with PCP, Dr. Cuba Postoperatively, as discussed with Pharmacy, will increase OxyContin to 20 mg b.i.d., continue oxycodone 10 mg q.6 hours, in addition to p.r.n. IV hydromorphone 0.1-0.5 mg q.1 hour p.r.n.. Will continue to monitor response and adjust accordingly. Patient in agreement. Monitor for sedation. Narcan ordered if needed Status: Acute (3) Ventral hernia without obstruction or gangrene: Problem comment: POD# 1 s/p open ventral hernia repair with mesh General surgery managing Status: Acute (4) Status post right oophorectomy: Problem comment: POD# 1 right oophorectomy, Dr Rosie Lau [employer] managing Status: Acute (5) HTN, goal below 140/90: Problem comment: Appropriate pressures perioperatively, continue to monitor Resume amlodipine, losartan, metoprolol Status: Acute Total Time Spent Total Time Spent: Today I spent 45 minutes seeing the patient, reviewing Expanse and EPIC notes/d iagnostics, discussing the care plan with our care time that includes social work, PT/OT, pharmacy, RT, pen[facility]ent[facility] and documenting my impressions and plan in the medical record. Subjective Date Seen: 01/14/25 Interval history: Patient is seen lying in bed this morning. Alert this morning, grogginess has resolved. No further nausea. Right-sided abdominal pain reported but manageable currently. Pressures have been stable. Exam Narrative: Exam Narrative: PHYSICAL EXAM General: Pleasant, conversant, NAD Cardiovascular: RRR, S1S2. No pitting edema Pulmonary: CTA bilaterally without rhonchi, rales, expiratory wheezes. No dyspnea Abdominal: Abdominal binder in place, no surrounding erythema, appropriate postoperative tenderness Neurological: Alert, answering questions appropriately, cranial nerves intact, no focal findings Extremities: No gross joint deformity or swelling. AROMI. Neurovascularly intact Skin: Warm, dry. Const: Vital Signs, click to edit/add: Vital Signs - 24 hr 01/13/25 11:20 01/13/25 11:25 01/13/25 11:30 Temperature 97.1 F L Pulse Rate 68 73 73 Pulse Rate [Pulse Oximeter] Respiratory Rate 16 14 16 Blood Pressure 126/69 117/64 119/79 Blood Pressure [Le ft Arm] Pulse Oximetry 95 90 95 Oxygen Delivery Me thod Room Air Nasal Cannula Room Air Oxygen Flow Rate 6 Fraction of Inspir ed Oxygen 100 01/13/25 11:35 01/13/25 11:40 01/13/25 11:45 Temperature 98.2 F Pulse Rate 60 70 71 Pulse Rate [Pulse Oximeter] Respiratory Rate 16 16 16 Blood Pressure 121/73 120/65 116/62 Blood Pressure [Le ft Arm] Pulse Oximetry 100 95 99 Oxygen Delivery Me thod Room Air Room Air Room Air Oxygen Flow Rate Fraction of Inspir ed Oxygen 01/13/25 11:50 01/13/25 12:00 01/13/25 12:10 Temperature 96.8 F L Pulse Rate 68 71 Pulse Rate [Pulse Oximeter] Respiratory Rate 16 14 Blood Pressure 122/64 119/71 Blood Pressure [Le ft Arm] Pulse Oximetry 94 92 87 L Oxygen Delivery Me thod Room Air Room Air Nasal Cannula Oxygen Flow Rate 1.5 Fraction of Inspir ed Oxygen 01/13/25 12:15 01/13/25 12:30 01/13/25 12:45 Temperature 96.9 F L 96.3 F L Pulse Rate 63 65 71 Pulse Rate [Pulse Oximeter] Respiratory Rate 14 16 16 Blood Pressure 110/45 L 114/50 L 111/66 Blood Pressure [Le ft Arm] Pulse Oximetry 94 92 93 Oxygen Delivery Me thod Nasal Cannula Nasal Cannula Nasal Cannula Oxygen Flow Rate 1.5 1.5 1.5 Fraction of Inspir ed Oxygen 01/13/25 13:00 01/13/25 13:35 01/13/25 14:35 Temperature 96.4 F L 96.4 F L 96.5 F L Pulse Rate 69 68 81 Pulse Rate [Pulse Oximeter] Respiratory Rate 16 16 16 Blood Pressure 114/62 130/70 132/72 Blood Pressure [Le ft Arm] Pulse Oximetry 95 92 96 Oxygen Delivery Me thod Nasal Cannula Nasal Cannula Nasal Cannula Oxygen Flow Rate 1.5 1.5 1.5 Fraction of Inspir ed Oxygen 01/13/25 14:45 01/13/25 15:35 01/13/25 16:42 Temperature 96.8 F L 96.9 F L Pulse Rate 75 74 Pulse Rate [Pulse Oximeter] Respiratory Rate 16 16 18 Blood Pressure 108/57 L 114/62 Blood Pressure [Le ft Arm] Pulse Oximetry 92 92 91 Oxygen Delivery Me thod Nasal Cannula Nasal Cannula Nasal Cannula Oxygen Flow Rate 1.5 1.5 1.5 Fraction of Inspir ed Oxygen 01/13/25 17:31 01/13/25 19:00 01/13/25 21:19 Temperature 96.7 F L 98.4 F Pulse Rate 74 Pulse Rate [Pulse Oximeter] 82 82 Respiratory Rate 16 16 16 Blood Pressure 115/63 Blood Pressure [Le ft Arm] 123/72 Pulse Oximetry 91 94 Oxygen Delivery Me thod Nasal Cannula Room Air Oxygen Flow Rate 1.5 Fraction of Inspir ed Oxygen 01/13/25 21:26 01/13/25 22:35 01/13/25 22:35 Temperature 98.1 F Pulse Rate Pulse Rate [Pulse Oximeter] 80 Respiratory Rate 16 16 16 Blood Pressure Blood Pressure [Le ft Arm] 134/69 Pulse Oximetry 92 92 92 Oxygen Delivery Me thod Nasal Cannula Nasal Cannula Nasal Cannula Oxygen Flow Rate 0.5 0.5 0.5 Fraction of Inspir ed Oxygen 100 01/14/25 03:00 01/14/25 07:40 01/14/25 09:00 Temperature 97.6 F 97.8 F Pulse Rate Pulse Rate [Pulse Oximeter] 73 70 Respiratory Rate 16 16 Blood Pressure Blood Pressure [Le ft Arm] 138/66 125/75 Pulse Oximetry 90 92 90 Oxygen Delivery Me thod Room Air Nasal Cannula Nasal Cannula Oxygen Flow Rate 0.5 1 1 Fraction of Inspir ed Oxygen
--- NOTE | 2025-01-14 12:31 | PM.GSPN ---
Subjective Subjective Date Seen: 01/14/25 Interval history: Patient is doing well postoperatively. The Souza catheter was removed in the morning. Her ANSHUL drain put out small amounts of bloody serosanguineous fluid. Patient's pain is controlled with OxyContin and oxycodone p.r.n.. The dose was increased to slightly above her normal outpatient does. Patient is still on 1 L of oxygen. Patient walked in the room but did not ambulate in the hallway. She is not passing gas. Exam Narrative: Exam Narrative: Abdomen is soft, not tender to palpation laterally but tender to palpation over the midline incision. The midline surgical dressing was not removed today. ANSHUL with bloody serosanguineous fluid in the bulb. Const: Vital Signs, click to edit/add: Vital Signs - 24 hr 01/13/25 12:45 01/13/25 13:00 01/13/25 13:35 Temperature 96.4 F L 96.4 F L Pulse Rate 71 69 68 Pulse Rate [Pulse Oximeter] Respiratory Rate 16 16 16 Blood Pressure 111/66 114/62 130/70 Blood Pressure [Le ft Arm] Pulse Oximetry 93 95 92 Oxygen Delivery Me thod Nasal Cannula Nasal Cannula Nasal Cannula Oxygen Flow Rate 1.5 1.5 1.5 Fraction of Inspir ed Oxygen 01/13/25 14:35 01/13/25 14:45 01/13/25 15:35 Temperature 96.5 F L 96.8 F L Pulse Rate 81 75 Pulse Rate [Pulse Oximeter] Respiratory Rate 16 16 16 Blood Pressure 132/72 108/57 L Blood Pressure [Le ft Arm] Pulse Oximetry 96 92 92 Oxygen Delivery Me thod Nasal Cannula Nasal Cannula Nasal Cannula Oxygen Flow Rate 1.5 1.5 1.5 Fraction of Inspir ed Oxygen 01/13/25 16:42 01/13/25 17:31 01/13/25 19:00 Temperature 96.9 F L 96.7 F L 98.4 F Pulse Rate 74 74 Pulse Rate [Pulse Oximeter] 82 Respiratory Rate 18 16 16 Blood Pressure 114/62 115/63 Blood Pressure [Le ft Arm] 123/72 Pulse Oximetry 91 91 94 Oxygen Delivery Me thod Nasal Cannula Nasal Cannula Room Air Oxygen Flow Rate 1.5 1.5 Fraction of Inspir ed Oxygen 01/13/25 21:19 01/13/25 21:26 01/13/25 22:35 Temperature 98.1 F Pulse Rate Pulse Rate [Pulse Oximeter] 82 80 Respiratory Rate 16 16 16 Blood Pressure Blood Pressure [Le ft Arm] 134/69 Pulse Oximetry 92 92 Oxygen Delivery Me thod Nasal Cannula Nasal Cannula Oxygen Flow Rate 0.5 0.5 Fraction of Inspir ed Oxygen 01/13/25 22:35 01/14/25 03:00 01/14/25 07:40 Temperature 97.6 F 97.8 F Pulse Rate Pulse Rate [Pulse Oximeter] 73 70 Respiratory Rate 16 16 16 Blood Pressure Blood Pressure [Le ft Arm] 138/66 125/75 Pulse Oximetry 92 90 92 Oxygen Delivery Me thod Nasal Cannula Room Air Nasal Cannula Oxygen Flow Rate 0.5 0.5 1 Fraction of Inspir ed Oxygen 100 01/14/25 09:00 01/14/25 10:51 Temperature 98.5 F Pulse Rate Pulse Rate [Pulse Oximeter] 72 Respiratory Rate 16 Blood Pressure Blood Pressure [Le ft Arm] 136/68 Pulse Oximetry 90 92 Oxygen Delivery Me thod Nasal Cannula Room Air Oxygen Flow Rate 1 Fraction of Inspir ed Oxygen Progress Note:A&P Assessment and plan (1) S/P recurrent ventral herniorrhaphy: Status: Acute Plan 59-year-old female s/p open ventral hernia repair POD 1. Souza catheter was removed today. We will leave ANSHUL drain in place. Patient will most likely go home with ANSHUL drain. I asked the patient to ambulate as much as possible. We will leave her on clear liquid diet since she is not passing gas yet. Not ready for discharge.
--- NOTE | 2025-01-14 14:59 | PC.NURSE ---
Pt doing well. Continues to require 1L O2 NC for O2 >88%. Pain is consistently stated to be 5-8/10. Pt has been encouraged to walk halls and/or room, however pt is resistant to do so. Souza was removed, pt voiding on own with no complications. Surgical dressing remains clean, dry, intact. Abdominal binder in place.
[2025-01-14] MEDS: ROSUVASTATIN CALCIUM 10 MG TABLET 20 MG PO (17:41)
--- NOTE | 2025-01-14 22:29 | PC.NURSE ---
At 2029 patient rating her pain at a 5/10 in her abdomen. States this is tolerable for her. Asked to only take 5mg oxycodone instead of the scheduled 10 mg. She is currently taking more than her prescribed home dose.
[2025-01-15] MEDS: ACETAMINOPHEN 325 MG TABLET 650 MG PO ×3 (00:53→13:55)
[2025-01-15 03:00] VITALS: BP 120/64; PULSE 55; RESP 18; TEMP 36.2; O2SAT 95
[2025-01-15] MEDS: LACTATED RINGERS 1000 ML 1,000 ML 75 ML IV (03:15)
[2025-01-15] MEDS: OMEPRAZOLE 20 MG CAPSULE DR PO (06:30)
--- NOTE | 2025-01-15 06:52 | PC.NURSE ---
7813-0400: Pt alert, oriented and vitally stable. Pain rated 5/10 throughout shift, pt refused 0215 oxy. ANSHUL patent and draining. Pt stated mild intermittent nausea, though tolerable. Dressing C/D/I. Pt up independently, though needs assistance with cords. Pt states no bm or flatus. O2 sats dropped to 79-80s without nasal canula O2, placed on 2L. Pt in bed, appears to be resting, call light within reach.?
[2025-01-15 07:00] VITALS: BP 129/70; PULSE 60; RESP 16; TEMP 36.5; O2SAT 88; O2SAT 90
[2025-01-15] MEDS: LOSARTAN POTASSIUM 50 MG TABLET 100 MG PO (09:48)
[2025-01-15] MEDS: SENNOSIDES/DOCUSATE TABLET 1 TAB PO ×2 (09:48→20:27)
[2025-01-15] MEDS: METOPROLOL SUCCINATE (XL) 100 MG TAB PO ×2 (09:49→20:27)
[2025-01-15] MEDS: AMLODIPINE 10 MG TABLET PO (09:49)
[2025-01-15] MEDS: METOCLOPRAMIDE 10 MG TABLET PO ×4 (09:49→20:27)
--- NOTE | 2025-01-15 10:03 | PM.IMPN1 ---
Assessment and Plan Assessment and plan (1) Chronic pain syndrome: Problem comment: Chronic bilateral low back pain with sciatica Chronic radicular low back pain L3-L4 disc displacement Spondylolisthesis of lumbar region S/p lumbar spinal fusion Neuropathic pain Weakness of left leg Status: Chronic (2) Opioid dependence: Problem comment: Current regimen OxyContin 10 mg b.i.d., oxycodone 10 mg q.6 hours - will schedule as she takes on a regular basis Controlled substance agreement in place with PCP, Dr. Cuba Postoperatively, as discussed with Pharmacy, will increase OxyContin to 20 mg b.i.d., continue oxycodone 10 mg q.6 hours, in addition to p.r.n. IV hydromorphone 0.1-0.5 mg q.1 hour p.r.n.. Will continue to monitor response and adjust accordingly. Patient in agreement. Monitor for sedation. Narcan ordered if needed Status: Acute (3) Ventral hernia without obstruction or gangrene: Problem comment: POD# 2 s/p open ventral hernia repair with mesh General surgery managing 01/15 - Added scheduled Reglan in hopes of improving nausea and increasing oral intake Status: Acute (4) Status post right oophorectomy: Problem comment: POD# 2 right oophorectomy, Dr Rosie Lau AUDIT MACHINE OPERATOR managing Status: Acute (5) HTN, goal below 140/90: Problem comment: Continue amlodipine, losartan, metoprolol Status: Acute Plan Discharge plan per General surgery Total Time Spent Total Time Spent: Today I spent 30 minutes seeing the patient, reviewing Expanse and EPIC notes/diagnostics, discussing the care plan with our care time that includes social work, PT/OT, pharmacy, RT, longterm and documenting my impressions and plan in the medical record. Subjective Date Seen: 01/15/25 Interval history: Patient is seen sitting up in bed. Pain has been adequately managed with current regimen. Nausea has been persistent. Feels she is not able to drink much for liquids. Mild headache. Was up and walking the hallways yesterday and plans to do that again today. Awaiting discharge plan per General surgery Exam Narrative: Exam Narrative: PHYSICAL EXAM General: Pleasant, conversant, NAD Cardiovascular: RRR, S1S2. No pitting edema Pulmonary: CTA bilaterally without rhonchi, rales, expiratory wheezes. No dyspnea Abdominal: Abdominal binder in place, no surrounding erythema, appropriate postoperative tenderness Neurological: Alert, answering questions appropriately, cranial nerves intact, no focal findings Extremities: No gross joint deformity or swelling. AROMI. Neurovascularly intact Skin: Warm, dry. Const: Vital Signs, click to edit/add: Vital Signs - 24 hr 01/14/25 10:51 01/14/25 15:30 01/14/25 15:30 Temperature 98.5 F 97.3 F L Pulse Rate [Pulse Oximeter] 72 70 Respiratory Rate 16 18 16 Blood Pressure [Le ft Arm] 136/68 151/72 H Pulse Oximetry 92 93 93 Oxygen Delivery Me thod Room Air Room Air Room Air Oxygen Flow Rate 01/14/25 15:30 01/14/25 19:00 01/14/25 23:00 Temperature 97.5 F L Pulse Rate [Pulse Oximeter] 70 64 Respiratory Rate 16 16 Blood Pressure [Le ft Arm] 116/72 Pulse Oximetry 92 90 Oxygen Delivery Me thod Room Air Nasal Cannula Oxygen Flow Rate 2 01/14/25 23:00 01/14/25 23:00 01/15/25 03:00 Temperature 97.6 F 97.2 F L Pulse Rate [Pulse Oximeter] 64 64 55 L Respiratory Rate 16 16 18 Blood Pressure [Le ft Arm] 124/70 120/64 Pulse Oximetry 90 95 Oxygen Delivery Me thod Nasal Cannula Room Air Oxygen Flow Rate 2 01/15/25 07:00 01/15/25 07:00 Temperature 97.7 F Pulse Rate [Pulse Oximeter] 60 Respiratory Rate 16 Blood Pressure [Le ft Arm] 129/70 Pulse Oximetry 90 88 Oxygen Delivery Me thod Nasal Cannula Nasal Cannula Oxygen Flow Rate 2 Labs Labs: Laboratory Results - last 24 hr 01/13/25 08:14 Cytology Interpretat See Scanned Report
[2025-01-15 11:00] VITALS: BP 155/76; PULSE 64; RESP 16; O2SAT 95
--- NOTE | 2025-01-15 11:04 | PM.GSPN ---
Subjective Subjective Date Seen: 01/15/25 Interval history: Patient's pain is controlled with current pain medication regimen. She refused 2 doses of p.r.n. oxycodone. She does complain of nausea and has not been tolerating clear liquid diet because of the nausea. She denies passing gas. She ambulated 5 times. Her ANSHUL drain is with minimal amount of bloody serosanguineous drainage. Exam Narrative: Exam Narrative: Abdomen is soft, not distended, only tender to palpation just to the right of midline surgical incision. The dressing was removed and supraumbilical surgical incision is with intact steroids with no surrounding erythema. Slightly bloody serosanguineous fluid in the ANSHUL bulb. Const: Vital Signs, click to edit/add: Vital Signs - 24 hr 01/14/25 15:30 01/14/25 15:30 01/14/25 15:30 Temperature 97.3 F L Pulse Rate [Pulse Oximeter] 70 70 Respiratory Rate 18 16 16 Blood Pressure [Le ft Arm] 151/72 H Pulse Oximetry 93 93 Oxygen Delivery Me thod Room Air Room Air Oxygen Flow Rate 01/14/25 19:00 01/14/25 23:00 01/14/25 23:00 Temperature 97.5 F L 97.6 F Pulse Rate [Pulse Oximeter] 64 64 Respiratory Rate 16 16 Blood Pressure [Le ft Arm] 116/72 124/70 Pulse Oximetry 92 90 90 Oxygen Delivery Me thod Room Air Nasal Cannula Nasal Cannula Oxygen Flow Rate 2 2 01/14/25 23:00 01/15/25 03:00 01/15/25 07:00 Temperature 97.2 F L 97.7 F Pulse Rate [Pulse Oximeter] 64 55 L 60 Respiratory Rate 16 18 16 Blood Pressure [Le ft Arm] 120/64 129/70 Pulse Oximetry 95 90 Oxygen Delivery Me thod Room Air Nasal Cannula Oxygen Flow Rate 01/15/25 07:00 Temperature Pulse Rate [Pulse Oximeter] Respiratory Rate Blood Pressure [Le ft Arm] Pulse Oximetry 88 Oxygen Delivery Me thod Nasal Cannula Oxygen Flow Rate 2 Progress Note:A&P Assessment and plan (1) S/P recurrent ventral herniorrhaphy: Status: Acute Plan 59-year-old female s/p open ventral hernia repair POD 2. Overall patient is recovering well but does not have return of bowel function yet. Her nausea is multifactorial. Since she refused 2 p.r.n. doses of oxycodone, will decrease her OxyContin to her home dose of 15 mg b.i.d.. We will leave oxycodone p.r.n.. Will advance patient to a regular diet but I asked her to have small amounts of food or drinking throughout the day and see if that improves her nausea. Not ready to discharge.
[2025-01-15 15:00] VITALS: BP 145/60; PULSE 64; RESP 16; O2SAT 91
[2025-01-15] MEDS: ROSUVASTATIN CALCIUM 10 MG TABLET 20 MG PO (18:37)
--- NOTE | 2025-01-15 18:49 | PC.NURSE ---
Nursing Care Hours: [id number] pt this shift calm and cooperative, alert and oriented. Pain this morning described as the start of a carlita horse cramp to R side. Resolved with heating pad and increased walking. No c/o pain this shift. Nausea decreased with new order of Reglan. No additional antiemetics needed. ADAT to regular at dinner. Ate 50% with no issue. VSS. BS active, pt reports passing gas in BR. Ferry Operator observed pt walking davis x2. Pt states she walked the davis twice this morning but promotion writer and unit staff did not witness. IV infiltrated, area puffy and white. OLIVER wrap and tubi intelligence intern applied, warm heating pad wrapped around arm and extremity elevated on two pillows. Ferry Operator encouraged pt to wiggle fingers and make intermittent fists. Pt denies pain or numbness to extremity.
[2025-01-15 19:00] VITALS: BP 149/77; PULSE 68; RESP 16; TEMP 37.1; O2SAT 90
[2025-01-15] MEDS: ZOLPIDEM 5 MG TABLET PO (20:27)
[2025-01-15 23:00] VITALS: BP 167/82; PULSE 65; RESP 18; TEMP 36.8; O2SAT 92
[2025-01-16 02:56] VITALS: BP 149/67; PULSE 72; RESP 16; TEMP 37.4; O2SAT 88
--- NOTE | 2025-01-16 06:14 | PC.NURSE ---
[id number] Pt slept well during night, declined oxy x2 and tylenol x1 stating pain well controlled. tolerating PO into, continues to report passing gas, no BM. walked halls, tolerated activity well, continue to encourage to ambulate. incision C/D/I, steri strips in place. gauze around ANSHUL drain insertion site C/D/I. pt wearing abdominal binder.
[2025-01-16] MEDS: OMEPRAZOLE 20 MG CAPSULE DR PO (06:55)
[2025-01-16 07:00] VITALS: BP 142/78; PULSE 71; RESP 16; TEMP 36.7; O2SAT 96
[2025-01-16] MEDS: AMLODIPINE 10 MG TABLET PO (09:06)
[2025-01-16] MEDS: METOCLOPRAMIDE 10 MG TABLET PO (09:06)
[2025-01-16] MEDS: SENNOSIDES/DOCUSATE TABLET 1 TAB PO (09:06)
[2025-01-16] MEDS: LOSARTAN POTASSIUM 50 MG TABLET 100 MG PO (09:06)
[2025-01-16] MEDS: METOPROLOL SUCCINATE (XL) 100 MG TAB PO (09:07)
[2025-01-16] MEDS: OXYCODONE 5 MG TABLET 10 MG PO (09:10)
--- NOTE | 2025-01-16 10:30 | PM.DS1 ---
DS: Providers Provider Date Seen: 01/16/25 Date of admission: 01/14/25 13:22 Primary care physician: Not a Local Provider Admitting Clinician: Hortensia Tamayo MD Attending Physician on discharge: Grace Barros MD, Reina Wei MD DS: Diagnosis Discharge Diagnosis (1) S/P recurrent ventral herniorrhaphy: Status: Acute (2) Status post right oophorectomy: Status: Acute Problem details: POD# 2 right oophorectomy, Dr Rosie Lau OPERATIONS RESEARCH ENGINEER managing (3) Prediabetes: Status: Acute Problem details: 08/22/2022-hemoglobin A1c 5.9% (4) Opioid dependence: Status: Acute Problem details: Current regimen OxyContin 10 mg b.i.d., oxycodone 10 mg q.6 hours - will schedule as she takes on a regular basis Controlled substance agreement in place with PCP, Dr. Cuba Postoperatively, as discussed with Pharmacy, will increase OxyContin to 20 mg b.i.d., continue oxycodone 10 mg q.6 hours, in addition to p.r.n. IV hydromorphone 0.1-0.5 mg q.1 hour p.r.n.. Will continue to monitor response and adjust accordingly. Patient in agreement. Monitor for sedation. Narcan ordered if needed (5) Chronic pain syndrome: Status: Chronic Problem details: Chronic bilateral low back pain with sciatica Chronic radicular low back pain L3-L4 disc displacement Spondylolisthesis of lumbar region S/p lumbar spinal fusion Neuropathic pain Weakness of left leg DS: Summary Hospital Course Hospital Course: The patient is a 59-year-old female who underwent repair of recurrent ventral hernia as well as right oophorectomy on 01/13/25. She was admitted to the hospital postoperatively. She does take opioids chronically for back pain. Some adjustments were made to her pain medication during her hospitalization and she did have significant nausea, however this was controlled with scheduled Reglan. On postop day 3 she was passing gas, tolerating a regular diet and had good pain control on her home regimen of pain medication. She was deemed safe for discharge home. Time Spent with Patient Time attestation: Total time spent providing and/or coordinating discharge services: Exam Narrative: Exam Narrative: General appearance: Alert, cooperative, and in no distress Eyes: PERRLA, eye lids clear, and sclera white HENT Head: Normocephalic Ears: External ears normal Pulmonary: Clear to auscultation bilaterally Cardiovascular Heart: Regular rate and rhythm Extremities: warm and well perfused Gastrointestinal Abdominal: Protuberant. Bowel sounds present on auscultation. Incisions are clean and dry without erythema. Drain with 40 cc serous output. pulled at bedside, intact. Musculoskeletal: Extremities: Upper: Both upper extremities have normal joint range of motion and intact strength. Lower: Both lower extremities have normal joint range of motion and intact strength. Skin: Normal skin color, texture, and turgor. Neurologic: No focal deficits Psychiatric: Alert, oriented, cooperative, normal affect. Const: Vital Signs, click to edit/add: Vital Signs - 24 hr 01/15/25 11:00 01/15/25 15:00 01/15/25 15:00 Temperature Pulse Rate [Pulse Oximeter] 64 64 Respiratory Rate 16 16 16 Blood Pressure [Le ft Arm] 155/76 H Pulse Oximetry 95 91 Oxygen Delivery Me thod Room Air Room Air Fraction of Inspir ed Oxygen 01/15/25 15:00 01/15/25 19:00 01/15/25 23:00 Temperature 98.8 F Pulse Rate [Pulse Oximeter] 64 68 Respiratory Rate 16 16 Blood Pressure [Le ft Arm] 145/60 H 149/77 H Pulse Oximetry 91 90 92 Oxygen Delivery Me thod Room Air Room Air Room Air Fraction of Inspir ed Oxygen 01/15/25 23:00 01/16/25 02:56 01/16/25 07:00 Temperature 98.3 F 99.4 F 98.1 F Pulse Rate [Pulse Oximeter] 65 72 71 Respiratory Rate 18 16 16 Blood Pressure [Le ft Arm] 167/82 H 149/67 H 142/78 H Pulse Oximetry 92 88 96 Oxygen Delivery Me thod Room Air Room Air Room Air Fraction of Inspir ed Oxygen 100 Discharge Plan Discharge Disposition: Home, Self-Care Date of Admission: 01/14/25 13:22 Primary Care Provider: Provider,Not a Local Condition: Stable Anticipated Discharge Date/Time: 01/16/25 10:47 Discharge Medications: New metoclopramide HCl [Reglan] 5 mg tablet 5 mg PO QID Qty: 12 0RF Continued metoprolol succinate 100 mg tablet extended release 24 hr 100 mg PO BID Qty: 180 1RF naloxone [Narcan] 4 mg/actuation spray,non-aerosol 4 mg intranasal Q2-3M PRN (Reason: opioid overdose) Qty: 2 0RF Rx Instructions: spray 1 dose into ONE nostril; alternate nostrils w each dose until help arrives losartan 100 mg tablet 100 mg PO DAILY rosuvastatin 20 mg tablet 20 mg PO QPM amlodipine 10 mg tablet 10 mg PO DAILY omeprazole 20 mg capsule,delayed release(DR/EC) 20 mg PO DAILY zolpidem 5 mg tablet 5 mg PO HS PRN (Reason: insomnia) oxycodone 10 mg tablet 10 mg PO Q6H PRN (Reason: pain) oxycodone [OxyContin] 15 mg tablet,oral only,ext.rel.12 hr 15 mg PO BID Qty: 60 0RF Discharge Orders: Discharge Order (Routine); Ordered 01/16/25 Ordered By: Devorah Morris Patient Education: Open Herniorrhaphy (DC), General Anesthesia (DC), Salpingo-Oophorectomy (DC) Additional Instructions: Wound care: Your sutures are under the skin and will dissolve over time. Leave steri strips (white bandages) over incisions until they fall off (or remove after 7 days). Glue on incisions will fall off Remove dressing to drain site tomorrow. OK to cover with bandaid for any drainage. OK to shower tomorrow but avoid bathing, soaking or swimming for 2 weeks. Pat the incisions dry. No need to wash or scrub the area. Apply ice to the area as needed for swelling. It is also OK to use a heating pad if this provides more comfort to you. Pain control: Take home doses of Oxycontin scheduled and Oxycodone as needed for pain You may also take Acetaminophen AND Ibuprofen or Naproxen as needed per directions on packaging. Take an nonw-eyp-austkmy stool softener while you are taking prescribed pain medications to help alleviate constipation. I recommend Senna and/or Colace. Take as directed on package. If you have not had a bowel movement in 3 days, try taking Miralax as directed on the package. All of these are available over the counter. You were prescribed nausea medication you can take 3-4 times a day for the next few days at home. Follow-up Follow up with Dr. Wei in 2 weeks Please call if you are experiencing severe pain, nausea, vomiting, difficulty urinating, fever or have not had bowel movement in 4 days after surgery. Activity Level: No strenuous activity and Other Activity Detail: No lifting More than 20 pounds for 4-6 weeks Discharge Diet: Regular Follow Up Appointments: Grace Barros MD [Staff Physician] - 01/29/25 11:00 am (Appointment @ the [facility] [place] ) Dejon Wei MD [Staff Physician] - (1-2 weeks at [facility]) Provider,Not a Local [Primary Care Provider] - Forms: [facility] Info Instructions
[2025-01-16 11:00] VITALS: BP 134/62; PULSE 72; RESP 18; TEMP 36.5; O2SAT 92
--- NOTE | 2025-01-16 13:00 | PC.NURSE ---
Pt discharged @ 1215 via ambulation, accompanied by family member. Back to home. No IV in place. Pt AxOx4, good condition. Dressings CDI. Discharge and belonging forms signed. Pt reported understanding discharge instructions.
== END 2025-01-16 12:15 | disposition home or self-care (01) | DRG 227 ==
LOC: OR 15:05 → MEDSURG 15:05
PROVIDERS: Surgery; Admitting Provider Family Medicine; Visit Provider Obstetrics & Gynecology
PROC: 0UT04ZZ Resection of Right Ovary, Percutaneous Endoscopic Approach (ICD-10-PCS; CPT 58661; principal; 2025-01-13 07:15)
PROC: 0WUF0JZ Supplement Abdominal Wall with Synthetic Substitute, Open Approach (ICD-10-PCS; 2025-01-13 07:15)
DX: K43.2 Incisional hernia without obstruction or gangrene (principal); N83.291 Other ovarian cyst, right side; G89.18 Other acute postprocedural pain; G89.29 Other chronic pain; M51.26 Other intervertebral disc displacement, lumbar region; M43.16 Spondylolisthesis, lumbar region; F11.20 Opioid dependence, uncomplicated; R73.03 Prediabetes; I10 Essential (primary) hypertension; E66.9 Obesity, unspecified; Z68.35 Body mass index [BMI] 35.0-35.9, adult; G60.8 Other hereditary and idiopathic neuropathies; F43.23 Adjustment disorder with mixed anxiety and depressed mood; Z90.721 Acquired absence of ovaries, unilateral; Z90.710 Acquired absence of both cervix and uterus; E78.5 Hyperlipidemia, unspecified; I25.10 Atherosclerotic heart disease of native coronary artery without angina pectoris; K21.9 Gastro-esophageal reflux disease without esophagitis; I25.2 Old myocardial infarction
CPT/HCPCS: 00752; 36415; 64488; 76942; 82565; 85018; 86850; 86900; 86901; 88112; 88305; A4314; A4467; A9270; C1781; J0665; J0666; J0690; J0780; J1100; J1171; J1885; J2405; J2704; J2710; J3010; J3475; J3490; J7120

== ENCOUNTER 2025-01-19 18:50 | Emergency (ER) | payer BC, SELFPAY ==
[2025-01-19] VITALS (15 sets, daily range): BP systolic 145–165; BP diastolic 89–95; PULSE 71–88; RESP 10–23; TEMP 36.7; O2SAT 97–100; BMI 36.7
--- OUTSIDE RECORDS SUMMARY | 2025-01-19 18:52 | XMS_ITS | Continuity of Care Document ---
Author Organization [facility] Address [address] [place] [id number] Phone Care Team Providers Care Switchboard Clerk Name Role Phone Will MD GARZA, Veto [...] Drug Urine Toxology With Chromatography OFFICE/OUTPATIENT VISIT, [facility] Advance Directives Directive Yes / No Effective Date File Name No Information Encounters Encounter Description Practice Location Reason(s) For Visit Diagnoses Date Provider Providers Copied on Encounter [facility], [address], [place], [id number] , [place] tel:[phone] [facility] No Information 2 Will Veto. [address] [facility] [place], [place], [id number] , [place]. tel:[phone] [facility], [address], [place], [id number] , [place] tel:[phone] [facility] [place] No Information 2 Vinicio Argueta. [address] [facility] [address], [place], [place], [id number] , [place]. tel:[phone] Referring Provider: Veto Norman, [address] [place], [address]. tel:[phone] OFFICE/OUTPA TIENT VISIT, [facility], [address], [place], [id number] , [place] tel:[phone] [facility] Back pain (chief complaint) Chronic pain syndromeLow back pain, unspecifiedLong term (current) use of opiate analgesicEncounter for therapeutic drug level monitoring 2 Vinicio Argueta. [address] [facility] [address], [place], [place], [id number] , [place]. tel:[phone] Referring Provider: [facility] [address], [place], [address]. tel:[phone] Family History Family Member Type Diagnosis Age At Onset Sister Problem Back pain/issues Payers Payer name Insurance type Covered alliance party ID Authorshayan roth(s) Blue Cross Blue Jojo Gentile BL [id number] 2 Social History Type Description Quantity Date [...] Goal AST (SGOT). 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 Due on due Goal OARS. [...] due Goal HPV. Due on due Goal OLIVE PICKER Scanned. Due on due Goal Creatinine. Due on due Goal UDT. Due on due Goal Creatinine. Due on due Goal OLIVE PICKER Scanned. 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 Due on due Goal OARS. Due on due Goal ALT (SGPT). Due on due Goal AST (SGOT). Due on due Goal Order Annual PT. Due on due Goal OARS. Due on due Goal AST (SGOT). Due on due Goal UDT. Due on due Goal OLIVE PICKER Scanned. Due on due Goal ALT (SGPT). Due on due Goal Creatinine. Due on due Goal Order Annual PT. 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 Due on due Goal Hepatitis C screening. [...] Medication Reconciliation. D ue on due Goal Height. Due on d [...] back surgery with Dr. Justin Cuba of [facility] in 2015. Reports that Further surgery of her upper lumbar region was recommended, but patient would not like to pursue further surgical intervention. Pain is characterized as dull, sore, and tight pain. Secondarily notes constant tingling in BL feet. Pain level averages 8/10.For pain management, patient has tried PT at [facility], has undergone a lumbar epidural steroid injection at [facility], and has tried the following medications:- Gabapentin- Lyrica- Cyclobenzaprine- NSAIDS- Tramadol- Codeine- HydrocodoneCurrently managed on Oxycodone 10mg QID and OxyContin 15mg BID, prescribed by her new PCP, Dr. Bk Handy, at [facility].Sheri is interested in pain management through [facility]. No other concerns today. Functional Status Date Functional Assessmen t No Information Instructions Date Instruction Additional Infor mation No Information Assessments Type Assessment Date No Information Patient Care Teams Name Effective Dates (start - stop) Status Members No Information
--- OUTSIDE RECORDS SUMMARY | 2025-01-19 18:53 | XMS_ITS | Clinical Summary ---
Author Organization [facility] Address [address] [place] [address] Care Team Providers Care Boiler Tender Name Role Phone Natalie Ramos Lalita AUSTIN Unavailable Kel Salvador MD Unavailable [phone] Jusitn Cuba MD Primary Care Provider Allergies Active Allergy Reactions Criticality Noted Date Comments Adhesive Tape Contact Dermatitis Low 09/05/2007 redness and hives under dressing Duloxetine Nausea Only Medium 01/21/2016 Gabapentin Hallucinations 11/28/2018 Latex Other - Describe In Comment Field Low 02/15/2010 Skin irritation ,itching from bandaids and latex tape Tramadol Mental Status Change High 06/15/2014 hallucination Medications amLODIPine (NORVASC) 10 mg tabletIndications: Essential hypertension [...] meal. 90 Capsule 2 08/25/20 24 Active oxyCODONE 10 mg tabletIndications: Chronic bilateral [...] for Pain. 120 Tablet 11/06/19 25 Active lidocain-me.salicy f-[id number] 4-20-0.025-5 % topical patch Apply 2 Patches on dry, clean, hairless skin once daily if needed for Pain. Salon Pas or Equivalent 0 05/06/20 21 025 Discontinu ed(*Med complete/R egimen complete/L evel of care change) aspirin (ECOTRIN) 81 mg enteric coated tablet Take 1 Tablet (81 mg) by mouth once daily. 025 Discontinu ed(*Med complete/R egimen complete/L evel of care change) oxyCODONE 10 mg tabletIndications: Chronic bilateral low back pain with left-sided sciatica,S/P lumbar spinal fusion,Peripheral sensory neuropathy Take 1 Tablet (10 mg) by mouth every 6 hours if needed for Pain. 120 Tablet 12/07/19 25 025 oxyCODONE (OXYCONTIN) 15 mg SUSTAINED release tabletIndications: Chronic bilateral low back pain with left-sided sciatica,S/P lumbar spinal fusion,Peripheral sensory neuropathy Take 1 Tablet (15 mg) by mouth every 12 hours. 60 Tablet 12/07/19 25 025 Active Problems Problem Noted Date Diagnosed Date Urinary incontinence 01/14/2024 Overview (01/14/2024): Uses Pessary CAD in [place] artery 09/26/2021 Overview (09/26/2021): CT Cardiac Coronary: 09/19/2021 1. This is a dual read study - please review [facility] over-read below for incidental non cardiac [...] any concerns. Tiesha Chavez CMA (AAMA) 01/18/2018 DRY ROOM ATTENDANT Query Ran today and patient filling controlled [...] Resolved Date Coronary artery disease invo lving [place] coronary artery of [place] heart with angina pectoris 09/19/2021 09/26/2021 Radicular leg pain, left 04/19/201504/2019 Paresthesias 05/20/2014 08/01/2019 Dysthymic disorder 07/12/2009 4 HTN (hypertension) 09/25/2008 9 Overview (12/07/2009): Updated by system to replace inactive record Urinary tract infection, site not specified 12/19/2005 04/17/2012 Encounters Date Type Department Care Team Description 01/13/2025 6:00 AM CDT Office Visit [facility] at [address] [address] Dejon Wei MD Surgery Scheduled 01/13/2025 Lab Requisition [facility] [phone] Grace Barros MD 01/13/2025 Lab Requisition [facility] [phone] Grace Barros MD 01/08/2025 Orders Only [facility] Scanner 1 scan: (1-Ord) INCOMING RECORDS-CT, [facility], 01/08/2025 01/08/2025 Orders Only [facility] Scanner 1 scan: (1-Ord) INCOMING RECORDS-MRI, [facility], 01/08/2025 01/08/2025 Orders Only [facility] Scanner 1 scan: (1-Ord) INCOMING RECORDS-LABS, [facility], 01/08/2025 01/07/2025 Nurse Triage [facility] [place] [address] [place] [address] Justin Cuba MD Abdominal Pain 01/07/2025 Telephone [facility] [place] [address] [place] [address] [address] Justin Cuba MD Questions (Appendix) 01/05/2025 1:00 PM CDT Office Visit [facility] [address] [place] [address] Dejon Wei MD Consult (Ventral hernia ) 01/04/2025 Travel 01/02/2025 1:00 PM CDT Office Visit [facility] [place] [address] [place] [address] Justin Cuba MD Preoperative Exam 01/02/2025 Travel 12/31/2024 Travel 12/11/2024 Nurse Triage [place] [address] [place] [address] Justin Cuba MD Pain (Side pain radiating through lower back- pt has had kidney stones in the past (feels the same)) 11/06/2024 Telephone [facility] [place] [address] [place] [address] Justin Cuba MD Medication Problem (Pharmacy out of meds) 10/29/2024 Nurse Triage [facility] [place] [address] [place] [address] Justin Cuba MD Leg Pain/problem 10/27/2024 Nurse Triage [facility] [place] [address] [place] [address] Justin Cuba MD Appointment Request (Left leg pain) 10/27/2024 Nurse Triage [place] [address] [place] [address] Justin Cuba MD Error-please disregard (OPENED IN ERROR) 10/22/2024 4:00 PM PROFESSOR OF PRACTICE Office Visit [facility] [place] [address] [place] [address] Justin Cuba MD Pain (Deep mid/low back pain, radiates from groin to back, when getting out of bed in the morning needing to hold breath. L>now right); Neck Pain/problem (Left sided intermittent neck/throat inflamed? More so when turning head); Medication Management (Renew; OK to fill 2 days early? Leaving for [place] 11/07, controlled substances due to fill on ) 10/22/2024 Travel from Last 3 Months Immunizations Immunization Administration Dates Next Due COVID-19 vaccine ([place]-J& J) PFSIDDHARTH 12/18/2020 COVID-19 vaccine ([employer] NTech 30mcg/0.3mL) PFSIDDHARTH 09/26/2021 Influenza, IIV3 (Age >=3 years) 05/16/2015,01/02 Influenza, IIV4 08/06/2019, 8,10/13/2017,2016,10/18/2016 Influenza, IIV4 (=>6mos) MDV 06/20/2020 Influenza, RIV3 (Age =>18 Years) 06/15/2014 Tdap 01/21/2016 Family History Medical History Relation Name Comments Heart Disease Father Diabetes Maternal Grandmother Cancer Mother Lungs Heart Disease Mother [place] Relation Name Status Comments Father (Age 54 ) [place] Maternal Grandmother Mother Social History Tobacco Use [...] on file Legal Sex Female 5:50 AM PROFESSOR OF PRACTICE Gender Identity Not on file Sexual Orientation [...] Sign Reading Time Taken Comments Blood Pressure 133/84 01/05/2025 12:55 PM CDT Pulse 69 01/05/2025 12:55 PM CDT Temperature 36.7 C (98.1 F) 09/19/2021 9:09 AM PROFESSOR OF PRACTICE Respiratory Rate 18 09/19/2021 1:31 PM PROFESSOR OF PRACTICE Oxygen Saturation 99% 01/05/2025 12: 55 PM CDT Inhaled Oxygen Concentration - - Weight 94.7 kg (208 lb 11.2 oz) 025 12:55 PM CDT with shoes Height 162.6 cm (5' 4) 01/02/2025 12:5 3 PM CDT Body Mass Index 35.82 01/02/2025 12:53 PM CDT Plan of Treatment Upcoming Encounters Date Type Department Care Team (Late st Contact Info) Description 01/26/2025 3:45 PM CDT Office Visit [facility] [address] [place] [address] Dejon Wei MD [address] [place] [address] Health Maintenance Due Date Last Done Comments [...] ( season) 2024 09/26/2021, 12/18/2020 Influenza Vaccine (Season Ended) 2025 06/20/2020, 08/06/2019, 07/01/2018, Additional history exists BMI (ht and wt on same day) for age 18+ 01/02/2026 01/02/2025, 03/07/2024, 05/04/2021, Additional history exists Tetanus booster 01/20/2026 01/21/2016 [...] Cuba MD Medical Devices Implanted Type Area Intermodal Truck Driver Device Identifier Shelf Expiration Date Model / Serial / Lot Bone 1-4mm 30cc Medtronic Chips Canclls Freeze Dried - [id number] Implanted:Qty: 1 on 11/27/2018 by Wilbert Montelongo MD at [facility] N/A: Spine Medtronic Spine/Ortho 03/28/2023 [id number]# / / [id number] Plate Lmbr Celoron-L Stand Alone Lock - [id number] Implanted:Qty: 2 on 11/27/2018 by Wilbert Montelongo MD at [facility] N/A: Spine Chapo Spine [id number]# / / . Spacer Lmbr [id number] 8deg Avs-L Stand Alone - [id number] Implanted:Qty: 1 on 11/27/2018 by Wilbert Montelongo MD at [facility] N/A: Spine [place] Spine [id number]# / / . 5.5mm X 22mm Rescue Screw Lite Plate Implanted:Qty: 1 on 11/27/2018 by Wilbert Montelongo MD at [facility] N/A: Spine [id number] / / . Bone 1-4mm 60cc Medtronic Fine Canclls Freeze Dried - [id number] Implanted:Qty: 1 on 11/27/2018 by Wilbert Montelongo MD at [facility] N/A: Spine Medtronic Spine/Ortho 02/15/2023 [id number]# / / [id number] Screw Lmbr Post 8.5x50mm Ilios Va - [id number] Implanted:Qty: 2 on 11/27/2018 by Wilbert Montelongo MD at [facility] N/A: Spine [place] Spine [id number] / / . Screw Lmbr Post 6.5x45mm Xia3 Va - [id number] Implanted:Qty: 4 on 11/27/2018 by Wilbert Montelongo MD at [facility] N/A: Spine Chapo Spine [id number] / / . Screw Lmbr Post 6.5x40mm Xia3 Va - [id number] Implanted:Qty: 2 on 11/27/2018 by Wilbert Montelongo MD at [facility] N/A: Spine Chapo Spine [id number] / / . Set Screw Lmbr Xia3 - [id number] Implanted:Qty: 8 on 11/27/2018 by Wilbert Montelongo MD at [facility] N/A: Spine [place] Spine [id number] / / . Oni Lmbr [id number] Xia3 Cvd Titnm - [id number] Implanted:Qty: 1 on 11/27/2018 by Wilbert Montelongo MD at [facility] N/A: Spine Chapo Spine [id number]# / / . Bone Matrix 5cc Progenix Plus Putty Dbm - [id number] Implanted:Qty: 1 on 11/27/2018 by Wilbert Montelongo MD at [facility] N/A: Spine Medtronic Spine/Ortho 05/15/2020 [id number]# / / [id number] Oni Lmbr [id number] Xia3 Titnm - [id number] Implanted:Qty: 1 on 11/27/2018 by Wilbert Montelongo MD at [facility] N/A: Spine Chapo Spine [id number]# / / . Bone Matrix 5cc Progenix Plus Putty Dbm - [id number] Implanted:Qty: 1 on 11/27/2018 by Wilbert Montelongo MD at [facility] N/A: Spine Medtronic Spine/Ortho 04/22/2020 [id number]# / / [id number] Bone Matrix Lg Infuse Bmp - [id number] Implanted:Qty: 1 on 11/27/2018 by Wilbert Montelongo MD at [facility] N/A: Spine Medtronic Spine/Ortho 10/25/2020 [id number]# / / [id number] Bone Matrix 10cc Stimulan Kit Rapid Cure - [id number] Implanted:Qty: 1 on 11/27/2018 by Wilbert Montelongo MD at [facility] N/A: Spine [employer] 06/23/2021 [id number]# / / [id number]/11-[id number]/[id number] 80 Description:Mixed with Tobra mycin 1.2g Spacer Lmbr [id number] 12deg Avs-L Stand Alone - [id number] Implanted:Qty: 2 on 11/27/2018 by Wilbert Montelongo MD at [facility] N/A: Spine Chapo Spine [id number]# / / . 23mm Plate - Lite Plate Implanted:Qty: 1 on 11/27/2018 by Wilbert Montelongo MD at [facility] N/A: Spine [id number] / / . Description:REF: [id number] 5.0 X 25mm Screw - Lite Plate Implanted:Qty: 3 on 11/27/2018 by Wilbert Montelongo MD at [facility] N/A: Spine [id number] / / . Screw Lmbr 6x25mm Ancr-L Standalone - [id number] Implanted:Qty: 6 on 11/27/2018 by Wilbert Montelongo MD at [facility] N/A: Spine [place] Spine [id number] / / . Explanted Type Area Intermodal Truck Driver Device Identifier Shelf Expiration Date Model / Serial / Lot Screw Sm Joint 4.5x20mm Axsos Malcom Titnm - [id number] Explanted:Qty: 6 on 11/27/2018 by Wilbert Montelongo MD at [facility] N/A: Spine [place] [employer] [id number] / / . Procedures Procedure Name Priority Date/Time Associated Diagnosis Comments LAB TRACKING EVENT Routine 01/13/2025 12 :00 PM CDT PATH NON WHITE WASHER PILER CYTOLOGY Routine 01/13/2025 12:00 PM CDT PATH TISSUE EXAM Routine 01/13/2025 8:14 AM CDT LAB TRACKING EVENT Routine 01/13/2025 6: 06 AM CDT SCAN CORRESP-LABORATORY RESULTS 01/08/2025 12:00 AM CDT SCAN CORRESP-IMAGING 01/08/2025 12:00 AM CDT SCAN CORRESP-IMAGING 01/08/2025 12:00 AM CDT HEMOGLOBIN Routine 01/02/2025 2:32 PM CDT Essential hypertension POTASSIUM Routine 01/02/2025 2:32 PM CDT Essential hypertension ND ECG ROUTINE ECG W/LEAST 12 LDS W/I&R Routine 01/02/2025 Essential hypertension LIPID PANEL W REFLEX MEASURED LDL Routine 01/14/2024 4:42 PM CDT Hyperlipidemia, unspecified hyperlipidemia type SCAN-COLONOSCOPY 10/30/2022 12:0 0 AM PROFESSOR OF PRACTICE XR MAMMO BILAT SCREEN FFDM (IA) Routine 06/23/2016 3:34 PM CDT Encounter for mammogram to establish baseline mammogram from Last 3 Months or Most Recently Relevant to Health Maintenance Results * LAB TRACKING EVENT (01/13/2025 12:00 PM CDT) Only the most recent of2 resultswithin the time period is included. Other (Other) Client Collect / Unknown 01/13/2025 12:00 PM CDT 01/13/2025 3:05 PM CDT us Grace Barros MD LAB BILL ONLY Fi nal Result [facility] [address] [place] [address], [place] * PATH NON WHITE WASHER PILER CYTOLOGY (01/13/2025 12:00 PM CDT) Case Report Medical Cytology Report Case: [id number] Authorizing Provider: Grace Barros Collected: 01/13/2025 1200 MD Celeste Ordering Location: [facility] Received: 01/13/2025 1500 Pathologist: Geovanny Fernandes MD Specimen: Peritoneal Washing 01/14/2025 12:46 PM CDT [facility] Final Diagnosis PERITONEAL WASHINGS, CYTOLOGIC MATERIAL: Negative for malignancy in this sample 01/14/2025 12:46 PM CDT [facility] at 1246 CDT Clinical Information Right oophorectomy. See case [id number]. 01/14/2025 12:46 PM CDT [facility] Gross Description A) SOURCE: Peritoneal washing The specimen consists of 50 cc of light red hazy fluid from which the following is prepared: -1 Papanicolaou stained ThinPrep slide 01/14/2025 12:46 PM CDT [facility] Microscopic Description All slides were reviewed microscopically. Specimen adequacy: Adequate for interpretation. The microscopic appearance substantiates the diagnosis. 01/14/2025 12:46 PM CDT [facility] Additional Information Cytology is screened at [facility] - [address] [place] [address] and [facility] - [address], [place] [address] and [facility] - [address] [place] [address] Interpreted at [facility] - [address], [place] [address] 01/14/2025 12:46 PM CDT [facility] Other (Peritoneal Washing) 01/13/2025 12:00 PM CDT 01/13/2025 3:00 PM CDT Grace Barros MD PATHOLOGY/CYTOLOGY Final Result [facility] [address] [place] [address], [place] * PATH TISSUE EXAM (01/13/2025 8:14 AM CDT) Case Report Pathology Report Case: [id number] Authorizing Provider: Grace Barros Collected: 01/13/2025 0814 MD Celeste Ordering Location: [facility] Received: 01/13/2025 1606 Pathologist: Slava Hahn MD Specimen: Right Ovary 01/15/2025 2:44 PM CDT [facility] Final Diagnosis A) RIGHT OVARY, OOPHORECTOMY: 1. Simple serous cysts, benign 2. Atrophy 3. Corpora albicantia 4. Negative for borderline tumor or malignancy 01/15/2025 2:44 PM CDT [facility] at 1444 CDT Clinical Information 59-year-old with incidental imaging finding of a right ovarian cystic mass. CA125, CA 19-9 within normal limits. 01/15/2025 2:44 PM CDT [facility] Gross Description A) Received fresh labeled with the patient's name and right ovary, is a 27 g, 5.0 x 4.2 x 3.7 cm partially disrupted multicystic ovary. The specimen is inked blue and serially sectioned. Nearly all the cysts are filled with clear fluid and have a smooth inner cyst wall lining except for a 1.5 x 1.1 x 0.8 cm pink rubbery nodule. Shift Manager sections are submitted in 4 cassettes. Time and date in formalin: 825 on 01/13/2025 TRS 01/13/2025 01/15/2025 2:44 PM CDT [facility] Microscopic Description The final diagnosis is based on microscopic examination of appropriate sections of all specimens. 01/15/2025 2:44 PM CDT [facility] Additional Information Interpreted at [facility] - [address] [facility] [address], [place] [address] 01/15/2025 2:44 PM CDT [facility] Other (Right Ovary) 01/13/2025 8:14 AM CDT 01/13/2025 4:06 PM CDT us Grace Barros MD PATHOLOGY/CYTOLOGY Final Result [facility] [address] [place] [address], [place] * SCAN CORRESP-LABORATORY RESULTS (01/08/2025 12:00 AM CDT) us Scanner OTHER Final Result * SCAN CORRESP-IMAGING (01/08/2025 12:00 AM CDT) Only the most recent of2 resultswithin the time period is included. Anatomical Region Laterality Modality Other us Scanner OTHER Final Result * HEMOGLOBIN (01/02/2025 2:32 PM CDT) HEMOGLOBIN 11.8 11.7 - 15.5 g/dL [facility] [employer] Blood BLOOD SPECIMEN / Unknown 01/02/2025 2:32 PM CDT 01/02/2025 2:32 PM CDT us Justin Cuba MD HEMATOLOGY Final R esult [employer] [facility] [address] [place] [address], [place] [phone] [facility] [address] [place] [address] * POTASSIUM (01/02/2025 2:32 PM CDT) POTASSIUM 4.3 3.5 - 5.3 mmol/L [facility] Blood BLOOD SPECIMEN / Unknown 01/02/2025 2:32 PM CDT 01/02/2025 2:32 PM CDT Justin Cuba MD CHEMISTRY Final R esult [employer] [facility] [address] [place] [address], [employer] [facility] [address] [place] [address] * ND ECG ROUTINE ECG W/LEAST 12 LDS W/I&R (01/02/2025) Justin Cuba MD PB - CARDIOVASCULAR SYS TEM SERVICES Final Result * (ABNORMAL) LIPID PANEL W REFLEX MEASURED LDL (01/14/2024 4:42 PM CDT) CHOLESTEROL,TOTAL 311(H) 100 - 199 mg/dL 01/15/2024 4:20 AM CDT [facility] Comment: Cholesterol, Total Reference Ranges Desirable <200 mg/dL Borderline 200-239 mg/dL High >=240 mg/dL TRIGLYCERIDES 334(H) <150 mg/dL 01/15/2024 4:20 AM CDT [facility] HDL CHOLESTEROL 42 >40 mg/dL 4 4:20 AM CDT [facility] NON-HDL CHOLESTEROL 269(H) <145 mg/dl 01/15/2024 4:20 AM CDT [facility] CHOL/HDL RATIO 7.40(H) <4.50 01/15/2024 4:20 AM CDT [facility] LDL CHOLESTEROL 202(H) <=130 mg/dL 01/15/2024 4:20 AM CDT [facility] VLDL CHOLESTEROL 67(H) <=30 mg/dL 01/15/2024 4:20 AM CDT [facility] PROVIDER ORDERED STATUS RANDOM 01/15/2024 4:20 AM CDT [facility] Blood BLOOD SPECIMEN / Unknown Venipuncture / Unknown 01/14/2024 4:42 PM CDT 01/14/2024 4:42 PM CDT Justin Cuba MD CHEMISTRY Final R esult [facility] [address] [place] [address], [place] * SCAN-COLONOSCOPY (10/30/2022 12:00 AM PROFESSOR OF PRACTICE) us Scanner OTHER Final Result * XR [...] of Computer-Aided Detection. COMPARISON FILMS: Yes 12/22/13 [facility] 11/02/08 [facility] FINDINGS: Mammographically, the breast tissue has scattered fibroglandular densities. No suspicious masses or microcalcifications. Post surgical changes within right breast. Justin Cuba MD MAMMO Final R esult from Last 3 Months or Most Recently Relevant to Health Maintenance Insurance [place] [address] [place] Advance Directives * Full Code (Latest Code [...] 10:04 PM 01/01/2013 8:31 PM Care Teams Boiler Tender Relationship Specialty Start Date End Date Justin Cuba MD [address] [place] [address] PCP - General Family Practice 10/10/23 Natalie Ramos NP Pain Management Nurse Practitioner 06/10/19 Kel Salvador MD [address] [place] [address] (work) Cardiovascular Disease 12/02/21
--- NOTE | 2025-01-19 19:12 | ED_ITS ---
HPI - General Adult General Time Seen by Provider: 19:12 Date Seen: 01/19/25 Chief complaint: Back Injury/Pain Stated complaint: lower back pain after surgery Time Seen by Provider: 01/19/25 19:11 Source: patient, RN notes reviewed and old records reviewed Mode of arrival: ambulatory Limitations: no limitations History of Present Illness HPI narrative: Sheri is a very pleasant 59-year-old with multiple medical problems including recent oophorectomy in hernia repair on January 13, history of cholecystectomy lumbar fusion. Non-STEMI with coronary artery disease, hysterectomy and chronic pain medication use who comes to the emergency room for increasing right flank pain. Sheri initially presented with this pain on December 11 at which time she was diagnosed with a UTI as well as a right ovarian mass. She notes that the pain has been constant on the right flank since that time but is now increasing. She thought perhaps she was experiencing increased constipation from her pain medications and that was causing pain but she has no abdominal pain. She does describe slight nausea with this and occasionally her heart races and she gets a pounding headache. She has not had any recent falls. She shows the pain to be to the right of the T12-L1 area. She notes that the pain markedly increases with any movement but she cannot press on her back and cause the discomfort. She has not noticed any lesions in this area. She has no pain with urination. No blood in her stool. Currently she is taking oxycodone and OxyContin for chronic pain. Patient was admitted to the hospital on 01/13 and discharged on Tuesday 01/16. Related Data Home Medications ?Medication ?Instructions ?Recorded ?Confirmed losartan 100 mg tablet 100 mg PO DAILY 01/09/25 01/19/25 rosuvastatin 20 mg tablet 20 mg PO QPM 01/09/25 01/19/25 amlodipine 10 mg tablet 10 mg PO DAILY 01/13/25 01/19/25 omeprazole 20 mg capsule,delayed 20 mg PO DAILY 01/13/25 01/19/25 release oxycodone 10 mg tablet 10 mg PO Q6H PRN pain 01/13/25 01/19/25 zolpidem 5 mg tablet 5 mg PO HS PRN insomnia 01/13/25 01/19/25 Previous Rx's ?Medication ?Instructions ?Recorded metoprolol succinate 100 mg 100 mg PO BID #180 tabs 10/04/23 tablet,extended release 24 hr naloxone 4 mg/actuation nasal 4 mg intranasal Q2-3M PRN opioid 10/04/23 spray (Narcan) overdose #2 ea oxycodone 15 mg tablet,crush 15 mg PO BID #60 tabs 12/17/23 resistant,extended release 12 hr (OxyContin) metoclopramide HCl 5 mg tablet 5 mg PO QID #12 tabs 01/16/25 (Reglan) cefpodoxime 200 mg tablet 200 mg PO BID #14 tabs 01/19/25 Allergies Allergy/AdvReac Type Severity Reaction Status Date / Time latex Allergy Mild Rash Verified 01/19/25 21:15 gabapentin AdvReac Severe Hallucinati Verified 01/19/25 21:15 ons adhesive tape AdvReac Intermediate Rash Verified 01/19/25 21:15 duloxetine (From Cymbalta) AdvReac Intermediate Rash Verified 01/19/25 21:15 tramadol AdvReac Intermediate Rash Verified 01/19/25 21:15 Review of Systems Status of ROS: Reports: 10 or more systems reviewed and unremarkable except as noted in History and below Const: Denies: fever, chills or fatigue Eyes: Denies: change in vision ENMT: Denies: neck pain or nasal congestion Cardio: Reports: palpitations; Denies: chest pain, swelling of feet/ankles or shortness of breath with exertion Resp: Reports: cough (Slight and nonproductive); Denies: shortness of breath GI: Reports: nausea; Denies: abdominal pain or vomiting : Denies: painful urination or urinary frequency Musculo: Reports: back pain; Denies: neck pain or extremity pain Integ/Breast: Denies: rash Endo: Denies: fatigue [facility] Medical History Obesity (BMI 30-39.9) ?E66.9 - Obesity, unspecified (ICD-10) Atypical chest pain ?R07.89 - Other chest pain (ICD-10) Pelvic mass ?R19.00 - Intra-abdominal and pelvic swelling, mass and lump, unspecified site (ICD-10) Cyst of left lower eyelid ?H02.825 - Cysts of left lower eyelid (ICD-10) Adjustment disorder with mixed anxiety and depressed mood ?F43.23 - Adjustment disorder with mixed anxiety and depressed mood (ICD-10) Age-related cataract of both eyes ?H25.9 - Unspecified age-related cataract (ICD-10) Opioid dependence ?F11.20 - Opioid dependence, uncomplicated (ICD-10) Chronic pain syndrome ?G89.4 - Chronic pain syndrome (ICD-10) Spondylolisthesis of lumbar region ?M43.16 - Spondylolisthesis, lumbar region (ICD-10) Peripheral sensory neuropathy ?G60.8 - Other hereditary and idiopathic neuropathies (ICD-10) Urinary incontinence ?R32 - Unspecified urinary incontinence (ICD-10) GERD (gastroesophageal reflux disease) ?K21.9 - Gastro-esophageal reflux disease without esophagitis (ICD-10) Vitamin D deficiency ?E55.9 - Vitamin D deficiency, unspecified (ICD-10) Coronary artery disease ?I25.10 - Atherosclerotic heart disease of [place] coronary artery without angina pectoris (ICD-10) Hyperlipidemia ?E78.5 - Hyperlipidemia, unspecified (ICD-10) Insomnia ?G47.00 - Insomnia, unspecified (ICD-10) Polypharmacy ?Z79.899 - Other senior care (current) drug therapy (ICD-10) Back pain, chronic ?M54.9 - Dorsalgia, unspecified (ICD-10) ?G89.29 - Other chronic pain (ICD-10) HTN, goal below 140/90 ?I10 - Essential (primary) hypertension (ICD-10) Kidney calculus ?N20.0 - Calculus of kidney (ICD-10) Surgical History Status post right oophorectomy (01/13/25) ?Z90.721 - Acquired absence of ovaries, unilateral (ICD-10) History of hysterectomy (~1990) ?Z90.710 - Acquired absence of both cervix and uterus (ICD-10) History of tubal ligation (1994) ?Z98.51 - Tubal ligation status (ICD-10) H/O ovarian cystectomy ?Z98.890 - Other specified postprocedural states (ICD-10) ?Z87.42 - Personal history of other diseases of the female genital tract (ICD-10) History of hernia repair ?Z98.890 - Other specified postprocedural states (ICD-10) ?Z87.19 - Personal history of other diseases of the digestive system (ICD-10) History of lumbar surgery (12/2012) ?Z98.890 - Other specified postprocedural states (ICD-10) History of lumbar fusion ?Z98.1 - Arthrodesis status (ICD-10) History of breast biopsy (04/12/07) ?Z98.890 - Other specified postprocedural states (ICD-10) History of cholecystectomy (1990) ?Z90.49 - Acquired absence of other specified parts of digestive tract (ICD- 10) History of oophorectomy Family History Father Coronary artery disease Mother Lung cancer Myocardial infarction Heart disease Maternal Grandmother Diabetes Social History What is your current living situation?: I presently have a place to live Smoking Status: Never smoker Do you use any of these nicotine containing products: None Second hand tobacco smoke exposure: No How often do you have a drink containing alcohol: never How often do you have six or more drinks on one occasion: Never AUDIT-C Alcohol total score: 0 Non-prescribed substance use: denies use Caffeine: Yes service: No Exam Narrative: Exam Narrative: Sheri is alert and oriented. She is pale in appearance. Sitting on the edge of the bed in room 5. Mentation and speech is normal. EOM is normal. Face symmetrical. Lips are dry. Heart with a regular rate and rhythm. Lungs are clear bilaterally. Palpation down the thoracic and lumbar spine yield no tenderness. Well-healed scar over the lumbar spine. No palpable discomfort over the right flank. However when patient had to twist or get into bed she has a greatly increased discomfort. No obvious rash. Abdomen is soft. Bowel sounds are decreased. No palpable t enderness. Surgical incisions clean dry and intact. Lower extremities moving without difficulty. A dressing removed from left lower quadrant suspected former drain site. There is a 1 cm incision, open. No surrounding erythema. Serous fluid present but no purulence noted. Const: Vital Signs, click to edit/add: Vital Signs - 24 hr 01/19/25 19:08 01/19/25 20:10 01/19/25 20:10 Temperature 98.1 F Pulse Rate 80 84 Pulse Rate [Right Pulse Oximeter] 85 Respiratory Rate 18 16 13 Blood Pressure 145/89 H 145/89 H Blood Pressure [Le ft Upper Arm] 165/89 H Pulse Oximetry 97 98 99 Oxygen Delivery Me thod Room Air Room Air 01/19/25 20:11 01/19/25 20:15 01/19/25 20:30 Temperature Pulse Rate 84 87 88 Pulse Rate [Right Pulse Oximeter] Respiratory Rate 22 18 23 Blood Pressure Blood Pressure [Le ft Upper Arm] Pulse Oximetry 97 97 99 Oxygen Delivery Me thod 01/19/25 21:15 01/19/25 21:30 Temperature Pulse Rate 77 78 Pulse Rate [Right Pulse Oximeter] Respiratory Rate Blood Pressure Blood Pressure [Le ft Upper Arm] Pulse Oximetry 98 100 Oxygen Delivery Me thod Documenting provider has reviewed patient's vital signs: yes Course Course ED Course: Differential diagnosis includes but is not limited to pyelonephritis, ureteral colic, UTI, intra-abdominal pathology, radiculitis, kidney stone. Will place IV and give Toradol 15 mg, Zofran 4 mg. Will start with flat plate and upright and based on laboratory values will discuss with Sheri need for CT. Given her past history of STEMI and the rapid heart rate that she describes will also obtain EKG and troponin in place patient on environmental monitoring specialist. He is in agreement with our plan. Initial IV failed and this patient was given Toradol 15 mg IM. She does think this helped her pain somewhat. Reevaluation(s) Reevaluation #1: Patient notes if she does not move she has no pain. X-ray shows increased stool burden but no signs of free air. Laboratory values do include a mild elevation of AST and ALT where as before they had been normal along with positive nitrate urinalysis but no white cells. Hemoglobin and white count are within normal limits. Because of the significant discomfort we have elected to go ahead with abdominal CT. Reevaluation #2: Abdominal CT/thoracic CT does show arthritic changes especially on the right thoracic spine. No masses, hematoma in the back. There does not appear to be any hardware failure. There is a anterior wall fluid collection. As well as a pulmonary nodule that will need a dedicated chest CT for evaluation. Consultations Consultation #1: I had spoken with Dr. Enrique regarding this patient. She was able to view this CT. While the fluid collection most likely represent seroma there is an area of subcutaneous gas. Abdominal exam is reassuring as is white count and she is afebrile. Will use cefpodixime for treatment of both UTI as well as potential abdominal infection. Further recommendation to follow up on Sunday with Dr. Tamayo in the surgery Clinic. Vital Signs Vital signs: Initial Vital Signs Temperature 98.1 F 01/19/25 19:08 Temperature Source Temporal Artery Scan 01/19/25 19:08 Pulse Rate 85 01/19/25 19:08 Respiratory Rate 18 01/19/25 19:08 Blood Pressure 165/89 H 01/19/25 19:08 Blood Pressure Mean 114 H 01/19/25 19:08 Blood Pressure Position Sitting 01/19/25 19:08 Pulse Oximetry 97 01/19/25 19:08 Oxygen Delivery Method Room Air 01/19/25 19:08 Vital Signs Temperature 98.1 F 01/19/25 19:08 Pulse Rate 85 01/19/25 19:08 Respiratory Rate 18 01/19/25 19:08 Blood Pressure 165/89 H 01/19/25 19:08 Pulse Oximetry 97 01/19/25 19:08 Oxygen Delivery Method Room Air 01/19/25 19:08 Temperature 98.1 F 01/19/25 19:08 Pulse Rate 78 01/19/25 21:30 Respiratory Rate 23 01/19/25 20:30 Blood Pressure 145/89 H 01/19/25 20:10 Pulse Oximetry 100 01/19/25 21:30 Oxygen Delivery Method Room Air 01/19/25 20:10 Medications Administered Medications: Discontinued Medications Generic Name Dose Route Start Last Admin Trade Name Freq PRN Reason Stop Dose Admin Sodium Chloride 500 mls @ 500 mls/hr 01/19/25 20:36 01/19/25 22:25 0.9 % Sodium Chloride 500 Ml IV 01/19/25 21:35 Infused .Q1H ONE Infusion Ketorolac Tromethamine 30 mg 01/19/25 19:50 01/19/25 20:03 Ketorolac 30 Mg/Ml Inj IM 01/19/25 19:51 30 mg ONCE ONE Administration Medical Decision Making MDM Narrative Medical decision making narrative: 1. UTI-patient noted to have UTI on December 11 treated with Keflex. Urine culture grew out E coli with intermediate sensitivity to Keflex. Patient states she only took the medicine for 2 days and then she was told by her primary that she had no infection and thus discontinue the antibiotic. Kidney appears normal on the CT. Certainly early pyelonephritis needs to be considered but her pain is mainly with movement. Patient given Rocephin 1 g IM this evening in the ED Will treat with Cefpodoxime 200 mg p.o. b.i.d. x7 days. This was sent to her pharmacy. Will await urine culture. 2. Abdominal fluid collection-patient is status post hernia repair and right oophorectomy. Pathology notes simple serous cyst negative for malignancy. Fluid collection is 8 x 7-1/2 x 1 cm. Surgical suggestion is to wear the abd ominal binder which she has at home. Further, roll up a washcloth and put over the surgical site. Follow-up with Dr. Tamayo on SundayJanuary 21. Will have our motel front desk attendant missed this appointment and call patient with the correct time. 3. Right flank pain-no obvious causes noted on CT. Patient seems to have this with significant movement and I am wondering if we are dealing with a foraminal stenosis or some type of hardware issue. Pain came on 3 weeks ago and now has gotten worse again. Recommend follow-up for MRI schedule of a lower thoracic lumbar MRI. Patient has an appointment with her spine surgeon in early January. No lower extremity symptoms. 4. Constipation-offered patient enema here which she has declined. We have given her a Fleet[employer] to take home with her. She has already taken MiraLax x2 today. 5. Pulmonary nodule-incompletely characterized on the abdominal CT. Recommendation is for dedicated chest CT which we will defer to primary MD. This was discussed with the patient. 6. Disposition-home at this time. Seek medical attention for worsening symptoms and as needed. Medical Records Medical records reviewed: Yes I reviewed the patient's medical records Lab Data Lab results reviewed: Yes I reviewed the patient's lab results Labs: Lab Results 01/19/25 01/19/25 Range/Units 19:45 19:48 WBC 9.75 (4.50-11.00) K/uL RBC 4.77 (4.00-5.20) m/uL Hgb 12.9 (12.0-16.0) gm/dL Hct 40.2 (33.0-51.0) % MCV 84 (80-100) fL MCH 27 (26-34) pg MCHC 32 (32-36) gm/dL RDW Coeff of [place] 13.0 (11.5-15.5) % Plt Count 292 (140-440) K/uL Neut % (Auto) 62.9 (42.0-72.0) % Lymph % (Auto) 22.6 (20-44) % [place] % (Auto) 7.9 (0.0-11.0) % Eos % (Auto) 4.2 (0.0-7.0) % Baso % (Auto) 0.3 (0.0-3.0) % Neut # (Auto) 6.14 (1.7-7.0) K/uL Lymph # (Auto) 2.20 (0.90-2.90) K/uL [place] # (Auto) 0.80 (0.00-0.90) K/UL Eos # (Auto) 0.41 (0.00-0.50) K/uL Baso # (Auto) 0.03 (0.00-0.30) K/uL Abs Immat Gran (auto) 0.20 (0.00-0.30) K/uL Imm/Tot Granulo (auto) 2.1 % Sodium 140 (135-149) mmol/L Potassium 3.8 (3.6-5.1) mmol/L Chloride 103 (96-114) mmol/L Carbon Dioxide 24 (20-32) mmol/L Anion Gap 13 (7-15) mEq/L BUN 18 (7-30) mg/dL Creatinine 0.9 (0.5-1.5) mg/dL Estimated Creat Clear 57.05 Estimated GFR 75 ml/min Glucose 102 (60-115) mg/dL Calcium 9.8 (8.4-10.6) mg/dL Total Bilirubin 1.3 (0.1-1.5) mg/dL AST 46 H (12-35) U/L ALT 47 H (4-35) U/L Alkaline Phosphatase 124 (40-150) U/L Troponin I < 0.01 (0.01-0.04) ng/mL Total Protein 8.3 (6.0-8.3) g/dL Albumin 4.7 (3.3-5.0) g/dL Urine Color Yellow (Yellow) Urine Appearance Clear (Clear) Urine pH 5.5 (5.0-8.5) Ur Specific [place] 1.025 (1.000-1.030) Urine Protein Trace A (Negative) Urine Glucose (UA) Negative (Negative) Urine Ketones Negative (Negative) Urine Blood Negative (Negative) Urine Nitrite Positive A (Negative) Urine Bilirubin Negative (Negative) Urine Urobilinogen 0.2 (0.2-1.0) Ur Leukocyte Esterase Negative (Negative) Urine RBC 0-2 (0-2) Urine WBC 2-5 (0-5) Ur Squamous Epith Cells Few (None-Few) Urine Bacteria Few A (None) Lab Acknowledgement Test Added Imaging Data Abdominal x-ray: Attestation: I have reviewed the pertinent imaging results. My impression: I do not note any sign of free air. No evidence of bowel obstruction but there does appear to be increased stool Radiologist's impression: Bowel: Nonobstructive bowel gas pattern. Ijnk-qg-vrwdyuor colonic stool burden. Other: No sign of free air. No sign of soft tissue mass. The lung bases are clear. Postsurgical changes of lumbosacral spine. Impression: No evidence of an acute intra-abdominal process. CT scan - abdomen: Attestation: I have reviewed the pertinent imaging results. Radiologist's impression: Lower chest: Right middle lobe pulmonary nodule measuring 4 mm, not well seen on prior examination from 2021. Liver: Hepatic steatosis. Unchanged right hepatic parenchymal calcification. Gallbladder and bile ducts: Cholecystectomy. No suspicious biliary dilatation. Pancreas: Unremarkable Spleen: Unchanged splenic cyst measuring 1.0 cm. Adrenal glands: Unremarkable. Kidneys: Symmetric renal enhancement. Scattered bilateral renal hypodensities are too small to characterize on this exam, but likely represent cysts. No hydronephrosis or hydroureter. No urinary calculi identified. GI tract: No bowel obstruction. No suspicious bowel wall thickening. Normal caliber appendix. Vasculature: Atherosclerotic vascular calcifications. No abdominal aortic aneurysm. Grossly patent mesenteric vasculature. Lymph nodes: No suspicious lymphadenopathy. Peritoneum/Abdominal Wall: Postoperative changes of the anterior abdominal wall with thin intra-abdominal fluid collection along the anterior abdominal wall measuring up to 8.0 x 1.1 x 7.6 cm (CC x AP x TV). Foci of subcutaneous gas are noted along the anterior abdominal wall. No pneumoperitoneum. Pelvis: Normal bladder. No suspicious adnexal mass. Bones: Postoperative changes of the spine without obvious acute abnormality. IMPRESSION: 1. Thin intra-abdominal fluid collection along the anterior abdominal wall measuring up to 8.0 cm. While some of this may represent sequelae of recent surgical intervention, clinical correlation is recommended to exclude developing abscess. 2. Hepatic steatosis. 3. Right middle lobe pulmonary nodule measuring 4 mm, not well seen on prior examinations. Further characterization with outpatient dedicated chest CT recommended. Thoracic spine CT: Attestation: I have reviewed the pertinent imaging results. Radiologist's impression: No acute fracture or suspicious osseous lesion. The thoracic vertebral bodies maintain their normal heights with preserved thoracic kyphosis. No significant spondylolisthesis. There is multilevel spondylosis with endplate osteophyte formation more prominent on the right. Multilevel facet arthropathy is evident. Multilevel endplate degenerative changes without advanced disc space height loss. Limited evaluation of intraspinal contents on CT. Within these limitations, no advanced central canal or neural foraminal stenosis is appreciated. Paraspinal soft tissues are grossly within normal limits. Limited evaluation of intrathoracic contents demonstrates mild cardiomegaly in addition to coronary artery calcifications. There is a right upper lobe pulmonary nodule measuring 3 mm (series 3 image 77). A right middle lobe nodule measures 4 mm (series 3, image 119). Please refer to separately dictated CT of the abdomen/pelvis for discussion of intra-abdominal contents. IMPRESSION: 1. No acute abnormality of the thoracic spine or paraspinal soft tissues appreciated. 2. Multilevel thoracic spondylosis and degenerative disc disease with endplate osteophyte formation generally more prominent on the right. 3. Scattered pulmonary nodules, incompletely assessed. Recommend further characterization with dedicated outpatient chest CT. ECG Data Attestation: I personally reviewed and interpreted this ECG as follows: Interpretation: EKG by my read shows sinus rhythm at a rate of 74. Suggestion of old inferior infarct noted. I do not note any acute ST or T-wave changes. Poor R-wave progression noted on today's EKG compared with previous from October. Also new Q-wave in AVF. Q-wave in lead 3 was present prior Q-waves noted in V3 and I am wondering about a V2 V3 lead reversal and will request 2nd EKG. Discharge Plan Discharge Clinical Impression: UTI (urinary tract infection), Abdominal fluid collection, Back pain, Pulmonary nodule, Constipation Patient Disposition: Home, Self-Care Condition: Improved Additional Instructions: 1. I do believe you have a UTI: Previous urine culture from November showed E coli that was not sensitive to all antibiotics and intermediate sensitivity to the antibiotic Keflex you were started on. I will put you on an antibiotic called cefpoxidime starting tomorrow morning. Tonight you received Rocephin as the 1st dose of an antibiotic. 2. Abdominal fluid collection-surgeon request that you wear your abdominal binder. They are suggesting you roll up a small washcloth and place it over the incision before you put the binder on. They are requesting a follow-up on Sunday with Dr. Tamayo in the clinic. I will have the motel front desk attendant make this appointment and have them call you tomorrow without appointment 3. Back pain-we did not find any significant issues on your CT but do note that you have arthritic changes. This could be muscular or may be nerve pain from the spine. If this is ongoing would suggest an MRI of the thoracic and lumbar spine scheduled through your regular physician or clinic. Then you can take these findings to the back surgeon appointment that you already have scheduled in January. 4. There is a pulmonary nodule measuring 4 mm on the abdominal CT. They are suggesting that you have a dedicated CT to ensure no other nodules and to further look at this particular nodule in the right middle lobe. Limit twisting bending at this time. Return to the emergency room as needed. Prescriptions: New cefpodoxime 200 mg tablet 200 mg PO BID Qty: 14 0RF Rx Instructions: must administer with a meal/food No Action metoprolol succinate 100 mg tablet extended release 24 hr 100 mg PO BID Qty: 180 1RF naloxone [Narcan] 4 mg/actuation spray,non-aerosol 4 mg intranasal Q2-3M PRN (Reason: opioid overdose) Qty: 2 0RF Rx Instructions: spray 1 dose into ONE nostril; alternate nostrils w each dose until help arrives losartan 100 mg tablet 100 mg PO DAILY rosuvastatin 20 mg tablet 20 mg PO QPM amlodipine 10 mg tablet 10 mg PO DAILY omeprazole 20 mg capsule,delayed release(DR/EC) 20 mg PO DAILY zolpidem 5 mg tablet 5 mg PO HS PRN (Reason: insomnia) oxycodone 10 mg tablet 10 mg PO Q6H PRN (Reason: pain) metoclopramide HCl [Reglan] 5 mg tablet 5 mg PO QID Qty: 12 0RF oxycodone [OxyContin] 15 mg tablet,oral only,ext.rel.12 hr 15 mg PO BID Qty: 60 0RF Follow Up/Referrals: Provider,Not a Local [Primary Care Provider] - Stand Alone Forms: [employer] Info Instructions
--- NOTE | 2025-01-19 19:23 | CRLHL7_ITS ---
For Patients: As a result of the Century Cures Act, medical imaging exams and procedure reports are released immediately into your electronic medical record. You may view this report before your referring provider. If you have questions, please contact your health care provider. Indication: Pre-surgical back pain. Technique: Abdomen 4 view. Comparison: CT abdomen and pelvis 12/11/2024. Findings: Bowel: Nonobstructive bowel gas pattern. Ktjx-sx-nqnewzha colonic stool burden. Other: No sign of free air. No sign of soft tissue mass. The lung bases are clear. Postsurgical changes of lumbosacral spine. Impression: No evidence of an acute intra-abdominal process. Dictated by Chris Medina MD @ 01/19/2025 8:14:51 PM (Electronically Signed)
--- OUTSIDE RECORDS SUMMARY | 2025-01-19 19:44 | XMS_ITS | Clinical Summary ---
Author Organization [facility] Address [address] [place] [address] Care Team Providers Care Regulatory Affairs Intern Name Role Phone Natalie Ramos Lalita AUSTIN Unavailable [phone] Kel Salvador MD Unavailable [phone] Justin Cuba MD Primary Care Provider Allergies [...] Pain. 120 Tablet 11/06/19 25 Active lidocain-me.salicy m-zwig-ftinu 4-20-0.025-5 % topical patch Apply 2 Patches [...] 01/14/2024 Overview (01/14/2024): Uses Pessary CAD in curyung artery 09/26/2021 Overview (09/26/2021): CT Cardiac Coronary: 09/19/2021 1. This is a dual read study - please review [facility] over-read below for incidental non cardiac [...] any concerns. 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 09/19/2021 09/26/2021 Radicular leg pain, left 04/19/201504/2019 Paresthesias 05/20/2014 08/01/2019 Dysthymic disorder 07/12/2009 4 HTN (hypertension) 09/25/2008 9 Overview (12/07/2009): Updated by system to replace inactive record Urinary tract infection, site not specified 12/19/2005 04/17/2012 Encounters Date Type Department Care Team Description 01/13/2025 6:00 AM CDT Office Visit [facility] at [address] [phone] Dejon Wei MD Surgery Scheduled 01/13/2025 Lab Requisition [facility] [phone] Grace Barros MD 01/13/2025 Lab Requisition [facility] [phone] Grace Barros MD 01/08/2025 Orders Only [facility] Scanner 1 scan: (1-Ord) INCOMING RECORDS-CT, [facility], 01/08/2025 01/08/2025 Orders Only [facility] Scanner 1 scan: (1-Ord) INCOMING RECORDS-MRI, [facility], 01/08/2025 01/08/2025 Orders Only [facility] Scanner 1 scan: (1-Ord) INCOMING RECORDS-LABS, [facility], 01/08/2025 01/07/[address] [facility] [address] [place] [address] Justin Cuba MD Abdominal Pain 01/07/[address] [facility] [address] [place] [address] Justin Cuba MD Questions (Appendix) 01/05/2025 1:00 PM CDT Office Visit [facility] [address] [place] [address] Dejon Wei MD Consult (Ventral hernia ) 01/04/2025 Travel 01/02/2025 1:00 PM CDT Office Visit [facility] [address] [place] [address] Justin Cuba MD Preoperative Exam 01/02/2025 Travel 12/31/2024 Travel 12/11/2024 Nurse Triage [facility] [place] [address] [place] [address] Justin Cuba MD Pain (Side pain radiating through lower back- pt has had kidney stones in the past (feels the same)) 11/06/[address] [facility] [address] [place] [address] Justin Cuba MD Medication Problem (Pharmacy out of meds) 10/29/[address] [facility] [address] [place] [address] Justin Cuba MD Leg Pain/problem 10/27/[address] [facility] [address] [place] [address] Justin Cuba MD Appointment Request (Left leg pain) 10/27/2024 Nurse Triage [place] [address] [place] [address] Justin Cuba MD Error-please disregard (OPENED IN ERROR) 10/22/2024 4:00 PM CLIENT SUPPORT PROFESSIONAL Office Visit [facility] [address] [place] [address] Justin Cuba MD Pain (Deep mid/low back pain, radiates from groin to back, when getting out of bed in the morning needing to hold breath. L>now right); Neck Pain/problem (Left sided intermittent neck/throat inflamed? More so when turning head); Medication Management (Renew; OK to fill 2 days early? Leaving for [place] 11/07, controlled substances due to fill on ) 10/22/2024 Travel from Last 3 Months Immunizations Immunization Administration Dates Next Due COVID-19 vaccine (Rossy-J& J) PFSIDDHARTH 12/18/2020 COVID-19 vaccine (121 [employer] 30mcg/0.3mL) PFSIDDHARTH 09/26/2021 Influenza, IIV3 (Age [...] on file Legal Sex Female 5:50 AM CLIENT SUPPORT PROFESSIONAL Gender Identity Not on file Sexual Orientation [...] 36.7 C (98.1 F) 09/19/2021 9:09 AM CLIENT SUPPORT PROFESSIONAL Respiratory Rate 18 09/19/2021 1:31 PM CLIENT SUPPORT PROFESSIONAL Oxygen Saturation 99% 01/05/2025 12: 55 PM [...] Description 01/26/2025 3:45 PM CDT Office Visit [facility] [address] [place] [address] Dejon Wei MD [address] [place] [address] Health Maintenance Due Date Last Done Comments [...] Cuba MD Medical Devices Implanted Type Area Program Rep Device Identifier Shelf Expiration Date Model / Serial / Lot Bone 1-4mm 30cc Medtronic Chips Canclls Freeze Dried - [id number] Implanted:Qty: 1 on 11/27/2018 by Wilbert Montelongo MD at [facility] N/A: Spine Medtronic Spine/Ortho 03/28/2023 [id number]# / / [id number] Plate Lmbr Calhoun-L Stand Alone Lock - [id number] Implanted:Qty: 2 on 11/27/2018 by Wilbert Montelongo MD at [facility] N/A: Spine Chapo Spine [id number]# / / . Spacer Lmbr [id number] 8deg Avs-L Stand Alone - [id number] Implanted:Qty: 1 on 11/27/2018 by Wilbert Montelongo MD at [facility] N/A: Spine Evans Spine [id number]# / / . 5.5mm X 22mm Rescue Screw Lite Plate Implanted:Qty: 1 on 11/27/2018 by Wilbert Montelongo MD at [facility] N/A: Spine [id number] / / . Bone 1-4mm 60cc Medtronic Fine Canclls Freeze Dried - [id number] Implanted:Qty: 1 on 11/27/2018 by Wilbert Montelongo MD at [facility] N/A: Spine Medtronic Spine/Ortho 02/15/2023 [id number]# / / [id number] Screw Lmbr Post 8.5x50mm Ilios Va - [id number] Implanted:Qty: 2 on 11/27/2018 by Wilbert Montelongo MD at [facility] N/A: Spine Evans Spine [id number]# / / . Screw Lmbr Post 6.5x45mm Xia3 Va - [id number] Implanted:Qty: 4 on 11/27/2018 by Wilbert Montelongo MD at [facility] N/A: Spine Chapo Spine [id number]# / / . Screw Lmbr Post 6.5x40mm Xia3 Va - [id number] Implanted:Qty: 2 on 11/27/2018 by Wilbert Montelongo MD at [facility] N/A: Spine Chapo Spine [id number]# / / . Set Screw Lmbr Xia3 - [id number] Implanted:Qty: 8 on 11/27/2018 by Wilbert Montelongo MD at [facility] N/A: Spine Evans Spine [id number]# / / . Oni Lmbr [id number] Xia3 Cvd Titnm - [id number] Implanted:Qty: 1 on 11/27/2018 by Wilbert Montelongo MD at [facility] N/A: Spine Chapo Spine [id number]# / / . Bone Matrix 5cc Progenix Plus Putty Dbm - [id number] Implanted:Qty: 1 on 11/27/2018 by Wilbert Montelongo MD at [facility] N/A: Spine Medtronic Spine/Ortho 05/15/2020 [id number]# / / [id number] Oni Lmbr [id number] Xia3 Titnm - [id number] Implanted:Qty: 1 on 11/27/2018 by Wilbert Montelongo MD at [facility] N/A: Spine Chapo Spine [id number]# / / . Bone Matrix 5cc Progenix Plus Putty Dbm - [id number] Implanted:Qty: 1 on 11/27/2018 by Wilbert Montelongo MD at [facility] N/A: Spine Medtronic Spine/Ortho 04/22/2020 [id number]# / / [id number] Bone Matrix Lg Infuse Bmp - [id number] Implanted:Qty: 1 on 11/27/2018 by Wilbert Montelongo MD at [facility] N/A: Spine Medtronic Spine/Ortho 10/25/2020 [id number]# / / [id number] Bone Matrix 10cc Stimulan Kit Rapid Cure - [id number] Implanted:Qty: 1 on 11/27/2018 by Wilbert Montelongo MD at [facility] N/A: Spine Azure [employer] Inc 06/23/2021 [id number]# / / 06/11-R379/3 80 Description:Mixed with Tobra mycin 1.2g Spacer Lmbr [id number] 12deg Avs-L Stand Alone - [id number] Implanted:Qty: 2 on 11/27/2018 by Wilbert Montelongo MD at [facility] N/A: Spine Chapo Spine [id number]# / / . 23mm Plate - Lite Plate Implanted:Qty: 1 on 11/27/2018 by Wilbert Montelongo MD at [facility] N/A: Spine [id number] / / . Description:REF: [id number] 5.0 X 25mm Screw - Lite Plate Implanted:Qty: 3 on 11/27/2018 by Wilbert Montelongo MD at [facility] N/A: Spine [id number] / / . Screw Lmbr 6x25mm Ancr-L Standalone - [id number] Implanted:Qty: 6 on 11/27/2018 by Wilbert Montelongo MD at [facility] N/A: Spine Evans Spine [id number]# / / . Explanted Type Area Program Rep Device Identifier Shelf Expiration Date Model / Serial / Lot Screw Sm Joint 4.5x20mm Axsos Malcom Titnm - [id number] Explanted:Qty: 6 on 11/27/2018 by Wilbert Montelongo MD at [facility] N/A: Spine [employer] [id number] / / . Procedures Procedure Name Priority Date/Time Associated Diagnosis Comments LAB TRACKING EVENT Routine 01/13/2025 12 :00 PM CDT PATH NON GREEN PROMOTIONS SPECIALIST CYTOLOGY Routine 01/13/2025 12:00 PM CDT PATH TISSUE EXAM Routine 01/13/2025 8:14 AM CDT LAB TRACKING EVENT Routine 01/13/2025 6: 06 AM CDT SCAN CORRESP-LABORATORY RESULTS 01/08/2025 12:00 AM CDT SCAN CORRESP-IMAGING 01/08/2025 12:00 AM CDT SCAN CORRESP-IMAGING 01/08/2025 12:00 AM CDT HEMOGLOBIN Routine 01/02/2025 2:32 PM CDT Essential hypertension POTASSIUM Routine 01/02/2025 2:32 PM CDT Essential hypertension FL ECG ROUTINE ECG W/LEAST 12 LDS W/I&R Routine 01/02/2025 Essential hypertension LIPID PANEL W REFLEX MEASURED LDL Routine 01/14/2024 4:42 PM CDT Hyperlipidemia, unspecified hyperlipidemia type SCAN-COLONOSCOPY 10/30/2022 12:0 0 AM CLIENT SUPPORT PROFESSIONAL XR MAMMO BILAT SCREEN FFDM (IA) Routine [...] MD LAB BILL ONLY Fi nal Result [facility] [address] [place] [address], [place] * PATH NON GREEN PROMOTIONS SPECIALIST CYTOLOGY (01/13/2025 12:00 PM CDT) Case Report Medical Cytology Report Case: [id number] Authorizing Provider: Grace Barros Collected: 01/13/2025 1200 MD Celeste Ordering Location: [facility] Received: 01/13/2025 1500 Pathologist: Geovanny Fernandes MD Specimen: Peritoneal Washing 01/14/2025 12:[address] [facility] Final Diagnosis PERITONEAL WASHINGS, CYTOLOGIC MATERIAL: Negative for malignancy in this sample 01/14/2025 12:46 PM CDT [facility] at 1246 CDT Clinical Information Right oophorectomy. See case [id number]. 01/14/2025 12:46 PM CDT [facility] Gross Description A) SOURCE: Peritoneal washing The specimen consists of 50 cc of light red hazy fluid from which the following is prepared: -1 Papanicolaou stained ThinPrep slide 01/14/2025 12:46 PM CDT [facility] Microscopic Description All slides were reviewed microscopically. Specimen adequacy: Adequate for interpretation. The microscopic appearance substantiates the diagnosis. 01/14/2025 12:46 PM CDT [facility] Additional Information Cytology is screened at [facility] - [address] [place] [address] [address] [facility] - [address], [place] [address] [address] [facility] - [address] [place] [address] Interpreted at [facility] - [address], [place] [address] 01/14/2025 12:46 PM CDT [facility] Other (Peritoneal Washing) 01/13/2025 12:00 PM CDT 01/13/2025 3:00 PM CDT Grace Barros MD PATHOLOGY/CYTOLOGY Final Result [facility] [address] [place] [address], [place] * PATH TISSUE EXAM (01/13/2025 8:14 AM CDT) Case Report Pathology Report Case: [id number] Authorizing Provider: Grace Barros Collected: 01/13/2025 0814 MD Celeste Ordering Location: [facility] Received: 01/13/2025 1606 Pathologist: Slava Hahn MD Specimen: Right Ovary 01/15/2025 2:[address] [facility] Final Diagnosis A) RIGHT OVARY, OOPHORECTOMY: 1. Simple serous cysts, benign 2. Atrophy 3. Corpora albicantia 4. Negative for borderline tumor or malignancy 01/15/2025 2:[address] [facility] at 1444 CDT Clinical Information 59-year-old with incidental imaging finding of a right ovarian cystic mass. CA125, CA 19-9 within normal limits. 01/15/2025 2:[address] [facility] Gross Description A) Received fresh [...] 1.1 x 0.8 cm pink rubbery nodule. Supervisor Roller Printing sections are submitted in 4 cassettes. Time and date in formalin: 825 on 01/13/2025 TRS 01/13/2025 01/15/2025 2:[address] [facility] Microscopic Description The final diagnosis is based on microscopic examination of appropriate sections of all specimens. 01/15/2025 2:44 PM CDT [facility]AT[facility] Additional Information Interpreted at [facility] - [address] [facility] [address], [place] [address] 01/15/2025 2:44 PM CDT [facility]- [facility]AT[facility] Other (Right Ovary) 01/13/2025 8:14 AM CDT 01/13/2025 4:06 PM CDT us Grace Barros MD PATHOLOGY/CYTOLOGY Final Result [facility] [address] [place] [address], [place] * SCAN CORRESP-LABORATORY RESULTS (01/08/2025 12:00 AM CDT) us Scanner OTHER Final Result * SCAN CORRESP-IMAGING (01/08/2025 12:00 AM CDT) Only the most recent of2 resultswithin the time period is included. Anatomical Region Laterality Modality Other us Scanner OTHER Final Result * HEMOGLOBIN (01/02/2025 2:32 PM CDT) HEMOGLOBIN 11.8 11.7 - 15.5 g/dL [employer] Blood BLOOD SPECIMEN / Unknown 01/02/2025 2:32 PM CDT 01/02/2025 2:32 PM CDT us Justin Cuba MD HEMATOLOGY Final R esult [facility] [address] [place] [address], [place] [phone] [facility] [address] [place] [address] * POTASSIUM (01/02/2025 2:32 PM CDT) POTASSIUM 4.3 3.5 - 5.3 mmol/L [employer] Blood BLOOD SPECIMEN / Unknown 01/02/2025 2:32 PM CDT 01/02/2025 2:32 PM CDT Justin Cuba MD CHEMISTRY Final R esult [facility] [address] [place] [address], [facility] [address] [place] [address] * FL ECG ROUTINE ECG W/LEAST 12 LDS W/I&R (01/02/2025) Justin Cuba MD PB - CARDIOVASCULAR SYS TEM SERVICES Final Result * (ABNORMAL) LIPID PANEL W REFLEX MEASURED LDL (01/14/2024 4:42 PM CDT) CHOLESTEROL,TOTAL 311(H) 100 - 199 mg/dL 01/15/2024 4:20 AM CDT [facility] Comment: Cholesterol, Total Reference Ranges Desirable <200 mg/dL Borderline 200-239 mg/dL High >=240 mg/dL TRIGLYCERIDES 334(H) <150 mg/dL 01/15/2024 4:20 AM CDT [facility] HDL CHOLESTEROL 42 >40 mg/dL 4 4:20 AM CDT [facility] NON-HDL CHOLESTEROL 269(H) <145 mg/dl 01/15/2024 4:20 AM CDT [facility] CHOL/HDL RATIO 7.40(H) <4.50 01/15/2024 4:20 AM CDT [facility] LDL CHOLESTEROL 202(H) <=130 mg/dL 01/15/2024 4:20 AM CDT [facility] VLDL CHOLESTEROL 67(H) <=30 mg/dL 01/15/2024 4:20 AM CDT [facility] PROVIDER ORDERED STATUS RANDOM 01/15/2024 4:20 AM CDT [facility] Blood BLOOD SPECIMEN / Unknown Venipuncture / Unknown 01/14/2024 4:42 PM CDT 01/14/2024 4:42 PM CDT Justin Cuba MD CHEMISTRY Final R esult [facility] [address] [place] [address], [place] * SCAN-COLONOSCOPY (10/30/2022 12:00 AM CLIENT SUPPORT PROFESSIONAL) us Scanner OTHER Final Result * XR [...] of Computer-Aided Detection. COMPARISON FILMS: Yes 12/22/13 [facility] 11/02/08 [facility] FINDINGS: Mammographically, the breast tissue has scattered fibroglandular densities. No suspicious masses or microcalcifications. Post surgical changes within right breast. Justni Cuba MD MAMMO Final R esult from Last 3 Months or Most Recently Relevant to Health Maintenance [place] [address] [place] Advance Directives * Full Code (Latest [...] 10:04 PM 01/01/2013 8:31 PM Care Teams Regulatory Affairs Intern Relationship Specialty Start Date End Date Justin Cuba MD [address] [place] [address] PCP - General Family Practice 10/10/23 Natalie Ramos NP Pain Management Nurse Practitioner 06/10/19 Kel Salvador MD [address] [place] [address] (work) Cardiovascular Disease 12/02/21
--- OUTSIDE RECORDS SUMMARY | 2025-01-19 19:44 | XMS_ITS | Data Portability ---
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 Plan of Treatment Reminders Order Date Submit Date Provider Last Modified By Organization Details Last Modified Time Details Appointments None recorded. Lab urinalysis, dipstick 2022 023 [facility], [address] [facility], [place], [address], 3 15:23:48 Referral [email or web address] gy physical therapy referral - Please call patient to schedule Pelvic Floor Physical Therapy. Thank you 2022 023 [email or web address] [facility], [address] [place], [address], 3 14:08:45 Procedures None recorded. Surgeries None recorded. Imaging None recorded. Medication Orders estradiol 0.01% (0.1 mg/gram) vaginal cream 2022 023 [id number], [address], [place], [address], 3 09:14:18 Patient TargetsNo targets recorded. Patient Instructions Encounter Date Encounter Id Patient Instructions Last Modified By Organization Details Last Modified Time 02/27/2023 [id number] YESSY: -Discussed management for stress urinary incontinence including pelvic floor exercises, jwpe-hfe-gwvhebh Poise Impressa product, pelvic floor physical therapy [...] UTIs remain an issue with conservative management. [email or web address] Not available 02/27/2023 16:21:07 08/30/2023 [id number] Stress incontinence: -Discussed YESSY and the purpose [...] -Follow-up in 2 weeks, sooner if issues. Not available 08/30/2023 10:08:58 09/13/2023 [id number] Stress incontinence: -She was fit with #1 [...] weeks [email or web address] Not available 09/13/2023 16:04:41 10/17/2023 [id number] Stress incontinence: -She was fit with #1 [...] uriscan NEGATI VE negati ve Not Available [facility] [address], [place], [address], 02/27/2023 15:23:48 02/28/2002/2702/27/2023 UA WITHO UT MICRO - CS URISC AN bilirubin - uriscan NEGATI VE mg/dL negati ve Not Available [facility] [address] [place] [address] [address], [place], [address], 02/27/2023 15:23:48 02/28/20 23 02/27/2023 UA WITHO UT MICRO - CS URISC AN urobilinogen - uriscan NORMAL mg/dL normal Not Available [facility] [address] [place] [address] [address], [place], [address], 02/27/2023 15:23:48 02/28/20 23 02/27/2023 UA WITHO UT MICRO - CS URISC AN ketones - uriscan NEGATI VE mg/dL negati ve Not Available [facility] [address] [place] [address] [address], [place], [address], 02/27/2023 15:23:48 02/28/20 23 02/27/2023 UA WITHO UT MICRO - CS URISC AN protein - uriscan NEGATI VE mg/dL negati ve Not Available [facility] [address] [place] [address] [address], [place], [address], 02/27/2023 15:23:48 02/28/20 23 02/27/2023 UA WITHO UT MICRO - CS URISC AN nitrites - uriscan NEGATI VE negati ve Not Available [facility] [address] [place] [address] [address], [place], [address], 02/27/2023 15:23:48 02/28/20 23 02/27/2023 UA WITHO UT MICRO - CS URISC AN glucose - uriscan NEGATI VE mg/dL negati ve Not Available [facility] [address] [place] [address] [address], [place], [address], 02/27/2023 15:23:48 02/28/20 23 02/27/2023 UA WITHO UT MICRO - CS URISC AN pH - uriscan 5.00 5.00-9 .00 Not Available [facility] [address] [place] [address], [place], [address], 02/27/2023 15:23:48 02/28/20 23 02/27/2023 UA WITHO UT MICRO - CS URISC AN sp. gravity - uriscan 1.03 1.01-1 .03 Not Available [facility] [address] [place] [address] [address], [place], [address], 02/27/2023 15:23:48 02/28/20 23 02/27/2023 UA WITHO UT MICRO - CS URISC AN leukocytes - uriscan NEGATI VE negati ve Not Available [facility] [address] [place] [address], [place], [address], 02/27/2023 15:23:48 02/28/20 23 02/27/2023 UA WITHO UT MICRO - CS URISC AN color - uriscan YELLOW lt. yellow ;yello w Not Available [facility] [address] [place] [address], [place], [address], 02/27/2023 15:23:48 02/28/20 23 02/27/2023 UA WITHO UT MICRO - CS URISC AN clarity - uriscan CLEAR clear Not Available [facility] [address] [place] [address], [place], [address], 02/27/2023 15:23:48 02/28/20 23 02/27/2023 UA WITHO [...] for provi francisca revie w. Not Available [facility] [address] [place] [address] [address], [place], [address], 02/27/2023 15:23:48 Result Notes None recorded. Problems Name Problem SNOMED Code Status Onset Date Resolution Date Notes Provider Name and Address Organization Details Recorded Time History of statin therapy 222757601 Active 2022 Haley Jorge cuba [facility] 3 08:47:54 Gastroesophage al reflux disease 687816759 Active 2022 Asuncion cuba [facility] 3 15:09:56 Uric acid renal calculus 368195198 Active 2022 Asuncion cuba [facility] 3 15:10:38 Depressive disorder 80323585 Active 2022 Asuncion cuba [facility] 3 15:10:59 Hypertensive disorder 14170235 Active 2022 Asunicon cuba [facility] 3 15:11:07 Problem Notes None recorded. Procedures Surgical History Date Name Laterality Status Provider Name and Address Organization Details Recorded Time 10/17/19 24 COMPLEX VISIT completed SERGEI Smith [address] [facility],[address], [place], [address], [facility] 10/17/2023 16:24:44 10/17/19 24 Pessary Cleaning completed SERGEI Smith [address] [facility],[address], [place], [address], [facility] 10/17/2023 16:24:48 09/13/20 23 Pessary Insertion completed SERGEI Smith [address] [place] [address],[address], [place], [address], [facility] 09/13/2023 16:04:04 08/30/20 23 Pessary Insertion completed SERGEI WHITING [address] [place] [address],[address], [place], [address], [facility] 08/30/2023 10:08:11 02/28/20 23 Past Data Reviewed completed SERGEI WHITING [address] [place] [address],[address], [address], [facility] 02/20/2023 17:08:48 02/28/20 23 In and Out Catheterization- female completed SERGEI WHITING [address] [place] [address],[address], [place], [address], [facility] 02/27/2023 15:39:58 09/28/19 23 Diagnostic [...] Name and Address Organization Details Recorded Time 088204 Latex (substanc e) environme nt,medica tion rash Not available Not available 08/26/2023 03504 8007 SNOMED Not Available Not Available Not [...] Address Organization Details Last Updated DateTime 02/27/2023 48646.07 g Aileen Salazar [place] [facility] 02/27/2023 15:12:28 Date Recorded Body height Body mass index (BMI) Provider Name and Address Organization Details Last Updated DateTime 02/27/2023 160.02 cm 35.6 kg/m2 Not Available Health Note 15:11:23 Date Recorded Body height Provider Name an d Address Organization Details Last Updated DateTime 08/30/2023 160.02 cm Haley Patel [facility] 08/30/2023 09:13:46 Date Recorded Body height Body mass index (BMI) Body weight Provider Name and Address Organization Details Last Updated DateTime 09/13/2023 160.02 cm 35.6 kg/m2 07238.07 g Asuncion Willis [facility] 09/13/2023 15:09:07 Date Recorded Body height Body mass index (BMI) Body weight Provider Name and Address Organization Details Last Updated DateTime 10/17/2023 160.02 cm 35.6 kg/m2 30052.07 g Asuncion Willis [facility] 10/17/2023 15:59:36 Social History Question Answer [...] Use Any Illicit Or Recreational Drugs? No [facility] Information not available 08/26/2023 Has Tobacco Cessation Counseling Been Provided? No Information not available 08/30/2023 Do You Or Have You Ever Used Any Other Forms Of Tobacco Or Nicotine? No Information not available 08/30/2023 How Many Days In The Past Year Have You Consumed 4 Or More Drinks? 0 [facility] Information no t available 08/26/2023 Sex: Unknown Functional Status None recorded. Mental Status None recorded. Family History Relationship Description Onset Age of this Age Resolved Age Notes LastModified by Organization Details LastModified Time Mother Family history of cancer of colon [facility] Not available 2022 16:12:28 Mother Family history of diabetes mellitus [facility] Not available 2022 16:12:28 Maternal Grandmother Family history of diabetes mellitus [facility] Not available 2022 16:12:28 Maternal Grandmother Family history of cardiac disorder [place] [id number] Not available 2022 16:12:28 Medical History Condition Response Other N High Blood Pressure Y Kidney Stones Y Lung Disease N Depression Y GERD/Acid Reflux N Sexually Transmitted Infection N Cancer N High Cholesterol N Diabetes N Bleeding Disorder N Heart Disease N Gynecological History Statement/Question Response Irregular periods N Heavy periods N Sexually Active? N Obstetrics History GPAL:G 0 P 0 0 0 0 Immunizations Vaccine Type Date Status Note Provider Nam e and Address Organization Details Recorded Time influenza, unspecified formulation 11/09/2020 completed RAYMOND Varghese [facility] 09/13/2023 15:09:12 SARS-COV-2 (COVID-19) vaccine, UNSPECIFIED 02/09/2021 completed RAYMOND Varghese [facility] 09/13/2023 15:09:12 Past Encounters Encounter ID Performer Location Encounter Start Date Encounter Closed Date Diagnosis/Indication Diagnosis SNOMED-CT Code Diagnosis ICD10 Code Diagnosis Note [id number] [facility] [address] [address] 02/27/2023 15:10:43 02/27/2023 16:23:02 Urinary incontinence 875824460 R32 chronic, worse Female str ess incontinence 64546690 N39.3 chronic, worse Atrophic vaginitis 63846 000 N95.2 chronic, worse [id number] SERGEI WHITING [facility] [address] [facility] [place] [address] 08/30/2023 09:08:45 08/30/2023 10:25:54 Urinary incontinence 470021467 R32 chronic, stable Female str ess incontinence 79967452 N39.3 chronic, stable Atrophic vaginitis 41543 000 N95.2 chronic, stable [id number] SERGEI Smith [facility] [address] [facility],[address] [place] [id number] 09/13/2023 15:05:51 09/13/2023 16:05:08 Urinary incontinence 558321311 R32 chronic, stable Female str ess incontinence 11820159 N39.3 chronic, stable Atrophic vaginitis 85689 000 N95.2 chronic, stable [id number] SEGREI Smith [facility] [address] [facility] [place] [id number] 10/17/2023 15:57:05 10/17/2023 16:46:23 Urinary incontinence 644767493 R32 chronic, stable Female str ess incontinence 12871545 N39.3 chronic, stable Atrophic vaginitis 27355 000 N95.2 chronic, stable Health Concerns Section Related Observation LastModified by Organization Detai ls LastModified Time None Recorded Concern Status LastModified by Organization Details LastModified Time None Recorded Advance Directives Directive None Recorded Payers Encounter Date Sequence Insurance Name Policy Number Policy Haskins Covered Member ID Haskins Member ID Guarantor Name 02/27/2023 1 [place] [id number] 5 Germán R [place] [id number] 22 Sheri Harris [place] 08/30/2023 1 [place] [id number] 5 Germán R Juan David [id number] 22 Sheri Fall 09/13/2023 1 [place] [id number] 5 Germán R Juan David [id number] 22 Sheri Fall 10/17/2023 1 [place] [id number] 5 Germán Fall [id number] 22 Sheri Fall Notes Date Note Type [...] 14Incontinence Impact Questionnaire (IIQ-7): 13 SERGEI WHITING [address] [place] [address],[address], [place], [address], [facility] 02/27/2023 16:21:28 3 text/html Patient seen [...] 14Incontinence Impact Questionnaire (IIQ-7): 10 SERGEI WHITING [address] [place] [address],[address] [place] [address], [address], [facility] 08/30/2023 10:09:29 3 text/html 09/13/23:Patient presents [...] Incontinence Impact Questionnaire (IIQ-7): 10 SERGEI Smith [address] [place] [address],[address] [place] [address], [address], [facility] 09/13/2023 16:04:55 4 text/html 10/17/23:Patient presents [...] less straining to have a bowel movement. 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
--- OUTSIDE RECORDS SUMMARY | 2025-01-19 19:44 | XMS_ITS | Continuity of Care Document ---
Author Organization [facility] Address [address] [place] [address] Phone Care Team Providers Care Ferry Pilot Name Role Phone Will MD GARZA, Veto [...] Drug test def 8-14 classes OFFICE/OUTPATIENT VISIT, [facility] Advance Directives Directive Yes / No Effective Date File Name No Information Encounters Encounter Description Practice Location Reason(s) For Visit Diagnoses Date Provider Providers Copied on Encounter [facility], [address] [place], [place], [id number] , [place] tel:+ [phone] [facility] No Information 2 Will Veto. [address] [facility] [place], [place], [id number] , [place]. tel:[phone] [facility], [address] [place], [place], [id number] , [place] tel:+ [phone] [facility] [place] No Information 2 Vinicio Argueta. [address] [facility] [address], [place], [place], [id number] , [place]. tel:[phone] Referring Provider: Veto Norman, [address] [place], [address]. tel:[phone] OFFICE/OUTPA TIENT VISIT, [facility], [address] [place], [place], [id number] , [place] tel:[phone] [facility] Back pain (chief complaint) Chronic pain syndromeLow back pain, unspecifiedLong term (current) use of opiate analgesicEncounter for therapeutic drug level monitoring 2 Vinicio Argueta. [address] [facility] [address], [place], [place], [id number] , [place]. tel:[phone] Referring Provider: [facility] [address], [place], [address]. tel:[phone] Family History Family Member Type Diagnosis Age At Onset Sister Problem Back pain/issues Payers Payer name Insurance type Covered republican ID Baldomero roth(s) Blue Cross Blue Jojo Gent[employer] BL [id number] 2 Social History Type Description Quantity Date [...] Goal AST (SGOT). 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 Due on due Goal OARS. Due on due Goal Order Annual PT. Due on due Goal UDT. 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 Due on due Goal Creatinine. Due on due Goal Order Annual PT. Due on due Goal AST (SGOT). Due on due Goal ALT (SGPT). Due on due Goal OARS. 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 Due on due Goal Creatinine. Due on due Goal UDT. Due on due Goal UDT. 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 Due on due Goal ALT (SGPT). Due on due Goal Creatinine. Due on due Goal Order Annual PT. 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 Due on due Goal OARS. Due [...] History Of Prese nt Illness Comments: Daija frsaer is a 57 y/o woman here for [...] pain management, patient has tried PT at [facility], has undergone a lumbar epidural steroid injection at [facility], and has tried the following medications:- Gabapentin- Lyrica- Cyclobenzaprine- NSAIDS- Tramadol- Codeine- HydrocodoneCurrently managed on Oxycodone 10mg QID and OxyContin 15mg BID, prescribed by her new PCP, Dr. Bk Handy, at [facility].Sheri is interested in pain management through [...]
[2025-01-19 19:58] LABS: Appearance Urine Clear (Clear); Bilirubin Urine Negative (Negative); Blood Urine Negative (Negative); Color Urine Yellow (Yellow); Glucose Urine Negative (Negative); Ketones Urine Negative (Negative); Leukocyte Esterase Urine Negative (Negative); Nitrite Urine Positive (Negative); Protein Urine Trace (Negative); Specific Gravity Urine 1.025 (1.000-1.030); Urobilinogen Urine 0.2 (0.2-1.0); pH Urine 5.5 (5.0-8.5)
[2025-01-19] MEDS: KETOROLAC 30 MG/ML inj IM (20:03)
[2025-01-19 20:09] LABS: Basophils Absolute Auto 0.03 K/uL (0.00-0.30); Basophils Percent Auto 0.3 % (0.0-3.0); Eosinophils Absolute Auto 0.41 K/uL (0.00-0.50); Eosinophils Percent Auto 4.2 % (0.0-7.0); Hematocrit 40.2 % (33.0-51.0); Hemoglobin* 12.9 gm/dL (12.0-16.0); Immature Granulocytes Pct Auto 2.1 %; Lymphocytes Percent Auto 22.6 % (20-44); Mean Corpuscular HGB Conc 32 gm/dL (32-36); Mean Corpuscular Hemoglobin 27 pg (26-34); Mean Corpuscular Volume 84 fL (80-100); Monocytes Percent Auto 7.9 % (0.0-11.0); Neutrophils Absolute Auto 6.14 K/uL (1.7-7.0); Neutrophils Percent Auto 62.9 % (42.0-72.0); Platelet Count* 292 K/uL (140-440); Red Blood Count 4.77 m/uL (4.00-5.20); White Blood Count* 9.75 K/uL (4.50-11.00)
[2025-01-19 20:10] LABS: Slide Review Reflex No
[2025-01-19 20:19] LABS: Bacteria Urine Few; RBC Urine 0-2 (0-2); Squamous Epithelial Cell Urine Few (None-Few)
[2025-01-19 20:28] LABS: Albumin* 4.7 g/dL (3.3-5.0); Chloride* 103 mmol/L (96-114); Potassium* 3.8 mmol/L (3.6-5.1); Sodium* 140 mmol/L (135-149)
[2025-01-19 20:30] LABS: Blood Urea Nitrogen* 18 mg/dL (7-30); Creatinine* 0.9 mg/dL (0.5-1.5); Est. Creatinine Clearance* 57.05; Estimated Glomerular Filt Rate 75 ml/min
[2025-01-19 20:31] LABS: Alanine Aminotransferase* 47 U/L (4-35); Alkaline Phosphatase* 124 U/L (40-150); Anion Gap 13 mEq/L (7-15); Aspartate Amino Transferase* 46 U/L (12-35); Bilirubin Total* 1.3 mg/dL (0.1-1.5); Calcium* 9.8 mg/dL (8.4-10.6); Carbon Dioxide* 24 mmol/L (20-32); Glucose* 102 mg/dL (60-115); Total Protein* 8.3 g/dL (6.0-8.3)
--- NOTE | 2025-01-19 20:36 | CRLHL7_ITS ---
For Patients: As a result of the Century Cures Act, medical imaging exams and procedure reports are released immediately into your electronic medical record. You may view this report before your referring provider. If you have questions, please contact your health care provider. INDICATION: Right-sided flank pain. Recent surgery. TECHNIQUE: CT abdomen and pelvis acquired with 100 cc Isovue 370 IV contrast. COMPARISON: CT abdomen pelvis 12/11/2024 and 09/22/2022, MRI pelvis 12/11/2024. FINDINGS: Lower chest: Right middle lobe pulmonary nodule measuring 4 mm, not well seen on prior examination from 2021. Liver: Hepatic steatosis. Unchanged right hepatic parenchymal calcification. Gallbladder and bile ducts: Cholecystectomy. No suspicious biliary dilatation. Pancreas: Unremarkable Spleen: Unchanged splenic cyst measuring 1.0 cm. Adrenal glands: Unremarkable. Kidneys: Symmetric renal enhancement. Scattered bilateral renal hypodensities are too small to characterize on this exam, but likely represent cysts. No hydronephrosis or hydroureter. No urinary calculi identified. GI tract: No bowel obstruction. No suspicious bowel wall thickening. Normal caliber appendix. Vasculature: Atherosclerotic vascular calcifications. No abdominal aortic aneurysm. Grossly patent mesenteric vasculature. Lymph nodes: No suspicious lymphadenopathy. Peritoneum/Abdominal Wall: Postoperative changes of the anterior abdominal wall with thin intra-abdominal fluid collection along the anterior abdominal wall measuring up to 8.0 x 1.1 x 7.6 cm (CC x AP x TV). Foci of subcutaneous gas are noted along the anterior abdominal wall. No pneumoperitoneum. Pelvis: Normal bladder. No suspicious adnexal mass. Bones: Postoperative changes of the spine without obvious acute abnormality. IMPRESSION: 1. Thin intra-abdominal fluid collection along the anterior abdominal wall measuring up to 8.0 cm. While some of this may represent sequelae of recent surgical intervention, clinical correlation is recommended to exclude developing abscess. 2. Hepatic steatosis. 3. Right middle lobe pulmonary nodule measuring 4 mm, not well seen on prior examinations. Further characterization with outpatient dedicated chest CT recommended. Please note that all CT scans at this facility use dose modulation, iterative reconstruction, and/or weight-based dosing when appropriate to reduce radiation dose to as low as reasonably achievable. Dictated by Veto Bro MD @ 01/19/2025 9:53:46 PM (Electronically Signed)
--- NOTE | 2025-01-19 20:42 | CRLHL7_ITS ---
For Patients: As a result of the Century Cures Act, medical imaging exams and procedure reports are released immediately into your electronic medical record. You may view this report before your referring provider. If you have questions, please contact your health care provider. INDICATION: Right-sided thoracic paraspinal pain. TECHNIQUE: CT thoracic spine without contrast. COMPARISON: CT abdomen and pelvis 09/22/2022 and 12/11/2024. FINDINGS: No acute fracture or suspicious osseous lesion. The thoracic vertebral bodies maintain their normal heights with preserved thoracic kyphosis. No significant spondylolisthesis. There is multilevel spondylosis with endplate osteophyte formation more prominent on the right. Multilevel facet arthropathy is evident. Multilevel endplate degenerative changes without advanced disc space height loss. Limited evaluation of intraspinal contents on CT. Within these limitations, no advanced central canal or neural foraminal stenosis is appreciated. Paraspinal soft tissues are grossly within normal limits. Limited evaluation of intrathoracic contents demonstrates mild cardiomegaly in addition to coronary artery calcifications. There is a right upper lobe pulmonary nodule measuring 3 mm (series 3 image 77). A right middle lobe nodule measures 4 mm (series 3, image 119). Please refer to separately dictated CT of the abdomen/pelvis for discussion of intra-abdominal contents. IMPRESSION: 1. No acute abnormality of the thoracic spine or paraspinal soft tissues appreciated. 2. Multilevel thoracic spondylosis and degenerative disc disease with endplate osteophyte formation generally more prominent on the right. 3. Scattered pulmonary nodules, incompletely assessed. Recommend further characterization with dedicated outpatient chest CT. Please note that all CT scans at this facility use dose modulation, iterative reconstruction, and/or weight-based dosing when appropriate to reduce radiation dose to as low as reasonably achievable. Dictated by Veto Bro MD @ 01/19/2025 9:41:34 PM (Electronically Signed)
[2025-01-19 20:43] LABS: Troponin I* < 0.01 ng/mL (0.01-0.04)
[2025-01-19] MEDS: 0.9 % SODIUM CHLORIDE 500 ML 500 ML IV (21:19)
[2025-01-19] MEDS: cefTRIAXone 1 GM VIAL IM (23:17)
[2025-01-19] MEDS: LIDOCAINE 1% 5 ml (pf) 5 ML VIAL 2.1 ML IM (23:18)
== END 2025-01-19 23:31 | disposition home or self-care (01) ==
PROVIDERS: Emergency Provider Family Medicine
DX: N39.0 Urinary tract infection, site not specified (principal); R18.8 Other ascites; M54.9 Dorsalgia, unspecified; R91.1 Solitary pulmonary nodule; K59.00 Constipation, unspecified
CPT/HCPCS: 36415; 72128; 74019; 74177; 80053; 81001; 84484; 85025; 87086; 93005; 96360; 96361; 96372; 99284; 99285; J0696; J1885; J7030; Q9967